=== PATIENT | male | born 1950 | race Caucasian/White ===

== ENCOUNTER 2023-11-16 17:11 | Inpatient (IN) | payer MEDICARE, BC, SELFPAY ==
[2023-11-16] VITALS (8 sets, daily range): BP systolic 131–176; BP diastolic 69–105; BMI 30.8; BMI 30.1
[2023-11-16 14:54] LABS: COVID-19 Antigen Negative (Negative)
[2023-11-16 14:55] LABS: % Basophils 0.1 % (0-2); % Eosinophils 0.2 % (0-6); % Immature Granulocytes 0.5 % (0-0.5); % Lymphocytes 3.2 % (20.5-51.1); % Monocytes 3.7 % (1.7-9.3); % Neutrophils 92.3 % (42.2-75.2); Absolute Immature Granulocytes 0.1 10^3/uL (0-0.05); Absolute Lymphocytes 0.5 10^3/uL (1.2-3.4); Absolute Monocytes 0.6 10^3/uL (0.1-0.6); Absolute Neutrophils 14.2 10^3/uL (1.4-6.5); Hematocrit 34.6 % (39.0-52.0); Hemoglobin 12.1 g/dL (13.0-18.0); Mean Corpuscular Volume 85.9 fL (80.0-94.0); Mean Platelet Volume 11.6 fL (7.4-10.4); Nucleated Red Blood Cells % 0 % (-); Platelet Count 129 10^3/uL (130-400); Red Blood Cell Count 4.03 10^6/uL (4.70-6.10); Red Cell Dist. Width 15.3 % (11.5-14.5); White Blood Cell Count 15.3 10^3/uL (4.8-10.8)
[2023-11-16 15:00] LABS: ALT (SGPT) 19 U/L (0-50); AST (SGOT) 25 U/L (17-59); Alkaline Phosphatase 189 U/L (38-126); Blood Urea Nitrogen 66 mg/dl (9-20); Calcium 8.2 mg/dl (8.4-10.2); Carbon Dioxide 19 mmol/L (22-30); Chloride 96 mmol/L (98-107); Estimated Creatinine Clearance 20 ml/min; Glucose 260 mg/dl (70-99); Sodium 132 mmol/L (135-145); Total Protein 5.5 g/dl (6.3-8.2); eGFR 15.15
--- NOTE | 2023-11-16 15:08 | ED.GENMED ---
History of Present Illness
General
Chief Complaint: Change in Mental Status
Source: patient
Exam Limitations: other (Patient appears confused poor historian)
Time Seen by Provider: 11/16/23 14:28
Nursing documentation reviewed up to this point in time: agreed with
Travel History
Have you had any contact with someone who has COVID-19?: No
Do you have any symptoms of coronavirus? Fever > 100 degrees, chills, cough, shortness of breath, sore throat, loss of taste or smell, muscle aches, or headache?: Yes
Symptoms:: core throat
History of Present Illness
History of Present Illness:
Patient is a 73-year-old male who was sent to the ER for evaluation of confusion and hallucinations as per . Pt is awake alert tells me 'I dont feel good.' When asked he does complain of cough intermittent fevers. Patient was brought by EMS.
I did attempt to call twice on the number provided however no answer.
Patient tells me he does have a history of stroke, diabetes. It is documented in prior visit from December 2022 the patient does have a history of chronic lumbar back pain.
Past History
Past History
ED Past Medical History: CVA, GERD, HTN, Hypercholesterolemia, IDDM and Hypothyroidism
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
Review of Systems
Review of Systems
Allergies reviewed?: Yes
All Other Systems: ROS reviewed and negative except as documented in HPI and ROS
Constitutional: Reports fever
EENT: Reports no symptoms
Respiratory: Reports cough; Denies trouble breathing
Cardiac: Reports no symptoms
ABD/GI: Reports no symptoms
: Reports no symptoms
Musculoskeletal: Reports no symptoms
Skin: Reports no symptoms
Neurological: Reports no symptoms
Endocrine: Reports no symptoms
Hematologic/Lymphatic: Reports no symptoms
Psychiatric: Reports no symptoms
Phy Exam
General Physical Exam
General Presentation: no apparent distress
General age: appears stated age
General Skin: warm and dry
General Habitus: normal
General Mental: alert
General Hydration: appears well hydrated
Cardiovascular Exam
Cardiovascular Exam: no murmur, normal peripheral pulses and tachycardia
Pulmonary Exam
Pulmonary Exam: lungs clear and no respiratory distress
Neurological Exam
Neurological Exam: alert and oriented x3
Galt Coma Scale
Eye Opening: Spontaneous
Verbal Response: Oriented
Motor Response: Obeys Commands
GCS Total Score: 15
Musculoskeletal Exam
Musculoskeletal Exam: full ROM
Skin Exam
Skin Exam: normal color and warm/dry
Psychiatric Exam
Psychiatric Exam: normal mood/affect
Course
Orders/Labs/Results
Orders:
Orders
11/16/23 14:16
EKG [Electrocardiogram (*1)] Stat
Reason for Study: Fatigue / Weakness
EKG- Treatment ONCE
11/16/23 14:28
COVID-19 Antigen Urgent
Source: Nasal Swab
Complete Blood Count/With Diff Urgent
Comprehensive Metabolic Panel Urgent
INF RAPID [Influenza A+B Rapid Molecular] Urgent
ERIN Source: Nasal Swab
Specimen Description:
11/16/23 15:13
Chest [CR Chest - 2 Views ] Urgent
Comment:
Reason For Exam: cough
11/16/23 16:15
Lactic Acid Q4H
Comment: CANCEL 2nd LACTIC ACID IF 1st LACTIC ACID IS LESS THAN 2
Blood Culture Q30M
ERIN Source: Blood/Venous
Specimen Description:
Azithromycin 500 mg/250 ml [Zithromax Infusion] 500 mg in 250 ml IV NOW
CefTRIAXone [Rocephin] 1,000 mg IV NOW STA
11/16/23 16:16
0.9% Sodium Chloride 500 ml [Nss] 500 ml IV BOLUS
11/16/23 16:45
Blood Culture Q30M
ERIN Source: Blood/Venous
Specimen Description:
11/16/23 20:15
Lactic Acid Q4H
Comment: CANCEL 2nd LACTIC ACID IF 1st LACTIC ACID IS LESS THAN 2
Abnormal Lab Results
11/16/23
14:28
WBC 15.3 H 10^3/uL
(4.8-10.8)
RBC 4.03 L 10^6/uL
(4.70-6.10)
Hgb 12.1 L g/dL
(13.0-18.0)
Hct 34.6 L %
(39.0-52.0)
RDW 15.3 H %
(11.5-14.5)
Plt Count 129 L 10^3/uL
(130-400)
MPV 11.6 H fL
(7.4-10.4)
Abs Immat Gran (auto) 0.1 H 10^3/uL
(0-0.05)
Absolute Neuts (auto) 14.2 H 10^3/uL
(1.4-6.5)
Absolute Lymphs (auto) 0.5 L 10^3/uL
(1.2-3.4)
Neutrophils % 92.3 H %
(42.2-75.2)
Lymphocytes % 3.2 L %
(20.5-51.1)
Sodium 132 L mmol/L
(135-145)
Chloride 96 L mmol/L
(98-107)
Carbon Dioxide 19 L mmol/L
(22-30)
BUN 66 H mg/dl
(9-20)
Creatinine 4.0 H mg/dL
(0.7-1.3)
Glucose 260 H mg/dl
(70-99)
Calcium 8.2 L mg/dl
(8.4-10.2)
Alkaline Phosphatase 189 H U/L
(38-126)
Total Protein 5.5 L g/dl
(6.3-8.2)
Albumin 3.0 L g/dl
(3.5-5.0)
11/16/23 14:28
11/16/23 14:28
Vital Signs
Initial and Last Documented VS:
Initial Vital Signs
Temp Pulse Resp BP Pulse Ox
97.6 F 95 16 131/69 95
11/16/23 14:19 11/16/23 14:19 11/16/23 14:19 11/16/23 14:19 11/16/23 14:19
Last Documented Vital Signs
Temp Pulse Resp BP Pulse Ox
97.6 F 95 16 131/69 95
11/16/23 14:19 11/16/23 14:19 11/16/23 14:19 11/16/23 14:19 11/16/23 14:19
MDM/Problems Addressed
Differential Diagnosis Includes:
Not limited to viral syndrome, influenza, COVID, pneumonia, dehydration
MDM/Problems Addressed:
Patient is a 73-year-old male who presented from home via EMS. EMS reported the patient was feeling sick for the past 4 days. reports patient was confused questionable hallucinations. Patient was awake alert he was initially mildly confused
however on reexam appears more oriented. Able to tell me that he has been sick for the past several days with cough fevers. Patient is afebrile however his white count is 15.3 will check lactic acid. His vitals are stable. He has an audible
cough and chest x-ray does show a left lower lobe pneumonia.
Patient is a diabetic creatinine is elevated at 4.0 which is new compared to 1.December; BUN 66 compared to 14 Jan 2020, this may be possibly a component of dehydration. Patient was given fluids. He is however diabetic. His sugar is 260 here.
Gap is 17. Will send blood cultures check lactic and order antibiotics. Patient require admission for renal insufficiency, pneumonia
Chronic conditions affecting care:
Patient reports history, patient is a diabetic hypertensive history
*Radiology
Radiology exam reviewed: radiology read reviewed (mod left lower lobe pneumonia)
*Pulse Oximetry
Patient hypoxic: no
*EKG
Comparison EKG: no comparison EKG present
Heart Rate: 101
Rate: tachycardiac
Rhythm: sinus
*Critical Care Note
Total Time (30-74mins, 75-104mins- exclusive of procedures): Not Applicable
ED Attending Note
-
Portions of this chart may have been created with voice recognition software.� Occasional wrong word or��sound alike� substitutions may have occurred due to the inherent limitations of voice recognition software.
Discharge Plan
Departure
Patient Disposition: Admit
Date of Disposition: 11/16/23
Time of Disposition: 16:22
Admit to: Med/Surg
Admit to doctor: hospitalist
Presentation/result/management discussed w/ accepting MD/DO: Hospitalist
Patient with high blood pressure during this ER visit?: Yes
Condition: Fair
Covid-19: Negative COVID-19
Discharge Problem:
Pneumonia, Acute kidney insufficiency
Prescriptions:
No Action
Aspir-81
81 mg PO DAILY
baclofen 10 mg Tablet
10 mg PO HS Qty: 0
pantoprazole 40 mg Tablet,Delayed Release (Dr/Ec)
40 mg PO DAILY Qty: 0
metformin 1,000 mg Tablet
1,000 mg PO BID Qty: 0
levothyroxine 150 mcg Tablet
150 mcg PO DAILY Qty: 0
valsartan 160 mg Tablet
160 mg PO BID Qty: 0
Colace
100 mg PO DAILY
caffeine
200 mg PO AMHS
melatonin
10 mg PO HS
amlodipine 10 mg Tablet
10 mg PO DAILY Qty: 0 0RF
carvedilol 12.5 mg tablet
12.5 mg PO BID
hydralazine 25 mg tablet
25 mg PO BID
albuterol sulfate 90 mcg/actuation HFA aerosol inhaler
2 puff INHALATION R Q6 PRN (Reason: sob/wheezing)
paroxetine HCl 40 mg tablet
40 mg PO DAILY
dextroamphetamine-amphetamine 15 mg capsule,extended release 24hr
15 mg PO DAILY
Patient Comments:
11/16/2023: last filled 11/15/23, 30 tabs for 30 days from [facility][id number]
Mounjaro 2.5 mg/0.5 mL pen injector
2.5 mg SC WEEKLY
tramadol 50 mg tablet
50 mg PO Q6H PRN (Reason: moderate pain)
Patient Comments:
11/16/2023: last filled 09/20/23, 120 tabs for 30 days from [facility][id number]
Referrals:
Tami Berry MD [Family Provider] -
Interventions
Interventions:
*Risk Screen - Suicide Last Done: 11/16/23 14:23
*General Assessment Last Done: 11/16/23 14:21
*Neglect/Abuse Screening Last Done: 11/16/23 14:23
*ED COVID-19 Vaccine History Last Done: 11/16/23 14:21
[2023-11-16 15:12] LABS: Potassium 3.5 mmol/L (3.5-5.1)
--- NOTE | 2023-11-16 16:27 | HPS.HSE ---
Addendum entered and electronically signed by Jose Meadows MD 11/16/23 17:34:
I saw and examined the patient.
The CAPACITY PLANNER or PA's note was reviewed and I agree with the note.
Comment: 73-year-old male with past medical history of diabetes, Graves' disease, GERD, hyperlipidemia, CVA, depression, chronic pain, ADD came to the hospital with change in mental status. Spoke with patient's spouse over the phone and she
reported that patient has been increasingly confused. After talking to patient further it does not appear the patient has had hallucination, it was more the patient had a dream last night. Patient does have cough. Chest x-ray with pneumonia.
COVID-negative. Check flu, Legionella, strep. empiric abx. Creatinine 4. Per no history of CKD. Check UA. Consult nephrology. Hold nephrotoxic agents. Elevated lactate. Trend
General: Well Developed, Well Nourished and No Apparent Distress
HEENT: NormoCephalic, Moist mucous membranes
Respiratory: CTA, no Wheezes and Rales
Cardiac: S1/S2 and Regular Rhythm
GI: Soft, Non Tender, Non Distended and Normal Bowel Sounds
Rectal: Deferred by Provider
Musculoskeletal: No Clubbing, No Cyanosis and No Edema
Neuro: AO x 3 and Nonfocal/grossly intact
Psych: Calm
I spent a total of 78 minutes with the patient or on the floor. More than 50% of this time involved counseling and coordination of care.
Original Note:
Family Physician
-
Family Physician: Tami Berry
Chief Complaint
-
generalized weakness
cough
History of Present Illness
73-year-old male with past medical history for CVA, GERD, hypertension, hyperlipidemia, type 2 diabetes, hypothyroidism presented to us with generalized weakness for 1 week. Patient stated nonproductive cough, short of breath which is worse with
exertional. Stated he had chills. Did not measure the temperature. Denied any abdominal pain or diarrhea but vomited few times. Patient took Mucinex, Tylenol, chlorhexidine but symptoms persisted. Patient denied any headache, syncopal episode.
Denied chest pain. Denied dysuria materia. His appetite is poor.
Patient on Mounjaro since 2022. Patient last 50 pounds.
Oxygenating 95 on room air. Chest x-ray with pneumonia. Patient received a dose of Zithromax and ceftriaxone in ER. Admitting for further management
Medical History
Past Medical History
Past Medical History: Reports Other
Additional Past Medical History:
CVA
spinal stenosis with herniated disc
GERD
Hypertension hyperlipidemia
Diabetes
Diabetic retinopathy
Graves disease
hypothyroidism
Overactive bladder
Chronic constipation
Muscle spasm
Anxiety
chronic pain
Past Surgical History: Reports Other
Additional Past Surgical History:
Appendectomy
Amputation of right second toe
Inguinal and inguinal hernia repair
Social History
Tobacco: Former Smoker
Alcohol: None
Drug: None
Personal:
Living: With Family
Family History
Family History: Not pertinent
Allergies / Home Medications
Allergies reflects when Allergies were last updated in [employer].
Home Medications with original date entered in [employer]
Allergy/Medication List:
Allergies
Allergy/AdvReac Type Severity Reaction Status Date / Time
No Known Allergies Allergy Unverified 01/17/23 15:56
Home Medications
aspirin 81 mg tablet,delayed release 81 mg PO DAILY Blood clot prevention/tx ##0 01/17/23
baclofen 10 mg tablet 10 mg PO BID Muscle spasms ##0 01/17/23
docusate sodium 100 mg capsule (Colace) 100 mg PO QPM Constipation ##0 01/17/23
levothyroxine 150 mcg tablet 150 mcg PO DAILY Thyroid ##0 01/17/23
metformin 1,000 mg tablet 1,000 mg PO BID Diabetes ##0 01/17/23
pantoprazole 40 mg tablet,delayed release 40 mg PO DAILY ##0 01/17/23
valsartan 160 mg tablet 160 mg PO BID Heart Failure ##0 01/17/23
albuterol sulfate 90 mcg/actuation aerosol inhaler 2 puff inhalation R Q6 PRN sob/wheezing 11/16/23
dextroamphetamine-amphetamine ER 15 mg 24hr capsule,extend release 15 mg PO DAILY 11/16/23
hydralazine 25 mg tablet 25 mg PO BID 11/16/23
insulin aspart U-100 100 unit/mL (3 mL) subcutaneous pen (Novolog FlexPen U-100 Insulin aspart) 15 unit SC MEALS 11/16/23
insulin degludec 100 unit/mL (3 mL) subcutaneous pen (Tresiba FlexTouch U-100 insulin) 40 unit SC DAILY 11/16/23
naproxen 500 mg tablet 500 mg PO BID PRN mild pain 11/16/23
paroxetine HCl 40 mg tablet 40 mg PO DAILY 11/16/23
tirzepatide 2.5 mg/0.5 mL subcutaneous pen injector (Mounjaro) 2.5 mg SC SA 11/16/23
tramadol 50 mg tablet 50 mg PO Q6H PRN moderate pain 11/16/23
Review of Systems
-
Constitutional: Reports Chills
EENT: Reports Runny Nose
Respiratory: Reports No Symptoms, Cough and Trouble Breathing
Cardiac: Reports No Symptoms
Abdomen/GI: Reports Vomiting
: Reports No Symptoms
Musculoskeletal: Reports No Symptoms
Skin: Reports No Symptoms
Neurological: Reports Weakness
Endocrine: Reports No Symptoms
Hematologic/Lymphatic: Reports No Symptoms
Psych: Reports No Symptoms
Physical Exam
Vital Signs
Vital Signs
Temp Pulse Resp BP Pulse Ox
97.6 F 95 16 131/69 95
11/16/23 14:19 11/16/23 14:19 11/16/23 14:19 11/16/23 14:19 11/16/23 14:19
Physical Exam
General: Well Developed, Well Nourished and No Apparent Distress
HEENT: NormoCephalic, Moist mucous membranes and Atraumatic
Respiratory: Wheezes and Rales
Cardiac: S1/S2 and Regular Rhythm; No Murmur or Rub
GI: Soft, Non Tender, Non Distended and Normal Bowel Sounds; No Organomegaly
Rectal: Deferred by Provider
Musculoskeletal: No Clubbing, No Cyanosis and No Edema
Skin: No Rash
Neuro: AO x 3 and Nonfocal/grossly intact
Psych: Calm
Laboratory Results
-
11/16/23 14:28
11/16/23 14:28
Laboratory Results
Total Bilirubin 1.0 mg/dl (0.2-1.3) 11/16/23 14:28
AST 25 U/L (17-59) 11/16/23 14:28
ALT 19 U/L (0-50) 11/16/23 14:28
Alkaline Phosphatase 189 U/L (38-126) H 11/16/23 14:28
Data Reviewed
-
Diagnostic Radiology: Report Reviewed by me
Lab Data: Labs Reviewed by me
Impression/Plan
-
# Cough, congestion, short of breath likely from LLL pneumonia
-wbc 15.3
-chest x ray with MODERATE LEFT LOWER LOBE PNEUMONIA.
-covid negative, flu negative
-Blood culture sent from ER
-IV ceftriaxone and azithromycin continued
-Tylenol as needed for fever or pain
-Mucinex for cough
-Nebs as needed for short of breath and wheezing
-Urine Legionella, strep pneumonia
-speech consulted
#thrombocytopenia likely from acute disease
-platelet 129
-no active bleeding
-ctm
#hyponatremia/acute kidney injury/metabolic acidosis likely from dehydration
-na 132, co2 19, BUN 66, CR 4.0
-Normal saline continued
-BMP in a.m.
-Urine lytes ordered
-Serum osmolality
#Sleep apnea
#HTN�benign
- hydralazine continued with hold parameters
-Hold losartan due to DEANN
#IDDM with hyperglycemia
-Blood sugar in 200s in ER
-Hold metformin due to acute kidney injury
-Hold Mounjaro
-Carb controlled diet
-Checks with SSI check HgbA1c
-Aspart 15 units with meals
-tresiba 40units daily
#Graves' disease
#Tx radioactive iodine 1983
-Continue with levothyroxine
#GERD
-Continue Protonix
#HLD
-cont� atorvastatin
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
-Continue aspirin
#Depression
-Continue Paxil
#Chronic pain lumbar stenosis / herniated discs lumbar
-Continue gabapentin, baclofen
-Hold tramadol due to DEANN
#Chronic constipation
-cont bowel softeners, monitor bowel movements
#ADD
-Patient on Adderall XR 15 mg daily
VTE prophylaxis
Subcu heparin
[2023-11-16] MEDS: NSS 500 IV (16:29)
[2023-11-16] MEDS: ZITHROMAX INFUSION 250 IV (16:34)
[2023-11-16 16:51] LABS: Lactic Acid 3.4 mmol/L (0.7-2.0)
[2023-11-16] MEDS: ROCEPHIN 1000 MG IV (18:19)
[2023-11-16 18:47] LABS: Urine Albumin 1+ (Neg - Trace); Urine Bilirubin Negative (Negative); Urine Character Clear (Clear); Urine Color Yellow; Urine Glucose 1+ (Negative); Urine Ketone Negative (Negative); Urine Leukocyte Trace (Negative); Urine Nitrite Negative (Negative); Urine Occult Blood Trace (Negative); Urine Specific Gravity 1.015 (<1.030); Urine Urobilinogen Negative (Neg - 1+)
[2023-11-16 18:52] LABS: Osmolality Urine 307 mOsm/kg (300-900)
[2023-11-16 18:54] LABS: Urine Squamous Cell 0-2 /LPF (Few)
[2023-11-16 18:55] LABS: Urine Red Blood Cell 0-2 /HPF (0-2)
[2023-11-16 19:11] LABS: Urine Sodium 57 mmol/L (30-90)
[2023-11-16 19:21] LABS: Osmolality Serum 305 mOsm/kg (275-300)
[2023-11-16 21:20] LABS: Lactic Acid 2.9 mmol/L (0.7-2.0)
[2023-11-16] MEDS: COLACE 100 MG PO (21:49)
[2023-11-16] MEDS: LIORESAL 10 MG PO (21:50)
[2023-11-16] MEDS: HEPARIN 5000 UNITS SC (21:50)
[2023-11-16] MEDS: MUCINEX 600 MG PO (21:50)
[2023-11-16] MEDS: APRESOLINE 25 MG PO (21:50)
[2023-11-16] MEDS: NSS 1000 IV (21:52)
[2023-11-16 22:02] LABS: Glucose - Point of Care 293 mg/dl (70-99)
[2023-11-16] MEDS: NOVOLOG FLEXPEN 15 UNITS SC (22:04)
--- NOTE | 2023-11-17 00:43 | PTCARENOTE ---
Received pt from ER @ 8505. Pt SUZETTE Cabello. Pt ambulatory in room with cane, R sided weakness 2/2 old stroke. Oriented to room, call santana and plan of care.
[2023-11-17] MEDS: SYNTHROID 150 MCG PO (07:30)
[2023-11-17 07:32] LABS: Glucose - Point of Care 189 mg/dl (70-99)
[2023-11-17 07:50] VITALS: BP 160/79
[2023-11-17] MEDS: NOVOLOG FLEXPEN 15 UNITS SC ×3 (08:30→17:37)
[2023-11-17] MEDS: LANTUS 0.400000000000000022 UNITS SC (08:30)
[2023-11-17] MEDS: HEPARIN 5000 UNITS SC ×2 (08:30→20:00)
[2023-11-17] MEDS: LIORESAL 10 MG PO ×2 (08:30→20:00)
[2023-11-17] MEDS: PAXIL 40 MG PO (08:30)
[2023-11-17] MEDS: ASPIR LOW (ENTERIC COATED) 81 MG PO (08:30)
[2023-11-17] MEDS: MUCINEX 600 MG PO ×2 (08:30→20:00)
[2023-11-17] MEDS: PROTONIX 40 MG PO (08:30)
[2023-11-17] MEDS: APRESOLINE 25 MG PO ×2 (08:30→20:00)
[2023-11-17] MEDS: NOVOLOG FLEXPEN-LOW RESISTANCE 1 UNITS SC ×2 (08:30→11:30)
[2023-11-17 08:38] LABS: Hematocrit 33.3 % (39.0-52.0); Hemoglobin 11.8 g/dL (13.0-18.0); Mean Corp Hgb Conc. 35.4 g/dL (33.0-37.0); Mean Corpuscular Hgb 30.3 pg (27.0-31.0); Mean Corpuscular Volume 85.4 fL (80.0-94.0); Platelet Count 108 10^3/uL (130-400); Red Cell Dist. Width 15.4 % (11.5-14.5); White Blood Cell Count 13.3 10^3/uL (4.8-10.8)
[2023-11-17 08:41] LABS: Lactic Acid 1.3 mmol/L (0.7-2.0)
[2023-11-17 09:06] LABS: Blood Urea Nitrogen 59 mg/dl (9-20); Calcium 7.5 mg/dl (8.4-10.2); Carbon Dioxide 20 mmol/L (22-30); Chloride 103 mmol/L (98-107); Estimated Creatinine Clearance 23 ml/min; Glucose 172 mg/dl (70-99); Potassium 3.7 mmol/L (3.5-5.1); Sodium 133 mmol/L (135-145); eGFR 18.41
--- NOTE | 2023-11-17 09:44 | PTOTSP ---
Speech Language Pathology
Pt seen for clinical bedside swallow evaluation. P.O. trials of puree, regular solids, and thin liquids provided. Adequate mastication, bolus formation, and A-P transit noted with no oral residue. Baseline intermittent wet voice noted with same
noted with P.O. trials. Pt complaining of B ear pain when swallowing. Significantly strained/breathy/hoarse vocal quality noted with frequent aphonia. Pt stated this is not his baseline.
Given current LLL PNA, dysphonia, and hx of CVA:
Recommend:
(1) VSE
(2) Regular solids/thin liquids pending VSE
(3) Aspiration precautions: sit upright, slow rate, set up assist with intermittent supervision
(4) Meds whole in puree
(5) IT ACCOUNT MANAGER to continue to follow
[2023-11-17 09:49] LABS: Glycohemoglobin (HgbA1c) 7.6 % (4.0-5.6)
[2023-11-17] MEDS: NSS 1000 IV ×2 (10:25→23:54)
[2023-11-17] MEDS: SYNTHROID PO (10:28)
[2023-11-17 11:26] LABS: Glucose - Point of Care 180 mg/dl (70-99)
[2023-11-17 11:43] VITALS: BP 132/63
--- NOTE | 2023-11-17 12:07 | W.PN.HOSP.TC ---
Today's Communication/Plan
-
Monitor vital signs and see plan
Urine strep antigen positive
Continue with antibiotics
Follow blood culture, ID consult
Monitor renal function
Called spouse, left voicemail
Assessment / Plan
Assessment / Plan
General: Well Developed, Well Nourished and No Apparent Distress
HEENT: NormoCephalic, Moist mucous membranes
Respiratory: CTA, no Wheezes and Rales
Cardiac: S1/S2 and Regular Rhythm
GI: Soft, Non Tender, Non Distended and Normal Bowel Sounds
Rectal: Deferred by Provider
Musculoskeletal: No Clubbing, No Cyanosis and No Edema
Neuro: AO x 2
Psych: Calm
Cough, congestion, short of breath likely from LLL pneumonia
Severe Sepsis (leukocytosis, tachycardia) 2/2 senia
Lactic acidosis, now resolved
-chest x ray with MODERATE LEFT LOWER LOBE PNEUMONIA.
-covid negative, flu negative; urine strep ag +
-Blood culture 1 bottle with gram-positive cocci; follow cx. check new sets 11/16
-cw ceftriaxone and azithromycin; ID consulted
-Tylenol as needed for fever or pain
-Mucinex for cough
-Nebs as needed for short of breath and wheezing
-speech following; ok for regular with thin; plan for VSE 11/17
#thrombocytopenia likely from acute disease
monitor
-no active bleeding
#hyponatremia/acute kidney injury/metabolic acidosis likely from dehydration and sepsis
cw gentle hydration
monitor creatinine; 3.4 today
avoid nephrotoxic agents
Nephrology consulted
TME 2/2 sepsis
monitor; slowly improving
#Sleep apnea
#HTN�benign
- hydralazine continued with hold parameters
-Hold losartan due to DEANN
#IDDM with hyperglycemia
-Blood sugar in 200s in ER
-Hold metformin due to acute kidney injury
-Hold Mounjaro
-Carb controlled diet
-Checks with SSI; HgbA1c 7.6
-Aspart 15 units with meals
-tresiba 40units daily
#Graves' disease
#Tx radioactive iodine 1983
-Continue with levothyroxine
#GERD
-Continue Protonix
#HLD
-cont� atorvastatin
#CVA 2019 with ataxia
-Continue� aspirin
#Depression
-Continue Paxil
#Chronic pain lumbar stenosis / herniated discs lumbar
-Continue gabapentin, baclofen
-Hold tramadol� due to DEANN
#Chronic constipation
-cont bowel softeners, monitor bowel movements
#ADD
-Patient on Adderall XR 15 mg daily
VTE prophylaxis
Subcu heparin
I spent a total of 52 minutes with the patient or on the floor. More than 50% of this time involved counseling and coordination of care.
Anticipated Discharge: > 48 hours
Subjective/Interval History
-
Date of Service: November 17, 2023
denies pain
Objective Data
-
Labs:
Laboratory Results
11/17/23
06:33
WBC 13.3 H
Hgb 11.8 L
Hct 33.3 L
Plt Count 108 L
Sodium 133 L
Potassium 3.7
Chloride 103
Carbon Dioxide 20 L
BUN 59 H
Creatinine 3.4 H
Glucose 172 H
Calcium 7.5 L
Vital Signs:
Vital Signs
Temp Pulse Resp BP Pulse Ox
98.3 F 86 18 132/63 96
11/17/23 11:43 11/17/23 11:43 11/17/23 11:43 11/17/23 11:43 11/17/23 11:43
I&O
11/16/23 11/17/23 11/18/23
06:59 06:59 06:59
Intake Total 840 / 840
Balance 840 / 840
--- NOTE | 2023-11-17 13:00 | HOSPNOTE ---
Spoke with spouse and just give information about hospice. The spouse just wanted information for the future if spouse needs hospice.
--- NOTE | 2023-11-17 13:36 | W.CON.NEPH ---
Consultation
-
Date/Time Consultation Requested: 11/16/23 1730
Date/Time Consultation Performed: 11/16/23 1330
Requesting Provider: Jose Velarde
Performing Provider: Mindy Dupree
Reason for Consultation: DEANN
Medical History
-
Chief Complaint: cough and gen weakness
History of Present Illness:
73-year-old male with past medical history for CVA, GERD on PPI, hypertension on ARB, hydralazine, , hyperlipidemia, type 2 diabetes on metformin and insulin, hypothyroidism on levothyroxine presented to ER on 11/15 with generalized weakness, cough
and sob for 1 week. Had chills, unclear if he had fever. He diagnosed with PNA and severe sepsis with L acidosis. Cr noted at 4 and prior baseline was 1 in december 2022. Pt is lethatgic during visit and unable to provide history. Most of the history
obtain ed from chart and nursing. Today his cr improving to 3.4 but UOP incontinent.
Reportedly Patient on Mounjaro since 2022.� Patient last 50 pounds. Med list noted for Naproxen.
Past Medical History
CVA
spinal stenosis with herniated disc
GERD
Hypertension hyperlipidemia
Diabetes
Diabetic retinopathy
Graves disease
hypothyroidism
Overactive bladder
Chronic constipation
Muscle spasm
Anxiety
chronic pain
Past Surgical History: Other (Appendectomy Amputation of right second toe Inguinal and inguinal hernia repair)
Social History
Tobacco: Former Smoker
Alcohol: None
Drug: None
Personal:
Living: With Family
Family History
pt lethargic
Family History: Unable to Obtain
Allergies / Home Medications
Allergy/AdvReac Type Severity Reaction Status Date / Time
No Known Allergies Allergy Unverified 01/17/23 15:56
Medication Instructions Recorded Confirmed Type
aspirin 81 mg tablet,delayed 81 mg PO DAILY Blood clot 01/17/23 11/16/23 History
release prevention/tx ##0
baclofen 10 mg tablet 10 mg PO BID Muscle spasms ##0 01/17/23 11/16/23 History
docusate sodium 100 mg capsule 100 mg PO QPM Constipation ##0 01/17/23 11/16/23 History
(Colace)
levothyroxine 150 mcg tablet 150 mcg PO DAILY Thyroid ##0 01/17/23 11/16/23 History
metformin 1,000 mg tablet 1,000 mg PO BID Diabetes ##0 01/17/23 11/16/23 History
pantoprazole 40 mg tablet,delayed 40 mg PO DAILY ##0 01/17/23 11/16/23 History
release
valsartan 160 mg tablet 160 mg PO BID Heart Failure ##0 01/17/23 11/16/23 History
albuterol sulfate 90 mcg/actuation 2 puff inhalation R Q6 PRN 11/16/23 11/16/23 History
aerosol inhaler sob/wheezing
dextroamphetamine-amphetamine ER 15 mg PO DAILY 11/16/23 11/16/23 History
15 mg 24hr capsule,extend release
hydralazine 25 mg tablet 25 mg PO BID 11/16/23 11/16/23 History
insulin aspart U-100 100 unit/mL 15 unit SC MEALS 11/16/23 11/16/23 History
(3 mL) subcutaneous pen (Novolog
FlexPen U-100 Insulin aspart)
insulin degludec 100 unit/mL (3 40 unit SC DAILY 11/16/23 11/16/23 History
mL) subcutaneous pen (Tresiba
FlexTouch U-100 insulin)
naproxen 500 mg tablet 500 mg PO BID PRN mild pain 11/16/23 11/16/23 History
paroxetine HCl 40 mg tablet 40 mg PO DAILY 11/16/23 11/16/23 History
tirzepatide 2.5 mg/0.5 mL 2.5 mg SC SA 11/16/23 11/16/23 History
subcutaneous pen injector
(Orly)
tramadol 50 mg tablet 50 mg PO Q6H PRN moderate pain 11/16/23 11/16/23 History
Review of Systems
-
unable to obtain since pt is lethargic
Physical Exam
Vital Signs
Vital Signs
Temp Pulse Resp BP Pulse Ox
98.3 F 86 18 132/63 96
11/17/23 11:43 11/17/23 11:43 11/17/23 11:43 11/17/23 11:43 11/17/23 11:43
Lab Results
WBC 13.3 10^3/uL (4.8-10.8) H 11/17/23 06:33
RBC 3.90 10^6/uL (4.70-6.10) L 11/17/23 06:33
Hgb 11.8 g/dL (13.0-18.0) L 11/17/23 06:33
Hct 33.3 % (39.0-52.0) L 11/17/23 06:33
Plt Count 108 10^3/uL (130-400) L 11/17/23 06:33
Sodium 133 mmol/L (135-145) L 11/17/23 06:33
Potassium 3.7 mmol/L (3.5-5.1) 11/17/23 06:33
Chloride 103 mmol/L (98-107) 11/17/23 06:33
Carbon Dioxide 20 mmol/L (22-30) L 11/17/23 06:33
BUN 59 mg/dl (9-20) H 11/17/23 06:33
Creatinine 3.4 mg/dL (0.7-1.3) H 11/17/23 06:33
eGFR 18.41 11/17/23 06:33
Glucose 172 mg/dl (70-99) H 11/17/23 06:33
Calcium 7.5 mg/dl (8.4-10.2) L 11/17/23 06:33
Albumin 3.0 g/dl (3.5-5.0) L 11/16/23 14:28
CXR:11/16/23:
PROCEDURE: CR Chest - 2 Views
CLINICAL INDICATION: Cough and confusion for 4 days.
PA� and lateral views of the chest were obtained. Comparison is made with a prior radiographic examination of the chest performed 01/17/2023.
FINDINGS:
There is a moderate-sized dense airspace consolidation in the posterior and lateral basilar segments left lower lobe consistent with moderate left lower lobe pneumonia.
There is mild airspace opacity in the posterior basilar segment of the right lower lobe. There is no radiographic evidence for pleural effusion. There is mild biapical pleural thickening. There is no radiographic evidence for pneumothorax. The
trachea is midline. The lung volumes are mildly decreased bilaterally.
The heart size and pulmonary vasculature appears within normal limits. There is no evidence for acute pulmonary edema.
There is mild to moderate bilateral osteoarthritis of the glenohumeral joints. There is mild multilevel discogenic degenerative disease in the thoracic spine.
There is no radiographic evidence for pneumoperitoneum or abnormal bowel dilatation in the upper abdomen.
IMPRESSION:
MODERATE LEFT LOWER LOBE PNEUMONIA.
Physical Exam
General: No Distress and Other (lethargic)
HEENT: EOMI
Respiratory: Nonlabored Respirations and Other (decreased bilat)
Cardiac: S1/S2 and Regular Rate/Rhythm
Abdomen: Soft, Nontender and Nondistended
Musculoskeletal: No Cyanosis and No Edema
Skin: No Rash
Neuro: Other (right hemiparesis from old CVA)
Psych: Other (unable to asess)
Assessment/Plan
-
IMP:
DEANN-baseline cr 1 in 12/2022
LLL pneumonia-sterp pneumo
Severe Sepsis (leukocytosis, tachycardia) 2/2 senia
bacteremia GPC
Lactic acidosis, now resolved
thrombocytopenia likely from acute disease
hyponatremia
Mild gap metabolic acidosis
TME 2/2 sepsis
Sleep apnea
HTN�benign
IDDM with hyperglycemia
Graves' disease-Tx radioactive iodine 1983
GERD
HLD
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
Depression
Chronic pain lumbar stenosis / herniated discs lumbar
Chronic constipation
ADD
Plan:
A/w PNA and sepsis noted DEANN
DEANN likely ATN from sepsis, Fena is high
UA relatively bland, trace bld, leuc but no RBC or WBC, 1+alb
follow bladder scan, monitor UOP
cr improving with IVF, check renal US
given that strep pneumo+ve , check ASO titer
met acidosis improving cotn NS, if worsens change to bicarb
BP are stbale, hold ARB
avoid nephrotoxins metformin, NSAIDs
abx per primary, ID consulted
labs in am
Data Reviewed
-
Radiology: Image Personally Visualized and interpreted and Report Reviewed by me
Labs: Labs Reviewed by me and Discussed with Nurse
--- NOTE | 2023-11-17 15:42 | CON.ID ---
Consultation
-
Date/Time Consultation Requested: 11/17/23 12:10
Date/Time Consultation Performed: 11/17/23 15:42
Requesting Provider: Dr Meadows
Performing Provider: Dr Patel
Reason for Consultation: pneumonia, strep bacteremia
Chief Complaint / Past History
Chief Complaint
cough, weakness
History of Present Illness
Mr Estrada is a 73 year old male with history of Dm2 hwo presented here 11/15 for cough x1 week with weakness, progression dyspnea on exertion, chills. Didnt take his temperature. + vomiting without abdominal pain. No: headaches, syncope, chest
pain, dysuria.
Has intentionally lost 50 lbs on mounjaro since 08/21.
Since arrival here he has been afebrile, bp stable, saturating well on room air, wbc initially 15 now 13, hgb 11.8, plt 108, L shift noted on arrival, cr baseline 1.0 was 4.0 on arrival now 3.4, lactic acid initially 3.4 now 1.3, t bili 1.0, ast 25,
alt 19, alk phos 189, ua no pyuria, covid ag neg, a renal US is done but not yet read, CXR: LLL pneumonia; my read + spine sign suggesting retrocardiac opacity. Currently on ceftiaxone and azithromycin. Blood culture with strep and urine strep ag
positive
Past History
Additional Past Medical History:
CVA
spinal stenosis with herniated disc
GERD
Hypertension hyperlipidemia
Diabetes
Diabetic retinopathy
Graves disease
hypothyroidism
Overactive bladder
Chronic constipation
Muscle spasm
Anxiety
chronic pain
Additional Past Surgical History:
Appendectomy
Amputation of right second toe
Inguinal and inguinal hernia repair
Allergy History:
No Known Allergies Allergy (Unverified 01/17/23 15:56)
Medications Reviewed: Yes
Social History
Tobacco: Former Smoker
Alcohol: None
Drug: None
Family History
Family History: Not Pertinent
Review of Systems
Review of Systems
General: Chills; Negative Fever
All systems: All other systems were reviewed and were negative
Vital Signs
Temp Pulse Resp BP Pulse Ox
98.3 F 86 18 132/63 96
11/17/23 11:43 11/17/23 11:43 11/17/23 11:43 11/17/23 11:43 11/17/23 11:43
Physical Exam
Physical Exam
Constitutional: No Acute Distress and Obese
Cardiovascular: Regular Rate and S1/S2; Negative Murmur or Rub
Pulmonary: Clear and Symmetric; Negative Wheezes, Rales or Rhonchi
Gastrointestinal: Soft, Non Tender, Non Distended and Normal Bowel Sounds
Skin: Warm and Dry; Negative Rash or Jaundice
Lab / Diagnostic Study Results
11/17/23 06:33
11/17/23 06:33
Abs Immat Gran (auto) 0.1 10^3/uL (0-0.05) H 11/16/23 14:28
Absolute Neuts (auto) 14.2 10^3/uL (1.4-6.5) H 11/16/23 14:28
Absolute Lymphs (auto) 0.5 10^3/uL (1.2-3.4) L 11/16/23 14:28
Absolute Monos (auto) 0.6 10^3/uL (0.1-0.6) 11/16/23 14:28
Absolute Basos (auto) 0.0 10^3/uL (0-0.2) 11/16/23 14:28
Immature Gran % 0.5 % (0-0.5) 11/16/23 14:28
Neutrophils % 92.3 % (42.2-75.2) H 11/16/23 14:28
Lymphocytes % 3.2 % (20.5-51.1) L 11/16/23 14:28
Monocytes % 3.7 % (1.7-9.3) 11/16/23 14:28
Eosinophils % 0.2 % (0-6) 11/16/23 14:28
Basophils % 0.1 % (0-2) 11/16/23 14:28
Lactic Acid 1.3 mmol/L (0.7-2.0) 11/17/23 08:20
Ur Squamous Epith Cells 0-2 /LPF (Few) 11/16/23 18:31
Microbiology Results
Micro:
11/17/23 13:19 Blood Culture - Pending
Blood/Venous
11/17/23 12:56 Blood Culture - Pending
Blood/Venous
11/16/23 16:27 Blood Culture - Preliminary
Blood/Venous Positive culture in progress
Gram Stain - Preliminary
11/16/23 18:31 Legionella Urinary Antigen - Final
Urine Negative for Legionella pneumophila Serogroup 1 antigen.
A negative result does not rule out the possiblity of
Legionella infection due to other serogroups or species of
Legionella. Clinical correlation is recommended.
Streptococcus pneumoniae Antigen (M - Final
Positive for Strep pneumo Ag
11/16/23 16:27 Blood Culture - Pending
Blood/Venous
11/16/23 14:28 Influenza Types A & B (TERRIE) - Final
Nasal Swab Negative for Influenza A & B, NAAT
Negative results must be combined with clinical observations
and patient history.
Nucleic Acid Amplification test (NAAT)performed on the
[employer] platform.
Assessment / Plan
Strep Pneumoniae Pneumonia
S Pneumoniae bacteremia
DEANN
Dm2 - fair control
- repeat blood cultures x2 are in progress
- urine ag +
- increase ceftriaxone dose to 2 gm IV q24 hrs; stop azithromycin
- is already about 24 hours into effective Rx no need for droplet precautions at this point in my opinion
- renal US is pending
- Dm2 with fair control
- follow clinically
[2023-11-17 16:15] VITALS: BP 145/82
--- NOTE | 2023-11-17 16:41 | CM ---
client experience manager reviewed patient's chart and patient has been sleeping most of the day and is currently off the floor for testing, patient lives with spouse in a one story home with one step to enter, supervisor case loading left a message for patient's spouse to
review discharge planning needs for patient.
Pharmacy [facility]
PCP: Dr. Berry
Plan; Message left for patient's spouse to review discharge plans.
[2023-11-17 17:06] LABS: Glucose - Point of Care 247 mg/dl (70-99)
[2023-11-17] MEDS: NOVOLOG FLEXPEN-LOW RESISTANCE 2 UNITS SC (17:36)
[2023-11-17] MEDS: COLACE 100 MG PO (17:36)
[2023-11-17] MEDS: ROCEPHIN 2000 MG IV (17:53)
[2023-11-17] MEDS: STERILE WATER FOR INJECTION 20 ML IV (17:53)
[2023-11-17 19:48] VITALS: BP 175/86
[2023-11-17 21:11] LABS: Glucose - Point of Care 66 mg/dl (70-99)
[2023-11-17] MEDS: DEXTROSE 50% SYRINGE 12.5 GRAMS IV (21:14)
[2023-11-17 21:41] LABS: Glucose - Point of Care 96 mg/dl (70-99)
[2023-11-17 23:01] LABS: Glucose - Point of Care 105 mg/dl (70-99)
[2023-11-17 23:16] VITALS: BP 177/98
[2023-11-17] MEDS: LOPRESSOR 5 MG IV (23:20)
[2023-11-18 01:08] LABS: Glucose - Point of Care 137 mg/dl (70-99)
[2023-11-18 03:22] LABS: Glucose - Point of Care 130 mg/dl (70-99)
[2023-11-18 03:26] VITALS: BP 185/104
[2023-11-18] MEDS: APRESOLINE 5 MG IV (03:40)
[2023-11-18] MEDS: SYNTHROID 150 MCG PO (05:08)
[2023-11-18] MEDS: LOPRESSOR 5 MG IV ×2 (05:08→14:47)
[2023-11-18 07:42] VITALS: BP 193/105
[2023-11-18 07:55] LABS: Glucose - Point of Care 113 mg/dl (70-99)
[2023-11-18] MEDS: NOVOLOG FLEXPEN-LOW RESISTANCE SC ×2 (08:18→16:59)
[2023-11-18] MEDS: ASPIR LOW (ENTERIC COATED) 81 MG PO (08:19)
[2023-11-18] MEDS: PROTONIX 40 MG PO (08:19)
[2023-11-18] MEDS: MUCINEX 600 MG PO ×2 (08:20→19:59)
[2023-11-18] MEDS: LIORESAL 10 MG PO ×2 (08:20→19:59)
[2023-11-18] MEDS: APRESOLINE 25 MG PO ×2 (08:20→19:59)
[2023-11-18] MEDS: HEPARIN 5000 UNITS SC ×2 (08:21→19:59)
[2023-11-18] MEDS: PAXIL 40 MG PO (08:21)
[2023-11-18] MEDS: LANTUS 0.400000000000000022 UNITS SC (08:22)
[2023-11-18] MEDS: NOVOLOG FLEXPEN 15 UNITS SC ×3 (08:23→16:59)
[2023-11-18 08:59] LABS: Hematocrit 33.9 % (39.0-52.0); Hemoglobin 11.8 g/dL (13.0-18.0); Mean Corp Hgb Conc. 34.8 g/dL (33.0-37.0); Mean Corpuscular Hgb 30.1 pg (27.0-31.0); Mean Corpuscular Volume 86.5 fL (80.0-94.0); Red Blood Cell Count 3.92 10^6/uL (4.70-6.10); Red Cell Dist. Width 15.7 % (11.5-14.5); White Blood Cell Count 10.6 10^3/uL (4.8-10.8)
[2023-11-18 09:20] LABS: Mean Platelet Volume 12.8 fL (7.4-10.4); Platelet Count 131 10^3/uL (130-400)
[2023-11-18 10:03] LABS: Blood Urea Nitrogen 53 mg/dl (9-20); Calcium 7.9 mg/dl (8.4-10.2); Carbon Dioxide 19 mmol/L (22-30); Chloride 111 mmol/L (98-107); Estimated Creatinine Clearance 28 ml/min; Glucose 120 mg/dl (70-99); Potassium 3.5 mmol/L (3.5-5.1); Sodium 138 mmol/L (135-145); eGFR 23.24
--- NOTE | 2023-11-18 10:56 | W.PN.HOSP.TC ---
Today's Communication/Plan
-
see bold
Assessment / Plan
Assessment / Plan
Gen: NAD, Awake and alert
Eyes: EOMI, PERRLA, no scleral icterus.
Neck: supple.
CV: RRR, +S1/S2, no m/r/g.
Resp: CTAB, no rales, wheezes, or rhonchi.
Abd: +BS, soft, NT, ND
Skin: No rashes.
Neuro: CN 2-12 intact, non-focal.
Psych: Normal mood and affect.
11/16/23 16:27 Blood/Venous Blood Culture - Preliminary
Streptococcus pneumoniae
11/16/23 16:27 Blood/Venous Gram Stain - Preliminary
11/16/23 16:27 Blood/Venous Blood Culture - Preliminary
No Growth in 24 hours- Final report to follow
11/16/23 18:31 Urine Legionella Urinary Antigen - Final
Negative for Legionella pneumophila Serogroup 1 antigen.
A negative result does not rule out the possiblity of
Legionella infection due to other serogroups or species of
Legionella. Clinical correlation is recommended.
11/16/23 18:31 Urine Streptococcus pneumoniae Antigen (M - Final
Positive for Strep pneumo Ag
11/16/23 14:28 Nasal Swab Influenza Types A & B (TERRIE) - Final
Negative for Influenza A & B, NAAT
Negative results must be combined with clinical observations
and patient history.
Nucleic Acid Amplification test (NAAT)performed on the
[employer] platform.
CXR: Moderate left lower lobe pneumonia
Renal U/S:
1. � Mild to moderate chronic bilateral renal disease.
2. � No sonographic evidence for hydronephrosis or nephrolithiasis.
Severe sepsis and acute metabolic encephalopathy due to LLL pneumonia:
-Lactic acidosis, resolved
-chest x ray with MODERATE LEFT LOWER LOBE PNEUMONIA.
-COVID/Flu NEG, urine strep Ag+, BCx with strep pneumo, follow repeat BCxs
-cont Rocephin as per ID
-VSE today
-thrombocytopenia was likely consumptive from acute disease, resolved
DEANN:
-and hyponatremia and metabolic acidosis
-due to ATN from sepsis
-FeNa high
-renal U/S above
-cont IVFs with bicarb
Other problems:
ALICIA
Essential HTN: Cont Hydralazine, home ARB on hold with DEANN
DM2: holding Metformin/Mounjaro. a1c 7.6%. SSI/accuchecks. Cont Lantus/premeal Novolog.
Graves' disease with h/o radioactive iodine 1983: cont levothyroxine
GERD: Continue Protonix
HLD: cont statin
h/o CVA 2019: cont ASA/statin
Depression: Continue Paxil
Chronic pain lumbar stenosis/herniated lumbar discs: cont gabapentin/baclofen. Holding home Tramadol with DEANN.
Chronic constipation: cont bowel regimen
ADD: Cont Adderall
FULL/heparin
Anticipated Discharge: > 48 hours
Subjective/Interval History
-
Date of Service: November 18, 2023
Pt does not offer acute complaints.
Objective Data
-
Labs:
Laboratory Results
11/18/23
06:40
WBC 10.6
Hgb 11.8 L
Hct 33.9 L
Plt Count 131 D
Sodium 138
Potassium 3.5
Chloride 111 H
Carbon Dioxide 19 L
BUN 53 H
Creatinine 2.8 H
Glucose 120 H
Calcium 7.9 L
Vital Signs:
Vital Signs
Temp Pulse Resp BP Pulse Ox
97.8 F 91 20 173/84 95
11/18/23 03:26 11/18/23 05:08 11/18/23 03:26 11/18/23 05:08 11/18/23 03:26
I&O
11/17/23 11/18/23 11/19/23
06:59 06:59 06:59
Intake Total 840 / 840 600 / 600
Balance 840 / 840 600 / 600
[2023-11-18 11:26] LABS: Anti Streptolysin Negative (Negative)
[2023-11-18 12:03] LABS: Glucose - Point of Care 222 mg/dl (70-99)
[2023-11-18] MEDS: NOVOLOG FLEXPEN-LOW RESISTANCE 2 UNITS SC (12:05)
[2023-11-18] MEDS: SODIUM BICARBONATE 1075 MEQ IV (12:19)
--- NOTE | 2023-11-18 12:34 | PTOTSP ---
Video Swallow Study
Patient presents with mild oral and pharyngeal stages of swallowing. Etiology of dysphagia is suspected to be cognitive changes from acute illness (encephalopathic per chart review) in combination with PMH of prior CVA.
With consecutive drinking (no break) with thin liquids via cup there was deep laryngeal penetration which did not fully clear with a spontaneous throat clear. With straw there was upper penetration which did not fully clear. No aspiration
occurred. Please see patient care note for full details of swallowing physiology.
Recommend:
1. Regular, Thin Liquids via SINGLE CUP SIPS
2. Medications - in puree, crushed if able
3. SUPERVISION (given AMS) and assist as needed
4. Strategies: upright to 90 degrees, small SINGLE sips/bites, slow rate, ensure patient clears oral cavity/check for pocketing, remain upright for 30 minutes after meals as a reflux precaution
5. Oral care 3x day and after meals as needed
6. Dysphagia tx for instruction in compensations and therapeutic assessment/diet modification as needed.
--- NOTE | 2023-11-18 14:30 | PTCARENOTE ---
Addendum entered by Kari Funk RN 11/18/23 15:31:
11/17- Patient more awake at this time. He is able to eat ~60% of lunch with assistance without issue.
Original Note:
11/17- Increased lethargy; patient did not eat lunch today d/t lethargy. Patient is awakable by tactile stimulation. He is AAOX2 with slow but appropriate responses BP elevated at 203/118. Began Neuro checks. Pupils are equal/reactive at 2mm BL;
Patient unable to perform the hand strength or foot strength checks d/t lethargy. PRN IV Lopressor administered as ordered. Physician notified. Will continue to monitor.
--- NOTE | 2023-11-18 15:13 | W.PN.NEPH.PH ---
Today's Communication / Plan
-
adjust IVF to bicarb
po kcl
Procardia for HTN
Assessment/Plan
-
IMP:
DEANN-baseline cr 1 in 12/2022
LLL pneumonia-sterp pneumo
Severe Sepsis (leukocytosis, tachycardia) 2/2 senia
bacteremia GPC
Lactic acidosis, now resolved
thrombocytopenia likely from acute disease
hyponatremia
Mild gap metabolic acidosis
TME 2/2 sepsis
Sleep apnea
HTN�benign
IDDM with hyperglycemia
Graves' disease-Tx radioactive iodine 1983
GERD
HLD
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
Depression
Chronic pain lumbar stenosis / herniated discs lumbar
Chronic constipation
ADD
Plan:
A/w PNA and sepsis noted DEANN
DEANN likely ATN from sepsis, Fena is high
UA relatively bland, trace bld, leuc but no RBC or WBC, 1+alb
follow bladder scan, monitor UOP
cr improving with IVF, renal US shows MRD changes and no hydro
given that strep pneumo+ve , checked ASO titer-negative
met acidosis change IVF to 1/2NS with bicarb
BP are increasing 200 range , cont hydralazine, add procardia
avoid nephrotoxins metformin, NSAIDs
abx per ID
labs in am
-
-
Date of Service: November 18, 2023
CC / HPI / ROS
-
Chief Complaint:
DEANN
History of Present Illness:
cr down to 2.8, U incontinence
BP increasing to 200 range
no fever and on RA
Review of Systems:
unable to obtain lethargic answer
no n/v, had his breakfast
Labs
-
Labs:
WBC 10.6 10^3/uL (4.8-10.8) 11/18/23 06:40
RBC 3.92 10^6/uL (4.70-6.10) L 11/18/23 06:40
Hgb 11.8 g/dL (13.0-18.0) L 11/18/23 06:40
Hct 33.9 % (39.0-52.0) L 11/18/23 06:40
Plt Count 131 10^3/uL (130-400) D 11/18/23 06:40
Sodium 138 mmol/L (135-145) 11/18/23 06:40
Potassium 3.5 mmol/L (3.5-5.1) 11/18/23 06:40
Chloride 111 mmol/L (98-107) H 11/18/23 06:40
Carbon Dioxide 19 mmol/L (22-30) L 11/18/23 06:40
BUN 53 mg/dl (9-20) H 11/18/23 06:40
Creatinine 2.8 mg/dL (0.7-1.3) H 11/18/23 06:40
eGFR 23.24 11/18/23 06:40
Glucose 120 mg/dl (70-99) H 11/18/23 06:40
Calcium 7.9 mg/dl (8.4-10.2) L 11/18/23 06:40
Albumin 3.0 g/dl (3.5-5.0) L 11/16/23 14:28
Physical Exam
-
Vital Signs:
Vital Signs
Temp Pulse Resp BP Pulse Ox
97.6 F 88 18 202/113 97
11/18/23 07:42 11/18/23 14:47 11/18/23 07:42 11/18/23 14:47 11/18/23 08:25
Cardiovascular:: Regular rate and rhythm
Lung Excursion:: Normal (decreased, shallow breathing)
Abdomen:: Nontender and Soft
Extremity Edema:: None: Bilateral:
Andersen Catheter: No
[2023-11-18 15:35] VITALS: BP 195/115
[2023-11-18] MEDS: PROCARDIA XL (EXTENDED RELEASE) 30 MG PO (15:45)
[2023-11-18] MEDS: KCL 20 MEQ PO (15:45)
[2023-11-18] MEDS: STERILE WATER FOR INJECTION 20 ML IV (15:47)
[2023-11-18] MEDS: ROCEPHIN 2000 MG IV (15:48)
[2023-11-18 16:25] VITALS: BP 143/71
--- NOTE | 2023-11-18 16:45 | CM ---
air battle manager spoke with patient's spouse and per spouse patient was independent with adl's and ambulation, patient was seen by hospice and patient's spoke spoke with hospice and they do not feel patient is appropriate for hospice per patient's
spouse.
Plan; To follow with progress and assist with discharge planning.
[2023-11-18 16:59] LABS: Glucose - Point of Care 102 mg/dl (70-99)
[2023-11-18] MEDS: COLACE 100 MG PO (17:00)
--- NOTE | 2023-11-18 17:09 | W.PN.ID1 ---
Date of Service
Date of Service: November 18, 2023
Today's Communication
- continue ceftriaxone while pending sensitivities
Assessment / Plan
Strep Pneumoniae Pneumonia
S Pneumoniae bacteremia
DEANN
Dm2 - fair control
- repeat blood cultures x2 are in progress - no growth to date
- urine ag +
- continue ceftriaxone while pending sensitivities
- follow clinically
Chief Complaint
-: Pneumonia and Bacteremia
Subjective / Review of Systems
afebrile
bp stable
remains on room air
leukocytosis resolved
cr stable
repeat blood cultures no growth to date
more alert today
Vital Signs / Physical Exam
Vital Signs
Vital Signs
Temp Pulse Resp BP Pulse Ox
98.4 F 95 14 143/71 94
11/18/23 16:25 11/18/23 16:25 11/18/23 16:25 11/18/23 16:25 11/18/23 16:25
Physical Exam
Constitutional: No Acute Distress and Chronically Ill
Cardiovascular: Regular Rate and S1/S2; Negative Murmur or Rub
Pulmonary: Clear and Symmetric; Negative Wheezes or Rales
Gastrointestinal: Soft, Non Tender, Non Distended and Normal Bowel Sounds
Skin: Warm and Dry; Negative Rash or Jaundice
Objective Data
Lab Data
Lab Results
11/18/23 06:40
11/18/23 06:40
Estimated Creat Clear 28 ml/min 11/18/23 06:40
Lactic Acid 1.3 mmol/L (0.7-2.0) 11/17/23 08:20
Total Bilirubin 1.0 mg/dl (0.2-1.3) 11/16/23 14:28
AST 25 U/L (17-59) 11/16/23 14:28
ALT 19 U/L (0-50) 11/16/23 14:28
Alkaline Phosphatase 189 U/L (38-126) H 11/16/23 14:28
Most recent labs reviewed.
Micro Results:
11/16/23 16:27 Blood Culture - Preliminary
Blood/Venous No Growth in 48 hours- Final report to follow
11/17/23 13:19 Blood Culture - Preliminary
Blood/Venous No Growth in 24 hours- Final report to follow
11/17/23 12:56 Blood Culture - Preliminary
Blood/Venous No Growth in 24 hours- Final report to follow
11/16/23 16:27 Blood Culture - Preliminary
Blood/Venous Streptococcus pneumoniae
Gram Stain - Preliminary
11/16/23 18:31 Legionella Urinary Antigen - Final
Urine Negative for Legionella pneumophila Serogroup 1 antigen.
A negative result does not rule out the possiblity of
Legionella infection due to other serogroups or species of
Legionella. Clinical correlation is recommended.
Streptococcus pneumoniae Antigen (M - Final
Positive for Strep pneumo Ag
11/16/23 14:28 Influenza Types A & B (TERRIE) - Final
Nasal Swab Negative for Influenza A & B, NAAT
Negative results must be combined with clinical observations
and patient history.
Nucleic Acid Amplification test (NAAT)performed on the
[employer] platform.
--- NOTE | 2023-11-18 17:30 | PTCARENOTE ---
11/17- Spouse brought in Patient's own Amphetamine salts ER 15mg cap PO DAILY. This RN counted the meds with Pharmacy- counted 30. This RN brought meds and locked the pill bottle with 30 pills in the lock drawer with documentation from pharmacy.
MAR updated that this med was not given d/t not being presented here until this evening. Medication to begin being administered tomorrow am as ordered.
[2023-11-18 17:59] LABS: Glucose - Point of Care 104 mg/dl (70-99)
[2023-11-18] MEDS: NON-FORMULARY ITEM PO ×2 (18:05)
[2023-11-18 19:42] VITALS: BP 124/60
[2023-11-18 21:42] LABS: Glucose - Point of Care 157 mg/dl (70-99)
[2023-11-18 23:35] VITALS: BP 143/82
[2023-11-19] VITALS (7 sets, daily range): BP systolic 105–184; BP diastolic 53–102; PULSE 78; O2SAT 93
[2023-11-19] MEDS: SYNTHROID 150 MCG PO (06:18)
[2023-11-19] MEDS: SODIUM BICARBONATE 1075 MEQ IV (06:30)
[2023-11-19 07:49] LABS: Glucose - Point of Care 138 mg/dl (70-99)
[2023-11-19] MEDS: NOVOLOG FLEXPEN-LOW RESISTANCE SC ×2 (07:55→16:38)
[2023-11-19] MEDS: ASPIR LOW (ENTERIC COATED) 81 MG PO (08:28)
[2023-11-19] MEDS: LANTUS 0.400000000000000022 UNITS SC (08:28)
[2023-11-19] MEDS: PAXIL 40 MG PO (08:28)
[2023-11-19] MEDS: MUCINEX 600 MG PO ×2 (08:29→20:57)
[2023-11-19] MEDS: LIORESAL 10 MG PO ×2 (08:29→20:56)
[2023-11-19] MEDS: APRESOLINE 25 MG PO ×2 (08:29→20:55)
[2023-11-19] MEDS: PROCARDIA XL (EXTENDED RELEASE) 30 MG PO ×2 (08:29→20:57)
[2023-11-19] MEDS: NON-FORMULARY ITEM 15 MG PO (08:30)
[2023-11-19] MEDS: HEPARIN 5000 UNITS SC ×2 (08:43→20:52)
[2023-11-19] MEDS: PROTONIX 40 MG PO (08:43)
[2023-11-19] MEDS: NOVOLOG FLEXPEN 15 UNITS SC ×2 (09:31→13:52)
--- NOTE | 2023-11-19 09:39 | W.PN.HOSP.TC ---
Today's Communication/Plan
-
see bold
Assessment / Plan
Assessment / Plan
Gen: NAD, Awake and alert
Eyes: EOMI, PERRLA, no scleral icterus.
Neck: supple.
CV: RRR, +S1/S2, no m/r/g.
Resp: CTAB, no rales, wheezes, or rhonchi.
Abd: +BS, soft, NT, ND
Skin: No rashes.
Neuro: CN 2-12 intact, non-focal.
Psych: Normal mood and affect.
11/16/23 16:27 Blood/Venous Blood Culture - Preliminary
Streptococcus pneumoniae
11/16/23 16:27 Blood/Venous Gram Stain - Preliminary
11/16/23 16:27 Blood/Venous Blood Culture - Preliminary
No Growth in 48 hours- Final report to follow
11/17/23 13:19 Blood/Venous Blood Culture - Preliminary
No Growth in 24 hours- Final report to follow
11/17/23 12:56 Blood/Venous Blood Culture - Preliminary
No Growth in 24 hours- Final report to follow
11/16/23 18:31 Urine Legionella Urinary Antigen - Final
Negative for Legionella pneumophila Serogroup 1 antigen.
A negative result does not rule out the possiblity of
Legionella infection due to other serogroups or species of
Legionella. Clinical correlation is recommended.
11/16/23 18:31 Urine Streptococcus pneumoniae Antigen (M - Final
Positive for Strep pneumo Ag
11/16/23 14:28 Nasal Swab Influenza Types A & B (TERRIE) - Final
Negative for Influenza A & B, NAAT
Negative results must be combined with clinical observations
and patient history.
Nucleic Acid Amplification test (NAAT)performed on the
[employer] platform.
CXR: Moderate left lower lobe pneumonia
Renal U/S:
1. � Mild to moderate chronic bilateral renal disease.
2. � No sonographic evidence for hydronephrosis or nephrolithiasis.
Severe sepsis and acute metabolic encephalopathy due to LLL pneumonia:
-Lactic acidosis, resolved
-chest x ray with MODERATE LEFT LOWER LOBE PNEUMONIA.
-COVID/Flu NEG, urine strep Ag+, BCx with strep pneumo, repeat BCxs NGTD
-cont Rocephin as per ID
-s/p VSE, currently on diabetic diet
-thrombocytopenia was likely consumptive from acute disease, resolved
DEANN:
-and hyponatremia and metabolic acidosis
-due to ATN from sepsis
-FeNa high
-renal U/S above
-cont IVFs with bicarb
Other problems:
ALICIA
Essential HTN: Cont Hydralazine, home ARB on hold with DEANN
DM2: holding Metformin/Mounjaro. a1c 7.6%. SSI/accuchecks. Cont Lantus/premeal Novolog.
Graves' disease with h/o radioactive iodine 1984: cont levothyroxine
GERD: Continue Protonix
HLD: cont statin
h/o CVA 2019: cont ASA/statin
Depression: Continue Paxil
Chronic pain lumbar stenosis/herniated lumbar discs: cont gabapentin/baclofen. Holding home Tramadol with DEANN.
Chronic constipation: cont bowel regimen
ADD: Cont Adderall
FULL/heparin
Anticipated Discharge: 24 - 48 hours
Subjective/Interval History
-
Date of Service: November 19, 2023
Patient states he feels 'drift deep.' When asked if he is having chest pain or shortness of breath he calmly says 'both.' I doubt he is a reliable historian.
Objective Data
-
Labs:
Laboratory Results
11/19/23
06:42
WBC Pending
Hgb Pending
Hct Pending
Plt Count Pending
Sodium Pending
Potassium Pending
Chloride Pending
Carbon Dioxide Pending
BUN Pending
Creatinine Pending
Glucose Pending
Calcium Pending
Vital Signs:
Vital Signs
Temp Pulse Resp BP Pulse Ox
97.4 F 122 18 182/98 97
11/19/23 07:40 11/19/23 08:35 11/19/23 08:35 11/19/23 07:40 11/19/23 08:35
I&O
11/18/23 11/19/23 11/20/23
06:59 06:59 06:59
Intake Total 600 / 600 1530 / 1530 1080 / 1080
Output Total 200 / 200
Balance 600 / 600 1330 / 1330 1080 / 1080
[2023-11-19 09:42] LABS: Hematocrit 36.3 % (39.0-52.0); Hemoglobin 12.6 g/dL (13.0-18.0); Mean Corp Hgb Conc. 34.7 g/dL (33.0-37.0); Mean Corpuscular Volume 86.4 fL (80.0-94.0); Mean Platelet Volume 12.7 fL (7.4-10.4); Platelet Count 144 10^3/uL (130-400); White Blood Cell Count 6.6 10^3/uL (4.8-10.8)
[2023-11-19 10:17] LABS: Blood Urea Nitrogen 47 mg/dl (9-20); Calcium 8.3 mg/dl (8.4-10.2); Carbon Dioxide 24 mmol/L (22-30); Chloride 107 mmol/L (98-107); Estimated Creatinine Clearance 37 ml/min; Glucose 136 mg/dl (70-99); Potassium 3.5 mmol/L (3.5-5.1); Sodium 139 mmol/L (135-145); eGFR 32.83
[2023-11-19 13:27] LABS: Glucose - Point of Care 172 mg/dl (70-99)
[2023-11-19] MEDS: NOVOLOG FLEXPEN-LOW RESISTANCE 1 UNITS SC (13:52)
--- NOTE | 2023-11-19 14:31 | W.PN.ID1 ---
Date of Service
Date of Service: November 19, 2023
Today's Communication
- switch to cefdinir to complete 7 days total 11/15-11/21
- follow up with PCP - suggest he eventually get pneumococcal vaccine with PCP
Assessment / Plan
Strep Pneumoniae Pneumonia
S Pneumoniae bacteremia - not persistent
DEANN
Dm2 - fair control
- repeat blood cultures x2 are in progress - no growth to date
- switch to cefdinir to complete 7 days total 11/15-11/21
- follow up with PCP - suggest he eventually get pneumococcal vaccine with PCP
Chief Complaint
-: Pneumonia and Bacteremia
Subjective / Review of Systems
afebrile
bp stable
room air
without leukocytosis
cr stable
repeat blood cultures no growth to date
alert
questions are repetitive
Vital Signs / Physical Exam
Vital Signs
Vital Signs
Temp Pulse Resp BP Pulse Ox
97.9 F 107 20 132/69 92
11/19/23 11:30 11/19/23 11:30 11/19/23 11:30 11/19/23 11:30 11/19/23 11:30
Physical Exam
Constitutional: No Acute Distress and Chronically Ill
Cardiovascular: Regular Rate and S1/S2; Negative Murmur or Rub
Pulmonary: Clear and Symmetric; Negative Wheezes or Rales
Gastrointestinal: Soft, Non Tender, Non Distended and Normal Bowel Sounds
Skin: Warm and Dry; Negative Rash or Jaundice
Objective Data
Lab Data
Lab Results
11/19/23 06:42
11/19/23 06:42
Estimated Creat Clear 37 ml/min 11/19/23 06:42
Lactic Acid 1.3 mmol/L (0.7-2.0) 11/17/23 08:20
Total Bilirubin 1.0 mg/dl (0.2-1.3) 11/16/23 14:28
AST 25 U/L (17-59) 11/16/23 14:28
ALT 19 U/L (0-50) 11/16/23 14:28
Alkaline Phosphatase 189 U/L (38-126) H 11/16/23 14:28
Most recent labs reviewed.
Micro Results:
11/17/23 13:19 Blood Culture - Preliminary
Blood/Venous No Growth in 48 hours- Final report to follow
11/17/23 12:56 Blood Culture - Preliminary
Blood/Venous No Growth in 48 hours- Final report to follow
11/16/23 16:27 Blood Culture - Preliminary
Blood/Venous Streptococcus pneumoniae
Gram Stain - Preliminary
11/16/23 16:27 Blood Culture - Preliminary
Blood/Venous No Growth in 48 hours- Final report to follow
11/16/23 18:31 Legionella Urinary Antigen - Final
Urine Negative for Legionella pneumophila Serogroup 1 antigen.
A negative result does not rule out the possiblity of
Legionella infection due to other serogroups or species of
Legionella. Clinical correlation is recommended.
Streptococcus pneumoniae Antigen (M - Final
Positive for Strep pneumo Ag
11/16/23 14:28 Influenza Types A & B (TERRIE) - Final
Nasal Swab Negative for Influenza A & B, NAAT
Negative results must be combined with clinical observations
and patient history.
Nucleic Acid Amplification test (NAAT)performed on the
[employer] platform.
--- NOTE | 2023-11-19 14:39 | CM ---
tire shop manager reviewed patient's chart and plan will be for skilled placement options reviewed with patient's spouse and patient's spouse has selected [facility], [facility], [facility], and [facility].
Plan; Skilled placement.
--- NOTE | 2023-11-19 14:42 | W.PN.NEPH.PH ---
Today's Communication / Plan
-
Escalate Procardia to 30 mg twice daily
bmp in am
Assessment/Plan
-
IMP:
DEANN-baseline cr 1 in 12/2022
LLL pneumonia-sterp pneumo
Severe Sepsis (leukocytosis, tachycardia) 2/2 senia
bacteremia GPC
Lactic acidosis, now resolved
thrombocytopenia likely from acute disease
hyponatremia
Mild gap metabolic acidosis
TME 2/2 sepsis
Sleep apnea
HTN�benign
IDDM with hyperglycemia
Graves' disease-Tx radioactive iodine 1983
GERD
HLD
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
Depression
Chronic pain lumbar stenosis / herniated discs lumbar
Chronic constipation
ADD
Plan:
Creatinine improved to 2.1
Urine output not accurately recorded
A/w PNA and sepsis noted DEANN
DEANN likely ATN from sepsis, Fena is high
UA relatively bland, trace bld, leuc but no RBC or WBC, 1+alb
follow bladder scan, monitor UOP
Creatinine improving with IVF, renal US shows MRD changes and no hydro
given that strep pneumo+ve , checked ASO titer-negative
Improved met acidosis IVF to 1/2NS with bicarb, will continue current bag
Blood pressure remains elevated, as valsartan held in setting of acute kidney
Will increase Procardia to 30 mg twice daily in addition to hydralazine
avoid nephrotoxins metformin, NSAIDs
abx per ID
labs in am
-
-
Date of Service: November 19, 2023
CC / HPI / ROS
-
Chief Complaint:
DEANN
History of Present Illness:
cr down to 2.1, Urinary incontinence
BP remains elevated on hydralazine and Procardia
no fever and on RA
Review of Systems:
unable to obtain lethargic answer
no n/v, had his breakfast
Labs
-
Labs:
WBC 6.6 10^3/uL (4.8-10.8) 11/19/23 06:42
RBC 4.20 10^6/uL (4.70-6.10) L 11/19/23 06:42
Hgb 12.6 g/dL (13.0-18.0) L 11/19/23 06:42
Hct 36.3 % (39.0-52.0) L 11/19/23 06:42
Plt Count 144 10^3/uL (130-400) 11/19/23 06:42
Sodium 139 mmol/L (135-145) 11/19/23 06:42
Potassium 3.5 mmol/L (3.5-5.1) 11/19/23 06:42
Chloride 107 mmol/L (98-107) 11/19/23 06:42
Carbon Dioxide 24 mmol/L (22-30) 11/19/23 06:42
BUN 47 mg/dl (9-20) H 11/19/23 06:42
Creatinine 2.1 mg/dL (0.7-1.3) H 11/19/23 06:42
eGFR 32.83 11/19/23 06:42
Glucose 136 mg/dl (70-99) H 11/19/23 06:42
Calcium 8.3 mg/dl (8.4-10.2) L 11/19/23 06:42
Albumin 3.0 g/dl (3.5-5.0) L 11/16/23 14:28
Physical Exam
-
Vital Signs:
Vital Signs
Temp Pulse Resp BP Pulse Ox
97.9 F 107 20 132/69 92
11/19/23 11:30 11/19/23 11:30 11/19/23 11:30 11/19/23 11:30 11/19/23 11:30
Cardiovascular:: Regular rate and rhythm
Respiratory:: Bilateral: Coarse
Lung Excursion:: Normal
Abdomen:: Nontender and Soft
Bowel Sounds:: Normal
Extremity Edema:: None: Bilateral:
Andersen Catheter: No
[2023-11-19] MEDS: LOPRESSOR 5 MG IV (15:57)
[2023-11-19 16:00] LABS: Glucose - Point of Care 89 mg/dl (70-99)
[2023-11-19 16:17] LABS: Glucose - Point of Care 38 mg/dl (70-99)
[2023-11-19] MEDS: DEXTROSE 50% SYRINGE 12.5 GRAMS IV ×2 (16:19→18:08)
[2023-11-19 16:28] LABS: Glucose - Point of Care 102 mg/dl (70-99)
--- NOTE | 2023-11-19 16:56 | PTCARENOTE ---
Pt very lethargic and diaphoretic, requiring tactile stimulation to arouse and only awake for short increments at a time. BSG at 1615 read 38. IV dextrose given, see MAR. BSG 15 min later read 102. Pt more arousable at this time yet still drowsy and
'feels woozy'. MD Ying aware of hypoglycemic episode, premeal insulin to be discontinued.
--- NOTE | 2023-11-19 17:16 | W.PN.UPDATE ---
Update Note
Progress Note Update
Recent hypoglycemia of 38. Hold Premeal insulin. Decrease Lantus to 20 units. Discussed with nursing.
[2023-11-19] MEDS: OMNICEF PO (17:37)
[2023-11-19] MEDS: COLACE PO (17:37)
[2023-11-19 18:05] LABS: Glucose - Point of Care 47 mg/dl (70-99)
[2023-11-19 18:21] LABS: Glucose - Point of Care 85 mg/dl (70-99)
[2023-11-19 20:33] LABS: Glucose - Point of Care 97 mg/dl (70-99)
[2023-11-19] MEDS: OMNICEF 300 MG PO (21:00)
[2023-11-19 22:22] LABS: Glucose - Point of Care 138 mg/dl (70-99)
[2023-11-20] VITALS (9 sets, daily range): BP systolic 143–195; BP diastolic 70–103
[2023-11-20] MEDS: SODIUM BICARBONATE 1075 MEQ IV (01:33)
[2023-11-20 03:17] LABS: Glucose - Point of Care 186 mg/dl (70-99)
[2023-11-20 07:07] LABS: Hematocrit 34.9 % (39.0-52.0); Hemoglobin 12.6 g/dL (13.0-18.0); Mean Corp Hgb Conc. 36.1 g/dL (33.0-37.0); Mean Corpuscular Hgb 30.1 pg (27.0-31.0); Mean Corpuscular Volume 83.3 fL (80.0-94.0); Mean Platelet Volume 10.6 fL (7.4-10.4); Platelet Count 151 10^3/uL (130-400); Red Blood Cell Count 4.19 10^6/uL (4.70-6.10); Red Cell Dist. Width 15.9 % (11.5-14.5); White Blood Cell Count 7.1 10^3/uL (4.8-10.8)
[2023-11-20] MEDS: SYNTHROID 150 MCG PO (07:08)
[2023-11-20 07:27] LABS: Blood Urea Nitrogen 38 mg/dl (9-20); Calcium 7.9 mg/dl (8.4-10.2); Carbon Dioxide 25 mmol/L (22-30); Chloride 106 mmol/L (98-107); Estimated Creatinine Clearance 45 ml/min; Glucose 107 mg/dl (70-99); Potassium 3.4 mmol/L (3.5-5.1); Sodium 137 mmol/L (135-145)
[2023-11-20 08:09] LABS: Glucose - Point of Care 110 mg/dl (70-99)
[2023-11-20] MEDS: APRESOLINE 25 MG PO ×2 (08:15→20:50)
[2023-11-20] MEDS: PAXIL 40 MG PO (08:15)
[2023-11-20] MEDS: HEPARIN 5000 UNITS SC ×2 (08:15→20:47)
[2023-11-20] MEDS: ASPIR LOW (ENTERIC COATED) 81 MG PO (08:16)
[2023-11-20] MEDS: NON-FORMULARY ITEM 15 MG PO (08:16)
[2023-11-20] MEDS: PROTONIX 40 MG PO (08:16)
[2023-11-20] MEDS: OMNICEF 300 MG PO ×2 (08:16→20:54)
[2023-11-20] MEDS: LIORESAL 10 MG PO ×2 (08:16→20:55)
[2023-11-20] MEDS: PROCARDIA XL (EXTENDED RELEASE) 30 MG PO ×2 (08:16→20:53)
[2023-11-20] MEDS: MUCINEX 600 MG PO ×2 (08:16→20:54)
[2023-11-20] MEDS: NOVOLOG FLEXPEN-LOW RESISTANCE SC (08:21)
[2023-11-20] MEDS: LANTUS 0.200000000000000011 UNITS SC (08:50)
[2023-11-20] MEDS: LOPRESSOR 5 MG IV ×2 (11:18→17:22)
[2023-11-20 12:00] LABS: Glucose - Point of Care 224 mg/dl (70-99)
[2023-11-20] MEDS: NOVOLOG FLEXPEN-LOW RESISTANCE 2 UNITS SC ×2 (12:08→17:29)
--- NOTE | 2023-11-20 12:55 | W.PN.ID1 ---
Date of Service
Date of Service: November 20, 2023
Today's Communication
complete cefdinir
Assessment / Plan
Strep Pneumoniae Pneumonia
S Pneumoniae bacteremia - not persistent
DEANN
Dm2 - fair control
- repeat blood cultures x2 are in progress - no growth to date
- switch to cefdinir to complete 7 days total 11/15-11/21
- follow up with PCP - suggest he eventually get pneumococcal vaccine with PCP
Chief Complaint
-: Pneumonia and Bacteremia
Subjective / Review of Systems
afebrile
bp stable
without leukocytosis
cr stable
blood cultures cleared
more alert
Vital Signs / Physical Exam
Vital Signs
Vital Signs
Temp Pulse Resp BP Pulse Ox
98.2 F 99 20 167/89 96
11/20/23 11:00 11/20/23 11:00 11/20/23 11:00 11/20/23 11:18 11/20/23 11:00
Physical Exam
Constitutional: No Acute Distress
Cardiovascular: Regular Rate and S1/S2; Negative Murmur or Rub
Pulmonary: Clear and Symmetric; Negative Wheezes or Rales
Gastrointestinal: Soft, Non Tender, Non Distended and Normal Bowel Sounds
Skin: Warm and Dry; Negative Rash or Jaundice
Objective Data
Lab Data
Lab Results
11/20/23 06:28
11/20/23 06:28
Estimated Creat Clear 45 ml/min 11/20/23 06:28
Lactic Acid 1.3 mmol/L (0.7-2.0) 11/17/23 08:20
Total Bilirubin 1.0 mg/dl (0.2-1.3) 11/16/23 14:28
AST 25 U/L (17-59) 11/16/23 14:28
ALT 19 U/L (0-50) 11/16/23 14:28
Alkaline Phosphatase 189 U/L (38-126) H 11/16/23 14:28
Most recent labs reviewed.
Micro Results:
11/16/23 16:27 Blood Culture - Preliminary
Blood/Venous No Growth in 72 hours- Final report to follow
11/17/23 13:19 Blood Culture - Preliminary
Blood/Venous No Growth in 48 hours- Final report to follow
11/17/23 12:56 Blood Culture - Preliminary
Blood/Venous No Growth in 48 hours- Final report to follow
11/16/23 16:27 Blood Culture - Preliminary
Blood/Venous Streptococcus pneumoniae
Gram Stain - Preliminary
11/16/23 18:31 Legionella Urinary Antigen - Final
Urine Negative for Legionella pneumophila Serogroup 1 antigen.
A negative result does not rule out the possiblity of
Legionella infection due to other serogroups or species of
Legionella. Clinical correlation is recommended.
Streptococcus pneumoniae Antigen (M - Final
Positive for Strep pneumo Ag
11/16/23 14:28 Influenza Types A & B (TERRIE) - Final
Nasal Swab Negative for Influenza A & B, NAAT
Negative results must be combined with clinical observations
and patient history.
Nucleic Acid Amplification test (NAAT)performed on the
[employer] platform.
--- NOTE | 2023-11-20 14:02 | W.PN.NEPH.PH ---
Today's Communication / Plan
-
no more IVFs
Follow-up BMP
Assessment/Plan
-
IMP:
DEANN-baseline cr 1 in 12/2022
LLL pneumonia-sterp pneumo
Severe Sepsis (leukocytosis, tachycardia) 2/2 senia
bacteremia GPC
Lactic acidosis, now resolved
thrombocytopenia likely from acute disease
hyponatremia
Mild gap metabolic acidosis
TME 2/2 sepsis
Sleep apnea
HTN�benign
IDDM with hyperglycemia
Graves' disease-Tx radioactive iodine 1983
GERD
HLD
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
Depression
Chronic pain lumbar stenosis / herniated discs lumbar
Chronic constipation
ADD
Plan:
Creatinine improved to 1.7
Urine output not accurately recorded
A/w PNA and sepsis noted DEANN
DEANN likely ATN from sepsis, Fena is high
UA relatively bland, trace bld, leuc but no RBC or WBC, 1+alb
follow bladder scan, monitor UOP
Creatinine improving with IVFs, renal US shows MRD changes and no hydro
given that strep pneumo+ve , checked ASO titer-negative
Improved met acidosis
repleteK
Blood pressure remains elevated, as valsartan held in setting of acute kidney
Procardia was increased to 30 mg twice daily in addition to hydralazine
avoid nephrotoxins metformin, NSAIDs
bp stable no more IVFs
abx per ID
labs in am
-
-
Date of Service: November 20, 2023
CC / HPI / ROS
-
Chief Complaint:
DEANN
History of Present Illness:
cr down to 1.7, Urinary incontinence
BP remains elevated on hydralazine and Procardia
Review of Systems:
n lethargic answers
no n/v, had his breakfast
No fever
Labs
-
Labs:
WBC 7.1 10^3/uL (4.8-10.8) 11/20/23 06:28
RBC 4.19 10^6/uL (4.70-6.10) L 11/20/23 06:28
Hgb 12.6 g/dL (13.0-18.0) L 11/20/23 06:28
Hct 34.9 % (39.0-52.0) L 11/20/23 06:28
Plt Count 151 10^3/uL (130-400) 11/20/23 06:28
Sodium 137 mmol/L (135-145) 11/20/23 06:28
Potassium 3.4 mmol/L (3.5-5.1) L 11/20/23 06:28
Chloride 106 mmol/L (98-107) 11/20/23 06:28
Carbon Dioxide 25 mmol/L (22-30) 11/20/23 06:28
BUN 38 mg/dl (9-20) H 11/20/23 06:28
Creatinine 1.7 mg/dL (0.7-1.3) H 11/20/23 06:28
eGFR 42.30 11/20/23 06:28
Glucose 107 mg/dl (70-99) H 11/20/23 06:28
Calcium 7.9 mg/dl (8.4-10.2) L 11/20/23 06:28
Albumin 3.0 g/dl (3.5-5.0) L 11/16/23 14:28
Physical Exam
-
Vital Signs:
Vital Signs
Temp Pulse Resp BP Pulse Ox
98.2 F 94 20 168/87 96
11/20/23 11:00 11/20/23 12:59 11/20/23 11:00 11/20/23 12:59 11/20/23 11:00
Cardiovascular:: Regular rate and rhythm
Respiratory:: Bilateral: Coarse
Lung Excursion:: Normal
Abdomen:: Nontender and Soft
Bowel Sounds:: Normal
Extremity Edema:: +1: Bilateral:
Andersen Catheter: No
--- NOTE | 2023-11-20 14:32 | W.PN.HOSP.TC ---
Addendum entered and electronically signed by Morris Frias MD 11/20/23 15:07:
VSE done on 11/17, will cancel repeat
Original Note:
Today's Communication/Plan
-
Speech therapy with VSE
Assessment / Plan
Assessment / Plan
11/16/23 16:27 Blood/Venous Blood Culture - Preliminary
Streptococcus pneumoniae
11/16/23 16:27 Blood/Venous Gram Stain - Preliminary
11/16/23 16:27 Blood/Venous Blood Culture - Preliminary
No Growth in 48 hours- Final report to follow
11/17/23 13:19 Blood/Venous Blood Culture - Preliminary
No Growth in 24 hours- Final report to follow
11/17/23 12:56 Blood/Venous Blood Culture - Preliminary
No Growth in 24 hours- Final report to follow
11/16/23 18:31 Urine Legionella Urinary Antigen - Final
Negative for Legionella pneumophila Serogroup 1 antigen.
A negative result does not rule out the possiblity of
Legionella infection due to other serogroups or species of
Legionella. Clinical correlation is recommended.
11/16/23 18:31 Urine Streptococcus pneumoniae Antigen (M - Final
Positive for Strep pneumo Ag
11/16/23 14:28 Nasal Swab Influenza Types A & B (TERRIE) - Final
Negative for Influenza A & B, NAAT
Negative results must be combined with clinical observations
and patient history.
Nucleic Acid Amplification test (NAAT)performed on the
[email or web address] platform.
CXR: Moderate left lower lobe pneumonia
Renal U/S:
1. � Mild to moderate chronic bilateral renal disease.
2. � No sonographic evidence for hydronephrosis or nephrolithiasis.
Severe sepsis and acute metabolic encephalopathy due to LLL pneumonia:
-Lactic acidosis, resolved
-chest x ray with MODERATE LEFT LOWER LOBE PNEUMONIA.
-COVID/Flu NEG, urine strep Ag+, BCx with strep pneumo, repeat BCxs NGTD
-cont Rocephin as per ID
-s/p VSE, currently on diabetic diet
-thrombocytopenia was likely consumptive from acute disease, resolved
Lungs on exam sound very congested, ?recurrent aspirations, will request VSE and speech therapy reevaluate, though WBC is now nl at 7.1k
DEANN:
-and hyponatremia and metabolic acidosis
-due to ATN from sepsis
-FeNa high
-renal U/S above
-cont IVFs with bicarb
Other problems:
ALICIA
Essential HTN: Cont Hydralazine, home ARB on hold with DEANN
DM2: holding Metformin/Mounjaro. a1c 7.6%. SSI/accuchecks. Cont Lantus/premeal Novolog.
Graves' disease with h/o radioactive iodine 1984: cont levothyroxine
GERD: Continue Protonix
HLD: cont statin
h/o CVA 2019: cont ASA/statin
Depression: Continue Paxil
Chronic pain lumbar stenosis/herniated lumbar discs: cont gabapentin/baclofen. Holding home Tramadol with DEANN.
Chronic constipation: cont bowel regimen
ADD: Cont Adderall
FULL/heparin
Anticipated Discharge: > 48 hours
Subjective/Interval History
-
Date of Service: November 20, 2023
Frequent coughing
Objective Data
-
Labs:
Laboratory Results
11/20/23
06:28
WBC 7.1
Hgb 12.6 L
Hct 34.9 L
Plt Count 151
Sodium 137
Potassium 3.4 L
Chloride 106
Carbon Dioxide 25
BUN 38 H
Creatinine 1.7 H
Glucose 107 H
Calcium 7.9 L
Vital Signs:
Vital Signs
Temp Pulse Resp BP Pulse Ox
98.2 F 94 20 168/87 96
11/20/23 11:00 11/20/23 12:59 11/20/23 11:00 11/20/23 12:59 11/20/23 11:00
I&O
11/19/23 11/20/23 11/21/23
06:59 06:59 06:59
Intake Total 1530 / 1530 2660 / 2660
Output Total 200 / 200
Balance 1330 / 1330 2660 / 2660
Review of Systems
-
Unable to obtain full review of systems at this time due to: Dementia
History Source: Coordinated Provider
Constitutional: Denies Fever
EENT: Reports No Symptoms Reported
Respiratory: Reports Cough; Denies Trouble Breathing
Cardiac: Reports No Symptoms
Abdomen/GI: Reports No Symptoms
Physical Exam
-
General: Well Developed, Well Nourished and No Apparent Distress
HEENT: Normocephalic, Atraumatic and Moist Mucous Membranes
Respiratory: Rhonchi (diffuse wet sonorous rhonchi)
Cardiac: Regular Rhythm and S1/S2
GI: Soft, Nontender and Nondistended
Skin: Warm and Dry
Neuro: Awake and Alert
[2023-11-20] MEDS: KCL ELIXIR 40 MEQ PO (16:12)
--- NOTE | 2023-11-20 17:03 | PTOTSP ---
ST Follow-Up
Pt continues to demonstrate slight to mild oropharyngeal dysphagia characterized by reduced bolus formation, sight oral residue, and laryngeal penetration (more with sequential sips & via straw, per VFSS on 11/18/23). Pt also demonstrates some
cognitive function deviations that are difficult to pinpoint at this time.
Recommendations:
- Continue with regular solids, thin liquids via open cup and small sips, and medications whole in puree.
- General aspiration precautions.
- FIRE SUPPORT SPECIALIST to continue to follow.
- Consider obtaining baseline cognitive/linguistic information to determine if pt is acutely different and thus warranting a comprehensive evaluation.
[2023-11-20] MEDS: COLACE 100 MG PO (17:22)
[2023-11-20 17:23] LABS: Glucose - Point of Care 198 mg/dl (70-99)
[2023-11-20 17:26] LABS: Glucose - Point of Care 204 mg/dl (70-99)
[2023-11-20 21:51] LABS: Glucose - Point of Care 171 mg/dl (70-99)
[2023-11-21] VITALS (10 sets, daily range): BP systolic 126–183; BP diastolic 74–103; PULSE 100–101; O2SAT 96
[2023-11-21] MEDS: LOPRESSOR 5 MG IV (03:33)
[2023-11-21 05:17] LABS: Glucose - Point of Care 112 mg/dl (70-99)
[2023-11-21] MEDS: SYNTHROID 150 MCG PO (06:10)
[2023-11-21 07:27] LABS: Glucose - Point of Care 148 mg/dl (70-99)
[2023-11-21 07:50] LABS: Hemoglobin 12.5 g/dL (13.0-18.0); Mean Corp Hgb Conc. 34.7 g/dL (33.0-37.0); Mean Corpuscular Hgb 29.8 pg (27.0-31.0); Mean Corpuscular Volume 85.7 fL (80.0-94.0); Mean Platelet Volume 11.4 fL (7.4-10.4); Platelet Count 186 10^3/uL (130-400); Red Cell Dist. Width 15.7 % (11.5-14.5); White Blood Cell Count 8.7 10^3/uL (4.8-10.8)
[2023-11-21] MEDS: NOVOLOG FLEXPEN-LOW RESISTANCE SC ×2 (08:23→16:41)
[2023-11-21] MEDS: KCL ELIXIR 40 MEQ PO (08:23)
[2023-11-21] MEDS: PROTONIX 40 MG PO (08:24)
[2023-11-21] MEDS: PROCARDIA XL (EXTENDED RELEASE) 30 MG PO ×2 (08:24→19:53)
[2023-11-21] MEDS: APRESOLINE 25 MG PO ×2 (08:25→19:51)
[2023-11-21] MEDS: LIORESAL 10 MG PO ×2 (08:25→19:52)
[2023-11-21] MEDS: MUCINEX 600 MG PO ×2 (08:25→19:52)
[2023-11-21] MEDS: PAXIL 40 MG PO (08:25)
[2023-11-21] MEDS: HEPARIN 5000 UNITS SC ×2 (08:26→19:51)
[2023-11-21] MEDS: ASPIR LOW (ENTERIC COATED) 81 MG PO (08:26)
[2023-11-21] MEDS: OMNICEF 300 MG PO ×2 (08:26→19:52)
[2023-11-21] MEDS: LANTUS 0.200000000000000011 UNITS SC (08:29)
[2023-11-21 08:52] LABS: Blood Urea Nitrogen 34 mg/dl (9-20); Carbon Dioxide 21 mmol/L (22-30); Chloride 108 mmol/L (98-107); Estimated Creatinine Clearance 52 ml/min; Glucose 121 mg/dl (70-99); Magnesium 1.3 mg/dl (1.6-2.3); Potassium 3.8 mmol/L (3.5-5.1); Sodium 137 mmol/L (135-145); eGFR 49.16
[2023-11-21] MEDS: NON-FORMULARY ITEM 15 MG PO (09:54)
--- NOTE | 2023-11-21 09:55 | W.PN.HOSP.TC ---
Addendum entered and electronically signed by Morris Frias MD 11/21/23 10:10:
hypomagnesemia - Mag 1.3, will supplement
follow CO2 may benefit from oral HCO3 supplement
Original Note:
Today's Communication/Plan
-
PT/OT
dispo planning
Assessment / Plan
Assessment / Plan
11/16/23 16:27 Blood/Venous Blood Culture - Preliminary
Streptococcus pneumoniae
11/16/23 16:27 Blood/Venous Gram Stain - Preliminary
11/16/23 16:27 Blood/Venous Blood Culture - Preliminary
No Growth in 48 hours- Final report to follow
11/17/23 13:19 Blood/Venous Blood Culture - Preliminary
No Growth in 24 hours- Final report to follow
11/17/23 12:56 Blood/Venous Blood Culture - Preliminary
No Growth in 24 hours- Final report to follow
11/16/23 18:31 Urine Legionella Urinary Antigen - Final
Negative for Legionella pneumophila Serogroup 1 antigen.
A negative result does not rule out the possiblity of
Legionella infection due to other serogroups or species of
Legionella. Clinical correlation is recommended.
11/16/23 18:31 Urine Streptococcus pneumoniae Antigen (M - Final
Positive for Strep pneumo Ag
11/16/23 14:28 Nasal Swab Influenza Types A & B (TERRIE) - Final
Negative for Influenza A & B, NAAT
Negative results must be combined with clinical observations
and patient history.
Nucleic Acid Amplification test (NAAT)performed on the
[employer] platform.
CXR: Moderate left lower lobe pneumonia
11/19 CXR: There is focal parenchymal opacity in the posterior and inferior aspect of the left lower lobe, which is improved from November 16, 2023 examination, findings compatible with improving pneumonia, with residual parenchymal opacity still
present.
Renal U/S:
1. � Mild to moderate chronic bilateral renal disease.
2. � No sonographic evidence for hydronephrosis or nephrolithiasis.
Severe sepsis and acute metabolic encephalopathy due to LLL pneumonia:
-Lactic acidosis, resolved
-COVID/Flu NEG, urine strep Ag+, BCx with strep pneumo, repeat BCxs NGTD
-cont Cefdinir as per ID
-s/p VSE, currently on diabetic diet
-thrombocytopenia was likely consumptive from acute disease, resolved 108-->186k
Lungs on exam yesterday sounded much more congested than today. ?low level aspiration
Hypokalemia better post supplementation
3.4-->3.8
DEANN:
-and hyponatremia and metabolic acidosis
significantly improved
-due to ATN from sepsis
-FeNa high
-renal U/S above
- IVFs with bicarb stopped
Other problems:
ALICIA
Essential HTN: Cont Hydralazine, home ARB on hold with DEANN
DM2: holding Metformin/Mounjaro. a1c 7.6%. SSI/accuchecks. Cont Lantus/premeal Novolog.
Graves' disease with h/o radioactive iodine 1983: cont levothyroxine
GERD: Continue Protonix
HLD: cont statin
h/o CVA 2019: cont ASA/statin
Depression: Continue Paxil
Chronic pain lumbar stenosis/herniated lumbar discs: cont gabapentin/baclofen. Holding home Tramadol with DEANN.
Chronic constipation: cont bowel regimen
ADD: Cont Adderall
continue PT/OT, recheck labs, pt remains weak, but certainly improved past 24 hrs, begin dc planning. Pending progression, may need to consider short term SNF
FULL/heparin
Anticipated Discharge: 24 - 48 hours
Subjective/Interval History
-
Date of Service: November 21, 2023
Looks better, sitting up in chair
Objective Data
-
Labs:
Laboratory Results
11/21/23
06:19
WBC 8.7
Hgb 12.5 L
Hct 36.0 L
Plt Count 186 D
Sodium 137
Potassium 3.8
Chloride 108 H
Carbon Dioxide 21 L
BUN 34 H
Creatinine 1.5 H
Glucose 121 H
Calcium 8.0 L
Vital Signs:
Vital Signs
Temp Pulse Resp BP Pulse Ox
98.3 F 91 18 183/96 93
11/21/23 08:00 11/21/23 08:25 11/21/23 08:00 11/21/23 08:25 11/21/23 08:00
I&O
11/20/23 11/21/23 11/22/23
06:59 06:59 06:59
Intake Total 2660 / 2660 1979 / 1979
Output Total 850 / 850
Balance 2660 / 2660 1130 / 1130
Review of Systems
-
Unable to obtain full review of systems at this time due to: Dementia
History Source: Coordinated Provider
Constitutional: Denies Fever
EENT: Reports No Symptoms Reported
Respiratory: Reports Cough (appears to have diminished compared to yesterday); Denies Trouble Breathing
Cardiac: Reports No Symptoms
Abdomen/GI: Reports No Symptoms
Physical Exam
-
General: Well Developed, Well Nourished and No Apparent Distress
HEENT: Normocephalic, Atraumatic and Moist Mucous Membranes
Respiratory: Wheezes (coarse mid to end expiratory wheeze with end expiratory coughing spasms) and Rhonchi (markedly diminished)
Cardiac: Regular Rhythm and S1/S2
GI: Soft, Nontender and Nondistended
Skin: Warm and Dry
Neuro: Awake and Alert
[2023-11-21 11:09] LABS: Glucose - Point of Care 319 mg/dl (70-99)
[2023-11-21] MEDS: MAGNESIUM OXIDE 500 MG PO ×2 (11:49→21:10)
--- NOTE | 2023-11-21 12:29 | W.PN.NEPH.PH ---
Today's Communication / Plan
-
Observe
Will eventually need to place back valsartan once creatinine reaches hope
Assessment/Plan
-
IMP:
DEANN-baseline cr 1 in 12/2022
LLL pneumonia-sterp pneumo
Severe Sepsis (leukocytosis, tachycardia) 2/2 senia
bacteremia GPC
Lactic acidosis, now resolved
thrombocytopenia likely from acute disease
hyponatremia
Mild gap metabolic acidosis
TME 2/2 sepsis
Sleep apnea
HTN�benign
IDDM with hyperglycemia
Graves' disease-Tx radioactive iodine 1983
GERD
HLD
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
Depression
Chronic pain lumbar stenosis / herniated discs lumbar
Chronic constipation
ADD
Plan:
Creatinine improved to 1.5
Nonoliguric
A/w PNA and sepsis noted DEANN
DEANN likely ATN from sepsis, Fena is high
UA relatively bland, trace bld, leuc but no RBC or WBC, 1+alb
renal US shows MRD changes and no hydro
given that strep pneumo+ve , checked ASO titer-negative
Blood pressure remains elevated but improving, as valsartan held in setting of acute kidney
Procardia was increased to 30 mg twice daily in addition to hydralazine
avoid nephrotoxins metformin, NSAIDs
no more IVFs
Monitor metabolic acidosis closely
abx per ID
labs in am
-
-
Date of Service: November 21, 2023
CC / HPI / ROS
-
Chief Complaint:
DEANN
History of Present Illness:
cr down to 1.5, Urinary incontinence
BP remains elevated but improved on hydralazine and Procardia (valsartan held)
Review of Systems:
n lethargic answers
no n/v, had his breakfast
No fever
Labs
-
Labs:
WBC 8.7 10^3/uL (4.8-10.8) 11/21/23 06:19
RBC 4.20 10^6/uL (4.70-6.10) L 11/21/23 06:19
Hgb 12.5 g/dL (13.0-18.0) L 11/21/23 06:19
Hct 36.0 % (39.0-52.0) L 11/21/23 06:19
Plt Count 186 10^3/uL (130-400) D 11/21/23 06:19
Sodium 137 mmol/L (135-145) 11/21/23 06:19
Potassium 3.8 mmol/L (3.5-5.1) 11/21/23 06:19
Chloride 108 mmol/L (98-107) H 11/21/23 06:19
Carbon Dioxide 21 mmol/L (22-30) L 11/21/23 06:19
BUN 34 mg/dl (9-20) H 11/21/23 06:19
Creatinine 1.5 mg/dL (0.7-1.3) H 11/21/23 06:19
eGFR 49.16 11/21/23 06:19
Glucose 121 mg/dl (70-99) H 11/21/23 06:19
Calcium 8.0 mg/dl (8.4-10.2) L 11/21/23 06:19
Albumin 3.0 g/dl (3.5-5.0) L 11/16/23 14:28
Physical Exam
-
Vital Signs:
Vital Signs
Temp Pulse Resp BP Pulse Ox
98.1 F 105 20 128/74 94
11/21/23 12:05 11/21/23 12:05 11/21/23 12:05 11/21/23 12:05 11/21/23 12:05
Cardiovascular:: Regular rate and rhythm
Respiratory:: Bilateral: Coarse
Lung Excursion:: Normal
Abdomen:: Nontender
Bowel Sounds:: Normal
Extremity Edema:: +1: Bilateral:
Andersen Catheter: No
Other Findings::
Lethargic
[2023-11-21] MEDS: NOVOLOG FLEXPEN-LOW RESISTANCE 4 UNITS SC (13:13)
[2023-11-21 16:28] LABS: Glucose - Point of Care 142 mg/dl (70-99)
[2023-11-21] MEDS: COLACE 100 MG PO (16:44)
--- NOTE | 2023-11-21 16:44 | W.PN.ID1 ---
Date of Service
Date of Service: November 21, 2023
Today's Communication
- switch to cefdinir to complete 7 days total 11/15-11/21
- follow up with PCP - suggest he eventually get pneumococcal vaccine with PCP
Assessment / Plan
Strep Pneumoniae Pneumonia
S Pneumoniae bacteremia - not persistent
DEANN
Dm2 - fair control
- repeat blood cultures x2 are in progress - no growth to date
- switch to cefdinir to complete 7 days total 11/15-11/21
- follow up with PCP - suggest he eventually get pneumococcal vaccine with PCP
Chief Complaint
-: Pneumonia and Bacteremia
Subjective / Review of Systems
afebrile
bp stable
tolerating current therapies
no new complaints
no leukocytosis, cr further improved, repeat blood cultures remain neg
Vital Signs / Physical Exam
Vital Signs
Vital Signs
Temp Pulse Resp BP Pulse Ox
97.9 F 98 18 155/97 96
11/21/23 15:50 11/21/23 15:50 11/21/23 15:50 11/21/23 15:50 11/21/23 15:50
Physical Exam
Constitutional: No Acute Distress
Cardiovascular: Regular Rate and S1/S2; Negative Murmur or Rub
Pulmonary: Clear and Symmetric; Negative Wheezes or Rales
Gastrointestinal: Soft, Non Tender, Non Distended and Normal Bowel Sounds
Skin: Warm and Dry; Negative Rash or Jaundice
Objective Data
Lab Data
Lab Results
11/21/23 06:19
11/21/23 06:19
Estimated Creat Clear 52 ml/min 11/21/23 06:19
Lactic Acid 1.3 mmol/L (0.7-2.0) 11/17/23 08:20
Total Bilirubin 1.0 mg/dl (0.2-1.3) 11/16/23 14:28
AST 25 U/L (17-59) 11/16/23 14:28
ALT 19 U/L (0-50) 11/16/23 14:28
Alkaline Phosphatase 189 U/L (38-126) H 11/16/23 14:28
Most recent labs reviewed.
Micro Results:
11/16/23 16:27 Blood Culture - Final
Blood/Venous No Growth - Final Report
11/17/23 13:19 Blood Culture - Preliminary
Blood/Venous No Growth in 4 days- Final report to follow
11/17/23 12:56 Blood Culture - Preliminary
Blood/Venous No Growth in 4 days- Final report to follow
11/16/23 16:27 Blood Culture - Preliminary
Blood/Venous Streptococcus pneumoniae
Gram Stain - Preliminary
11/16/23 18:31 Legionella Urinary Antigen - Final
Urine Negative for Legionella pneumophila Serogroup 1 antigen.
A negative result does not rule out the possiblity of
Legionella infection due to other serogroups or species of
Legionella. Clinical correlation is recommended.
Streptococcus pneumoniae Antigen (M - Final
Positive for Strep pneumo Ag
11/16/23 14:28 Influenza Types A & B (TERRIE) - Final
Nasal Swab Negative for Influenza A & B, NAAT
Negative results must be combined with clinical observations
and patient history.
Nucleic Acid Amplification test (NAAT)performed on the
[employer] platform.
[2023-11-21 21:23] LABS: Glucose - Point of Care 197 mg/dl (70-99)
[2023-11-22 03:38] VITALS: BP 155/87
[2023-11-22] MEDS: SYNTHROID 150 MCG PO (06:10)
[2023-11-22 07:01] LABS: Glucose - Point of Care 130 mg/dl (70-99)
[2023-11-22 07:46] VITALS: BP 165/95
[2023-11-22] MEDS: NOVOLOG FLEXPEN-LOW RESISTANCE SC (08:28)
[2023-11-22] MEDS: NON-FORMULARY ITEM 15 MG PO (08:29)
[2023-11-22] MEDS: HEPARIN 5000 UNITS SC ×2 (08:30→19:53)
[2023-11-22] MEDS: APRESOLINE 25 MG PO ×2 (08:30→19:52)
[2023-11-22] MEDS: ASPIR LOW (ENTERIC COATED) 81 MG PO (08:30)
[2023-11-22] MEDS: KCL ELIXIR 40 MEQ PO (08:30)
[2023-11-22] MEDS: MUCINEX 600 MG PO ×2 (08:33→19:53)
[2023-11-22] MEDS: PAXIL 40 MG PO (08:33)
[2023-11-22] MEDS: PROCARDIA XL (EXTENDED RELEASE) 30 MG PO ×2 (08:33→19:52)
[2023-11-22] MEDS: LIORESAL 10 MG PO ×2 (08:33→19:51)
[2023-11-22] MEDS: OMNICEF 300 MG PO ×2 (08:33→19:52)
[2023-11-22] MEDS: LANTUS 0.200000000000000011 UNITS SC (08:33)
[2023-11-22] MEDS: PROTONIX 40 MG PO (08:34)
[2023-11-22 09:25] LABS: Blood Urea Nitrogen 38 mg/dl (9-20); Calcium 8.2 mg/dl (8.4-10.2); Carbon Dioxide 24 mmol/L (22-30); Chloride 102 mmol/L (98-107); Estimated Creatinine Clearance 52 ml/min; Glucose 138 mg/dl (70-99); Magnesium 1.5 mg/dl (1.6-2.3); Potassium 3.8 mmol/L (3.5-5.1); Sodium 134 mmol/L (135-145); eGFR 49.16
[2023-11-22] MEDS: MAGNESIUM OXIDE 500 MG PO ×2 (09:57→21:51)
[2023-11-22 11:10] VITALS: BP 160/88
--- NOTE | 2023-11-22 12:01 | W.PN.NEPH.PH ---
Today's Communication / Plan
-
follow BMP
Assessment/Plan
-
IMP:
DEANN/ATN-baseline cr 1 in 12/2022
LLL pneumonia-sterp pneumo
Severe Sepsis (leukocytosis, tachycardia) 2/2 senia
bacteremia GPC
Lactic acidosis, now resolved
thrombocytopenia likely from acute disease
hyponatremia
Mild gap metabolic acidosis
TME 2/2 sepsis
Sleep apnea
HTN�benign
IDDM with hyperglycemia
Graves' disease-Tx radioactive iodine 1983
GERD
HLD
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
Depression
Chronic pain lumbar stenosis / herniated discs lumbar
Chronic constipation
ADD
Plan:
follow BMP
no RASi/ARB
continue nifedipine and hydralazine
continue abx
-
-
Date of Service: November 22, 2023
CC / HPI / ROS
-
Chief Complaint:
DEANN
History of Present Illness:
cr stable at 1.5
Urinary incontinence
BP still high but improved on hydralazine and Procardia (valsartan held)
on Abx for PNA
Review of Systems:
no n/v
No fever
Labs
-
Labs:
WBC 8.7 10^3/uL (4.8-10.8) 11/21/23 06:19
RBC 4.20 10^6/uL (4.70-6.10) L 11/21/23 06:19
Hgb 12.5 g/dL (13.0-18.0) L 11/21/23 06:19
Hct 36.0 % (39.0-52.0) L 11/21/23 06:19
Plt Count 186 10^3/uL (130-400) D 11/21/23 06:19
Sodium 134 mmol/L (135-145) L 11/22/23 07:59
Potassium 3.8 mmol/L (3.5-5.1) 11/22/23 07:59
Chloride 102 mmol/L (98-107) 11/22/23 07:59
Carbon Dioxide 24 mmol/L (22-30) 11/22/23 07:59
BUN 38 mg/dl (9-20) H 11/22/23 07:59
Creatinine 1.5 mg/dL (0.7-1.3) H 11/22/23 07:59
eGFR 49.16 11/22/23 07:59
Glucose 138 mg/dl (70-99) H 11/22/23 07:59
Calcium 8.2 mg/dl (8.4-10.2) L 11/22/23 07:59
Albumin 3.0 g/dl (3.5-5.0) L 11/16/23 14:28
Physical Exam
-
Vital Signs:
Vital Signs
Temp Pulse Resp BP Pulse Ox
98.4 F 98 16 160/88 96
11/22/23 11:10 11/22/23 11:10 11/22/23 11:10 11/22/23 11:10 11/22/23 11:10
Cardiovascular:: Regular rate and rhythm
Respiratory:: Bilateral: Coarse
Lung Excursion:: Normal
Abdomen:: Nontender and Soft
Bowel Sounds:: Normal
Extremity Edema:: None: Bilateral:
[2023-11-22 12:13] LABS: Glucose - Point of Care 205 mg/dl (70-99)
[2023-11-22] MEDS: NOVOLOG FLEXPEN-LOW RESISTANCE 2 UNITS SC ×2 (12:37→17:07)
--- NOTE | 2023-11-22 12:58 | W.PN.HOSP.TC ---
Today's Communication/Plan
-
Monitor vital signs see plan
PT/OT
Continue with nifedipine and hydralazine
Continue antibiotics
Assessment / Plan
Assessment / Plan
11/16/23 16:27 Blood/Venous Blood Culture - Preliminary
Streptococcus pneumoniae
11/16/23 16:27 Blood/Venous Gram Stain - Preliminary
11/16/23 16:27 Blood/Venous Blood Culture - Preliminary
No Growth in 48 hours- Final report to follow
11/17/23 13:19 Blood/Venous Blood Culture - Preliminary
No Growth in 24 hours- Final report to follow
11/17/23 12:56 Blood/Venous Blood Culture - Preliminary
No Growth in 24 hours- Final report to follow
11/16/23 18:31 Urine Legionella Urinary Antigen - Final
Negative for Legionella pneumophila Serogroup 1 antigen.
A negative result does not rule out the possiblity of
Legionella infection due to other serogroups or species of
Legionella. Clinical correlation is recommended.
11/16/23 18:31 Urine Streptococcus pneumoniae Antigen (M - Final
Positive for Strep pneumo Ag
11/16/23 14:28 Nasal Swab Influenza Types A & B (TERRIE) - Final
Negative for Influenza A & B, NAAT
Negative results must be combined with clinical observations
and patient history.
Nucleic Acid Amplification test (NAAT)performed on the
[employer] platform.
CXR: Moderate left lower lobe pneumonia
11/19 CXR: There is focal parenchymal opacity in the posterior and inferior aspect of the left lower lobe, which is improved from November 16, 2023 examination, findings compatible with improving pneumonia, with residual parenchymal opacity still
present.
Renal U/S:
1. � Mild to moderate chronic bilateral renal disease.
2. � No sonographic evidence for hydronephrosis or nephrolithiasis.
Severe sepsis and acute metabolic encephalopathy due to LLL pneumonia:
-Lactic acidosis, resolved
-COVID/Flu NEG, urine strep Ag+, BCx with strep pneumo, repeat BCxs NGTD
-cont Cefdinir as per ID
-s/p VSE, currently on diabetic diet
-thrombocytopenia was likely consumptive from acute disease, resolved 108-->186k
Lungs on exam yesterday sounded much more congested than today. ?low level aspiration
Hypokalemia
Resolved
Mild hyponatremia
Monitor
DEANN:
-and hyponatremia and metabolic acidosis
significantly improved
-due to ATN from sepsis
-FeNa high
-renal U/S above
- IVFs with bicarb stopped
Other problems:
ALICIA
Essential HTN: Cont Hydralazine, home ARB on hold with DEANN
DM2: holding Metformin/Mounjaro. a1c 7.6%. SSI/accuchecks. Cont Lantus/premeal Novolog.
Graves' disease with h/o radioactive iodine 1984: cont levothyroxine
GERD: Continue Protonix
HLD: cont statin
h/o CVA 2019: cont ASA/statin
Depression: Continue Paxil
Chronic pain lumbar stenosis/herniated lumbar discs: cont gabapentin/baclofen. Holding home Tramadol with DEANN.
Chronic constipation: cont bowel regimen
ADD: Cont Adderall
continue PT/OT
FULL/heparin
General: Well Developed, Well Nourished and No Apparent Distress
HEENT: Normocephalic, Atraumatic and Moist Mucous Membranes
Respiratory: Wheezes (coarse mid to end expiratory wheeze with end expiratory coughing spasms) and Rhonchi (markedly diminished)
Cardiac: Regular Rhythm and S1/S2
GI: Soft, Nontender and Nondistended
Skin: Warm and Dry
Neuro: Awake and Alert
Anticipated Discharge: 24 - 48 hours
Subjective/Interval History
-
Date of Service: November 22, 2023
denies pain
Objective Data
-
Labs:
Laboratory Results
11/22/23
07:59
Sodium 134 L
Potassium 3.8
Chloride 102
Carbon Dioxide 24
BUN 38 H
Creatinine 1.5 H
Glucose 138 H
Calcium 8.2 L
Vital Signs:
Vital Signs
Temp Pulse Resp BP Pulse Ox
98.4 F 98 16 160/88 96
11/22/23 11:10 11/22/23 11:10 11/22/23 11:10 11/22/23 11:10 11/22/23 11:10
I&O
11/21/23 11/22/23 11/23/23
06:59 06:59 06:59
Intake Total 1979 / 1979 480 / 480
Output Total 850 / 850 725 / 725
Balance 1130 / 1130 -245 / -245
--- NOTE | 2023-11-22 14:46 | CM ---
nurse healthcare manager reviewed patient's chart and plan is for skilled placement at [facility], per admissions at [facility] they have accepted patient.
Plan; Skilled placement at [facility] when stable.
--- NOTE | 2023-11-22 15:29 | W.PN.ID1 ---
Date of Service
Date of Service: November 22, 2023
Today's Communication
final day of cefdinir
Assessment / Plan
Strep Pneumoniae Pneumonia
S Pneumoniae bacteremia - not persistent
DEANN
Dm2 - fair control
- repeat blood cultures x2 are in progress - no growth to date
- switch to cefdinir to complete 7 days total 11/15-11/21
- follow up with PCP - suggest he eventually get pneumococcal vaccine with PCP
Chief Complaint
-: Pneumonia and Bacteremia
Subjective / Review of Systems
afebrile
bp stable
saturating well on room air
minimal cough
no complaints
Vital Signs / Physical Exam
Vital Signs
Vital Signs
Temp Pulse Resp BP Pulse Ox
98.4 F 98 16 160/88 96
11/22/23 11:10 11/22/23 11:10 11/22/23 11:10 11/22/23 11:10 11/22/23 11:10
Physical Exam
Constitutional: No Acute Distress and Chronically Ill
Cardiovascular: Regular Rate and S1/S2; Negative Murmur or Rub
Pulmonary: Clear and Symmetric; Negative Wheezes or Rales
Gastrointestinal: Soft, Non Tender, Non Distended and Normal Bowel Sounds
Skin: Warm and Dry; Negative Rash or Jaundice
Objective Data
Lab Data
Lab Results
11/21/23 06:19
11/22/23 07:59
Estimated Creat Clear 52 ml/min 11/22/23 07:59
Lactic Acid 1.3 mmol/L (0.7-2.0) 11/17/23 08:20
Total Bilirubin 1.0 mg/dl (0.2-1.3) 11/16/23 14:28
AST 25 U/L (17-59) 11/16/23 14:28
ALT 19 U/L (0-50) 11/16/23 14:28
Alkaline Phosphatase 189 U/L (38-126) H 11/16/23 14:28
Most recent labs reviewed.
Micro Results:
11/17/23 13:19 Blood Culture - Final
Blood/Venous No Growth - Final Report
11/17/23 12:56 Blood Culture - Final
Blood/Venous No Growth - Final Report
11/16/23 16:27 Blood Culture - Final
Blood/Venous No Growth - Final Report
11/16/23 16:27 Blood Culture - Preliminary
Blood/Venous Streptococcus pneumoniae
Gram Stain - Preliminary
11/16/23 18:31 Legionella Urinary Antigen - Final
Urine Negative for Legionella pneumophila Serogroup 1 antigen.
A negative result does not rule out the possiblity of
Legionella infection due to other serogroups or species of
Legionella. Clinical correlation is recommended.
Streptococcus pneumoniae Antigen (M - Final
Positive for Strep pneumo Ag
11/16/23 14:28 Influenza Types A & B (TERRIE) - Final
Nasal Swab Negative for Influenza A & B, NAAT
Negative results must be combined with clinical observations
and patient history.
Nucleic Acid Amplification test (NAAT)performed on the
[employer] platform.
[2023-11-22 15:57] VITALS: BP 143/107
[2023-11-22 17:05] LABS: Glucose - Point of Care 227 mg/dl (70-99)
[2023-11-22] MEDS: COLACE 100 MG PO (17:08)
[2023-11-22 19:50] VITALS: BP 175/96
[2023-11-22 20:07] LABS: Glucose - Point of Care 249 mg/dl (70-99)
--- NOTE | 2023-11-22 20:26 | W.PN.UPDATE ---
Update Note
Progress Note Update
CLINICAL TRIALS DATA COORDINATOR/stroke alert
Patient has a change of mental status per nursing staff and not acting himself as usual. Vital signs within normal limits, afebrile and BS 249.
During exam, patient noted with RT side weakness due to CVA 2018. Patient is awake and oriented x1 for place, he was able to identify his name and date of , patient noted with difficulty to find words and slurred speech. No drifting noted on
the LUE or LLE. He is able to follow commands. Visual chilel are full. Extraocular movements are intact and there is no facial asymmetry.
Stat cbc, lactic acid, Blood culturex2, and head CT.
Neurology consult was placed and head CT result reviewed with the neurologist personal injury litigation paralegal.
CBC, BMP, lactic acid results are unremarkable. Blood cultures are pending.
-Re assessed the patient after coming back from CT scan. Patient back to his baseline.
[2023-11-22 20:58] LABS: Hematocrit 37.1 % (39.0-52.0); Hemoglobin 12.9 g/dL (13.0-18.0); Mean Corp Hgb Conc. 34.8 g/dL (33.0-37.0); Mean Corpuscular Hgb 29.8 pg (27.0-31.0); Mean Corpuscular Volume 85.7 fL (80.0-94.0); Mean Platelet Volume 11.3 fL (7.4-10.4); Platelet Count 224 10^3/uL (130-400); Red Blood Cell Count 4.33 10^6/uL (4.70-6.10); Red Cell Dist. Width 15.7 % (11.5-14.5); White Blood Cell Count 10.1 10^3/uL (4.8-10.8)
[2023-11-22 21:06] LABS: INR 1.03; PT 13.3 Sec (11.4-14.6)
[2023-11-22 21:07] LABS: APTT 35.6 Sec (23.4-35.0); Lactic Acid 1.4 mmol/L (0.7-2.0)
[2023-11-22 21:12] LABS: ALT (SGPT) 37 U/L (0-50); AST (SGOT) 43 U/L (17-59); Albumin 3.2 g/dl (3.5-5.0); Alkaline Phosphatase 158 U/L (38-126); Blood Urea Nitrogen 38 mg/dl (9-20); Calcium 8.6 mg/dl (8.4-10.2); Carbon Dioxide 24 mmol/L (22-30); Chloride 102 mmol/L (98-107); Estimated Creatinine Clearance 45 ml/min; Glucose 267 mg/dl (70-99); Potassium 4.9 mmol/L (3.5-5.1); Sodium 131 mmol/L (135-145); Total Bilirubin 0.5 mg/dl (0.2-1.3); Total Protein 6.2 g/dl (6.3-8.2)
[2023-11-22 21:20] LABS: Troponin I < 0.012 ng/ml
[2023-11-22 22:42] LABS: Glucose - Point of Care 210 mg/dl (70-99)
[2023-11-22 23:11] VITALS: BP 151/86
[2023-11-23] VITALS (8 sets, daily range): BP systolic 118–170; BP diastolic 62–89; PULSE 104
--- NOTE | 2023-11-23 03:32 | RR ---
A Rapid Response was called on this patient, please see Rapid Response form.
When in to perform initial assessment on patient in beginning of shift, patient asleep in chair. Upon waking patient, he is noted with expressive aphasia and slurred speech-- change from baseline. Patient disoriented. R sided weakness present from
previous CVA. BS 249, BP 172/97. Pt sent for head CT. When patient returned from CT, appears to be back to baseline.
[2023-11-23] MEDS: SYNTHROID 150 MCG PO (06:24)
[2023-11-23 07:04] LABS: Glucose - Point of Care 166 mg/dl (70-99)
[2023-11-23 08:06] LABS: Blood Urea Nitrogen 34 mg/dl (9-20); Calcium 8.4 mg/dl (8.4-10.2); Carbon Dioxide 24 mmol/L (22-30); Chloride 106 mmol/L (98-107); Estimated Creatinine Clearance 48 ml/min; Glucose 175 mg/dl (70-99); Potassium 4.5 mmol/L (3.5-5.1); Sodium 134 mmol/L (135-145)
[2023-11-23] MEDS: APRESOLINE 25 MG PO (08:38)
[2023-11-23] MEDS: PROTONIX 40 MG PO (08:38)
[2023-11-23] MEDS: PROCARDIA XL (EXTENDED RELEASE) 30 MG PO ×2 (08:38→19:54)
[2023-11-23] MEDS: PAXIL 40 MG PO (08:39)
[2023-11-23] MEDS: OMNICEF 300 MG PO (08:39)
[2023-11-23] MEDS: ASPIR LOW (ENTERIC COATED) 81 MG PO (08:39)
[2023-11-23] MEDS: LANTUS 0.200000000000000011 UNITS SC (08:39)
[2023-11-23] MEDS: MUCINEX 600 MG PO ×2 (08:39→19:54)
[2023-11-23] MEDS: HEPARIN 5000 UNITS SC ×2 (08:39→19:52)
[2023-11-23] MEDS: LIORESAL 10 MG PO ×2 (08:39→19:54)
[2023-11-23] MEDS: NON-FORMULARY ITEM 15 MG PO (08:40)
[2023-11-23] MEDS: KCL ELIXIR PO (08:40)
[2023-11-23] MEDS: NOVOLOG FLEXPEN-LOW RESISTANCE 1 UNITS SC (09:22)
[2023-11-23] MEDS: MAGNESIUM OXIDE 500 MG PO ×2 (10:20→21:46)
--- NOTE | 2023-11-23 10:55 | CON.NEURO4 ---
Addendum entered and electronically signed by Noam Faulkner MD 11/23/23 15:13:
Studies reviewed.
I have personally examined the patient. I reviewed and agree with the CUSTOMS INVESTIGATOR's Note.
My addenda:
Awake, alert, interactive. No acute distress.
Speech intact.Unable to recall correct holiday order, current month. Correctly recalls year
No tremor.
Extra-ocular movements grossly intact.
Facial movements full and symmetric. Hearing intact to normal conversational volume.
Normal UE movements bilaterally with the exception of the right upper extremity being unable to fully extend.
Neck: full ROM.
Chest: no dyspnea
Heart: no JVD
Ext: (-) Clubbing, (-) Cyanosis, (-) Edema
IMPRESSIONS/RECOMMENDATIONS:
Abrupt onset of Aphasia
Differential diagnosis includes toxic metabolic etiology and much less likely TIA/stroke despite the patient's prior history of stroke
Continue aspirin
Goal of normoglycemia
Restart atorvastatin 80 mg to lower risk of future stroke
Continue baclofen although etiology for the use of same is unclear
Can provide patient with stroke packet
Not clear patient will benefit from repeated neuroimaging at this time
D/W patient
Will continue to follow as needed.
Original Note:
Consultation - Neurology 4
-
CONSULTING PHYSICIAN: Dr. Noam Faulkner
REFERRING PHYSICIAN: stroke alert
DICTATED BY: JOHNATHAN Cullen
DATE/TIME OF REQUEST: stroke alert 11/23/2023 0330
DATE/TIME OF CONSULTATION: 11/23/2023 1000
Reason for Consultation: stroke alert
History of Present Illness:
This is a 73 year old patient with a past medical history pf diabetes, stroke, reflux, hypertension, hyperlipidemia, Graves' disease, hypothyroid, overactive bladder, constipation pain and anxiety who presented to the hospital on 11/16/2023 after
cough for 1 week with increased weakness, shortness of breath and chills. He denied any headache, syncope, chest pain unilateral weakness, numbness, tingling, trouble with speech, trouble swallowing or trouble with vision. Upon evaluation he was
noted to have a left lower lobe pneumonia and was started on antibiotics. He had a lactic acid of 3.4. He was COVID-negative. Overnight (11/23/2023) around 3 AM a stroke alert was called. Pt was sleeping in his chair and when his nurse woke up
him up he had some slurred speech. She then called the stroke alert. He went for a STAT CAT scan head which was unremarkable. By the time he returned from CAT scan patient was back at baseline. Blood pressure was 172/97. Blood sugar was checked
and was 249. Patient remembers the incident but does not recall the details. He does report that he does occasionally have slurred speech as well as chronic right-sided weakness as residual from previous stroke. He does not remember the details
that occurred during his previous stroke.
Past Medical History:
stroke
spinal stenosis with herniated disc
GERD
Hypertension
hyperlipidemia
Diabetes
Diabetic retinopathy
Graves disease
hypothyroidism
Overactive bladder
Chronic constipation
Muscle spasm
Anxiety
chronic pain
Past Surgical History
Appendectomy
Amputation of right second toe
Inguinal and inguinal hernia repair
Social History
Tobacco: Former Smoker
Alcohol: None
Drug: None
Personal:
Living: With Family
Family History
Family History: Not pertinent
Allergies: see below
Home Medications: see below
Review of Symptoms:
Patient denies any fever, headache, chest pain, shortness of breath, GI or symptoms.
Vital Signs: see below
Physical Exam:
The patient is afebrile, heart sounds S1 and S2 are regular, and chest is clear to auscultation bilaterally.
Neurologic Examination:
The patient is awake, alert and oriented x 3. He is able to follow commands and answer questions appropriately. There is no aphasia or dysarthria. On cranial nerve assessment, pupils are 3 mm bilateral, round and reactive to light and
accommodation. Visual chilel are full. Extraocular movements are intact. Facial sensations are intact and bilaterally symmetrical, there is no facial asymmetry. Hearing is reduced mildly bilaterally to normal conversation volume. Tongue palate and
uvula are midline. Sternocleidomastoid strength reduced right. Motor strengths are 5/5 LUE, 4+/5 RUE and 5/5 lower extremities on medical research [place] scale. There is no drift or involuntary movement noted. Deep tendon reflexes are trace
bilateral upper and lower extremities and Babinski is equivocal. Sensations of light touch are intact, temperature is reduced distally bilaterally. There was no extinction noted on double simultaneous stimulation. Coordination reduced RUE d/t should
injury.
Lab Results: see below
Neuro Imaging: There are no acute intracranial abnormalities.
There is diffuse cortical atrophy with nonspecific white matter changes as described above.
Impression:
FABIAN CARRILLO is a 73 year old M who has presented to the hospital with respiratory symptoms and diagnosed with pneumonia. He was found to have increased slurred speech overnight and stroke alert was called. CT head was negative and symptoms
quickly resolved.
Differentials for the patient's presentation include:
Recrudescence of previous stroke symptoms in the setting of fatigue and infection, not likely acute stroke.
Not a candidate for thrombectomy as NIH was recorded as 4 and symptoms then quickly resolving
Recommendations:
-No further imaging needed at this time
-continue ASA
-Per review of outpatient chart, patient was taking Atorvastatin 80 mg and should resume
-goal normotension
-goal normoglycemia
-continue PT/OT and speech evaluations
-DVT prophylaxis
Discussed patient care with patient, nursing and Dr. Faulkner
Medication and Allergies
Home Medications
Home Medications
Medication Instructions Recorded
aspirin 81 mg tablet,delayed 81 mg PO DAILY Blood clot 01/17/23
release prevention/tx ##0
baclofen 10 mg tablet 10 mg PO BID Muscle spasms ##0 01/17/23
docusate sodium 100 mg capsule 100 mg PO QPM Constipation ##0 01/17/23
(Colace)
levothyroxine 150 mcg tablet 150 mcg PO DAILY Thyroid ##0 01/17/23
metformin 1,000 mg tablet 1,000 mg PO BID Diabetes ##0 01/17/23
pantoprazole 40 mg tablet,delayed 40 mg PO DAILY ##0 01/17/23
release
valsartan 160 mg tablet 160 mg PO BID Heart Failure ##0 01/17/23
albuterol sulfate 90 mcg/actuation 2 puff inhalation R Q6 PRN 11/16/23
aerosol inhaler sob/wheezing
dextroamphetamine-amphetamine ER 15 mg PO DAILY 11/16/23
15 mg 24hr capsule,extend release
hydralazine 25 mg tablet 25 mg PO BID 11/16/23
insulin aspart U-100 100 unit/mL 15 unit SC MEALS 11/16/23
(3 mL) subcutaneous pen (Novolog
FlexPen U-100 Insulin aspart)
insulin degludec 100 unit/mL (3 40 unit SC DAILY 11/16/23
mL) subcutaneous pen (Tresiba
FlexTouch U-100 insulin)
naproxen 500 mg tablet 500 mg PO BID PRN mild pain 11/16/23
paroxetine HCl 40 mg tablet 40 mg PO DAILY 11/16/23
tirzepatide 2.5 mg/0.5 mL 2.5 mg SC SA 11/16/23
subcutaneous pen injector
(Mounjaro)
tramadol 50 mg tablet 50 mg PO Q6H PRN moderate pain 11/16/23
Allergies
Allergies
Allergy/AdvReac Type Severity Reaction Status Date / Time
No Known Allergies Allergy Unverified 01/17/23 15:56
Vital Signs and Labs
-
Vital Signs and Labs:
Vital Signs
Temp Pulse Resp BP Pulse Ox
97.7 F 89 16 155/89 97
11/23/23 08:05 11/23/23 08:05 11/23/23 08:05 11/23/23 08:38 11/23/23 08:05
Lab Results
11/22/23 20:45
11/23/23 06:56
PT 13.3 Sec (11.4-14.6) 11/22/23 20:45
INR 1.03 11/22/23 20:45
APTT 35.6 Sec (23.4-35.0) H 11/22/23 20:45
Sodium 134 mmol/L (135-145) L 11/23/23 06:56
Potassium 4.5 mmol/L (3.5-5.1) 11/23/23 06:56
BUN 34 mg/dl (9-20) H 11/23/23 06:56
Glucose 175 mg/dl (70-99) H 11/23/23 06:56
Calcium 8.4 mg/dl (8.4-10.2) 11/23/23 06:56
[2023-11-23 11:23] LABS: Glucose - Point of Care 270 mg/dl (70-99)
--- NOTE | 2023-11-23 12:05 | W.PN.HOSP.TC ---
Addendum entered and electronically signed by Jose Meadows MD 11/23/23 14:57:
Called spouse, left voicemail
Original Note:
Today's Communication/Plan
-
monitor vitals
see plan
finished cefdinir
nerology to see today
cw aspirin
pt/ot
Assessment / Plan
Assessment / Plan
11/16/23 16:27 Blood/Venous Blood Culture - Preliminary
Streptococcus pneumoniae
11/16/23 16:27 Blood/Venous Gram Stain - Preliminary
11/16/23 16:27 Blood/Venous Blood Culture - Preliminary
No Growth in 48 hours- Final report to follow
11/17/23 13:19 Blood/Venous Blood Culture - Preliminary
No Growth in 24 hours- Final report to follow
11/17/23 12:56 Blood/Venous Blood Culture - Preliminary
No Growth in 24 hours- Final report to follow
11/16/23 18:31 Urine Legionella Urinary Antigen - Final
Negative for Legionella pneumophila Serogroup 1 antigen.
A negative result does not rule out the possiblity of
Legionella infection due to other serogroups or species of
Legionella. Clinical correlation is recommended.
11/16/23 18:31 Urine Streptococcus pneumoniae Antigen (M - Final
Positive for Strep pneumo Ag
11/16/23 14:28 Nasal Swab Influenza Types A & B (TERRIE) - Final
Negative for Influenza A & B, NAAT
Negative results must be combined with clinical observations
and patient history.
Nucleic Acid Amplification test (NAAT)performed on the
[employer] platform.
CXR: Moderate left lower lobe pneumonia
11/19 CXR: There is focal parenchymal opacity in the posterior and inferior aspect of the left lower lobe, which is improved from November 16, 2023 examination, findings compatible with improving pneumonia, with residual parenchymal opacity still
present.
Renal U/S:
1. � Mild to moderate chronic bilateral renal disease.
2. � No sonographic evidence for hydronephrosis or nephrolithiasis.
Severe sepsis and acute metabolic encephalopathy due to LLL pneumonia:
-Lactic acidosis, resolved
-COVID/Flu NEG, urine strep Ag+, BCx with strep pneumo, repeat BCxs NGTD
-cont Cefdinir as per ID; finished abx
-s/p VSE, currently on diabetic diet
-thrombocytopenia was likely consumptive from acute disease, resolved 108-->186k
Lungs on exam yesterday sounded much more congested than today. ?low level aspiration
Stroke alert 11/21 night for change in mental status
CT head without any new CVA
Neurology consulted
cw aspirin
Hypokalemia
Resolved
Mild hyponatremia
Monitor
DEANN:
-and hyponatremia and metabolic acidosis
significantly improved
-due to ATN from sepsis
-FeNa high
-renal U/S above
- IVFs with bicarb stopped
Suspect cognitive decline
Continue to monitor
Other problems:
ALICIA
Essential HTN: Cont Hydralazine, home ARB on hold with DEANN
DM2: holding Metformin/Mounjaro. a1c 7.6%. SSI/accuchecks. Cont Lantus/premeal Novolog.
Graves' disease with h/o radioactive iodine 1984: cont levothyroxine
GERD: Continue Protonix
HLD: cont statin
h/o CVA 2019: cont ASA/statin
Depression: Continue Paxil
Chronic pain lumbar stenosis/herniated lumbar discs: cont gabapentin/baclofen. Holding home Tramadol with DEANN.
Chronic constipation: cont bowel regimen
ADD: Cont Adderall
continue PT/OT
FULL/heparin
General: Well Developed, Well Nourished and No Apparent Distress
HEENT: Normocephalic, Atraumatic and Moist Mucous Membranes
Respiratory: Wheezes (coarse mid to end expiratory wheeze with end expiratory coughing spasms) and Rhonchi (markedly diminished)
Cardiac: Regular Rhythm and S1/S2
GI: Soft, Nontender and Nondistended
Skin: Warm and Dry
Neuro: Awake and Alert
Anticipated Discharge: Within 24 hours
Subjective/Interval History
-
Date of Service: November 23, 2023
denies pain
Objective Data
-
Labs:
Laboratory Results
11/23/23
06:56
Sodium 134 L
Potassium 4.5
Chloride 106
Carbon Dioxide 24
BUN 34 H
Creatinine 1.6 H
Glucose 175 H
Calcium 8.4
Vital Signs:
Vital Signs
Temp Pulse Resp BP Pulse Ox
98.0 F 101 16 152/78 96
11/23/23 11:55 11/23/23 11:55 11/23/23 11:55 11/23/23 11:55 11/23/23 11:55
I&O
11/22/23 11/23/23 11/24/23
06:59 06:59 06:59
Intake Total 480 / 480 1440 / 1440
Output Total 725 / 725 1600 / 1600
Balance -245 / -245 -160 / -160
[2023-11-23] MEDS: NOVOLOG FLEXPEN-LOW RESISTANCE 3 UNITS SC (12:45)
--- NOTE | 2023-11-23 13:06 | W.PN.NEPH.PH ---
Today's Communication / Plan
-
labetalol
Assessment/Plan
-
IMP:
DEANN/ATN-baseline cr 1 in 12/2022
LLL pneumonia-sterp pneumo
Severe Sepsis (leukocytosis, tachycardia) 2/2 senia
bacteremia GPC
Lactic acidosis, now resolved
thrombocytopenia likely from acute disease
hyponatremia
Mild gap metabolic acidosis
TME 2/2 sepsis
Sleep apnea
HTN�benign
IDDM with hyperglycemia
Graves' disease-Tx radioactive iodine 1983
GERD
HLD
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
Depression
Chronic pain lumbar stenosis / herniated discs lumbar
Chronic constipation
ADD
Plan:
follow BMP
no RASi/ARB
continue nifedipine
change hydralazine to labetalol (he reported dizziness to carvedilol previously, but not sure if it really was the drug. also dizziness with amlodipine, but tolerated nifedipine)
continue abx
-
-
Date of Service: November 23, 2023
CC / HPI / ROS
-
Chief Complaint:
DEANN
History of Present Illness:
cr stable at 1.6
Urinary incontinence
BP still high but improved on hydralazine and Procardia (valsartan held)
on Abx for PNA
Review of Systems:
no n/v
No fever
Labs
-
Labs:
WBC 10.1 10^3/uL (4.8-10.8) 11/22/23 20:45
RBC 4.33 10^6/uL (4.70-6.10) L 11/22/23 20:45
Hgb 12.9 g/dL (13.0-18.0) L 11/22/23 20:45
Hct 37.1 % (39.0-52.0) L 11/22/23 20:45
Plt Count 224 10^3/uL (130-400) D 11/22/23 20:45
Sodium 134 mmol/L (135-145) L 11/23/23 06:56
Potassium 4.5 mmol/L (3.5-5.1) 11/23/23 06:56
Chloride 106 mmol/L (98-107) 11/23/23 06:56
Carbon Dioxide 24 mmol/L (22-30) 11/23/23 06:56
BUN 34 mg/dl (9-20) H 11/23/23 06:56
Creatinine 1.6 mg/dL (0.7-1.3) H 11/23/23 06:56
eGFR 45.50 11/23/23 06:56
Glucose 175 mg/dl (70-99) H 11/23/23 06:56
Calcium 8.4 mg/dl (8.4-10.2) 11/23/23 06:56
Albumin 3.2 g/dl (3.5-5.0) L 11/22/23 20:45
Physical Exam
-
Vital Signs:
Vital Signs
Temp Pulse Resp BP Pulse Ox
98.0 F 101 16 152/78 96
11/23/23 11:55 11/23/23 11:55 11/23/23 11:55 11/23/23 11:55 11/23/23 11:55
Cardiovascular:: Regular rate and rhythm
Respiratory:: Bilateral: Coarse
Lung Excursion:: Normal
Abdomen:: Nontender and Soft
Bowel Sounds:: Normal
Extremity Edema:: None: Bilateral:
--- NOTE | 2023-11-23 14:20 | CM ---
Chart reviewed and plan is skilled placement when stable.
Plan; skilled placement at [facility].
--- NOTE | 2023-11-23 16:27 | W.PN.ID1 ---
Date of Service
Date of Service: November 23, 2023
Today's Communication
- completed a 7 day course of antibiotics and remains stable off of them
Assessment / Plan
Strep Pneumoniae Pneumonia
S Pneumoniae bacteremia - not persistent
DEANN
Dm2 - fair control
- completed a 7 day course of antibiotics and remains stable off of them
- follow up with PCP - suggest he eventually get pneumococcal vaccine with PCP
Chief Complaint
-: Pneumonia and Bacteremia
Subjective / Review of Systems
afebrile
bp stable
remains on room air
minimal cough
no leukocytosis and cr stable
Vital Signs / Physical Exam
Vital Signs
Vital Signs
Temp Pulse Resp BP Pulse Ox
98.0 F 101 16 152/78 96
11/23/23 11:55 11/23/23 11:55 11/23/23 11:55 11/23/23 11:55 11/23/23 11:55
Physical Exam
Constitutional: No Acute Distress
Cardiovascular: Regular Rate and S1/S2; Negative Murmur or Rub
Pulmonary: Clear and Symmetric; Negative Wheezes or Rales
Gastrointestinal: Soft, Non Tender, Non Distended and Normal Bowel Sounds
Skin: Warm and Dry; Negative Rash or Jaundice
Objective Data
Lab Data
Lab Results
11/22/23 20:45
11/23/23 06:56
PT 13.3 Sec (11.4-14.6) 11/22/23 20:45
INR 1.03 11/22/23 20:45
APTT 35.6 Sec (23.4-35.0) H 11/22/23 20:45
Estimated Creat Clear 48 ml/min 11/23/23 06:56
Lactic Acid 1.4 mmol/L (0.7-2.0) 11/22/23 20:45
Total Bilirubin 0.5 mg/dl (0.2-1.3) 11/22/23 20:45
AST 43 U/L (17-59) 11/22/23 20:45
ALT 37 U/L (0-50) 11/22/23 20:45
Alkaline Phosphatase 158 U/L (38-126) H 11/22/23 20:45
Most recent labs reviewed.
Micro Results:
11/16/23 16:27 Blood Culture - Final
Blood/Venous Streptococcus pneumoniae
Gram Stain - Final
11/22/23 20:45 Blood Culture - Pending
Blood/Venous
11/17/23 13:19 Blood Culture - Final
Blood/Venous No Growth - Final Report
11/17/23 12:56 Blood Culture - Final
Blood/Venous No Growth - Final Report
11/16/23 16:27 Blood Culture - Final
Blood/Venous No Growth - Final Report
11/16/23 18:31 Legionella Urinary Antigen - Final
Urine Negative for Legionella pneumophila Serogroup 1 antigen.
A negative result does not rule out the possiblity of
Legionella infection due to other serogroups or species of
Legionella. Clinical correlation is recommended.
Streptococcus pneumoniae Antigen (M - Final
Positive for Strep pneumo Ag
11/16/23 14:28 Influenza Types A & B (TERRIE) - Final
Nasal Swab Negative for Influenza A & B, NAAT
Negative results must be combined with clinical observations
and patient history.
Nucleic Acid Amplification test (NAAT)performed on the
[employer] platform.
[2023-11-23 16:58] LABS: Glucose - Point of Care 222 mg/dl (70-99)
[2023-11-23] MEDS: LIPITOR 80 MG PO (17:11)
[2023-11-23] MEDS: COLACE 100 MG PO (17:11)
[2023-11-23] MEDS: NOVOLOG FLEXPEN-LOW RESISTANCE 2 UNITS SC (18:15)
[2023-11-23] MEDS: TRANDATE 200 MG PO (19:53)
[2023-11-23 22:11] LABS: Glucose - Point of Care 253 mg/dl (70-99)
[2023-11-24] VITALS (7 sets, daily range): BP systolic 111–148; BP diastolic 58–79; PULSE 71; O2SAT 94
--- NOTE | 2023-11-24 03:34 | DOWNTIME ---
There was a [employer] Downtime on 11/24/2023 from 0100 to 11/24/2023 at 0322. Downtime documentation of patient's care, including medication administrations, has been reconciled in the electronic record per guidelines. Refer to the
patient's paper chart under the miscellaneous tab to see printed paper medication records and downtime forms.
[2023-11-24] MEDS: SYNTHROID 150 MCG PO (05:40)
[2023-11-24 08:18] LABS: Glucose - Point of Care 225 mg/dl (70-99)
[2023-11-24 08:30] LABS: Blood Urea Nitrogen 39 mg/dl (9-20); Calcium 8.2 mg/dl (8.4-10.2); Carbon Dioxide 21 mmol/L (22-30); Chloride 102 mmol/L (98-107); Estimated Creatinine Clearance 45 ml/min; Glucose 238 mg/dl (70-99); Sodium 131 mmol/L (135-145)
[2023-11-24] MEDS: NON-FORMULARY ITEM 15 MG PO (08:30)
[2023-11-24] MEDS: HEPARIN 5000 UNITS SC ×2 (08:33→21:52)
[2023-11-24] MEDS: NOVOLOG FLEXPEN-LOW RESISTANCE 2 UNITS SC (08:33)
[2023-11-24] MEDS: ASPIR LOW (ENTERIC COATED) 81 MG PO (08:33)
[2023-11-24] MEDS: LIORESAL 10 MG PO ×2 (08:34→21:52)
[2023-11-24] MEDS: MUCINEX 600 MG PO ×2 (08:35→21:53)
[2023-11-24] MEDS: PAXIL 40 MG PO (08:35)
[2023-11-24] MEDS: PROCARDIA XL (EXTENDED RELEASE) 30 MG PO ×2 (08:35→21:53)
[2023-11-24] MEDS: TRANDATE 200 MG PO ×2 (08:36→21:53)
[2023-11-24] MEDS: PROTONIX 40 MG PO (08:37)
[2023-11-24] MEDS: LANTUS 0.25 UNITS SC (08:37)
[2023-11-24 08:42] LABS: Potassium 5.3 mmol/L (3.5-5.1)
--- NOTE | 2023-11-24 09:05 | PTOTSP ---
Speech Language Pathology
Pt seen for dysphagia tx with breakfast tray. Reviewed results/recommendations from VSE. Pt stated this is to be expected given his past stroke and previous VSE results. Discussed single sips of liquid. Pt stated he does this at home, but was
then noted to drink 4 ounces of orange juice consecutively. He stated he did this because it is 'thicker.' Discussed importance of single sips. Adequate mastication, bolus formation, and A-P transit noted. No overt signs of aspiration.
Pt reported he takes multiple pills at home with liquid at 1 time. Currently receiving pills in puree. Can trial 1 at a time with liquid.
Recommend:
(1) Continue regular solids/thin liquids
(2) Aspiration precautions: ok for straws, single cup or straw sips, slow rate, set-up assist
(3) Trial 1 med at a time whole with water if able to take a single sip. Otherwise, continue whole in puree
(4) [employer] MACHINE OPERATOR to continue to follow
[2023-11-24] MEDS: MAGNESIUM OXIDE 500 MG PO ×2 (09:28→21:54)
[2023-11-24 11:29] LABS: Glucose - Point of Care 312 mg/dl (70-99)
[2023-11-24] MEDS: NOVOLOG FLEXPEN-LOW RESISTANCE 4 UNITS SC ×2 (11:33→17:25)
--- NOTE | 2023-11-24 11:41 | W.PN.NEPH.PH ---
Today's Communication / Plan
-
follow bmp
hold K
Assessment/Plan
-
IMP:
DEANN/ATN-baseline cr 1 in 12/2022
LLL pneumonia-sterp pneumo
Severe Sepsis (leukocytosis, tachycardia) 2/2 senia
bacteremia GPC
Lactic acidosis, now resolved
thrombocytopenia likely from acute disease
hyponatremia
Mild gap metabolic acidosis
TME 2/2 sepsis
Sleep apnea
HTN�benign
IDDM with hyperglycemia
Graves' disease-Tx radioactive iodine 1983
GERD
HLD
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
Depression
Chronic pain lumbar stenosis / herniated discs lumbar
Chronic constipation
ADD
Plan:
follow BMP
creatinine stalled around 1.7, nonoliguric
sodium dropping, may need to decrease paxil and or add FR if exacerbates
no RASi/ARB
holding K given rising potassium
continue nifedipine
changed hydralazine to labetalol (he reported dizziness to carvedilol previously, but not sure if it really was the drug. also dizziness with amlodipine, but tolerated nifedipine)
continue abx
-
-
Date of Service: November 24, 2023
CC / HPI / ROS
-
Chief Complaint:
DEANN
History of Present Illness:
cr stable at 1.7
sodium down to 131
K up
Urinary incontinence
BP still high but improved on hydralazine and Procardia (valsartan held)
on Abx for PNA
Review of Systems:
no n/v
No fever
Labs
-
Labs:
WBC 10.1 10^3/uL (4.8-10.8) 11/22/23 20:45
RBC 4.33 10^6/uL (4.70-6.10) L 11/22/23 20:45
Hgb 12.9 g/dL (13.0-18.0) L 11/22/23 20:45
Hct 37.1 % (39.0-52.0) L 11/22/23 20:45
Plt Count 224 10^3/uL (130-400) D 11/22/23 20:45
Sodium 131 mmol/L (135-145) L 11/24/23 06:22
Potassium 5.3 mmol/L (3.5-5.1) H 11/24/23 06:22
Chloride 102 mmol/L (98-107) 11/24/23 06:22
Carbon Dioxide 21 mmol/L (22-30) L 11/24/23 06:22
BUN 39 mg/dl (9-20) H 11/24/23 06:22
Creatinine 1.7 mg/dL (0.7-1.3) H 11/24/23 06:22
eGFR 42.30 11/24/23 06:22
Glucose 238 mg/dl (70-99) H 11/24/23 06:22
Calcium 8.2 mg/dl (8.4-10.2) L 11/24/23 06:22
Albumin 3.2 g/dl (3.5-5.0) L 11/22/23 20:45
Physical Exam
-
Vital Signs:
Vital Signs
Temp Pulse Resp BP Pulse Ox
97.9 F 77 16 143/71 97
11/24/23 07:55 11/24/23 07:55 11/24/23 07:55 11/24/23 07:55 11/24/23 08:45
Cardiovascular:: Regular rate and rhythm
Lung Excursion:: Normal
Abdomen:: Nontender and Soft
Bowel Sounds:: Normal
Extremity Edema:: +1: Bilateral: (trace)
Andersen Catheter: No
--- NOTE | 2023-11-24 12:05 | W.PN.HOSP.TC ---
Today's Communication/Plan
-
Monitor vital sign closely plan
Continue with nifedipine, labetalol
Monitor sodium
Monitor renal function
Hold standing potassium
PT/OT
Increase Lantus, add aspart with meals
Assessment / Plan
Assessment / Plan
11/16/23 16:27 Blood/Venous Blood Culture - Preliminary
Streptococcus pneumoniae
11/16/23 16:27 Blood/Venous Gram Stain - Preliminary
11/16/23 16:27 Blood/Venous Blood Culture - Preliminary
No Growth in 48 hours- Final report to follow
11/17/23 13:19 Blood/Venous Blood Culture - Preliminary
No Growth in 24 hours- Final report to follow
11/17/23 12:56 Blood/Venous Blood Culture - Preliminary
No Growth in 24 hours- Final report to follow
11/16/23 18:31 Urine Legionella Urinary Antigen - Final
Negative for Legionella pneumophila Serogroup 1 antigen.
A negative result does not rule out the possiblity of
Legionella infection due to other serogroups or species of
Legionella. Clinical correlation is recommended.
11/16/23 18:31 Urine Streptococcus pneumoniae Antigen (M - Final
Positive for Strep pneumo Ag
11/16/23 14:28 Nasal Swab Influenza Types A & B (TERRIE) - Final
Negative for Influenza A & B, NAAT
Negative results must be combined with clinical observations
and patient history.
Nucleic Acid Amplification test (NAAT)performed on the
[email or web address] platform.
CXR: Moderate left lower lobe pneumonia
11/19 CXR: There is focal parenchymal opacity in the posterior and inferior aspect of the left lower lobe, which is improved from November 16, 2023 examination, findings compatible with improving pneumonia, with residual parenchymal opacity still
present.
Renal U/S:
1. � Mild to moderate chronic bilateral renal disease.
2. � No sonographic evidence for hydronephrosis or nephrolithiasis.
Severe sepsis and acute metabolic encephalopathy due to LLL pneumonia:
-Lactic acidosis, resolved
-COVID/Flu NEG, urine strep Ag+, BCx with strep pneumo, repeat BCxs NGTD
-cont Cefdinir as per ID; finished abx
-s/p VSE, currently on diabetic diet
-thrombocytopenia was likely consumptive from acute disease, resolved
Lungs on exam yesterday sounded much more congested than today. ?low level aspiration
Stroke alert 11/21 night for change in mental status
CT head without any new CVA
Neurology following; no new recs; neurology doesnt think it was TIA/CVA event
cw aspirin
Hyperkalemia
hold PO K
Mild hyponatremia
Monitor
DEANN:
-and hyponatremia and metabolic acidosis
significantly improved
-due to ATN from sepsis
-FeNa high
-renal U/S above
- IVFs with bicarb stopped
Essential HTN:
Stopped hydralazine, now on labetalol
Continue with nifedipine
DM2: holding Metformin/Mounjaro. a1c 7.6%. SSI/accuchecks. Cont Lantus/premeal Novolog.
Suspect cognitive decline
Continue to monitor
Other problems:
ALICIA
Graves' disease with h/o radioactive iodine 1984: cont levothyroxine
GERD: Continue Protonix
HLD: cont statin
h/o CVA 2019: cont ASA/statin
Depression: Continue Paxil
Chronic pain lumbar stenosis/herniated lumbar discs: cont gabapentin/baclofen. Holding home Tramadol with DEANN.
Chronic constipation: cont bowel regimen
ADD: Cont Adderall
continue PT/OT
FULL/heparin
General: Well Developed, Well Nourished and No Apparent Distress
HEENT: Normocephalic, Atraumatic and Moist Mucous Membranes
Respiratory: mildly diminished
Cardiac: Regular Rhythm and S1/S2
GI: Soft, Nontender and Nondistended
Skin: Warm and Dry
Neuro: Awake and Alert
Anticipated Discharge: Within 24 hours
Subjective/Interval History
-
Date of Service: November 24, 2023
Denies pain
Objective Data
-
Labs:
Laboratory Results
11/24/23
06:22
Sodium 131 L
Potassium 5.3 H
Chloride 102
Carbon Dioxide 21 L
BUN 39 H
Creatinine 1.7 H
Glucose 238 H
Calcium 8.2 L
Vital Signs:
Vital Signs
Temp Pulse Resp BP Pulse Ox
97.9 F 77 16 143/71 97
11/24/23 07:55 11/24/23 07:55 11/24/23 07:55 11/24/23 07:55 11/24/23 08:45
I&O
11/23/23 11/24/23 11/25/23
06:59 06:59 06:59
Intake Total 1440 / 1440 1260 / 1260
Output Total 1600 / 1600 1350 / 1350
Balance -160 / -160 -90 / -90
[2023-11-24] MEDS: NOVOLOG FLEXPEN 3 UNITS SC ×2 (12:18→17:25)
--- NOTE | 2023-11-24 12:38 | CM ---
Chart reviewed and plan is for skilled placement at [facility], referral sent, no Auth required.
Plan; Skilled placement at [facility].
[2023-11-24] MEDS: TYLENOL 650 MG PO (16:26)
[2023-11-24 16:39] LABS: Glucose - Point of Care 311 mg/dl (70-99)
--- NOTE | 2023-11-24 16:51 | W.PN.UPDATE ---
Update Note
Progress Note Update
ID service will no longer actively follow this patient please recall for further questions
[2023-11-24] MEDS: COLACE 100 MG PO (17:26)
[2023-11-24] MEDS: LIPITOR 80 MG PO (17:26)
[2023-11-24 22:20] LABS: Glucose - Point of Care 307 mg/dl (70-99)
[2023-11-25] VITALS (9 sets, daily range): BP systolic 96–154; BP diastolic 51–79; PULSE 69; O2SAT 96
[2023-11-25] MEDS: SYNTHROID 150 MCG PO (06:09)
--- NOTE | 2023-11-25 06:16 | PTCARENOTE ---
Pt reports taking baclofen PRN for muscle spasms, has med list on him. Med Rec updated.
[2023-11-25 07:01] LABS: Glucose - Point of Care 311 mg/dl (70-99)
[2023-11-25] MEDS: NON-FORMULARY ITEM 15 MG PO (08:30)
[2023-11-25] MEDS: NOVOLOG FLEXPEN-LOW RESISTANCE 4 UNITS SC ×2 (08:33→12:01)
[2023-11-25] MEDS: NOVOLOG FLEXPEN 3 UNITS SC (08:33)
[2023-11-25] MEDS: HEPARIN 5000 UNITS SC ×2 (08:34→20:33)
[2023-11-25] MEDS: LANTUS 0.299999999999999989 UNITS SC (08:34)
[2023-11-25] MEDS: ASPIR LOW (ENTERIC COATED) 81 MG PO (08:34)
[2023-11-25] MEDS: TRANDATE 200 MG PO ×2 (08:35→20:40)
[2023-11-25] MEDS: PROTONIX 40 MG PO (08:35)
[2023-11-25] MEDS: PAXIL 40 MG PO (08:35)
[2023-11-25] MEDS: PROCARDIA XL (EXTENDED RELEASE) 30 MG PO ×2 (08:35→20:39)
[2023-11-25] MEDS: LIORESAL 10 MG PO ×2 (08:35→20:35)
[2023-11-25] MEDS: MUCINEX 600 MG PO ×2 (08:35→20:35)
[2023-11-25 08:36] LABS: Blood Urea Nitrogen 42 mg/dl (9-20); Calcium 8.3 mg/dl (8.4-10.2); Carbon Dioxide 19 mmol/L (22-30); Chloride 104 mmol/L (98-107); Estimated Creatinine Clearance 41 ml/min; Glucose 307 mg/dl (70-99); Sodium 130 mmol/L (135-145); eGFR 37.02
[2023-11-25] MEDS: MAGNESIUM OXIDE 500 MG PO ×2 (09:14→23:00)
[2023-11-25 11:51] LABS: Glucose - Point of Care 338 mg/dl (70-99)
--- NOTE | 2023-11-25 11:51 | W.PN.HOSP.TC ---
Today's Communication/Plan
-
Monitor vital signs and see plan
increase Lantus and NovoLog
Monitor renal function closely
Monitor sodium
Discharge planning
Assessment / Plan
Assessment / Plan
11/16/23 16:27 Blood/Venous Blood Culture - Preliminary
Streptococcus pneumoniae
11/16/23 16:27 Blood/Venous Gram Stain - Preliminary
11/16/23 16:27 Blood/Venous Blood Culture - Preliminary
No Growth in 48 hours- Final report to follow
11/17/23 13:19 Blood/Venous Blood Culture - Preliminary
No Growth in 24 hours- Final report to follow
11/17/23 12:56 Blood/Venous Blood Culture - Preliminary
No Growth in 24 hours- Final report to follow
11/16/23 18:31 Urine Legionella Urinary Antigen - Final
Negative for Legionella pneumophila Serogroup 1 antigen.
A negative result does not rule out the possiblity of
Legionella infection due to other serogroups or species of
Legionella. Clinical correlation is recommended.
11/16/23 18:31 Urine Streptococcus pneumoniae Antigen (M - Final
Positive for Strep pneumo Ag
11/16/23 14:28 Nasal Swab Influenza Types A & B (TERRIE) - Final
Negative for Influenza A & B, NAAT
Negative results must be combined with clinical observations
and patient history.
Nucleic Acid Amplification test (NAAT)performed on the
[employer] platform.
CXR: Moderate left lower lobe pneumonia
11/19 CXR: There is focal parenchymal opacity in the posterior and inferior aspect of the left lower lobe, which is improved from November 16, 2023 examination, findings compatible with improving pneumonia, with residual parenchymal opacity still
present.
Renal U/S:
1. � Mild to moderate chronic bilateral renal disease.
2. � No sonographic evidence for hydronephrosis or nephrolithiasis.
Severe sepsis and acute metabolic encephalopathy due to LLL pneumonia:
-Lactic acidosis, resolved
-COVID/Flu NEG, urine strep Ag+, BCx with strep pneumo, repeat BCxs NGTD
-cont Cefdinir as per ID; finished abx
-s/p VSE, currently on diabetic diet
-thrombocytopenia was likely consumptive from acute disease, resolved
Lungs on exam yesterday sounded much more congested than today. ?low level aspiration
Stroke alert 11/21 night for change in mental status
CT head without any new CVA
Neurology following; no new recs; neurology doesnt think it was TIA/CVA event
cw aspirin
Hyperkalemia
hold PO K
Mild hyponatremia
Monitor
DEANN:
-and hyponatremia and metabolic acidosis
significantly improved
-due to ATN from sepsis
-FeNa high
-renal U/S above
- IVFs with bicarb stopped
Creatinine getting worse again
Essential HTN:
Stopped hydralazine, now on labetalol
Continue with nifedipine
DM2: holding Metformin/Mounjaro. a1c 7.6%. SSI/accuchecks. Cont Lantus/premeal Novolog. Increase Lantus and NovoLog
Suspect cognitive decline
Continue to monitor
Other problems:
ALICIA
Graves' disease with h/o radioactive iodine 1984: cont levothyroxine
GERD: Continue Protonix
HLD: cont statin
h/o CVA 2019: cont ASA/statin
Depression: Continue Paxil
Chronic pain lumbar stenosis/herniated lumbar discs: cont gabapentin/baclofen. Holding home Tramadol with DEANN.
Chronic constipation: cont bowel regimen
ADD: Cont Adderall
continue PT/OT
FULL/heparin
General: Well Developed, Well Nourished and No Apparent Distress
HEENT: Normocephalic, Atraumatic and Moist Mucous Membranes
Respiratory: mildly diminished
Cardiac: Regular Rhythm and S1/S2
GI: Soft, Nontender and Nondistended
Skin: Warm and Dry
Neuro: Awake and Alert
Anticipated Discharge: Within 24 hours
Subjective/Interval History
-
Date of Service: November 25, 2023
denies pain
Objective Data
-
Labs:
Laboratory Results
11/25/23
06:34
Sodium 130 L
Potassium 5.0
Chloride 104
Carbon Dioxide 19 L
BUN 42 H
Creatinine 1.9 H
Glucose 307 H
Calcium 8.3 L
Vital Signs:
Vital Signs
Temp Pulse Resp BP Pulse Ox
96.8 F L 64 16 134/79 96
11/25/23 08:38 11/25/23 08:38 11/25/23 08:38 11/25/23 08:38 11/25/23 08:45
I&O
11/24/23 11/25/23 11/26/23
06:59 06:59 06:59
Intake Total 1260 / 1260 1320 / 1320
Output Total 1350 / 1350 1300 / 1300 900 / 900
Balance -90 / -90 20 / 20 -900 / -900
[2023-11-25] MEDS: NOVOLOG FLEXPEN 5 UNITS SC ×2 (12:02→16:47)
--- NOTE | 2023-11-25 13:59 | PN.CDI ---
CDI
- -
CDI:
Physician Documentation Request
Admit Date: 11/16/23 17:11
Dear Doctor Abdiel,
Patient is admitted with severe sepsis and acute metabolic encephalopathy due to LLL pneumonia
Blood culture x 1 positive streptococcus pneumoniae
Urine positive for strep pneumo Ag
Please clarify if a relationship exist between these conditions:
Yes, sepsis is related to/associated with/due to streptococcus pneumoniae .
No, sepsis is not related to/associated with/due to streptococcus pneumoniae,
Unable to determine
Use of terms such as suspected, likely, concern for, or probable (associated with a specific diagnosis that is being evaluated, monitored, or treated as if it exists) are acceptable and can be coded in the inpatient setting, when documented at the
time of discharge.
Thank you,
Dayanna Klein RN, BSN
CDI Specialist
tiger text
Please use your independent medical judgment in providing your response.
--- NOTE | 2023-11-25 15:57 | W.PN.NEPH.PH ---
Today's Communication / Plan
-
Added fluid restriction
Follow BMP
If creatinine escalates tomorrow we will recheck bladder scan to evaluate for obstructive process
Assessment/Plan
-
IMP:
DEANN/ATN-baseline cr 1 in 12/2022
LLL pneumonia-sterp pneumo
Severe Sepsis (leukocytosis, tachycardia) 2/2 senia
bacteremia GPC
Lactic acidosis, now resolved
thrombocytopenia likely from acute disease
hyponatremia
Mild gap metabolic acidosis
TME 2/2 sepsis
Sleep apnea
HTN�benign
IDDM with hyperglycemia
Graves' disease-Tx radioactive iodine 1983
GERD
HLD
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
Depression
Chronic pain lumbar stenosis / herniated discs lumbar
Chronic constipation
ADD
Plan:
follow BMP
creatinine up to 1.9, nonoliguric > 2liters
sodium dropping, may need to decrease paxil, will add FR today
no RASi/ARB
holding K given rising potassium
continue nifedipine for now while ARB is held
changed hydralazine to labetalol (he reported dizziness to carvedilol previously, but not sure if it really was the drug. also dizziness with amlodipine, but tolerated nifedipine)
continue abx
-
-
Date of Service: November 25, 2023
CC / HPI / ROS
-
Chief Complaint:
DEANN
History of Present Illness:
cr up at 1.9
sodium down to 130
Urinary incontinence
BP still high but improved on hydralazine and Procardia (valsartan held)
on Abx for PNA
Review of Systems:
no n/v
No fever
Grossly nonoliguric
Labs
-
Labs:
WBC 10.1 10^3/uL (4.8-10.8) 11/22/23 20:45
RBC 4.33 10^6/uL (4.70-6.10) L 11/22/23 20:45
Hgb 12.9 g/dL (13.0-18.0) L 11/22/23 20:45
Hct 37.1 % (39.0-52.0) L 11/22/23 20:45
Plt Count 224 10^3/uL (130-400) D 11/22/23 20:45
Sodium 130 mmol/L (135-145) L 11/25/23 06:34
Potassium 5.0 mmol/L (3.5-5.1) 11/25/23 06:34
Chloride 104 mmol/L (98-107) 11/25/23 06:34
Carbon Dioxide 19 mmol/L (22-30) L 11/25/23 06:34
BUN 42 mg/dl (9-20) H 11/25/23 06:34
Creatinine 1.9 mg/dL (0.7-1.3) H 11/25/23 06:34
eGFR 37.02 11/25/23 06:34
Glucose 307 mg/dl (70-99) H 11/25/23 06:34
Calcium 8.3 mg/dl (8.4-10.2) L 11/25/23 06:34
Albumin 3.2 g/dl (3.5-5.0) L 11/22/23 20:45
Physical Exam
-
Vital Signs:
Vital Signs
Temp Pulse Resp BP Pulse Ox
97.7 F 67 20 101/63 100
11/25/23 15:31 11/25/23 15:31 11/25/23 15:31 11/25/23 15:31 11/25/23 15:31
Cardiovascular:: Regular rate and rhythm
Respiratory:: Bilateral: Coarse
Lung Excursion:: Normal
Abdomen:: Nontender and Soft
Bowel Sounds:: Normal
Extremity Edema:: None: Bilateral:
Andersen Catheter: No
--- NOTE | 2023-11-25 16:01 | CM ---
Patient has been referrered to and accepted at [facility] when stable.
Plan; skilled placement at [facility].
[2023-11-25 16:43] LABS: Glucose - Point of Care 228 mg/dl (70-99)
[2023-11-25] MEDS: NOVOLOG FLEXPEN-LOW RESISTANCE 2 UNITS SC (16:47)
[2023-11-25] MEDS: COLACE 100 MG PO (16:48)
[2023-11-25] MEDS: LIPITOR 80 MG PO (16:48)
[2023-11-25 21:36] LABS: Glucose - Point of Care 273 mg/dl (70-99)
[2023-11-26 06:00] VITALS: BMI 29.4
[2023-11-26] MEDS: SYNTHROID 150 MCG PO (06:32)
[2023-11-26 07:00] VITALS: BP 135/67
[2023-11-26 08:17] LABS: Glucose - Point of Care 223 mg/dl (70-99)
[2023-11-26 08:30] LABS: Blood Urea Nitrogen 38 mg/dl (9-20); Calcium 8.5 mg/dl (8.4-10.2); Carbon Dioxide 21 mmol/L (22-30); Chloride 108 mmol/L (98-107); Estimated Creatinine Clearance 38 ml/min; Glucose 246 mg/dl (70-99); Potassium 5.2 mmol/L (3.5-5.1); Sodium 132 mmol/L (135-145)
[2023-11-26] MEDS: NOVOLOG FLEXPEN 5 UNITS SC (10:34)
[2023-11-26] MEDS: NOVOLOG FLEXPEN-LOW RESISTANCE 2 UNITS SC (10:35)
[2023-11-26] MEDS: PAXIL 40 MG PO (10:36)
[2023-11-26] MEDS: MAGNESIUM OXIDE 500 MG PO (10:36)
[2023-11-26] MEDS: PROTONIX 40 MG PO (10:36)
[2023-11-26] MEDS: ASPIR LOW (ENTERIC COATED) 81 MG PO (10:36)
[2023-11-26] MEDS: TRANDATE 200 MG PO ×2 (10:36→20:52)
[2023-11-26] MEDS: LIORESAL 10 MG PO (10:37)
[2023-11-26] MEDS: PROCARDIA XL (EXTENDED RELEASE) 30 MG PO ×2 (10:37→20:51)
[2023-11-26] MEDS: MUCINEX 600 MG PO ×2 (10:37→20:43)
[2023-11-26] MEDS: HEPARIN 5000 UNITS SC ×2 (10:38→20:42)
[2023-11-26] MEDS: NON-FORMULARY ITEM 15 MG PO (10:45)
[2023-11-26] MEDS: LANTUS 0.299999999999999989 UNITS SC (10:46)
--- NOTE | 2023-11-26 12:05 | W.PN.HOSP.TC ---
Addendum entered and electronically signed by Jose Meadows MD 11/26/23 12:25:
sepsis is associated with streptococcus pneumoniae
updated over the phone
Original Note:
Today's Communication/Plan
-
Monitor vital signs and see plan
Change baclofen to as needed
Monitor renal function
Monitor potassium
PT/OT
Eventual dispo
Assessment / Plan
Assessment / Plan
11/16/23 16:27 Blood/Venous Blood Culture - Preliminary
Streptococcus pneumoniae
11/16/23 16:27 Blood/Venous Gram Stain - Preliminary
11/16/23 16:27 Blood/Venous Blood Culture - Preliminary
No Growth in 48 hours- Final report to follow
11/17/23 13:19 Blood/Venous Blood Culture - Preliminary
No Growth in 24 hours- Final report to follow
11/17/23 12:56 Blood/Venous Blood Culture - Preliminary
No Growth in 24 hours- Final report to follow
11/16/23 18:31 Urine Legionella Urinary Antigen - Final
Negative for Legionella pneumophila Serogroup 1 antigen.
A negative result does not rule out the possiblity of
Legionella infection due to other serogroups or species of
Legionella. Clinical correlation is recommended.
11/16/23 18:31 Urine Streptococcus pneumoniae Antigen (M - Final
Positive for Strep pneumo Ag
11/16/23 14:28 Nasal Swab Influenza Types A & B (TERRIE) - Final
Negative for Influenza A & B, NAAT
Negative results must be combined with clinical observations
and patient history.
Nucleic Acid Amplification test (NAAT)performed on the
[employer] platform.
CXR: Moderate left lower lobe pneumonia
11/19 CXR: There is focal parenchymal opacity in the posterior and inferior aspect of the left lower lobe, which is improved from November 16, 2023 examination, findings compatible with improving pneumonia, with residual parenchymal opacity still
present.
Renal U/S:
1. � Mild to moderate chronic bilateral renal disease.
2. � No sonographic evidence for hydronephrosis or nephrolithiasis.
Severe sepsis and acute metabolic encephalopathy due to LLL pneumonia:
-Lactic acidosis, resolved
-COVID/Flu NEG, urine strep Ag+, BCx with strep pneumo, repeat BCxs NGTD
-cont Cefdinir as per ID; finished abx
-s/p VSE, currently on diabetic diet
-thrombocytopenia was likely consumptive from acute disease, resolved
Lungs on exam yesterday sounded much more congested than today. ?low level aspiration
Stroke alert 11/21 night for change in mental status
CT head without any new CVA
Neurology following; no new recs; neurology doesnt think it was TIA/CVA event
cw aspirin
Hyperkalemia
hold PO K
Mild hyponatremia
Monitor
DEANN:
-and hyponatremia and metabolic acidosis
significantly improved
-due to ATN from sepsis
-FeNa high
-renal U/S above
- IVFs with bicarb stopped
Creatinine getting worse again
change baclofen to PRN
Essential HTN:
Stopped hydralazine, now on labetalol
Continue with nifedipine
DM2: holding Metformin/Mounjaro. a1c 7.6%. SSI/accuchecks. Cont Lantus/premeal Novolog. Increase Lantus and NovoLog
Suspect cognitive decline
Continue to monitor
Other problems:
ALICIA
Graves' disease with h/o radioactive iodine 1984: cont levothyroxine
GERD: Continue Protonix
HLD: cont statin
h/o CVA 2019: cont ASA/statin
Depression: Continue Paxil
Chronic pain lumbar stenosis/herniated lumbar discs: cont gabapentin/baclofen. Holding home Tramadol with DEANN.
Chronic constipation: cont bowel regimen
ADD: Cont Adderall
continue PT/OT
FULL/heparin
General: Well Developed, Well Nourished and No Apparent Distress
HEENT: Normocephalic, Atraumatic and Moist Mucous Membranes
Respiratory: mildly diminished
Cardiac: Regular Rhythm and S1/S2
GI: Soft, Nontender and Nondistended
Skin: Warm and Dry
Neuro: Awake and Alert
Anticipated Discharge: Within 24 hours
Subjective/Interval History
-
Date of Service: November 26, 2023
denies pain
Objective Data
-
Labs:
Laboratory Results
11/26/23
06:24
Sodium 132 L
Potassium 5.2 H
Chloride 108 H
Carbon Dioxide 21 L
BUN 38 H
Creatinine 1.8 H
Glucose 246 H
Calcium 8.5
Vital Signs:
Vital Signs
Temp Pulse Resp BP Pulse Ox
97.4 F 72 18 135/67 97
11/26/23 07:00 11/26/23 10:37 11/26/23 07:00 11/26/23 10:37 11/26/23 07:00
I&O
11/25/23 11/26/23 11/27/23
06:59 06:59 06:59
Intake Total 1320 / 1320 240 / 240
Output Total 1300 / 1300 900 / 900 1700 / 1700
Balance 20 / 20 -900 / -900 -1460 / -1460
[2023-11-26 12:24] LABS: Glucose - Point of Care 387 mg/dl (70-99)
[2023-11-26 12:46] VITALS: BP 94/51
--- NOTE | 2023-11-26 12:48 | W.PN.NEPH.PH ---
Today's Communication / Plan
-
follow BMP
Assessment/Plan
-
IMP:
DEANN/ATN-baseline cr 1 in 12/2022
LLL pneumonia-sterp pneumo
Severe Sepsis (leukocytosis, tachycardia) 2/2 senia
bacteremia GPC
Lactic acidosis, now resolved
thrombocytopenia likely from acute disease
hyponatremia
Mild gap metabolic acidosis
TME 2/2 sepsis
Sleep apnea
HTN�benign
IDDM with hyperglycemia
Graves' disease-Tx radioactive iodine 1983
GERD
HLD
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
Depression
Chronic pain lumbar stenosis / herniated discs lumbar
Chronic constipation
ADD
Plan:
follow BMP
mental status change evaluation
-
-
Date of Service: November 26, 2023
CC / HPI / ROS
-
Chief Complaint:
DEANN
History of Present Illness:
cr up at 1.8
sodium stable 132
Urinary incontinence
BP stable
K up ot 5.2
acidosis persists
completed Abx for PNA
Review of Systems:
confused
hypothermic
Labs
-
Labs:
WBC 10.1 10^3/uL (4.8-10.8) 11/22/23 20:45
RBC 4.33 10^6/uL (4.70-6.10) L 11/22/23 20:45
Hgb 12.9 g/dL (13.0-18.0) L 11/22/23 20:45
Hct 37.1 % (39.0-52.0) L 11/22/23 20:45
Plt Count 224 10^3/uL (130-400) D 11/22/23 20:45
Sodium 132 mmol/L (135-145) L 11/26/23 06:24
Potassium 5.2 mmol/L (3.5-5.1) H 11/26/23 06:24
Chloride 108 mmol/L (98-107) H 11/26/23 06:24
Carbon Dioxide 21 mmol/L (22-30) L 11/26/23 06:24
BUN 38 mg/dl (9-20) H 11/26/23 06:24
Creatinine 1.8 mg/dL (0.7-1.3) H 11/26/23 06:24
eGFR 39.50 11/26/23 06:24
Glucose 246 mg/dl (70-99) H 11/26/23 06:24
Calcium 8.5 mg/dl (8.4-10.2) 11/26/23 06:24
Albumin 3.2 g/dl (3.5-5.0) L 11/22/23 20:45
Physical Exam
-
Vital Signs:
Vital Signs
Temp Pulse Resp BP Pulse Ox
97.5 F 78 18 94/51 97
11/26/23 12:46 11/26/23 12:46 11/26/23 07:00 11/26/23 12:46 11/26/23 12:46
Cardiovascular:: Regular rate and rhythm
Respiratory:: Bilateral: Coarse
Lung Excursion:: Normal
Abdomen:: Nontender and Soft
Bowel Sounds:: Normal
Extremity Edema:: +1: Bilateral:
[2023-11-26] MEDS: NOVOLOG FLEXPEN-LOW RESISTANCE 5 UNITS SC (12:56)
[2023-11-26] MEDS: NSS 500 IV (12:57)
[2023-11-26] MEDS: ProAmatine 5 MG PO (12:57)
[2023-11-26] MEDS: NOVOLOG FLEXPEN SC (13:08)
[2023-11-26 13:34] LABS: Blood Urea Nitrogen 39 mg/dl (9-20); Calcium 8.1 mg/dl (8.4-10.2); Carbon Dioxide 21 mmol/L (22-30); Chloride 104 mmol/L (98-107); Estimated Creatinine Clearance 36 ml/min; Glucose 363 mg/dl (70-99); Potassium 5.7 mmol/L (3.5-5.1); Sodium 130 mmol/L (135-145); eGFR 37.02
[2023-11-26 15:00] VITALS: BP 125/73
--- NOTE | 2023-11-26 16:04 | CM ---
Patient for tentative d/c to the [facility] tomorrow.
Left VM for instructional technology coordinator/Jacquelin at the [facility] for verification and report numbers, await TCB.
Updates via [facility].
Plan: [facility] when stable.
[2023-11-26 16:32] LABS: Glucose - Point of Care 195 mg/dl (70-99)
[2023-11-26 17:01] VITALS: BP 136/67; PULSE 70; O2SAT 96
[2023-11-26] MEDS: NOVOLOG FLEXPEN 8 UNITS SC (17:46)
[2023-11-26] MEDS: NOVOLOG FLEXPEN-LOW RESISTANCE 1 UNITS SC (17:47)
[2023-11-26] MEDS: COLACE 100 MG PO (17:47)
[2023-11-26] MEDS: LIPITOR 80 MG PO (17:47)
[2023-11-26] MEDS: LOKELMA 10 GRAM PO (17:53)
[2023-11-26 19:25] VITALS: BP 141/68
[2023-11-26 21:07] LABS: Glucose - Point of Care 206 mg/dl (70-99)
[2023-11-26 22:26] LABS: Urine Albumin Trace (Neg - Trace); Urine Bilirubin Negative (Negative); Urine Character Clear (Clear); Urine Color Yellow; Urine Glucose 2+ (Negative); Urine Ketone Negative (Negative); Urine Leukocyte Negative (Negative); Urine Nitrite Negative (Negative); Urine Occult Blood Negative (Negative); Urine Specific Gravity 1.015 (<1.030); Urine Urobilinogen Negative (Neg - 1+)
[2023-11-26 23:14] VITALS: BP 139/73
[2023-11-27] MEDS: MAGNESIUM OXIDE 500 MG PO ×3 (00:03→21:06)
[2023-11-27 03:20] VITALS: BP 144/76
[2023-11-27 06:00] VITALS: BMI 29.4
[2023-11-27] MEDS: LOKELMA 10 GRAM PO ×3 (06:06→16:44)
[2023-11-27 07:00] VITALS: BP 157/86
[2023-11-27] MEDS: SYNTHROID 150 MCG PO (07:40)
[2023-11-27 07:58] LABS: Glucose - Point of Care 185 mg/dl (70-99)
[2023-11-27] MEDS: NOVOLOG FLEXPEN 8 UNITS SC ×2 (08:41→13:01)
[2023-11-27] MEDS: NOVOLOG FLEXPEN-LOW RESISTANCE 1 UNITS SC (08:42)
[2023-11-27] MEDS: ASPIR LOW (ENTERIC COATED) 81 MG PO (08:42)
[2023-11-27] MEDS: PROTONIX 40 MG PO (08:43)
[2023-11-27] MEDS: MUCINEX 600 MG PO ×2 (08:43→20:56)
[2023-11-27] MEDS: PROCARDIA XL (EXTENDED RELEASE) 30 MG PO ×2 (08:43→20:56)
[2023-11-27] MEDS: PAXIL 40 MG PO (08:43)
[2023-11-27] MEDS: HEPARIN 5000 UNITS SC ×2 (08:47→20:54)
[2023-11-27] MEDS: TRANDATE 200 MG PO ×2 (08:47→21:04)
[2023-11-27] MEDS: NON-FORMULARY ITEM 15 MG PO (08:48)
[2023-11-27] MEDS: LANTUS 0.349999999999999978 UNITS SC (08:50)
[2023-11-27 08:58] LABS: Blood Urea Nitrogen 42 mg/dl (9-20); Calcium 8.3 mg/dl (8.4-10.2); Carbon Dioxide 21 mmol/L (22-30); Chloride 102 mmol/L (98-107); Estimated Creatinine Clearance 43 ml/min; Glucose 212 mg/dl (70-99); Potassium 5.1 mmol/L (3.5-5.1); Sodium 131 mmol/L (135-145)
[2023-11-27 11:00] VITALS: BP 117/60
[2023-11-27] MEDS: LIORESAL 10 MG PO (11:23)
[2023-11-27 12:03] LABS: Glucose - Point of Care 267 mg/dl (70-99)
--- NOTE | 2023-11-27 12:32 | W.PN.HOSP.TC ---
Today's Communication/Plan
-
Monitor vitals
See plan
Creatinine better today to 1.6
Monitor renal function
Discharge planning
Assessment / Plan
Assessment / Plan
11/16/23 16:27 Blood/Venous Blood Culture - Preliminary
Streptococcus pneumoniae
11/16/23 16:27 Blood/Venous Gram Stain - Preliminary
11/16/23 16:27 Blood/Venous Blood Culture - Preliminary
No Growth in 48 hours- Final report to follow
11/17/23 13:19 Blood/Venous Blood Culture - Preliminary
No Growth in 24 hours- Final report to follow
11/17/23 12:56 Blood/Venous Blood Culture - Preliminary
No Growth in 24 hours- Final report to follow
11/16/23 18:31 Urine Legionella Urinary Antigen - Final
Negative for Legionella pneumophila Serogroup 1 antigen.
A negative result does not rule out the possiblity of
Legionella infection due to other serogroups or species of
Legionella. Clinical correlation is recommended.
11/16/23 18:31 Urine Streptococcus pneumoniae Antigen (M - Final
Positive for Strep pneumo Ag
11/16/23 14:28 Nasal Swab Influenza Types A & B (TERRIE) - Final
Negative for Influenza A & B, NAAT
Negative results must be combined with clinical observations
and patient history.
Nucleic Acid Amplification test (NAAT)performed on the
[employer] platform.
CXR: Moderate left lower lobe pneumonia
11/19 CXR: There is focal parenchymal opacity in the posterior and inferior aspect of the left lower lobe, which is improved from November 16, 2023 examination, findings compatible with improving pneumonia, with residual parenchymal opacity still
present.
Renal U/S:
1. � Mild to moderate chronic bilateral renal disease.
2. � No sonographic evidence for hydronephrosis or nephrolithiasis.
Severe sepsis and acute metabolic encephalopathy Streptococcus pneumonia:
-Lactic acidosis, resolved
-COVID/Flu NEG, urine strep Ag+, BCx with strep pneumo, repeat BCxs NGTD
-cont Cefdinir as per ID; finished abx
-s/p VSE, currently on diabetic diet
-thrombocytopenia was likely consumptive from acute disease, resolved
Lungs on exam yesterday sounded much more congested than today. ?low level aspiration
Stroke alert 11/21 night for change in mental status
CT head without any new CVA
Neurology following; no new recs; neurology doesnt think it was TIA/CVA event
cw aspirin
Hyperkalemia
hold PO K
Mild hyponatremia
Monitor
DEANN:
-and hyponatremia and metabolic acidosis
significantly improved
-due to ATN from sepsis
-FeNa high
-renal U/S above
- IVFs with bicarb stopped
Creatinine better; 1.6
change baclofen to PRN
Essential HTN:
Stopped hydralazine, now on labetalol
Continue with nifedipine
DM2: holding Metformin/Mounjaro. a1c 7.6%. SSI/accuchecks. Cont Lantus/premeal Novolog. Increase Lantus and NovoLog
Suspect cognitive decline
Continue to monitor
Other problems:
ALICIA
Graves' disease with h/o radioactive iodine 1984: cont levothyroxine
GERD: Continue Protonix
HLD: cont statin
h/o CVA 2019: cont ASA/statin
Depression: Continue Paxil
Chronic pain lumbar stenosis/herniated lumbar discs: cont gabapentin/baclofen. Holding home Tramadol with DEANN.
Chronic constipation: cont bowel regimen
ADD: Cont Adderall
continue PT/OT
FULL/heparin
General: Well Developed, Well Nourished and No Apparent Distress
HEENT: Normocephalic, Atraumatic and Moist Mucous Membranes
Respiratory: mildly diminished
Cardiac: Regular Rhythm and S1/S2
GI: Soft, Nontender and Nondistended
Skin: Warm and Dry
Neuro: Awake and Alert
Anticipated Discharge: Within 24 hours
Subjective/Interval History
-
Date of Service: November 27, 2023
denies pain
Objective Data
-
Labs:
Laboratory Results
11/27/23
07:46
Sodium 131 L
Potassium 5.1
Chloride 102
Carbon Dioxide 21 L
BUN 42 H
Creatinine 1.6 H
Glucose 212 H
Calcium 8.3 L
Vital Signs:
Vital Signs
Temp Pulse Resp BP Pulse Ox
97.3 F 69 18 117/60 99
11/27/23 11:00 11/27/23 11:00 11/27/23 11:00 11/27/23 11:00 11/27/23 11:00
I&O
11/26/23 11/27/23 11/28/23
06:59 06:59 06:59
Intake Total 1200 / 1200
Output Total 900 / 900 3000 / 3000
Balance -900 / -900 -1800 / -1800
--- NOTE | 2023-11-27 12:58 | W.PN.NEPH.PH ---
Today's Communication / Plan
-
follow BMP
Assessment/Plan
-
IMP:
DEANN/ATN-baseline cr 1 in 12/2022
LLL pneumonia-sterp pneumo
Severe Sepsis (leukocytosis, tachycardia) 2/2 senia
bacteremia GPC
Lactic acidosis, now resolved
thrombocytopenia likely from acute disease
hyponatremia
Mild gap metabolic acidosis
TME 2/2 sepsis
Sleep apnea
HTN�benign
IDDM with hyperglycemia
Graves' disease-Tx radioactive iodine 1983
GERD
HLD
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
Depression
Chronic pain lumbar stenosis / herniated discs lumbar
Chronic constipation
ADD
Plan:
follow BMP
increase synthroid
-
-
Date of Service: November 27, 2023
CC / HPI / ROS
-
Chief Complaint:
DEANN
History of Present Illness:
cr down to 1.6
sodium stable 131
Urinary incontinence
BP stable
K better at 5.1
acidosis persists
completed Abx for PNA
TSH elevated 11
Review of Systems:
oriented again
Labs
-
Labs:
WBC 10.1 10^3/uL (4.8-10.8) 11/22/23 20:45
RBC 4.33 10^6/uL (4.70-6.10) L 11/22/23 20:45
Hgb 12.9 g/dL (13.0-18.0) L 11/22/23 20:45
Hct 37.1 % (39.0-52.0) L 11/22/23 20:45
Plt Count 224 10^3/uL (130-400) D 11/22/23 20:45
Sodium 131 mmol/L (135-145) L 11/27/23 07:46
Potassium 5.1 mmol/L (3.5-5.1) 11/27/23 07:46
Chloride 102 mmol/L (98-107) 11/27/23 07:46
Carbon Dioxide 21 mmol/L (22-30) L 11/27/23 07:46
BUN 42 mg/dl (9-20) H 11/27/23 07:46
Creatinine 1.6 mg/dL (0.7-1.3) H 11/27/23 07:46
eGFR 45.50 11/27/23 07:46
Glucose 212 mg/dl (70-99) H 11/27/23 07:46
Calcium 8.3 mg/dl (8.4-10.2) L 11/27/23 07:46
Albumin 3.2 g/dl (3.5-5.0) L 11/22/23 20:45
Physical Exam
-
Vital Signs:
Vital Signs
Temp Pulse Resp BP Pulse Ox
97.3 F 69 18 117/60 99
11/27/23 11:00 11/27/23 11:00 11/27/23 11:00 11/27/23 11:00 11/27/23 11:00
Cardiovascular:: Regular rate and rhythm
Respiratory:: Bilateral: Coarse
Lung Excursion:: Normal
Abdomen:: Nontender and Soft
Bowel Sounds:: Normal
Extremity Edema:: None: Bilateral:
[2023-11-27] MEDS: NOVOLOG FLEXPEN-LOW RESISTANCE 3 UNITS SC (13:00)
[2023-11-27 15:30] VITALS: BP 120/58
[2023-11-27] MEDS: DEXTROSE 50% SYRINGE 12.5 GRAMS IV (15:57)
[2023-11-27 15:58] LABS: Glucose - Point of Care 63 mg/dl (70-99)
[2023-11-27 15:58] LABS: Glucose - Point of Care 128 mg/dl (70-99)
[2023-11-27 16:17] LABS: Hematocrit 33.1 % (39.0-52.0); Hemoglobin 10.9 g/dL (13.0-18.0); Mean Corp Hgb Conc. 32.9 g/dL (33.0-37.0); Mean Corpuscular Hgb 29.9 pg (27.0-31.0); Mean Corpuscular Volume 90.9 fL (80.0-94.0); Mean Platelet Volume 12.1 fL (7.4-10.4); Platelet Count 284 10^3/uL (130-400); Red Blood Cell Count 3.64 10^6/uL (4.70-6.10); Red Cell Dist. Width 15.3 % (11.5-14.5); White Blood Cell Count 5.8 10^3/uL (4.8-10.8)
--- NOTE | 2023-11-27 16:20 | W.PN.UPDATE ---
Update Note
Progress Note Update
Notified by RN who was at rapid response that patient apparently possibly vasovagal when he was in the bathroom about to have a bowel movement. Patient blood sugar at that time was 63. Half amp D50 was given and blood sugar was 128. It appears
the patient received 8 units of mealtime insulin however he did not eat his meal. Will DC mealtime insulin for now. Decrease his Lantus. I updated his spouse. RN notified to check blood sugar every hour for few hours to ensure his sugars are
stable. If his sugars continues to drop then will need higher level of care. Basic labs ordered during rapid response. Will monitor. Currently patient is mentating well and is back to his baseline.
[2023-11-27 16:23] LABS: APTT 31.8 Sec (23.4-35.0); INR 1.01; Lactic Acid 2.7 mmol/L (0.7-2.0); PT 13.1 Sec (11.4-14.6)
[2023-11-27 16:32] LABS: Glucose - Point of Care 83 mg/dl (70-99)
[2023-11-27 16:36] LABS: Troponin I < 0.012 ng/ml
[2023-11-27] MEDS: DEXTROSE 50% SYRINGE 25 GRAMS IV (16:43)
[2023-11-27] MEDS: LIPITOR 80 MG PO (16:44)
[2023-11-27] MEDS: COLACE 100 MG PO (16:44)
[2023-11-27 17:03] LABS: Glucose - Point of Care 129 mg/dl (70-99)
[2023-11-27] MEDS: NOVOLOG FLEXPEN-LOW RESISTANCE SC (17:23)
[2023-11-27 19:05] LABS: Glucose - Point of Care 186 mg/dl (70-99)
[2023-11-27 19:15] VITALS: BP 152/76
[2023-11-27 21:56] LABS: Glucose - Point of Care 315 mg/dl (70-99)
[2023-11-27 23:37] VITALS: BP 157/76
[2023-11-28 03:45] VITALS: BP 113/92
[2023-11-28] MEDS: LOKELMA 10 GRAM PO ×2 (05:14→13:57)
[2023-11-28 06:00] VITALS: BMI 29.5
[2023-11-28 07:41] VITALS: BP 161/82
[2023-11-28 08:20] LABS: Glucose - Point of Care 179 mg/dl (70-99)
[2023-11-28] MEDS: SYNTHROID 150 MCG PO (08:48)
[2023-11-28] MEDS: SYNTHROID 25 MCG PO (08:48)
[2023-11-28 09:11] LABS: Blood Urea Nitrogen 36 mg/dl (9-20); Calcium 8.4 mg/dl (8.4-10.2); Carbon Dioxide 22 mmol/L (22-30); Chloride 106 mmol/L (98-107); Estimated Creatinine Clearance 43 ml/min; Glucose 214 mg/dl (70-99); Potassium 4.7 mmol/L (3.5-5.1); Sodium 133 mmol/L (135-145)
[2023-11-28 10:25] LABS: Lactic Acid 1.5 mmol/L (0.7-2.0)
[2023-11-28] MEDS: HEPARIN 5000 UNITS SC ×2 (10:37→21:25)
[2023-11-28] MEDS: MUCINEX 600 MG PO ×2 (10:38→21:25)
[2023-11-28] MEDS: PROCARDIA XL (EXTENDED RELEASE) 30 MG PO ×2 (10:38→21:25)
[2023-11-28] MEDS: TRANDATE 200 MG PO ×2 (10:38→21:25)
[2023-11-28] MEDS: PROTONIX 40 MG PO (10:38)
[2023-11-28] MEDS: PAXIL 40 MG PO (10:38)
[2023-11-28] MEDS: ASPIR LOW (ENTERIC COATED) 81 MG PO (10:38)
[2023-11-28] MEDS: NOVOLOG FLEXPEN-LOW RESISTANCE 1 UNITS SC (10:40)
[2023-11-28] MEDS: NON-FORMULARY ITEM 15 MG PO (10:45)
[2023-11-28] MEDS: MAGNESIUM OXIDE 500 MG PO ×2 (10:45→21:25)
[2023-11-28] MEDS: LANTUS 0.299999999999999989 UNITS SC (10:45)
[2023-11-28 11:23] VITALS: BP 130/67
--- NOTE | 2023-11-28 11:36 | W.PN.NEPH.PH ---
Today's Communication / Plan
-
follow BMP
Assessment/Plan
-
IMP:
DEANN/ATN-baseline cr 1 in 12/2022
LLL pneumonia-sterp pneumo
Severe Sepsis (leukocytosis, tachycardia) 2/2 senia
bacteremia GPC
Lactic acidosis, now resolved
thrombocytopenia likely from acute disease
hyponatremia
Mild gap metabolic acidosis
TME 2/2 sepsis
Sleep apnea
HTN�benign
IDDM with hyperglycemia
Graves' disease-Tx radioactive iodine 1983
GERD
HLD
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
Depression
Chronic pain lumbar stenosis / herniated discs lumbar
Chronic constipation
ADD
Plan:
follow BMP
continue synthroid
-
-
Date of Service: November 28, 2023
CC / HPI / ROS
-
Chief Complaint:
DEANN
History of Present Illness:
cr down to 1.6 and stable
sodium stable 133
Urinary incontinence
BP stable
K better at 4.7
acidosis persists
completed Abx for PNA
TSH elevated 11, on increased synthroid
Review of Systems:
oriented again
no CP/SOB
Labs
-
Labs:
WBC 5.8 10^3/uL (4.8-10.8) 11/27/23 16:11
RBC 3.64 10^6/uL (4.70-6.10) L 11/27/23 16:11
Hgb 10.9 g/dL (13.0-18.0) L 11/27/23 16:11
Hct 33.1 % (39.0-52.0) L 11/27/23 16:11
Plt Count 284 10^3/uL (130-400) D 11/27/23 16:11
Sodium 133 mmol/L (135-145) L 11/28/23 05:49
Potassium 4.7 mmol/L (3.5-5.1) 11/28/23 05:49
Chloride 106 mmol/L (98-107) 11/28/23 05:49
Carbon Dioxide 22 mmol/L (22-30) 11/28/23 05:49
BUN 36 mg/dl (9-20) H 11/28/23 05:49
Creatinine 1.6 mg/dL (0.7-1.3) H 11/28/23 05:49
eGFR 45.50 11/28/23 05:49
Glucose 214 mg/dl (70-99) H 11/28/23 05:49
Calcium 8.4 mg/dl (8.4-10.2) 11/28/23 05:49
Albumin Cancelled 11/27/23 16:11
Physical Exam
-
Vital Signs:
Vital Signs
Temp Pulse Resp BP Pulse Ox
97.3 F 68 20 161/82 94
11/28/23 07:41 11/28/23 07:41 11/28/23 07:41 11/28/23 07:41 11/28/23 07:41
Cardiovascular:: Regular rate and rhythm
Respiratory:: Bilateral: Coarse
Lung Excursion:: Normal
Abdomen:: Nontender and Soft
Bowel Sounds:: Normal
Extremity Edema:: None: Bilateral:
--- NOTE | 2023-11-28 12:30 | W.PN.HOSP.TC ---
Today's Communication/Plan
-
With monitor vitals
See plan
Discussed with registered nurse hh case manager, Gracie likely will have bed tomorrow
Monitor blood sugars
Monitor renal function
Assessment / Plan
Assessment / Plan
11/16/23 16:27 Blood/Venous Blood Culture - Preliminary
Streptococcus pneumoniae
11/16/23 16:27 Blood/Venous Gram Stain - Preliminary
11/16/23 16:27 Blood/Venous Blood Culture - Preliminary
No Growth in 48 hours- Final report to follow
11/17/23 13:19 Blood/Venous Blood Culture - Preliminary
No Growth in 24 hours- Final report to follow
11/17/23 12:56 Blood/Venous Blood Culture - Preliminary
No Growth in 24 hours- Final report to follow
11/16/23 18:31 Urine Legionella Urinary Antigen - Final
Negative for Legionella pneumophila Serogroup 1 antigen.
A negative result does not rule out the possiblity of
Legionella infection due to other serogroups or species of
Legionella. Clinical correlation is recommended.
11/16/23 18:31 Urine Streptococcus pneumoniae Antigen (M - Final
Positive for Strep pneumo Ag
11/16/23 14:28 Nasal Swab Influenza Types A & B (TERRIE) - Final
Negative for Influenza A & B, NAAT
Negative results must be combined with clinical observations
and patient history.
Nucleic Acid Amplification test (NAAT)performed on the
[employer] platform.
CXR: Moderate left lower lobe pneumonia
11/19 CXR: There is focal parenchymal opacity in the posterior and inferior aspect of the left lower lobe, which is improved from November 16, 2023 examination, findings compatible with improving pneumonia, with residual parenchymal opacity still
present.
Renal U/S:
1. � Mild to moderate chronic bilateral renal disease.
2. � No sonographic evidence for hydronephrosis or nephrolithiasis.
Severe sepsis and acute metabolic encephalopathy Streptococcus pneumonia:
-Lactic acidosis, resolved
-COVID/Flu NEG, urine strep Ag+, BCx with strep pneumo, repeat BCxs NGTD
-cont Cefdinir as per ID; finished abx
-s/p VSE, currently on diabetic diet
-thrombocytopenia was likely consumptive from acute disease, resolved
Lungs on exam yesterday sounded much more congested than today. ?low level aspiration
Stroke alert 11/21 night for change in mental status
CT head without any new CVA
Neurology following; no new recs; neurology doesnt think it was TIA/CVA event
cw aspirin
Hyperkalemia
hold PO K
Mild hyponatremia
Monitor
DEANN:
-and hyponatremia and metabolic acidosis
significantly improved
-due to ATN from sepsis
-FeNa high
-renal U/S above
- IVFs with bicarb stopped
Creatinine better; 1.6
change baclofen to PRN
Essential HTN:
Stopped hydralazine, now on labetalol
Continue with nifedipine
DM2: holding Metformin/Mounjaro. a1c 7.6%. SSI/accuchecks. Cont Lantus. Mealtime insulin stopped
MEMBER OF TECHNICAL STAFF 11/26 where patient not mealtime insulin however did not eat. Now sugars are better. Will hold off on mealtime insulin at this time as patient diet varies
Suspect cognitive decline
Continue to monitor
Other problems:
ALICIA
Graves' disease with h/o radioactive iodine 1984: cont levothyroxine
GERD: Continue Protonix
HLD: cont statin
h/o CVA 2019: cont ASA/statin
Depression: Continue Paxil
Chronic pain lumbar stenosis/herniated lumbar discs: cont gabapentin/baclofen. Holding home Tramadol with DEANN.
Chronic constipation: cont bowel regimen
ADD: Cont Adderall
continue PT/OT
FULL/heparin
General: Well Developed, Well Nourished and No Apparent Distress
HEENT: Normocephalic, Atraumatic and Moist Mucous Membranes
Respiratory: mildly diminished
Cardiac: Regular Rhythm and S1/S2
GI: Soft, Nontender and Nondistended
Skin: Warm and Dry
Neuro: Awake and Alert
Anticipated Discharge: Within 24 hours
Subjective/Interval History
-
Date of Service: November 28, 2023
denies pain
Objective Data
-
Labs:
Laboratory Results
11/28/23
05:49
Sodium 133 L
Potassium 4.7
Chloride 106
Carbon Dioxide 22
BUN 36 H
Creatinine 1.6 H
Glucose 214 H
Calcium 8.4
Vital Signs:
Vital Signs
Temp Pulse Resp BP Pulse Ox
97.5 F 66 20 130/67 100
11/28/23 11:23 11/28/23 11:23 11/28/23 11:23 11/28/23 11:23 11/28/23 11:23
I&O
11/27/23 11/28/23 11/29/23
06:59 06:59 06:59
Intake Total 1200 / 1200
Output Total 3000 / 3000
Balance -1800 / -1800
[2023-11-28 13:24] LABS: Glucose - Point of Care 276 mg/dl (70-99)
[2023-11-28] MEDS: NOVOLOG FLEXPEN-LOW RESISTANCE 3 UNITS SC (13:56)
[2023-11-28 15:14] VITALS: BP 122/59
[2023-11-28 16:38] LABS: Glucose - Point of Care 337 mg/dl (70-99)
[2023-11-28] MEDS: NOVOLOG FLEXPEN-LOW RESISTANCE 4 UNITS SC (17:35)
[2023-11-28] MEDS: COLACE 100 MG PO (17:35)
[2023-11-28] MEDS: LIPITOR 80 MG PO (17:35)
[2023-11-28 22:39] LABS: Glucose - Point of Care 232 mg/dl (70-99)
[2023-11-28 23:00] VITALS: BP 152/74
[2023-11-29] MEDS: SYNTHROID 25 MCG PO (05:19)
[2023-11-29] MEDS: SYNTHROID 150 MCG PO (05:19)
[2023-11-29 05:21] VITALS: BMI 29.3
[2023-11-29 07:40] VITALS: BP 149/67
[2023-11-29 07:40] LABS: Glucose - Point of Care 178 mg/dl (70-99)
[2023-11-29 08:10] LABS: Blood Urea Nitrogen 36 mg/dl (9-20); Calcium 8.7 mg/dl (8.4-10.2); Carbon Dioxide 22 mmol/L (22-30); Chloride 103 mmol/L (98-107); Estimated Creatinine Clearance 43 ml/min; Glucose 174 mg/dl (70-99); Potassium 4.5 mmol/L (3.5-5.1); Sodium 133 mmol/L (135-145)
--- NOTE | 2023-11-29 09:04 | CM ---
Addendum entered by Fabi Hernandez 11/29/23 13:24:
w/c transport has been set up for between 4pm and 4:30pm.
Addendum entered by Fabi Hernandez 11/29/23 11:51:
Patient will go by w/c van, spouse to pay for cost of w/c transport.
Original Note:
Bed available at [facility] today, physician aware and will see patient to see if he clears for discharge.
[facility]
Report [phone]
[2023-11-29] MEDS: MUCINEX 600 MG PO (09:18)
[2023-11-29] MEDS: PROCARDIA XL (EXTENDED RELEASE) 30 MG PO (09:18)
[2023-11-29] MEDS: PAXIL 40 MG PO (09:18)
[2023-11-29] MEDS: TRANDATE 200 MG PO (09:19)
[2023-11-29] MEDS: HEPARIN 5000 UNITS SC (09:19)
[2023-11-29] MEDS: PROTONIX 40 MG PO (09:19)
[2023-11-29] MEDS: ASPIR LOW (ENTERIC COATED) 81 MG PO (09:19)
[2023-11-29] MEDS: MAGNESIUM OXIDE 500 MG PO (09:20)
[2023-11-29] MEDS: LANTUS 0.299999999999999989 UNITS SC (09:23)
[2023-11-29] MEDS: NON-FORMULARY ITEM 15 MG PO (09:27)
[2023-11-29] MEDS: NOVOLOG FLEXPEN-LOW RESISTANCE 1 UNITS SC (09:35)
--- NOTE | 2023-11-29 10:58 | W.PN.HOSP.TC ---
Today's Communication/Plan
-
Monitor vital signs see plan
Creatinine 1.6
Discharge today to [facility]
Time of discharge 38-minutes
Assessment / Plan
Assessment / Plan
11/16/23 16:27 Blood/Venous Blood Culture - Preliminary
Streptococcus pneumoniae
11/16/23 16:27 Blood/Venous Gram Stain - Preliminary
11/16/23 16:27 Blood/Venous Blood Culture - Preliminary
No Growth in 48 hours- Final report to follow
11/17/23 13:19 Blood/Venous Blood Culture - Preliminary
No Growth in 24 hours- Final report to follow
11/17/23 12:56 Blood/Venous Blood Culture - Preliminary
No Growth in 24 hours- Final report to follow
11/16/23 18:31 Urine Legionella Urinary Antigen - Final
Negative for Legionella pneumophila Serogroup 1 antigen.
A negative result does not rule out the possiblity of
Legionella infection due to other serogroups or species of
Legionella. Clinical correlation is recommended.
11/16/23 18:31 Urine Streptococcus pneumoniae Antigen (M - Final
Positive for Strep pneumo Ag
11/16/23 14:28 Nasal Swab Influenza Types A & B (TERRIE) - Final
Negative for Influenza A & B, NAAT
Negative results must be combined with clinical observations
and patient history.
Nucleic Acid Amplification test (NAAT)performed on the
[employer] NOW platform.
CXR: Moderate left lower lobe pneumonia
11/19 CXR: There is focal parenchymal opacity in the posterior and inferior aspect of the left lower lobe, which is improved from November 16, 2023 examination, findings compatible with improving pneumonia, with residual parenchymal opacity still
present.
Renal U/S:
1. � Mild to moderate chronic bilateral renal disease.
2. � No sonographic evidence for hydronephrosis or nephrolithiasis.
Severe sepsis and acute metabolic encephalopathy Streptococcus pneumonia:
-Lactic acidosis, resolved
-COVID/Flu NEG, urine strep Ag+, BCx with strep pneumo, repeat BCxs NGTD
-cont Cefdinir as per ID; finished abx
-s/p VSE, currently on diabetic diet
-thrombocytopenia was likely consumptive from acute disease, resolved
Lungs on exam yesterday sounded much more congested than today. ?low level aspiration
Stroke alert 11/21 night for change in mental status
CT head without any new CVA
Neurology following; no new recs; neurology doesnt think it was TIA/CVA event
cw aspirin
Hyperkalemia
hold PO K
Mild hyponatremia
Monitor
DEANN:
-and hyponatremia and metabolic acidosis
significantly improved
-due to ATN from sepsis
-FeNa high
-renal U/S above
- IVFs with bicarb stopped
Creatinine better; 1.6
change baclofen to PRN
Essential HTN:
Stopped hydralazine, now on labetalol
Continue with nifedipine
DM2: holding Metformin/Mounjaro. a1c 7.6%. SSI/accuchecks. Cont Lantus. Mealtime insulin stopped
FRAME STRAIGHTENER 11/26 where patient not mealtime insulin however did not eat. Now sugars are better. Will hold off on mealtime insulin at this time as patient diet varies
Suspect cognitive decline
Continue to monitor
Other problems:
ALICIA
Graves' disease with h/o radioactive iodine 1984: cont levothyroxine
GERD: Continue Protonix
HLD: cont statin
h/o CVA 2019: cont ASA/statin
Depression: Continue Paxil
Chronic pain lumbar stenosis/herniated lumbar discs: cont gabapentin/baclofen. Holding home Tramadol with DEANN.
Chronic constipation: cont bowel regimen
ADD: Cont Adderall
continue PT/OT
FULL/heparin
General: Well Developed, Well Nourished and No Apparent Distress
HEENT: Normocephalic, Atraumatic and Moist Mucous Membranes
Respiratory: mildly diminished
Cardiac: Regular Rhythm and S1/S2
GI: Soft, Nontender and Nondistended
Skin: Warm and Dry
Neuro: Awake and Alert
Anticipated Discharge: Today
Subjective/Interval History
-
Date of Service: November 29, 2023
Denies pain
Objective Data
-
Labs:
Laboratory Results
11/29/23
06:31
Sodium 133 L
Potassium 4.5
Chloride 103
Carbon Dioxide 22
BUN 36 H
Creatinine 1.6 H
Glucose 174 H
Calcium 8.7
Vital Signs:
Vital Signs
Temp Pulse Resp BP Pulse Ox
98.2 F 87 17 149/67 95
11/29/23 07:40 11/29/23 09:18 11/29/23 07:40 11/29/23 09:18 11/29/23 07:40
I&O
11/28/23 11/29/23 11/30/23
06:59 06:59 06:59
Intake Total 960 / 960
Output Total 1225 / 1225
Balance -265 / -265
--- NOTE | 2023-11-29 11:05 | W.DCSUMMARY ---
Discharge Summary
Discharge Data
Date of Admission: 11/16/23
Date of Discharge: 11/29/23
-
Pending Results: No
Hospital Course
73-year-old male with past medical history diabetes mellitus, ALICIA, Graves' disease, GERD, hyperlipidemia, history of CVA, depression, ADD, chronic pain from lumbar stenosis came to the hospital with severe sepsis and acute metabolic encephalopathy
from Streptococcus pneumonia. Patient blood cultures were also positive with Streptococcus. Patient was initially started on IV antibiotics which were later transitioned to oral antibiotics. Patient finished a course of antibiotics prior to
discharge. On 11/21 patient also had a stroke alert for change in mental status CT scan was negative for CVA. Patient was seen by neurology and they did not recommended any further management. On this hospitalization patient had persistent acute
kidney injury which over time was improving. Patient was seen by nephrology throughout hospitalization. Patient discharge creatinine was 1.6. Given patient acute kidney injury metformin and Mounjaro was discontinued. For his blood pressure
hydralazine was stopped and he was started on labetalol along with nifedipine. Patient was evaluated by physical therapy who recommended SNF. Once patient symptoms appear to improve, he was then discharged to SNF with instructions to follow-up
with all his physicians outpatient.
Discharge Plan
-
Patient Disposition: Half-Way/SNF
Discharge Diagnosis/Procedures: Severe sepsis secondary to left lower lobe pneumonia
Acute metabolic encephalopathy
Acute kidney injury
Cognitive decline
Hypoglycemia
Diet: Diabetic, Carb Controlled
Activity: As tolerated
Driving Restrictions: Not until seen by your Dr
Bathing Restrictions: None
Blood Work: BMP next week with your primary care provider
Referrals:
Tami Brery MD [Family Provider] - in less than 1 week
Prescriptions:
New
atorvastatin 80 mg Tablet
80 mg PO QPM Qty: 0 0RF
nifedipine 30 mg Tablet Extended Release
30 mg PO BID Qty: 0 0RF
magnesium oxide 500 mg magnesium Tablet
500 mg PO BID@1000,2200 Qty: 0 0RF
labetalol 200 mg Tablet
200 mg PO BID Qty: 0 0RF
Continued
aspirin 81 mg Tablet,Delayed Release (Dr/Ec)
81 mg PO DAILY Qty: 0
baclofen 10 mg Tablet
10 mg PO BID PRN (Reason: Muscle spasms) Qty: 0
pantoprazole 40 mg Tablet,Delayed Release (Dr/Ec)
40 mg PO DAILY Qty: 0
docusate sodium [Colace] 100 mg Capsule
100 mg PO QPM Qty: 0
albuterol sulfate 90 mcg/actuation HFA aerosol inhaler
2 puff INHALATION R Q6 PRN (Reason: sob/wheezing)
paroxetine HCl 40 mg tablet
40 mg PO DAILY
naproxen 500 mg Tablet
500 mg PO BID PRN (Reason: mild pain)
dextroamphetamine-amphetamine 15 mg capsule,extended release 24hr
15 mg PO DAILY Qty: 3 0RF
Changed
levothyroxine 150 mcg Tablet
175 mcg PO DAILY Qty: 0 0RF
insulin degludec [Tresiba FlexTouch U-100] 100 unit/mL (3 mL) Insulin Pen
30 unit SC DAILY Qty: 0 0RF
Held
insulin aspart U-100 [Novolog FlexPen U-100 Insulin] 100 unit/mL (3 mL) Insulin Pen
15 unit SC MEALS
Hold Instructions: Restart if sugars is persistently high and eating full meals
Discontinued
metformin 1,000 mg Tablet
1,000 mg PO BID Qty: 0
valsartan 160 mg Tablet
160 mg PO BID Qty: 0
hydralazine 25 mg tablet
25 mg PO BID
Mounjaro 2.5 mg/0.5 mL pen injector
2.5 mg SC SA
Patient Comments:
11/16/2023: Stated stopped Wednesday due to erratic blood sugars
tramadol 50 mg tablet
50 mg PO Q6H PRN (Reason: moderate pain)
Patient Comments:
11/16/2023: last filled 09/20/23, 120 tabs for 30 days from [id number]
Discharge Orders:
Discharge Patient (As Directed); Ordered 11/29/23
Ordered By: Jose Meadows
Discharge Date and Time
Discharge Date/Time: 11/29/23 16:07
Print Language: INDONESIAN
[2023-11-29 12:18] LABS: Glucose - Point of Care 339 mg/dl (70-99)
[2023-11-29] MEDS: NOVOLOG FLEXPEN-LOW RESISTANCE 4 UNITS SC (13:44)
[2023-11-29 15:25] VITALS: BP 117/59
== END 2023-11-29 16:07 | DRG 871 ==
LOC: 4 WEST ACU 17:11
PROVIDERS: Internal Medicine; Nurse Practitioner; Registered Nurse; Specialist; ADMITTING PHYSICIAN Internal Medicine; CONSULT PHYSICIAN Psychiatry & Neurology Neurology; CONSULT PHYSICIAN Student in an Organized Health Care Education/Training Program; EMERGENCY PHYSICIAN Emergency Medicine; FAMILY PHYSICIAN Internal Medicine; OTHER PHYSICIAN Internal Medicine
DX: A40.3 Sepsis due to Streptococcus pneumoniae (principal); G93.41 Metabolic encephalopathy; J15.4 Pneumonia due to other streptococci; N17.0 Acute kidney failure with tubular necrosis; R65.20 Severe sepsis without septic shock; E87.1 Hypo-osmolality and hyponatremia; E87.20 Acidosis, unspecified; Z11.52 Encounter for screening for COVID-19; Z87.891 Personal history of nicotine dependence; D69.59 Other secondary thrombocytopenia; E86.0 Dehydration; G47.30 Sleep apnea, unspecified; I50.9 Heart failure, unspecified; I11.0 Hypertensive heart disease with heart failure; E11.65 Type 2 diabetes mellitus with hyperglycemia; Z79.4 Long term (current) use of insulin; E05.00 Thyrotoxicosis with diffuse goiter without thyrotoxic crisis or storm; K21.9 Gastro-esophageal reflux disease without esophagitis; F32.A Depression, unspecified; K59.09 Other constipation; Z79.82 Long term (current) use of aspirin; E78.00 Pure hypercholesterolemia, unspecified; E87.6 Hypokalemia; E87.5 Hyperkalemia
CPT/HCPCS: 70450; 71046; 74230; 76775; 80048; 80053; 81003; 81015; 82570; 82962; 83036; 83605; 83735; 83930; 83935; 84300; 84439; 84443; 84484; 85025; 85027; 85610; 85730; 86063; 87040; 87077; 87186; 87205; 87449; 87502; 87811; 87899; 92526; 92610; 92611; 93005; 96361; 96374; 97116; 97163; 97167; 97530; 97535; 99285; J7030

== ENCOUNTER → 2023-12-29 17:25 | Outpatient (REF) | payer MEDICARE, BC, SELFPAY | LOC: RAD 17:25 | PROVIDERS: ATTENDING PHYSICIAN Nurse Practitioner Family; FAMILY PHYSICIAN Internal Medicine | DX: J18.9 Pneumonia, unspecified organism (principal) | CPT/HCPCS: 71046 ==

== ENCOUNTER → 2024-01-18 12:00 | Outpatient (REF) | payer MEDICARE, BC, SELFPAY | LOC: RAD 12:00 | PROVIDERS: ATTENDING PHYSICIAN Physician Assistant Medical; FAMILY PHYSICIAN Internal Medicine | DX: R05.1 Acute cough (principal) | CPT/HCPCS: 71046 ==

== ENCOUNTER → 2024-01-26 16:12 | Outpatient (REF) | payer MEDICARE, BC, SELFPAY | LOC: HWRAD 16:12 | PROVIDERS: ATTENDING PHYSICIAN Internal Medicine | DX: R93.89 Abnormal findings on diagnostic imaging of other specified body structures (principal); R06.81 Apnea, not elsewhere classified | CPT/HCPCS: 71250 ==

== ENCOUNTER → 2024-02-08 13:11 | Outpatient (REF) | payer MEDICARE, BC, SELFPAY ==
[2024-02-08 13:28] VITALS: BP 157/90; BP_SYST 82
[2024-02-08 14:03] VITALS: BP 145/72; BP_SYST 76
[2024-02-08 14:36] LABS: Body Fluid pH 7.46
[2024-02-08 14:58] LABS: Body Fluid Glucose 161 mg/dl; Body Fluid LDH 103 U/L; Body Fluid Protein 2.1 g/dl
[2024-02-08 15:15] LABS: Albumin 3.2 g/dl (3.5-5.0); Blood Urea Nitrogen 33 mg/dl (9-20)
[2024-02-08 15:24] LABS: NT-proBNP 2210 pg/ml
[2024-02-08 15:47] LABS: TSH Reflex To Free T4 2.46 uIU/ml (0.47-4.68)
[2024-02-08 16:09] LABS: Body Fluid Mononuclear 59.8 %; Body Fluid Polymorphonuclear 40.2 %; Body Fluid WBC 564 /CUMM
[2024-02-08 16:32] LABS: Body Fluid Second Tech EYM
[2024-02-09 17:12] LABS: Folate > 20.0 ng/ml (2.76-20); Vitamin B12 478 pg/ml (239-931)
== END ==
LOC: RADI 13:11
PROVIDERS: ATTENDING PHYSICIAN Internal Medicine Critical Care Medicine
DX: J90 Pleural effusion, not elsewhere classified (principal)
CPT/HCPCS: 88305; 32555; 36415; 71045; 82040; 82565; 82607; 82746; 82945; 83615; 83880; 83986; 84157; 84443; 84520; 87015; 87070; 87102; 87116; 87205; 87206; 88112; 89051

== ENCOUNTER 2024-02-17 16:05 | Inpatient (IN) | payer MEDICARE, BC, SELFPAY ==
[2024-02-17] VITALS (11 sets, daily range): BP systolic 152–188; BP diastolic 72–100; BMI 35.3; BMI 34.2
[2024-02-17 12:26] LABS: % Basophils 0.4 % (0-2); % Eosinophils 3.4 % (0-6); % Immature Granulocytes 0.3 % (0-0.5); % Lymphocytes 8.2 % (20.5-51.1); % Monocytes 8.5 % (1.7-9.3); % Neutrophils 79.2 % (42.2-75.2); Absolute Eosinophils 0.2 10^3/uL (0-0.7); Absolute Lymphocytes 0.6 10^3/uL (1.2-3.4); Absolute Monocytes 0.6 10^3/uL (0.1-0.6); Absolute Neutrophils 5.3 10^3/uL (1.4-6.5); Hematocrit 25.3 % (39.0-52.0); Hemoglobin 8.4 g/dL (13.0-18.0); Mean Corp Hgb Conc. 33.2 g/dL (33.0-37.0); Mean Corpuscular Hgb 29.8 pg (27.0-31.0); Mean Corpuscular Volume 89.7 fL (80.0-94.0); Mean Platelet Volume 11.3 fL (7.4-10.4); Nucleated Red Blood Cells % 0 % (-); Platelet Count 168 10^3/uL (130-400); Red Blood Cell Count 2.82 10^6/uL (4.70-6.10); Red Cell Dist. Width 14.7 % (11.5-14.5); White Blood Cell Count 6.7 10^3/uL (4.8-10.8)
[2024-02-17 12:42] LABS: Blood Urea Nitrogen 28 mg/dl (9-20); Calcium 8.2 mg/dl (8.4-10.2); Carbon Dioxide 24 mmol/L (22-30); Chloride 109 mmol/L (98-107); Estimated Creatinine Clearance 59 ml/min; Glucose 261 mg/dl (70-99); Sodium 140 mmol/L (135-145); eGFR 53.07
[2024-02-17 12:54] LABS: NT-proBNP 2250 pg/ml
--- NOTE | 2024-02-17 13:49 | ED.GENMED ---
History of Present Illness
General
Chief Complaint: Breathing Problem
Source: patient
Time Seen by Provider: 02/17/24 13:36
History of Present Illness
History of Present Illness:
74-year-old male presents to the emergency room complaining of shortness of breath. Patient has been experiencing shortness of breath for the past several days. He had a outpatient thoracentesis performed on February 07. Patient states that shortness
of breath seem to develop a couple days later. Patient had a hospitalization in October for pneumonia and sepsis. At that time he was in renal failure but his creatinine improved. He had poorly controlled hypertension and medications were modified.
Patient denies any history of congestive heart failure. He does not take any diuretics. Patient denies any fever.
Past History
Past History
ED Past Medical History: CVA, GERD, HTN, Hypercholesterolemia, IDDM and Hypothyroidism
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
Phy Exam
Physical Exam
Physical Exam:
General: Awake, Alert, Oriented X3. Appears short of breath
Vitals: Tachycardia
Head: Atraumatic
Eyes: Pupils equal, EOMI
Throat: Airway intact, no exudates
Neck: Trachea midline
Lungs: Decreased breath sounds bilateral bases, crackles bilaterally
Heart: Regular rate, no murmurs
Abd: Soft, Nontender, No pulsatile mass
Neuro: Grossly nonfocal
Skin: Warm, dry, no rash
Extremities: pulses equal b/l, 2-3+ edema edema
Scores
Heart Failure Risk
Heart Failure Risk Score: Yes
History of Stroke or TIA: Yes
History of intubation for respiratory distress: No
Heart rate on ED arrival >/= 110: No
SaO2 <90% on arrival on room air: Yes
HR >/=110 during 3min walk test (or too ill to perform test): Yes
ECG has acute ischemic changes: No
Urea >/=12mmol/L (BUN 33.6mg/dL): No
Serum CO2>/=35mmol/L: No
Troponin I or T elevated to [place] Level (0.4mg/dL): No
NT-proBNP >/=5,000ng/L (5,000pg/ml): No
HF Risk Score: 4
Admission Status: HIGH RISK 26.1% Consider SNF treatment or admission to hospital
Course
Orders/Labs/Results
Orders:
Orders
02/17/24 Lunch
2000 calorie (17 carb) Diabetic
At Your Request: Limited Participation
Does patient need a safe tray?: No
Fluid Restriction: 1440 mL/day (48 oz)
Diabetic Diet: Sodium, 2 Gram
02/17/24 12:10
EKG [Electrocardiogram (*1)] Urgent
Reason for Study: Shortness of Breath
02/17/24 12:11
EKG- Treatment ONCE
02/17/24 12:15
Basic Metabolic Panel Urgent
Complete Blood Count/With Diff Urgent
Ferritin Urgent
Iron Urgent
NT-proBNP Urgent
Total Iron Binding Urgent
Vitamin B12 Urgent
Comment: IRON,FERRITIN,TIBC,B12 ADDED ON BY FLOOR 3:40PM 02-17-24
02/17/24 13:48
CR Chest - 2 Views Urgent
Comment:
Reason For Exam: shortness of breath
02/17/24 14:20
Furosemide [Lasix] 40 mg IV NOW STA
02/17/24 14:21
Nitroglycerin Ointment [Nitro-Bid] 1 inch TOPICAL NOW STA
02/17/24 14:46
Type+Screen Urgent
02/17/24 15:39
Add On- LAB Urgent
Tests Added?: iron, ferritin, iron % saturation, TIBC, vitamin B12
02/17/24 15:52
Admit/Transfer Patient As Directed
Co-Sign Provider:
Level of Care: Inpatient admission
Assign to:: Telemetry
Physician / Group: Julienne River
Diagnosis: heart failure
Reason for Telemetry: Pulmonary Edema
Date to Stop Telemetry: 02/20/24
Time to Stop Telemetry: 11:00
Reason for Hospitalization: heart failure
Expected length of stay greater than two midnights?: Yes
ELOS- Estimated Length of Stay in days: 3
I certify the patient meets the requirements for IP care: Yes
02/17/24 15:54
Code Status As Directed
Resuscitation Status: Full Code
02/17/24 15:[address] Non Medication Order As Directed
Physician Order: please TT me when potassium results.
Above order entered?: Yes
02/17/24 16:21
Magnesium Urgent
Potassium Urgent
Troponin I Q6H
02/17/24 16:44
Baclofen [Lioresal] 10 mg PO BIDPRN PRN
Dextrose 50%-Water [Dextrose 50% Syringe] 12.5 grams IV [id number] PRN
Glucagon [GlucaGen] 1 mg IM PRN PRN
Insulin Aspart Corrective Low [Novolog Flexpen-Low Resistance] See Protocol SC AC
Tramadol HCl [Ultram] 50 mg PO Q6HPRN PRN
02/17/24 16:44
CARDIOLOGY CONSULT Routine
Consulting Provider: Tonia Bledsoe
Was physician already notified: Yes
HF DIETARY CONSULT Routine
HF EDUCATOR CONSULT Routine
Comment:
Activity As Directed
Activity Level: As Tolerated
Bedside Glucose Monitoring As Directed
Frequency: AC&HS
Additional Instructions:: Change to q6h if pt on TPN, tube feeding or not eating
Intake/ Output As Directed
Frequency: Per unit guidelines
Patient Education As Directed
Type: CHF folder
Comment: give on admission. Document in Interdisciplinary Education record
Sleep Apnea Assessment by RN As Directed
Comment:
Physician Instructions:
Vital Signs As Directed
Frequency: Other
Additional Instructions:: Q12 or per unit guidelines if more frequent.
Weight As Directed
Frequency: Daily
Type of Scale: Standing Scale
Comment: Daily morning weight. If unable to stand, use balanced bed scale.
Weight As Directed
Frequency: Once
Type of Scale: Standing Scale
Comment: Upon Admission. If unable to stand, use balanced bed scale.
Pulse Ox/cont/shift [RESP] Routine
Quantity: 1
Special Instructions: Daily pulse oximetry at rest. If greater than 92% at rest also obtain pulse oximetry
while ambulating as tolerated.
OT Consult [Ot Eval And Treat] Routine
Physical Therapy Consult [Pt Eval And Treat] Routine
Activity Level: As Tolerated
DX Deep Vein Thrombosis Video Routine
02/17/24 18:00
Atorvastatin [Lipitor] 80 mg PO QPM
Docusate Sodium [Colace] 200 mg PO QPM
02/17/24 20:00
Heparin 5,000 units SC Q12
Labetalol [Trandate] 200 mg PO BID
Valsartan [Diovan] 160 mg PO BID
02/17/24 21:45
Troponin I Q6H
02/17/24 22:00
Magnesium Oxide 500 mg PO HS
Melatonin 3 mg PO HS
02/18/24 03:45
Troponin I Q6H
02/18/24 06:00
Echo 2D MMode Color/Doppler IN AM
Reason for Study: heart failure
Basic Metabolic Panel IN AM
Complete Blood Count/No Diff IN AM
Glycohemoglobin (HgbA1c) IN AM
Magnesium IN AM
TSH Reflex To Free T4 IN AM
Levothyroxine [Synthroid] 175 mcg PO DAILY@0600
02/18/24 08:00
Aspirin Low Dose EC [Aspir Low (Enteric Coated)] 81 mg PO DAILY
Furosemide [Lasix] 40 mg IV DAILY
Pantoprazole [Protonix] 40 mg PO DAILY
Paroxetine [Paxil] 40 mg PO DAILY
dextroamphetamine-amphetamine See Dose Instructions PO DAILY
insulin degludec [Tresiba FlexTouch U-100] 30 unit SC DAILY
02/18/24 09:45
Troponin I Q6H
02/19/24 06:00
Basic Metabolic Panel IN AM
02/20/24 06:00
Basic Metabolic Panel IN AM
02/20/24 11:00
DC Protocol for Telemetry ONCE
Abnormal Lab Results
02/17/24
12:15
RBC 2.82 L 10^6/uL
(4.70-6.10)
Hgb 8.4 L g/dL
(13.0-18.0)
Hct 25.3 L %
(39.0-52.0)
RDW 14.7 H %
(11.5-14.5)
MPV 11.3 H fL
(7.4-10.4)
Absolute Lymphs (auto) 0.6 L 10^3/uL
(1.2-3.4)
Neutrophils % 79.2 H %
(42.2-75.2)
Lymphocytes % 8.2 L %
(20.5-51.1)
Chloride 109 H mmol/L
(98-107)
BUN 28 H mg/dl
(9-20)
Creatinine 1.4 H mg/dL
(0.7-1.3)
Glucose 261 H mg/dl
(70-99)
Calcium 8.2 L mg/dl
(8.4-10.2)
% Saturation 18 L %
(20-50)
06/20/24 12:15
02/17/24 12:15
Vital Signs
Initial and Last Documented VS:
Initial Vital Signs
Temp Pulse Resp BP Pulse Ox
97.8 F 75 20 155/72 92
02/17/24 12:07 02/17/24 12:07 02/17/24 12:07 02/17/24 12:07 02/17/24 12:07
Last Documented Vital Signs
Temp Pulse Resp BP Pulse Ox
97.3 F 84 18 176/98 99
02/17/24 17:11 02/17/24 18:20 02/17/24 18:20 02/17/24 18:20 02/17/24 17:11
MDM/Problems Addressed
Differential Diagnosis Includes:
chf, pneumonia, ptx, anemia, ami
MDM/Problems Addressed:
Patient presents significant short of breath. He required nasal cannula oxygen to improve his oxygen saturation as he was hypoxic on arrival. Despite oxygen and a normal pulse ox the patient continues to have some increased work of breathing.
Chest x-ray shows pulmonary edema. Of note his hemoglobin is somewhat lower than during his recent hospitalization at 8.4. Patient denies any black or bloody stools. He is too short of breath at this time to roll on his side to perform a rectal
exam but this can be followed up while he is hospitalized. Will give a IV Lasix and apply some Nitro-paste to help with his current symptoms. Patient will require hospitalization given his level of shortness of breath etc. His BNP is elevated at
2250. BNP was 2210 about a week ago.
Chronic conditions affecting care: DM and HTN
*Radiology
Radiology exam reviewed: preliminary read by ED provider (Personally reviewed patient's chest x-ray and see pulmonary edema bilaterally)
*Pulse Oximetry
Patient hypoxic: yes
*EKG
Interpreted by ED Provider?: Yes
Interpretation: normal
Heart Rate: 73
Rate: normal
Rhythm: sinus
[place]: normal axis
Interval: normal interval
QRS Pattern: normal QRS
Ischemia: non-specific ST changes
*Fly Fishing Guide Interpretation
Rate: normal
Interpretation: normal
Rhythm: sinus
*Critical Care Note
Total Time (30-74mins, 75-104mins- exclusive of procedures): Not Applicable
Data Reviewed
Review of Other/Old Records Reveals: Labs, Radiology Studies and Discharge Summary (Hospitalization in November)
ED Attending Note
-
Portions of this chart may have been created with voice recognition software.� Occasional wrong word or��sound alike� substitutions may have occurred due to the inherent limitations of voice recognition software.
Discharge Plan
Departure
Patient Disposition: Admit
Date of Disposition: 02/17/24
Time of Disposition: 14:27
Presentation/result/management discussed w/ accepting MD/DO: Hospitalist
Condition: Fair
Discharge Problem:
Acute dyspnea, Acute CHF (congestive heart failure), Anemia
Interventions
Interventions:
*Risk Screen - Suicide Last Done: 02/17/24 12:08
*General Assessment Last Done: 02/17/24 12:08
*Neglect/Abuse Screening Last Done: 02/17/24 12:08
ED- Fall Risk Assessment Last Done: 02/17/24 16:34
*ED COVID-19 Vaccine History Last Done: 02/17/24 12:08
*Nursing Disposition Last Done: 02/17/24 16:34
ED- Cardiac Assessment Last Done: 02/17/24 12:12
ED- Pulmonary Assessment Last Done: 02/17/24 12:12
Discharge Date and Time
Discharge Date/Time: 02/17/24 14:40
[2024-02-17] MEDS: LASIX 40 MG IV (14:41)
[2024-02-17] MEDS: NITRO-BID 1 INCH TOPICAL (14:42)
--- NOTE | 2024-02-17 15:19 | HPS.HSE ---
Addendum entered and electronically signed by Julienne River MD 02/17/24 16:14:
CKD III
-creatinine at baseline
-monitor with diuresis
Original Note:
Family Physician
-
Family Physician: Tami Berry
Chief Complaint
-
shortness of breath
History of Present Illness
Mr. Sundeep Estarda is a 74 yo man with hx DM, ALICIA, Grave's disease, GERD, HLD, Depression, chronic pain from lumbar stenosis presents to the ER with shortness of breath.
Patient is a poor historian. States he hasn't been feeling well since stroke 5 years ago. Over past few months has had shortness of breath and found to have pleural effusion. He is s/p thoracentesis on 02/06. Shortness of breath has been
worsening. He is not on diuretics and has no history of heart failure. He denies chest pain. + increased LE swelling. + nausea. No vomiting. Feels flushed in mornings, no measured fevers. Eating and drinking OK.
He denies black or bloody stools. No bleeding.
Patient lives at home with and uses a walker.
Medical History
Past Medical History
Past Medical History: Reports Other
Additional Past Medical History:
CVA
spinal stenosis with herniated disc
GERD
Hypertension hyperlipidemia
Diabetes
Diabetic retinopathy
Graves disease
hypothyroidism
Overactive bladder
Chronic constipation
Muscle spasm
Anxiety
chronic pain
Past Surgical History: Reports Other
Additional Past Surgical History:
Appendectomy
Amputation of right second toe
Inguinal and inguinal hernia repair
Social History
Tobacco: Former Smoker
Alcohol: None
Drug: None
Personal:
Living: With Family
Family History
Family History: Not pertinent
Allergies / Home Medications
Allergies reflects when Allergies were last updated in [facility].
Home Medications with original date entered in [facility]
Allergy/Medication List:
Allergies
Allergy/AdvReac Type Severity Reaction Status Date / Time
No Known Allergies Allergy Unverified 01/17/23 15:56
Home Medications
aspirin 81 mg tablet,delayed release 81 mg PO DAILY Blood clot prevention/tx ##0 01/17/23
baclofen 10 mg tablet 10 mg PO BIDPRN PRN Muscle spasms ##0 01/17/23
docusate sodium 100 mg capsule (Colace) 200 mg PO QPM Constipation ##0 01/17/23
pantoprazole 40 mg tablet,delayed release 40 mg PO DAILY ##0 01/17/23
insulin aspart U-100 100 unit/mL (3 mL) subcutaneous pen (Novolog FlexPen U-100 Insulin aspart) 15 unit SC MEALS 11/16/23
naproxen 500 mg tablet 500 mg PO BIDPRN PRN mild pain 11/16/23
paroxetine HCl 40 mg tablet 40 mg PO DAILY 11/16/23
atorvastatin 80 mg tablet 80 mg PO QPM #0 tabs 11/23/23
dextroamphetamine-amphetamine ER 15 mg 24hr capsule,extend release 15 mg PO DAILY #3 caps 11/29/23
labetalol 200 mg tablet 200 mg PO BID #0 tabs 11/29/23
acetaminophen 325 mg tablet (Tylenol) 325 mg PO TIDPRN PRN MILD PAIN 02/17/24
insulin degludec 100 unit/mL (3 mL) subcutaneous pen (Tresiba FlexTouch U-100 insulin) 40 unit SC DAILY 02/17/24
levothyroxine 175 mcg tablet (Synthroid) 175 mcg PO DAILY 02/17/24
magnesium oxide 500 mg PO HS 02/17/24
melatonin 3 mg tablet 3 mg PO HS 02/17/24
tramadol 50 mg tablet 50 mg PO Q6HPRN PRN MODERATE PAINS 02/17/24
umeclidinium 62.5 mcg-vilanterol 25 mcg/actuation powdr for inhalation (Anoro Ellipta) 1 inh inhalation R DAILY 02/17/24
valsartan 160 mg tablet 160 mg PO BID 02/17/24
vitamin B complex 1 tab PO HS 02/17/24
Review of Systems
-
History Source: Patient
A 12 point ROS was completed and negative except as noted: Yes
Physical Exam
Vital Signs
Vital Signs
Temp Pulse Resp BP Pulse Ox
97.8 F 76 25 180/86 97
02/17/24 12:07 02/17/24 15:15 02/17/24 15:15 02/17/24 14:45 02/17/24 14:45
Physical Exam
General: No Apparent Distress
HEENT: PERRLA
Respiratory: Rales and Decreased Breath Sounds
Cardiac: S1/S2 and Regular Rhythm
GI: Soft and Non Tender
Musculoskeletal: Edema, Left Lower Extremity and Edema, Right Lower Extremity
Skin: Warm and Dry; No Rash
Neuro: AO x 3
Psych: Calm
Laboratory Results
-
02/17/24 12:15
02/17/24 12:15
Laboratory Results
Total Bilirubin Cancelled 02/17/24 12:15
AST Cancelled 02/17/24 12:15
ALT Cancelled 02/17/24 12:15
Alkaline Phosphatase Cancelled 02/17/24 12:15
Data Reviewed
-
Diagnostic Radiology: Report Reviewed by me
Lab Data: Labs Reviewed by me
Impression/Plan
-
Mr. Sundeep Estrada is a 74 yo man with hx DM, ALICIA, Grave's disease, GERD, HLD, Depression, chronic pain from lumbar stenosis presents to the ER with shortness of breath.
Triage VS: T 97.8, P 75, RR 20, BP 155/72, SpO2 92%
LABS: WBC 6.7, Hg 8.4, PLT 168, Na 140, Cl 109, Cr 1.4, Glucose 261, BNP 2250
EKG: NSR @ 73, q waves anterior leads, non-specific t wave flattening
CXR
IMPRESSION:
Low lung volumes.
Increased pulmonary vascularity suggesting CHF and likely small bilateral pleural effusions.
MAR: IV Lasix, topical Nitro
Acute Heart Failure Exacerbation, unknown EF
-admit to telemetry
-s/p IV Lasix in the ER
-obtain K/Mg now
-continue IV lasix daily
-TTE
-TSH
-cardiology consult
-daily weights, strict I/O, fluid restriction
Anemia
-Hg 8.4, was 12's when hospitalized in October
-add on iron studies
-no e/o active bleeding
-monitor daily
Hx CVA 2018 with Ataxia
-MANAGER APPLICATION asa/statin
Chronc pain
Lumbar Stenosis
-MANAGER APPLICATION Tramadol
IDDM
-continue MANAGER APPLICATION Tresiba at lower dosing (30 units qAM instead of 40 for now)
-patient's pre-meal insulin is reported to be on hold (15 units pre-meals)
-ISS
-diabetic diet
-adjust insulin regimen as needed
ALICIA
Essential Hypertension
-MANAGER APPLICATION Labetalol
-MANAGER APPLICATION Valsartan
Graves'disease
-s/p treatment radioactive iodine 1983
DVT PPx hep subQ
FULL CODE
76 minutes spent on patient evaluation, medical decision making, coordination of care
--- NOTE | 2024-02-17 16:19 | CON.CAR ---
Addendum entered and electronically signed by Tonia Bledsoe DO 02/17/24 18:35:
I saw and examined the patient.
The Jet Worker's note was reviewed and I agree with the note.
Comment: Sundeep is a 74-year-old male with past medical history of hypertension, hyperlipidemia, COPD, DM2, Graves dsiease, spinal stenosis, GERD, CKD, ALICIA on CPAP, and prior CVA [approximately 5 years ago while living in [place] with residual
right-sided hemiparesis]. He denies prior outpatient cardiology care or testing. He had a recent hospitalization November 15 - November 29, 2023 with acute metabolic encephalopathy from Streptococcus pneumonia bacteremia status post antibiotic treatment.
He did have a CT scan of the head which was negative for CVA. Additionally he was seen for acute renal insufficiency by nephrology with discharge creatinine 1.6; at the time of his hospitalization he had been on metformin on Mounjaro which were
both discontinued. Joseph follows routinely with pulmonary, Dr. Benz, evaluated 02/02/2024 and was recommended to check lab work and echocardiogram given concern for possible acute heart failure exacerbation. He also follows has been following
clsoely with Dr. Berry, now retired. He reports worsening shortness of breath and progressive lower extremity edema since his discharge in November. He had a CT chest without contrast ordered by Dr. Berry January 26, 2024: There was a small to
moderate right and small left pleural effusion with atelectasis. The heart was normal size without pericardial effusion. Mildly calcified not aneurysmal thoracic aorta. No pneumothorax. He had age-indeterminate fractures of the posterior
ninth�11 right ribs. On February 07, 2024 he had a right thoracentesis with removal of 1050cc pleural fluid ordered by pulmonary he had acute worsening of his shortness of breath along with weakness and called 911 who transported him to [facility] for further evaluation. In addition to progressively worsening shortness of breath, generalized fatigue and bilateral lower extremity swelling he has been having increased episodes of indigestion and left arm pain. He has no significant
cardiac history and denies regular follow-up with cardiology. He has no known history of heart failure or known coronary artery disease. He has no history of thromboembolic disease. He is not on diuretic as outpatient. In ER, he was found to be
hypoxic and was placed on supplemental oxygen. Chest x-ray concerning for acute heart failure and he was also noted to have elevated proBNP of 2250. He was also anemic with hemoglobin of 8.4g/dL/ He was given a dose of IV Lasix and notes that
this has started to help his breathing somewhat.
General: Seen and examined ambulating in room on 4 L nasal cannula. Mild shortness of breath with exertion.
Neck: + JVP
Heart: Regular, positive S1/S2, No murmur
Lungs: Bronchovesicular breath sounds with bilateral crackles. No wheezes or rhonchi
Abd: Obese, nontender. Positive bowel sounds
Ext: +++ edema to his thighs with pretibial erythema
Neuro: History of CVA with right-sided mild hemiparesis
Plan:
Markedly volume overloaded with hypoxic respiratory failure clinically with acute heart failure exacerbation with unknown ejection fraction
-IV diuresis; Lasix na�ve. Will increase Lasix to 40 mg IV twice daily
-Check lower extremity Dopplers to rule out DVT
-2D echocardiogram ordered and pending
-TSH pending
-Heart failure education and heart failure diet with fluid restriction ordered
-Chronic renal insufficiency; monitor creatinine with diuresis
-Creat 1.4, follow closely with diuresis.
-Continue valsartan and labetalol for now pending echocardiogram. Will consider switching valsartan to Entresto if renal function allows. Will optimize goal-directed medical therapy
Cardiac risk factors for coronary artery disease with atypical chest discomfort/left arm pain
-Cardiac troponin not elevated
-EKG was sinus rhythm, septal infarct age-indeterminate with no acute ischemic changes
-Pending 2D echocardiogram will consider further ischemic evaluation
-Anemia with normocytic indices
-Hemoglobin previously 12.8 in December 2022 and more recently 11-12 in October.
-Iron studies pending
-Will defer to primary service for further evaluation; will likely need outpatient GI follow-up
History of remote stroke with right-sided hemiparesis
-No reported history of atrial fibrillation; sinus rhythm on telemetry. Will continue to monitor
-Continue aspirin and Lipitor w/ h/o CVA.
History of Graves' disease with resultant hypothyroidism
-TSH 2.46 02/08/2024. Continue levothyroxine.
Obstructive sleep apnea on CPAP�noted
Original Note:
Consultation
Consultation Request
Date/Time Consultation Requested: 02/17/2024 at 1600
Date/Time Consultation Performed: 02/17/2024 at 1615
Requesting Provider: Dr. River
Performing Provider: Dr. Bledsoe
Reason for Consultation: CHF
Medical History
-
History of Present Illness:
HPI: Sundeep is a 74-year-old male with past medical history of hypertension, hyperlipidemia, COPD, DM2, Graves, spinal stenosis, GERD, CKD, ALICIA, and prior CVA. Presented to ER for evaluation of worsening shortness of breath. He had thoracentesis
02/07/2024, however despite this his shortness of breath has been worsening. He also noted increased lower extremity swelling and nausea. He has no significant cardiac history and denies regular follow-up with cardiology. He does follow closely
with pulmonology and was recently evaluated 02/02/2024 and was recommended to check lab work and echocardiogram given concern for possible acute heart failure exacerbation. He has no known history of heart failure. He is not on diuretic as
outpatient. In ER, he was found to be hypoxic and was placed on supplemental oxygen. Chest x-ray concerning for acute heart failure and he was also noted to have elevated proBNP of 2250. He was also anemic with hemoglobin of 8.4 and appears pale.
He was given a dose of IV Lasix and notes that this has started to help his breathing somewhat. Cardiology consulted given concern for new acute heart failure. He denies chest pain.
PMH:
Hypertension
Hyperlipidemia
h/o CVA
CKD 3
COPD
Diabetes mellitus type 2
Graves' disease
Spinal stenosis
ALICIA, does not tolerate CPAP
GERD
h/o asbestos exposure
Past Medical History
Past Medical History: Other (In HPI)
Past Surgical History: Appendectomy, Tonsilectomy and Other (Umbilical hernia repair, amputation of R 2nd toe)
Social History
Tobacco: Former Smoker
Alcohol: None
Drug: None
Personal:
Living: With Family
Employment: Retired
Family History
Family History: CAD
Allergies / Home Medications
Allergy/AdvReac Type Severity Reaction Status Date / Time
No Known Allergies Allergy Unverified 01/17/23 15:56
�Medication �Instructions �Recorded �Confirmed �Type
aspirin 81 mg tablet,delayed 81 mg PO DAILY Blood clot 01/17/23 02/17/24 History
release prevention/tx ##0
baclofen 10 mg tablet 10 mg PO BIDPRN PRN Muscle spasms 01/17/23 02/17/24 History
##0
docusate sodium 100 mg capsule 200 mg PO QPM Constipation ##0 01/17/23 02/17/24 History
(Colace)
pantoprazole 40 mg tablet,delayed 40 mg PO DAILY ##0 01/17/23 02/17/24 History
release
insulin aspart U-100 100 unit/mL 15 unit SC MEALS 11/16/23 02/17/24 History
(3 mL) subcutaneous pen (Novolog
FlexPen U-100 Insulin aspart)
naproxen 500 mg tablet 500 mg PO BIDPRN PRN mild pain 11/16/23 02/17/24 History
paroxetine HCl 40 mg tablet 40 mg PO DAILY 11/16/23 02/17/24 History
atorvastatin 80 mg tablet 80 mg PO QPM #0 tabs 11/23/23 02/17/24 Rx
dextroamphetamine-amphetamine ER 15 mg PO DAILY #3 caps 11/29/23 02/17/24 Rx
15 mg 24hr capsule,extend release
labetalol 200 mg tablet 200 mg PO BID #0 tabs 11/29/23 02/17/24 Rx
acetaminophen 325 mg tablet 325 mg PO TIDPRN PRN MILD PAIN 02/17/24 02/17/24 History
(Tylenol)
insulin degludec 100 unit/mL (3 40 unit SC DAILY 02/17/24 02/17/24 History
mL) subcutaneous pen (Tresiba
FlexTouch U-100 insulin)
levothyroxine 175 mcg tablet 175 mcg PO DAILY 02/17/24 02/17/24 History
(Synthroid)
magnesium oxide 500 mg PO HS 02/17/24 02/17/24 History
melatonin 3 mg tablet 3 mg PO HS 02/17/24 02/17/24 History
tramadol 50 mg tablet 50 mg PO Q6HPRN PRN MODERATE PAINS 02/17/24 02/17/24 History
umeclidinium 62.5 mcg-vilanterol 1 inh inhalation R DAILY 02/17/24 02/17/24 History
25 mcg/actuation powdr for
inhalation (Anoro Ellipta)
valsartan 160 mg tablet 160 mg PO BID 02/17/24 02/17/24 History
vitamin B complex 1 tab PO HS 02/17/24 02/17/24 History
Review of Systems
-
History Source: Patient
All other systems: Negative unless noted
Physical Exam
Vital Signs
Temp Pulse Resp BP Pulse Ox
97.8 F 76 25 180/86 97
02/17/24 12:07 02/17/24 15:15 02/17/24 15:15 02/17/24 14:45 02/17/24 14:45
Lab Results
02/17/24 12:15
Yct-K-Doymhrlmert Pept 2250 pg/ml 02/17/24 12:15
Physical Exam
General: Well Developed, Well Nourished and No Apparent Distress
HEENT: Normocephalic, Anicteric and Moist Mucous Membranes
Respiratory: Crackles and Non Labored Respirations
Cardiac: S1/S2 and Regular Rhythm
Musculoskeletal: No Clubbing, No Cyanosis and Edema
Skin: Warm and Dry
Neuro: Nonfocal/Grossly Intact
Psych: Calm
Impression / Plan
-
PCP: Dr. Berry
Senior Qualitative Researcher: None prior to arrival, initially seen by Dr. Bledsoe
Impression:
Presented w/ SOB
b/l pleural effusions
s/p R thoracentesis for 1050 mL 02/07/2024
Acute HF unknown EF
Anemia
CKD 3
Hypertension
Hyperlipidemia
h/o CVA
COPD
Diabetes mellitus type 2
Graves' disease
Spinal stenosis
ALICIA, does not tolerate CPAP
GERD
h/o asbestos exposure
Echo 02/18/2024: Study pending
Plan:
-Presented with progressively worsening SOB despite thoracentesis 02/06. Admitted with concern for acute heart failure which would be a new diagnosis.
-s/p 40mg IV lasix in ER, continue IV lasix 40mg daily.
-Weight 245lbs in ER, appears to be up approx 40 lbs compared to weight at discharge from prior hospitalization 11/29/2023, however appears Orly was d/c at that time as well.
-Follow daily weights, I&Os.
-Creat 1.4, follow closely with diuresis.
-EF unknown. Check echo.
-Continue valsartan, labetalol. BP elevated in ER, follow for now.
-Anemia noted, patient pale appearing. Follow hgb, consider heme testing stool. Iron studies pending.
-Troponin pending. Denies chest pain. EKG SR, no acute ischemic changes noted.
-Continue aspirin and Lipitor w/ h/o CVA.
-TSH 2.46 02/08/2024. Continue levothyroxine.
-On 4L NC, wean as able.
HPI: Sundeep is a 74-year-old male with past medical history of hypertension, hyperlipidemia, COPD, DM2, Graves, spinal stenosis, GERD, CKD, ALICIA, and prior CVA. Presented to ER for evaluation of worsening shortness of breath. He had thoracentesis
02/07/2024, however despite this his shortness of breath has been worsening. He also noted increased lower extremity swelling and nausea. He has no significant cardiac history and denies regular follow-up with cardiology. He does follow closely
with pulmonology and was recently evaluated 02/02/2024 and was recommended to check lab work and echocardiogram given concern for possible acute heart failure exacerbation. He has no known history of heart failure. He is not on diuretic as
outpatient. In ER, he was found to be hypoxic and was placed on supplemental oxygen. Chest x-ray concerning for acute heart failure and he was also noted to have elevated proBNP of 2250. He was also anemic with hemoglobin of 8.4 and appears pale.
He was given a dose of IV Lasix and notes that this has started to help his breathing somewhat. Cardiology consulted given concern for new acute heart failure. He denies chest pain.
Data Reviewed
-
EKG: Tracing Personally Visualized and interpreted
Radiology: Report Reviewed by me
Labs: Labs Reviewed by me
Old Records: Reviewed
[2024-02-17 16:40] LABS: Iron 51 ug/dl (49-181)
[2024-02-17 16:42] LABS: Magnesium 1.9 mg/dl (1.6-2.3); Potassium 3.8 mmol/L (3.5-5.1)
--- NOTE | 2024-02-17 16:45 | PTCARENOTE ---
Received patient from ED via stretcher. AAOx3, forgetful. Assisted x2 to bed. Right sided weakness d/t CVA in past. Assessed and oriented to room. alarm security or surveillance monitor reading NSR. Call santana in close reach. Bed alarm in place for safety. Will continue
to monitor.
[2024-02-17 16:48] LABS: Percent Saturation 18 % (20-50); Total Iron Binding Capacity 281 ug/dl (261-462)
[2024-02-17 16:54] LABS: Troponin I 0.012 ng/ml
[2024-02-17 17:15] LABS: Ferritin 54.9 ng/ml (17.9-464.0)
[2024-02-17 17:24] LABS: Glucose - Point of Care 150 mg/dl (70-99)
[2024-02-17 17:30] LABS: Vitamin B12 445 pg/ml (239-931)
[2024-02-17] MEDS: COLACE 200 MG PO (18:25)
[2024-02-17] MEDS: LIPITOR 80 MG PO (18:25)
[2024-02-17] MEDS: KCL 20 MEQ PO (18:25)
[2024-02-17] MEDS: NOVOLOG FLEXPEN-LOW RESISTANCE 1 UNITS SC (18:29)
[2024-02-17] MEDS: DIOVAN 160 MG PO (20:13)
[2024-02-17] MEDS: HEPARIN 5000 UNITS SC (20:14)
[2024-02-17] MEDS: TRANDATE 200 MG PO (20:14)
[2024-02-17 21:21] LABS: Glucose - Point of Care 169 mg/dl (70-99)
[2024-02-17] MEDS: MELATONIN 3 MG PO (21:47)
[2024-02-17] MEDS: MAGNESIUM OXIDE 500 MG PO (21:47)
[2024-02-17] MEDS: LIORESAL 10 MG PO (21:47)
[2024-02-17 22:10] LABS: Troponin I 0.012 ng/ml
[2024-02-18] VITALS (7 sets, daily range): BP systolic 111–190; BP diastolic 74–97; BMI 33.6
[2024-02-18] MEDS: LASIX 40 MG IV ×3 (04:17→16:43)
[2024-02-18] MEDS: MORPHINE SULFATE 1 MG IV (04:31)
[2024-02-18 04:48] LABS: Hemoglobin 8.4 g/dL (13.0-18.0); Mean Corp Hgb Conc. 33.6 g/dL (33.0-37.0); Mean Corpuscular Hgb 29.7 pg (27.0-31.0); Mean Corpuscular Volume 88.3 fL (80.0-94.0); Mean Platelet Volume 11.3 fL (7.4-10.4); Platelet Count 179 10^3/uL (130-400); Red Blood Cell Count 2.83 10^6/uL (4.70-6.10); Red Cell Dist. Width 14.6 % (11.5-14.5); White Blood Cell Count 7.5 10^3/uL (4.8-10.8)
[2024-02-18 05:14] LABS: Blood Urea Nitrogen 24 mg/dl (9-20); Calcium 8.8 mg/dl (8.4-10.2); Carbon Dioxide 26 mmol/L (22-30); Chloride 110 mmol/L (98-107); Estimated Creatinine Clearance 58 ml/min; Glucose 77 mg/dl (70-99); Magnesium 1.9 mg/dl (1.6-2.3); Potassium 3.8 mmol/L (3.5-5.1); Sodium 141 mmol/L (135-145); eGFR 53.07
[2024-02-18 05:24] LABS: Troponin I 0.016 ng/ml
[2024-02-18 05:45] LABS: TSH Reflex To Free T4 1.79 uIU/ml (0.47-4.68)
[2024-02-18] MEDS: SYNTHROID 175 MCG PO (05:54)
--- NOTE | 2024-02-18 06:14 | PTCARENOTE ---
BP at 0356; 190/82, 89, 24, 97.8, pulse ox 93% on 5 L. Patient with tachypnea, dyspnea at rest, crackles b/l. MECHANICAL MAINTENANCE aware and ordered stat lasix and and morphine and given. 120/85, 86, 20, pulse ox 96% at this time. Patient voided 200 mls of
clear yellow urine after lasix. Plan of care continues.
[2024-02-18 07:22] LABS: Glucose - Point of Care 80 mg/dl (70-99)
[2024-02-18] MEDS: NOVOLOG FLEXPEN-LOW RESISTANCE SC ×2 (08:32→11:37)
[2024-02-18] MEDS: HEPARIN 5000 UNITS SC ×2 (08:55→21:57)
[2024-02-18 09:14] LABS: B.E. 2.7 mmol/L; HCO3 27.9 mmol/L (21-28); PCO2 45 mmHg (35-48); PO2 108 mmHg (83-108)
[2024-02-18] MEDS: LANTUS SC (09:57)
[2024-02-18 10:07] LABS: Glycohemoglobin (HgbA1c) 7.3 % (4.0-5.6)
--- NOTE | 2024-02-18 10:15 | W.PN.CARDCBS ---
Addendum entered and electronically signed by Jona Murcia MD 02/18/24 10:53:
I saw and examined the patient.
The Conventional Underwriter's note was reviewed and I agree with the note.
Comment:
GEN: confused, not following commands well
HEENT: supple, anicteric, mmm
LUNGS: dec Bs at bases
CV: Reg, S1/S2, 09/04 syst LSB, S3+
ABD: soft, BS+, NT/ND
EXT: ++ edema
NEURO: sleepy , no clear power deficits
SKIN: No rash
Plan:
Patient appears confused this morning and was somnolent. He was arousable with no clear power deficits. ABG was performed which revealed normal pCO2.
He did get a dose of morphine at 4:30 AM which could explain his mental status. Will reassess in afternoon.
Will check echocardiogram in a.m. I have a high clinical suspicion that he has a new cardiomyopathy. Will continue with IV Lasix for now. Pending results of echo would likely switch labetalol to Coreg, continue Diovan and consider adding
Aldactone/Entresto and Farxiga/Jardiance.
His creatinine is overall stable at 1.4. Continue to follow.
I suspect he will likely need an ischemic evaluation this hospitalization. Troponin is at 0.04.
Continue aspirin and atorvastatin.
Original Note:
Today's Communication / Plan
-
Continue diuresis
Await echo results
Optimize medical therapy pending echo results
Eventual consideration for ischemic evaluation
Impression / Plan
-
PCP: Dr. Berry
Manager Books: None prior to arrival, initially seen by Dr. Bledsoe
Impression:
Presented w/ SOB
b/l pleural effusions
s/p R thoracentesis for 1050 mL 02/07/2024
Acute HF unknown EF
Anemia
CKD 3
Hypertension
Hyperlipidemia
h/o CVA
COPD
Diabetes mellitus type 2
Graves' disease
Spinal stenosis
ALICIA, does not tolerate CPAP
GERD
h/o asbestos exposure
Echo 02/18/2024: Study pending
Plan:
-Presented with progressively worsening SOB despite thoracentesis 02/06. Admitted with concern for acute heart failure which would be a new diagnosis.
-Diuresing with IV lasix 40mg BID. Weight down at least 4lbs overnight, down to 234lbs 02/17. Creat stable at 1.4
-Given dose of morphine overnight. Drowsy this AM, somewhat confused.
-ABG overall unremarkable.
-EF unknown. Check echo urgently this AM.
-Continue valsartan, labetalol. BP elevated this admission. Follow for now, pending results of echo may consider Entresto versus addition of spironolactone.
-Anemia noted, hgb stable at 8.4 overnight. Continue to follow.
-Troponin 0.016. EKG SR, no acute ischemic changes noted.
-Continue aspirin and Lipitor w/ h/o CVA.
-TSH 1.79. Continue levothyroxine.
-O2 requirements increased overnight, up to 5L, wean as able.
HPI: Sundeep is a 74-year-old male with past medical history of hypertension, hyperlipidemia, COPD, DM2, Graves, spinal stenosis, GERD, CKD, ALICIA, and prior CVA. Presented to ER for evaluation of worsening shortness of breath. He had thoracentesis
02/07/2024, however despite this his shortness of breath has been worsening. He also noted increased lower extremity swelling and nausea. He has no significant cardiac history and denies regular follow-up with cardiology. He does follow closely
with pulmonology and was recently evaluated 02/02/2024 and was recommended to check lab work and echocardiogram given concern for possible acute heart failure exacerbation. He has no known history of heart failure. He is not on diuretic as
outpatient. In ER, he was found to be hypoxic and was placed on supplemental oxygen. Chest x-ray concerning for acute heart failure and he was also noted to have elevated proBNP of 2250. He was also anemic with hemoglobin of 8.4 and appears pale.
He was given a dose of IV Lasix and notes that this has started to help his breathing somewhat. Cardiology consulted given concern for new acute heart failure. He denies chest pain.
Progress Note - Manager Books
Subjective
Date of Service: February 18, 2024
Appears SOB, lethargic.
Objective
Labs:
02/18/24 04:27
02/18/24 04:27
Labs
Hgb 8.4 g/dL (13.0-18.0) L 02/18/24 04:27
Hct 25.0 % (39.0-52.0) L 02/18/24 04:27
Plt Count 179 10^3/uL (130-400) 02/18/24 04:27
Sodium 141 mmol/L (135-145) 02/18/24 04:27
Potassium 3.8 mmol/L (3.5-5.1) 02/18/24 04:27
BUN 24 mg/dl (9-20) H 02/18/24 04:27
Creatinine 1.4 mg/dL (0.7-1.3) H 02/18/24 04:27
Glucose 77 mg/dl (70-99) 02/18/24 04:27
Troponins
02/17/24 02/17/24 02/18/24
16:21 21:41 04:27
Troponin I 0.012 0.012 0.016 D
Vital Signs and I&O:
Vital Signs
Temp Pulse Resp BP Pulse Ox
98.2 F 84 14 166/84 97
02/18/24 08:16 02/18/24 08:53 02/18/24 08:16 02/18/24 08:53 02/18/24 08:16
Vital Signs
Temp Pulse Resp BP Pulse Ox
98.2 F 84 14 166/84 97
02/18/24 08:16 02/18/24 08:53 02/18/24 08:16 02/18/24 08:53 02/18/24 08:16
Intake & Output
02/16/24 02/17/24 02/18/24 02/19/24
06:59 06:59 06:59 06:59
Intake Total 480 / 480
Output Total 1550 / 1550
Balance -1070 / -1070
Physical Exam
Physical Exam
GEN: No distress, lethargic
HEENT: supple, anicteric, mmm
LUNGS: crackles b/l, no wheezes
CV: Reg, S1/S2, no murmur
EXT: No clubbing or cyanosis, +3 edema
SKIN: Warm, dry, no rash
[2024-02-18 10:49] LABS: Troponin I 0.037 ng/ml
--- NOTE | 2024-02-18 11:10 | CARDSERVDEF ---
Echocardiogram with Definity completed after protocol screening completed. Allergies verified.
Patent IV site: __left AC___
IV site flushed with 0.9% NaCl pre and post administration.
Diluted bolus method utilized to enhance visualization of ventricular oden.
Total volume given: 2.5____ mL
Patient tolerated all procedures well without complications.
[2024-02-18 11:25] LABS: Glucose - Point of Care 72 mg/dl (70-99)
[2024-02-18] MEDS: PROTONIX 40 MG PO (11:38)
[2024-02-18] MEDS: DIOVAN 160 MG PO ×2 (11:38→21:57)
[2024-02-18] MEDS: PAXIL 40 MG PO (11:39)
[2024-02-18] MEDS: TRANDATE 200 MG PO ×2 (11:39→21:56)
[2024-02-18] MEDS: ASPIR LOW (ENTERIC COATED) 81 MG PO (11:39)
--- NOTE | 2024-02-18 12:18 | W.PN.HOSP.TC ---
Today's Communication/Plan
-
Echo today
Assessment / Plan
Assessment / Plan
Assessment :
Mr. Sundeep Estrada is a 74 yo man with hx DM, ALICIA, Grave's disease, GERD, HLD, Depression, chronic pain from lumbar stenosis presents to the ER with shortness of breath.
Admitted for CHF
Plan:
Acute CHF Exacerbation, unspecific type:
Pending echo
Patient presented with shortness of breath.
BNP level is elevated at 2250
Troponin level is 0.012 > 0.016 > 0.037
Continue IV diuresing in form of Lasix 40 mg twice daily
Daily weight.
Strict I's and O's.
Consulted cardiology.
Normocytic anemia
Hemoglobin stable at 8.4
Iron level 51 with low iron sat at 18
-monitor daily
Hx CVA 2018 with Ataxia
-DISTRIBUTION TECH asa/statin
Chronic pain
Lumbar Stenosis
-DISTRIBUTION TECH Tramadol
IDDM
-continue DISTRIBUTION TECH Tresiba at lower dosing (30 units qAM instead of 40 for now)
-patient's pre-meal insulin is reported to be on hold (15 units pre-meals)
-ISS
-diabetic diet
-adjust insulin regimen as needed
-Patient was confused today morning and decreased oral intake, blood sugar was low, held Lantus
Essential Hypertension
-DISTRIBUTION TECH Labetalol
-DISTRIBUTION TECH Valsartan
Graves'disease
-s/p treatment radioactive iodine 1983
CODE STATUS: Full code
DVT prophylaxis: Heparin
Diet: DM diet
Anticipated Discharge: > 48 hours
Subjective/Interval History
-
Date of Service: February 18, 2024
Patient seen and examined at bedside, patient was sleepy during conversation and difficult to arouse, stat ABG done came back normal, patient denies chest pain, looks dyspneic on physical exam, echo pending.
Objective Data
-
Labs:
Laboratory Results
02/18/24 02/18/24
04:27 08:58
WBC 7.5
Hgb 8.4 L
Hct 25.0 L
Plt Count 179
HCO3 27.9
Sodium 141
Potassium 3.8
Chloride 110 H
Carbon Dioxide 26
BUN 24 H
Creatinine 1.4 H
Glucose 77
Calcium 8.8
Vital Signs:
Vital Signs
Temp Pulse Resp BP Pulse Ox
98.7 F 81 14 150/74 99
02/18/24 11:25 02/18/24 11:38 02/18/24 11:25 02/18/24 11:38 02/18/24 11:25
I&O
02/17/24 02/18/24 02/19/24
06:59 06:59 06:59
Intake Total 480 / 480
Output Total 1550 / 1550
Balance -1070 / -1070
Physical Exam
-
General: Respiratory Distress and Appears Chronically Ill
HEENT: Normocephalic, Atraumatic and Moist Mucous Membranes
Respiratory: Rales, Rhonchi, Crackles, Accessory Resp Muscle Use, Decreased Breath Sounds and Other (Dyspnic)
Cardiac: Regular Rhythm and S1/S2; Negative Murmur, Rub or Gallop
GI: Soft, Nontender, Nondistended and Normal Bowel Sounds; Negative Organomegaly
Rectal: Deferred by Provider
Musculoskeletal: No Clubbing, No Cyanosis, Edema, Right Lower Extrem and Edema, Left Lower Extrem
Skin: Negative Rash
Neuro: Nonfocal/Grossly Intact
Psych: Confused (Sleepy)
--- NOTE | 2024-02-18 16:05 | CM ---
Alert awake oriented patient who lives with his Arielle who lives in a 1 story home with 2 step to enter and bed and bathroom on first floor. He is assisted in most activities of daily living.He was offered VN he requested [facility] V[facility].
[facility] / [facility] history
Pharmacy [facility]
PCP DR Dr Colmenares Has not seen new MD yet
PLAN Home [facility]
[2024-02-18 16:40] LABS: Glucose - Point of Care 243 mg/dl (70-99)
[2024-02-18] MEDS: NOVOLOG FLEXPEN-LOW RESISTANCE 2 UNITS SC (16:43)
[2024-02-18] MEDS: COLACE 200 MG PO (17:02)
[2024-02-18] MEDS: LIPITOR 80 MG PO (17:02)
[2024-02-18 21:27] LABS: Glucose - Point of Care 193 mg/dl (70-99)
[2024-02-18] MEDS: MAGNESIUM OXIDE 500 MG PO (21:56)
[2024-02-18] MEDS: MELATONIN 3 MG PO (21:56)
[2024-02-19 03:31] VITALS: BP 161/85
[2024-02-19] MEDS: SYNTHROID 175 MCG PO (06:08)
[2024-02-19 06:34] LABS: Blood Urea Nitrogen 33 mg/dl (9-20); Calcium 8.5 mg/dl (8.4-10.2); Carbon Dioxide 29 mmol/L (22-30); Chloride 106 mmol/L (98-107); Estimated Creatinine Clearance 54 ml/min; Glucose 112 mg/dl (70-99); Potassium 3.9 mmol/L (3.5-5.1); Sodium 142 mmol/L (135-145); eGFR 48.85
[2024-02-19 06:52] LABS: Troponin I 0.045 ng/ml
[2024-02-19 07:19] LABS: Glucose - Point of Care 127 mg/dl (70-99)
[2024-02-19 07:35] VITALS: BP 173/88
[2024-02-19] MEDS: NOVOLOG FLEXPEN-LOW RESISTANCE SC (08:36)
--- NOTE | 2024-02-19 08:55 | W.PN.HOSP.TC ---
Today's Communication/Plan
-
continue diuretics, trend trops
wean O2 as able
PT/OT
follow Cards recs
Assessment / Plan
Assessment / Plan
Assessment:
Acute hypoxic respiratory insufficiency on 5L
- wean O2 as able as treatment continues
- add IS
Presentation with acute SOB
Acute HFpEF
- BNP level is elevated at 2250
- Echo: EF 55-60%, severe LVH
- continue IV Lasix - requires intensive monitoring of I/Os, weights, lytes
- DCA cards following
Troponin elevation, possible nonischemic myocardial injury in setting of hypoxia/Acute CHF
- trend trops to peak
- may need ischemic evaluation
Bilateral pleural effusions
- s/p R thoracentesis for 1050 mL 02/07/2024
CKD stage 3b
- monitor BMP with diuresis
Essential Hypertension
- continue ARB, Labetalol
Chronic anemia
- monitor Hb, no evidence of bleeding clinically seen
- slightly low iron otherwise B12 ok
- Folate ok recently
- heme test stools
Hyperlipidemia
h/o CVA
- continue ASA/Statin
COPD
- continue Anoro or equivalent
- prn nebs
Diabetes mellitus type 2
- continue Lantus
- continue SSI
- A1C: 7.3%
Graves' disease by history
- s/p treatment radioactive iodine 1983
- now on thyroid hormone replacement
Spinal stenosis
- continue pain control, prn Baclofen
ALICIA, does not tolerate CPAP
- ABG performed 02/17 without CO2 retention
GERD
h/o asbestos exposure
DVT ppx: SC Heparin
Code: Full
Anticipated Discharge: > 48 hours
Subjective/Interval History
-
Date of Service: February 19, 2024
sleeping but easily arousable, denies any new complaints
reports no SOB when laying but a bit of SOB with activity
no CP
no other complaints
Objective Data
-
Labs:
Laboratory Results
02/19/24
06:03
Sodium 142
Potassium 3.9
Chloride 106
Carbon Dioxide 29
BUN 33 H
Creatinine 1.5 H
Glucose 112 H
Calcium 8.5
Vital Signs:
Vital Signs
Temp Pulse Resp BP Pulse Ox
98.0 F 78 20 173/88 98
02/19/24 07:35 02/19/24 07:35 02/19/24 07:35 02/19/24 07:35 02/19/24 07:35
I&O
02/18/24 02/19/24 02/20/24
06:59 06:59 06:59
Intake Total 480 / 480 1080 / 1080
Output Total 1550 / 1550 2024
Balance -1070 / -1070 -945 / -945
Physical Exam
-
General: No Apparent Distress; Negative Respiratory Distress
HEENT: Normocephalic and Atraumatic
Respiratory: Rales; Negative Wheezes
Cardiac: Regular Rhythm and S1/S2
Musculoskeletal: Edema, Right Lower Extrem and Edema, Left Lower Extrem
Neuro: AO x 3
Psych: Calm
Data Reviewed
-
Total Time Spent with Patient (in minutes): 51
Labs: Labs Reviewed by me
[2024-02-19 09:23] VITALS: BMI 32.3
[2024-02-19] MEDS: ASPIR LOW (ENTERIC COATED) 81 MG PO (09:24)
[2024-02-19] MEDS: HEPARIN 5000 UNITS SC ×2 (09:25→21:24)
[2024-02-19] MEDS: DIOVAN 160 MG PO ×2 (09:25→21:25)
[2024-02-19] MEDS: LANTUS SC (09:25)
[2024-02-19] MEDS: FLUSH (NSS) 2 FLUSH IV (09:26)
[2024-02-19] MEDS: PROTONIX 40 MG PO (09:26)
[2024-02-19] MEDS: LASIX 40 MG IV ×2 (09:26→16:22)
[2024-02-19] MEDS: TRANDATE 200 MG PO ×2 (09:26→21:28)
[2024-02-19] MEDS: PAXIL 40 MG PO (09:26)
[2024-02-19] MEDS: LANTUS 0.299999999999999989 UNITS SC (09:36)
[2024-02-19] MEDS: ALDACTONE 25 MG PO (10:29)
[2024-02-19 11:19] VITALS: BP 100/68
--- NOTE | 2024-02-19 11:44 | W.PN.CARDCBS ---
Addendum entered and electronically signed by Tonia Bledsoe DO 02/19/24 12:49:
I saw and examined the patient.
The [facility] [employer] Representative's note was reviewed and I agree with the note.
Comment: Patient seen and examined. Fortunately mental status appears back to what it was when I met him at time of admission. He continues to deny chest pain or pressure and reports improved edema and shortness of breath. To my PA he reported
seeing snow on trees and he understood that that did not make sense however he was appropriate during our conversation.
GEN: NAD sitting out of bed to chair
HEENT: mmm
LUNGS: Crackles B/L bases, no wheezes
CV: Reg, S1/S2, no murmur
ABD: mild distended, positive bowel sound
EXT: Improved bilateral lower extremity edema now +1 below the knee
Neuro: Chronic mild right hemiparesis
Echo 02/18/2024: definity used, severe cLVH, EF 55-60%, dense posterior MAC, pleural effusion present
Plan:
Acute heart failure with preserved ejection fraction
-Presented with progressively worsening SOB despite R thoracentesis 02/07.
-Pleural fluid appears to be transudative, consistent with CHF
-He is diuresing with clinical improvement on IV Lasix
-Echocardiogram with normal biventricular size and systolic function and severe concentric LVH. No significant valve pathology.
-Etiology of heart failure still unclear, possibly related to uncle hypertension but will need an ischemic evaluation
--Troponin up to 0.045, suspected nonischemic myocardial injury. trend to peak. EKG SR, no acute ischemic changes noted
-continue labetalol 200mg BID. valsartan dose increased to 160mg BID this admission. follow BPs.
-Will add aldactone for improved BP control pending trends.
-We discussed ischemic workup including right/left heart catheterization with plan to tentatively proceed Wednesday.
-TSH within normal limits; UA without significant proteinuria
-CHF education and diet
Anemia noted, hgb stable at 8.4 overnight. Continue to follow.
-No obvious bleeding. Defer to medicine
History of remote stroke with right-sided weakness
-Continue aspirin and Lipitor w/ h/o CVA.
Chronic renal insufficiency�follow with diuresis
Sleep apnea intolerant to CPAP
-Follow-up with pulmonary, Dr. Sanchez
Original Note:
Today's Communication / Plan
-
continue IV lasix
CHF education
wean supp O2
follow mental status
follow BPs
follow hgb
consider for ischemic eval, timing to be determined
Impression / Plan
-
PCP: Dr. Berry
Councilman: None prior to arrival, initially seen by Dr. Bledsoe
Impression:
Presented w/ SOB
b/l pleural effusions
s/p R thoracentesis for 1050 mL 02/08/2024
Acute HFpEF
Anemia
CKD 3
Hypertension
Hyperlipidemia
h/o CVA
COPD
Diabetes mellitus type 2
Graves' disease
Spinal stenosis
ALICIA, does not tolerate CPAP
GERD
h/o asbestos exposure
Echo 02/18/2024: definity used, severe cLVH, EF 55-60%, dense posterior MAC, pleural effusion present
Plan:
-Presented with progressively worsening SOB despite R thoracentesis 02/07. fluid appears to be transudative, consistent with CHF
-being diuresed with IV lasix. he denies significant urine output, however I&O negative and weight trending down, so will continue on IV lasix 40mg BID for now. has CKD at baseline, Cr stable at 1.5
-CHF education
-wean supp O2 as able
-echo with preserved EF, as above. results reviewed with patient today. suspect CHF secondary to significant uncontrolled HTN.
-continue labetalol 200mg BID. valsartan dose increased to 160mg BID this admission. follow BPs. could consider addition of aldactone for improved BP control pending trends.
-he was lethargic yesterday. today states he sees snow on the trees outside however says he knows it it hot out so that doesn't make sense. follow mental status. limit opioids.
-Anemia noted, hgb stable at 8.4 overnight. Continue to follow.
-Troponin up to 0.045, suspected nonischemic myocardial injury. trend to peak. EKG SR, no acute ischemic changes noted. patient reports chest pressure in setting of admission, however resolved after receiving 1st IV lasix dose
-Continue aspirin and Lipitor w/ h/o CVA.
-given baseline CKD and anemia, would consider for stress test when optimized from volume standpoint
-in SR upon review of tele overnight
-TSH WNL
-d/w hospitalist
HPI: Sundeep is a 74-year-old male with past medical history of hypertension, hyperlipidemia, COPD, DM2, Graves, spinal stenosis, GERD, CKD, ALICIA, and prior CVA. Presented to ER for evaluation of worsening shortness of breath. He had thoracentesis
02/07/2024, however despite this his shortness of breath has been worsening. He also noted increased lower extremity swelling and nausea. He has no significant cardiac history and denies regular follow-up with cardiology. He does follow closely
with pulmonology and was recently evaluated 02/02/2024 and was recommended to check lab work and echocardiogram given concern for possible acute heart failure exacerbation. He has no known history of heart failure. He is not on diuretic as
outpatient. In ER, he was found to be hypoxic and was placed on supplemental oxygen. Chest x-ray concerning for acute heart failure and he was also noted to have elevated proBNP of 2250. He was also anemic with hemoglobin of 8.4 and appears pale.
He was given a dose of IV Lasix and notes that this has started to help his breathing somewhat. Cardiology consulted given concern for new acute heart failure. He denies chest pain.
Progress Note - Councilman
Subjective
Date of Service: February 19, 2024
reports remains with some SOB. no CP.
Objective
Labs:
02/18/24 04:27
02/19/24 06:03
Labs
Hgb 8.4 g/dL (13.0-18.0) L 02/18/24 04:27
Hct 25.0 % (39.0-52.0) L 02/18/24 04:27
Plt Count 179 10^3/uL (130-400) 02/18/24 04:27
Sodium 142 mmol/L (135-145) 02/19/24 06:03
Potassium 3.9 mmol/L (3.5-5.1) 02/19/24 06:03
BUN 33 mg/dl (9-20) H 02/19/24 06:03
Creatinine 1.5 mg/dL (0.7-1.3) H 02/19/24 06:03
Glucose 112 mg/dl (70-99) H 02/19/24 06:03
Troponins
02/17/24 02/17/24 02/18/24
16:21 21:41 04:27
Troponin I 0.012 0.012 0.016 D
02/18/24 02/19/24
09:49 06:04
Troponin I 0.037 H* D 0.045 H*
Vital Signs and I&O:
Vital Signs
Temp Pulse Resp BP Pulse Ox
98.0 F 73 20 100/68 98
02/19/24 11:19 02/19/24 11:19 02/19/24 11:19 02/19/24 11:19 02/19/24 11:19
Vital Signs
Temp Pulse Resp BP Pulse Ox
98.0 F 73 20 100/68 98
02/19/24 11:19 02/19/24 11:19 02/19/24 11:19 02/19/24 11:19 02/19/24 11:19
Intake & Output
02/17/24 02/18/24 02/19/24 02/20/24
07:59 07:59 07:59 07:59
Intake Total 480 / 480 1080 / 1080
Output Total 1550 / 1550 2024
Balance -1070 / -1070 -945 / -945
Physical Exam
Physical Exam
GEN: No distress, awake, alert, oriented to self, reports seeing things like snow on the trees that he knows do not make sense. sitting in chair. on supp O2
HEENT: supple, anicteric, mmm, eomi
LUNGS: Crackles B/L bases, no wheezes
CV: Reg, S1/S2, no murmur
ABD: mild distended
EXT: No cyanosis, clubbing. 1+ edema of B/L LE
SKIN: Warm, pink, dry. No rash
[2024-02-19 11:58] LABS: Glucose - Point of Care 189 mg/dl (70-99)
--- NOTE | 2024-02-19 12:00 | PTCARENOTE ---
Pt noted to be confused this morning about place stating that he was in [place] and then that there was snow outside? Pt did correct himself about the snow stating that the sun was reflecting off the roof and that he has impaired vision. Dr. Donohue
aware of confusion. On further assessment, pt's mentation improved, currently AAOx3, forgetful. Bed/chair alarm in place for safety, call santana within reach, will monitor closely.
[2024-02-19 12:30] LABS: Urine Albumin Negative (Neg - Trace); Urine Bilirubin Negative (Negative); Urine Character Clear (Clear); Urine Color Straw; Urine Glucose Negative (Negative); Urine Ketone Negative (Negative); Urine Leukocyte Negative (Negative); Urine Nitrite Negative (Negative); Urine Occult Blood Negative (Negative); Urine Urobilinogen Negative (Neg - 1+); Urine pH 6.5 (5.0-9.0)
[2024-02-19] MEDS: NOVOLOG FLEXPEN-LOW RESISTANCE 1 UNITS SC (12:33)
[2024-02-19 12:49] LABS: Protein/creatinine Ratio 0.6; Urine Protein 19 mg/dl
[2024-02-19 14:41] LABS: Troponin I 0.033 ng/ml
--- NOTE | 2024-02-19 15:04 | CM ---
Chart reveiwed and visit made to Sundeep. Therapies are being held due to troponins trending up. O2 at 5L with plan to wean, so will need to watch for home O2 needs at discharge.
Sundeep is known to [facility] and requests same at discharge.
Plan: Discharge to home with and resumption of [facility].
PCP: Tami Berry
Pharmacy: [facility] in [place]
[2024-02-19 15:20] VITALS: BP 174/83
--- NOTE | 2024-02-19 16:30 | PTCARENOTE ---
Pt's BP at 1500 noted to be 174/83, asymptomatic. Rechecked BP and noted to be 151/78 with IV Lasix 40mg dose at 1600, will continue to monitor.
[2024-02-19 16:50] LABS: Glucose - Point of Care 236 mg/dl (70-99)
[2024-02-19] MEDS: NOVOLOG FLEXPEN-LOW RESISTANCE 2 UNITS SC (17:36)
[2024-02-19] MEDS: LIPITOR 80 MG PO (17:36)
[2024-02-19] MEDS: COLACE 200 MG PO (17:36)
[2024-02-19 18:51] LABS: Troponin I 0.027 ng/ml
[2024-02-19 19:30] VITALS: BP 158/71
[2024-02-19 21:13] LABS: Glucose - Point of Care 220 mg/dl (70-99)
[2024-02-19] MEDS: MELATONIN 3 MG PO (21:24)
[2024-02-19] MEDS: MAGNESIUM OXIDE 500 MG PO (21:24)
[2024-02-19 23:29] VITALS: BP 124/82
[2024-02-20] VITALS (7 sets, daily range): BP systolic 139–172; BP diastolic 54–86; BMI 31.7
[2024-02-20] MEDS: SYNTHROID 175 MCG PO (04:04)
[2024-02-20 07:17] LABS: Glucose - Point of Care 162 mg/dl (70-99)
[2024-02-20 07:36] LABS: Hemoglobin 8.8 g/dL (13.0-18.0); Mean Corp Hgb Conc. 32.6 g/dL (33.0-37.0); Mean Corpuscular Volume 89.1 fL (80.0-94.0); Platelet Count 192 10^3/uL (130-400); Red Blood Cell Count 3.03 10^6/uL (4.70-6.10); Red Cell Dist. Width 14.1 % (11.5-14.5); White Blood Cell Count 7.2 10^3/uL (4.8-10.8)
[2024-02-20 08:09] LABS: Blood Urea Nitrogen 36 mg/dl (9-20); Calcium 8.7 mg/dl (8.4-10.2); Carbon Dioxide 29 mmol/L (22-30); Chloride 104 mmol/L (98-107); Estimated Creatinine Clearance 52 ml/min; Glucose 142 mg/dl (70-99); Potassium 3.9 mmol/L (3.5-5.1); Sodium 139 mmol/L (135-145); eGFR 48.85
[2024-02-20] MEDS: HEPARIN 5000 UNITS SC ×2 (08:13→20:49)
[2024-02-20] MEDS: ASPIR LOW (ENTERIC COATED) 81 MG PO (08:13)
[2024-02-20] MEDS: ALDACTONE 25 MG PO (08:13)
[2024-02-20] MEDS: DIOVAN 160 MG PO ×2 (08:13→20:48)
[2024-02-20] MEDS: LASIX 40 MG IV ×2 (08:14→16:50)
[2024-02-20] MEDS: PROTONIX 40 MG PO (08:14)
[2024-02-20] MEDS: TRANDATE 200 MG PO (08:14)
[2024-02-20] MEDS: PAXIL 40 MG PO (08:14)
[2024-02-20] MEDS: FLUSH (NSS) 2 FLUSH IV (08:15)
[2024-02-20 09:32] LABS: Glucose - Point of Care 183 mg/dl (70-99)
[2024-02-20] MEDS: NOVOLOG FLEXPEN-LOW RESISTANCE 1 UNITS SC (09:41)
[2024-02-20] MEDS: LANTUS 0.299999999999999989 UNITS SC (09:41)
--- NOTE | 2024-02-20 10:02 | W.PN.HOSP.TC ---
Today's Communication/Plan
-
continue diuretics
wean O2
NPO p MN for L/RHC
Assessment / Plan
Assessment / Plan
Assessment:
Acute hypoxic respiratory insufficiency on 5L
- wean O2 as able as treatment continues
- add IS
Presentation with acute SOB
Acute HFpEF
- BNP level is elevated at 2250
- Echo: EF 55-60%, severe LVH
- continue IV Lasix - requires intensive monitoring of I/Os, weights, lytes
- DCA cards following
Troponin elevation, possible nonischemic myocardial injury in setting of hypoxia/Acute CHF
- trend trops to peak
- for L/RHC tomorrow
Bilateral pleural effusions
- s/p R thoracentesis for 1050 mL 02/07/2024
CKD stage 3b
- monitor BMP with diuresis
Essential Hypertension
- continue ARB, Labetalol
Chronic anemia
- monitor Hb, no evidence of bleeding clinically seen
- slightly low iron otherwise B12 ok
- Folate ok recently
- heme test negative
Hyperlipidemia
h/o CVA
- continue ASA/Statin
COPD
- continue Anoro or equivalent
- prn nebs
Diabetes mellitus type 2
- continue Lantus
- continue SSI
- A1C: 7.3%
Graves' disease by history
- s/p treatment radioactive iodine 1983
- now on thyroid hormone replacement
Spinal stenosis
- continue pain control, prn Baclofen
ALICIA, does not tolerate CPAP
- ABG performed 02/17 without CO2 retention
GERD
h/o asbestos exposure
DVT ppx: SC Heparin
Code: Full
Anticipated Discharge: > 48 hours
Subjective/Interval History
-
Date of Service: February 20, 2024
SOB improving
weight down further 2kg
Objective Data
-
Labs:
Laboratory Results
02/20/24
07:25
WBC 7.2
Hgb 8.8 L
Hct 27.0 L
Plt Count 192
Sodium 139
Potassium 3.9
Chloride 104
Carbon Dioxide 29
BUN 36 H
Creatinine 1.5 H
Glucose 142 H
Calcium 8.7
Vital Signs:
Vital Signs
Temp Pulse Resp BP Pulse Ox
98.6 F 80 16 156/86 97
02/20/24 08:17 02/20/24 08:13 02/20/24 07:54 02/20/24 08:13 02/20/24 07:54
I&O
02/19/24 02/20/24 02/21/24
06:59 06:59 06:59
Intake Total 1080 / 1080 780 / 780
Output Total 2024 3775 / 3775
Balance -945 / -945 -2995 / -2995
Physical Exam
-
General: No Apparent Distress
HEENT: Normocephalic and Atraumatic
Respiratory: Negative Wheezes
Cardiac: Regular Rhythm and S1/S2
GI: Soft
Genito-urinary: No Costovertebral Tender
Musculoskeletal: No Edema
Neuro: AO x 3
Hematologic / Lymphatic: No Lymphadenopathy
Psych: Calm
Data Reviewed
-
Total Time Spent with Patient (in minutes): 51
Labs: Labs Reviewed by me
--- NOTE | 2024-02-20 10:05 | CM ---
CM following re: d/c planning.
Cardio on board.
Cath planned for tomorrow.
Weaning o2, pt currently on 2 L.
CM will continue to follow for home o2 needs.
Therapy eval will be beneficial.
Pt from home, resides with .
D/c plan is for resumption of care with [facility].
[2024-02-20 11:31] LABS: Glucose - Point of Care 253 mg/dl (70-99)
[2024-02-20] MEDS: NOVOLOG FLEXPEN-LOW RESISTANCE 3 UNITS SC ×2 (12:38→16:47)
[2024-02-20 16:40] LABS: Glucose - Point of Care 270 mg/dl (70-99)
[2024-02-20] MEDS: COLACE 200 MG PO (16:52)
[2024-02-20] MEDS: LIPITOR 80 MG PO (16:52)
--- NOTE | 2024-02-20 17:12 | W.PN.CARDCBS ---
Today's Communication / Plan
-
Right/left heart catheterization 02/21/2024
Continue diuretic efforts and monitor renal function
Continue optimization of goal-directed medical therapy for heart failure
Impression / Plan
-
PCP: Dr. Berry
Trommel Tender: None prior to arrival, initially seen by Dr. Bledsoe
Impression:
Presented w/ SOB
b/l pleural effusions
s/p R thoracentesis for 1050 mL 02/08/2024
Acute HFpEF
Anemia
CKD 3
Hypertension
Hyperlipidemia
h/o CVA
COPD
Diabetes mellitus type 2
Graves' disease
Spinal stenosis
ALICIA, does not tolerate CPAP
GERD
h/o asbestos exposure
Echo 02/18/2024: definity used, severe cLVH, EF 55-60%, dense posterior MAC, pleural effusion present
Plan:
Acute heart failure with preserved ejection fraction, severe concentric left ventricular perjury with no hemodynamically significant valve pathology
-Several months of progressive worsening shortness of breath increasing abdominal girth and lower extremity edema who underwent a right thoracentesis February 07 [1050 cc ] as an outpatient with fluid that appears to be transudative consistent with
heart failure
-He is responding well to diuretics with IV Lasix with 17 pound weight loss and improved oxygen requirements now on room air
-Echocardiogram 02/18/2024 with normal biventricular size and systolic function and severe concentric LVH. No significant valve pathology.
-TSH within normal limits; UA without significant proteinuria
-CHF education and diet
-Etiology of heart failure still unclear, possibly related to uncle hypertension but will need an ischemic evaluation: We discussed cardiac catheterization he is agreeable. Will plan for a right/left heart catheterization on Wednesday,
02/21/2024.Troponin up to 0.045, suspected nonischemic myocardial injury.
-He has chronic renal insufficiency which appears stable with diuretics. Will hold further diuretics in anticipation of cardiac catheterization tomorrow
-Continue aspirin 81 mg daily
-Continue new atorvastatin
-Following cardiac catheterization will continue to optimize goal-directed medical therapy. Will consider adding Farxiga 10 mg daily
Uncontrolled hypertension with severe LVH
-Labetalol increased to 400 mg twice daily. Aldactone 25 mg added this admission. His valsartan 160 mg twice daily has been continued. Could consider transition to Entresto following cardiac catheterization and diuresis.
Anemia noted, hgb stable at 8.8.
-Continue to follow.
-No obvious bleeding.
-Discussed with medicine with workup initiated: Slightly low iron. B12 and folate within normal limits. Heme test negative.
History of remote stroke with right-sided weakness
-Continue aspirin and Lipitor w/ h/o CVA.
Chronic renal insufficiency�follow with diuresis
Sleep apnea intolerant to CPAP
-ABG this admission without significant CO2 retention
-Follow-up with pulmonary, Dr. Sanchez
History of Graves' disease status post radioactive iodine treatment in the . TSH normal on therapy
HPI: Sundeep is a 74-year-old male with past medical history of hypertension, hyperlipidemia, COPD, DM2, Graves, spinal stenosis, GERD, CKD, ALICIA, and prior CVA. Presented to ER for evaluation of worsening shortness of breath. He had thoracentesis
02/07/2024, however despite this his shortness of breath has been worsening. He also noted increased lower extremity swelling and nausea. He has no significant cardiac history and denies regular follow-up with cardiology. He does follow closely
with pulmonology and was recently evaluated 02/02/2024 and was recommended to check lab work and echocardiogram given concern for possible acute heart failure exacerbation. He has no known history of heart failure. He is not on diuretic as
outpatient. In ER, he was found to be hypoxic and was placed on supplemental oxygen. Chest x-ray concerning for acute heart failure and he was also noted to have elevated proBNP of 2250. He was also anemic with hemoglobin of 8.4 and appears pale.
He was given a dose of IV Lasix and notes that this has started to help his breathing somewhat. Cardiology consulted given concern for new acute heart failure. He denies chest pain.
Progress Note - Trommel Tender
Subjective
Date of Service: February 20, 2024
Seen and examined ambulating in room. Overall breathing and edema is significantly better than admission. His mental status is also back at baseline.
Objective
Labs:
02/20/24 07:25
02/20/24 07:25
Labs
Hgb 8.8 g/dL (13.0-18.0) L 02/20/24 07:25
Hct 27.0 % (39.0-52.0) L 02/20/24 07:25
Plt Count 192 10^3/uL (130-400) 02/20/24 07:25
Sodium 139 mmol/L (135-145) 02/20/24 07:25
Potassium 3.9 mmol/L (3.5-5.1) 02/20/24 07:25
BUN 36 mg/dl (9-20) H 02/20/24 07:25
Creatinine 1.5 mg/dL (0.7-1.3) H 02/20/24 07:25
Glucose 142 mg/dl (70-99) H 02/20/24 07:25
Troponins
02/17/24 02/18/24 02/18/24
21:41 04:27 09:49
Troponin I 0.012 0.016 D 0.037 H* D
02/19/24 02/19/24 02/19/24
06:04 12:25 18:17
Troponin I 0.045 H* 0.033 D 0.027
Vital Signs and I&O:
Vital Signs
Temp Pulse Resp BP Pulse Ox
98.1 F 82 16 142/72 95
02/20/24 15:19 02/20/24 16:50 02/20/24 15:19 02/20/24 16:50 02/20/24 16:56
Vital Signs
Temp Pulse Resp BP Pulse Ox
98.1 F 82 16 142/72 95
02/20/24 15:19 02/20/24 16:50 02/20/24 15:19 02/20/24 16:50 02/20/24 16:56
Intake & Output
02/18/24 02/19/24 02/20/24 02/21/24
06:59 06:59 06:59 06:59
Intake Total 480 / 480 1080 / 1080 780 / 780 720 / 720
Output Total 1550 / 1550 2024 / 2024 3775 / 3775 1125 / 1125
Balance -1070 / -1070 -945 / -945 -2995 / -2995 -405 / -405
Physical Exam
Physical Exam
GEN: NAD sitting out of bed to chair
HEENT: mmm
LUNGS: Crackles B/L bases, no wheezes
CV: Reg, S1/S2, no murmur
ABD: mild distended, positive bowel sound
EXT: Improved bilateral lower extremity edema now +1 below the knee
Neuro: Chronic mild right right-sided weakness
[2024-02-20] MEDS: TRANDATE 400 MG PO (20:48)
[2024-02-20] MEDS: MELATONIN 3 MG PO (21:01)
[2024-02-20] MEDS: MAGNESIUM OXIDE 500 MG PO (21:01)
[2024-02-20 21:10] LABS: Glucose - Point of Care 227 mg/dl (70-99)
[2024-02-21] VITALS (13 sets, daily range): BP systolic 98–179; BP diastolic 50–85; BMI 31.1
[2024-02-21] MEDS: LIORESAL 10 MG PO ×2 (01:24→10:01)
[2024-02-21] MEDS: SYNTHROID 175 MCG PO (06:08)
[2024-02-21] MEDS: ULTRAM 50 MG PO ×2 (06:13→21:01)
[2024-02-21 06:17] LABS: Glucose - Point of Care 201 mg/dl (70-99)
[2024-02-21 07:30] LABS: Hematocrit 28.5 % (39.0-52.0); Hemoglobin 9.2 g/dL (13.0-18.0); Mean Corp Hgb Conc. 32.3 g/dL (33.0-37.0); Mean Corpuscular Hgb 28.9 pg (27.0-31.0); Mean Corpuscular Volume 89.6 fL (80.0-94.0); Mean Platelet Volume 11.1 fL (7.4-10.4); Platelet Count 207 10^3/uL (130-400); Red Blood Cell Count 3.18 10^6/uL (4.70-6.10); Red Cell Dist. Width 13.9 % (11.5-14.5); White Blood Cell Count 7.2 10^3/uL (4.8-10.8)
[2024-02-21] MEDS: NOVOLOG FLEXPEN-LOW RESISTANCE 2 UNITS SC (07:30)
[2024-02-21 07:58] LABS: Blood Urea Nitrogen 39 mg/dl (9-20); Calcium 8.7 mg/dl (8.4-10.2); Carbon Dioxide 30 mmol/L (22-30); Chloride 100 mmol/L (98-107); Estimated Creatinine Clearance 48 ml/min; Glucose 171 mg/dl (70-99); Sodium 137 mmol/L (135-145); eGFR 45.21
--- NOTE | 2024-02-21 08:16 | W.PN.HOSP.TC ---
Today's Communication/Plan
-
reduce Lantus to 15 units
L/RHC today
Assessment / Plan
Assessment / Plan
Assessment:
Acute hypoxic respiratory insufficiency on 5L
- wean O2 as able as treatment continues
- add IS
Presentation with acute SOB
Acute HFpEF
- BNP level is elevated at 2250
- Echo: EF 55-60%, severe LVH
- continue IV Lasix - requires intensive monitoring of I/Os, weights, lytes
- DCA cards following
Troponin elevation, possible nonischemic myocardial injury in setting of hypoxia/Acute CHF
- trend trops to peak
- for L/RHC today
Bilateral pleural effusions
- s/p R thoracentesis for 1050 mL 02/07/2024
CKD stage 3b
- monitor BMP with diuresis
Essential Hypertension
- continue ARB, Labetalol
Chronic anemia
- monitor Hb, no evidence of bleeding clinically seen
- slightly low iron otherwise B12 ok
- Folate ok recently
- heme test negative
Hyperlipidemia
h/o CVA
- continue ASA/Statin
COPD
- continue Anoro or equivalent
- prn nebs
Diabetes mellitus type 2
- continue Lantus 30 units but use 15 units when NPO
- continue SSI
- A1C: 7.3%
Graves' disease by history
- s/p treatment radioactive iodine 1983
- now on thyroid hormone replacement
Spinal stenosis
- continue pain control, prn Baclofen
ALICIA, does not tolerate CPAP
- ABG performed 02/17 without CO2 retention
GERD
h/o asbestos exposure
DVT ppx: SC Heparin
Code: Full
Anticipated Discharge: > 48 hours
Subjective/Interval History
-
Date of Service: February 21, 2024
no chest pain or SOB
for cath today
Objective Data
-
Labs:
Laboratory Results
02/21/24
06:42
WBC 7.2
Hgb 9.2 L
Hct 28.5 L
Plt Count 207
Sodium 137
Potassium 4.0
Chloride 100
Carbon Dioxide 30
BUN 39 H
Creatinine 1.6 H
Glucose 171 H
Calcium 8.7
Vital Signs:
Vital Signs
Temp Pulse Resp BP Pulse Ox
98.5 F 80 22 179/85 94
02/21/24 07:25 02/21/24 07:25 02/21/24 07:25 02/21/24 07:25 02/21/24 07:25
I&O
02/20/24 02/21/24 02/22/24
06:59 06:59 06:59
Intake Total 780 / 780 960 / 960
Output Total 3775 / 3775 2175 / 2175
Balance -2995 / -2995 -1215 / -1215
Physical Exam
-
General: No Apparent Distress
HEENT: Normocephalic and Atraumatic
Respiratory: Negative Wheezes
Cardiac: Regular Rhythm and S1/S2
GI: Soft and Nontender
Genito-urinary: No Costovertebral Tender
Musculoskeletal: No Edema
Neuro: AO x 3
Hematologic / Lymphatic: No Lymphadenopathy
Psych: Calm
Data Reviewed
-
Total Time Spent with Patient (in minutes): 51
Labs: Labs Reviewed by me
[2024-02-21] MEDS: DIOVAN 160 MG PO ×2 (08:24→21:03)
[2024-02-21] MEDS: PROTONIX 40 MG PO (08:25)
[2024-02-21] MEDS: PAXIL 40 MG PO (08:25)
[2024-02-21] MEDS: TRANDATE 400 MG PO ×2 (08:25→21:02)
[2024-02-21] MEDS: ASPIR LOW (ENTERIC COATED) 81 MG PO (08:25)
[2024-02-21] MEDS: LANTUS SC (08:26)
[2024-02-21] MEDS: ALDACTONE 25 MG PO (08:26)
[2024-02-21] MEDS: HEPARIN 5000 UNITS SC ×2 (08:26→21:03)
[2024-02-21] MEDS: FLUSH (NSS) 1 FLUSH IV (08:27)
[2024-02-21] MEDS: LANTUS 0.149999999999999994 UNITS SC (09:02)
--- NOTE | 2024-02-21 12:00 | ITS.CL.CATH ---
Box Stapler - Catheterization
Cardiac Catheterization
Procedure Report:
RIGHT AND LEFT HEART STUDY
Date of Procedure: February 21, 2024
Referring: Dr. Tonia Bledsoe
PROCEDURES:
1. Right heart catheterization
2. Left heart catheterization with coronary angiography
INDICATION: Newly diagnosed heart failure with preserved systolic function, diabetes, chest pressure and shortness of breath
ACCESS: Right radial artery, 6 [place] sheath
HEMODYNAMICS : mmHg
RA (m) : 15
RV (s/d) : 31/11, 15
PA (s/d, m) : 33/19, 22
PCWP (m) : 20
AO (s/d, m) : 92/52, 65
LV (s/d) : 93/9
LVEDP : 16
Estimated Wiley Cardiac Output: 4.77 L / min and Cardiac Index: 2.21 L/ min / m-2
Systemic vascular resistance: 10.5 Wood units or 838 [id number](-5)
Pulmonary vascular resistance: 0.4 Wood units or 33.5 [id number](-5)
CORONARY FINDINGS :
Dominance: Right
LEFT MAIN: Normal
LEFT ANTERIOR DESCENDING: The LAD arises normally from the left main and runs in the anterior interventricular groove. LAD has only minor luminal irregularities over its course and wraps around the apex.
CIRCUMFLEX: The circumflex is a large-caliber nondominant vessel. OM1 arises proximally from the circumflex and is a small caliber vessel. OM 2 is large and widely patent. The circumflex continues in the AV groove supplying a large posterolateral
branch. Only minor luminal irregularities are present
RIGHT CORONARY ARTERY: The right coronary artery is a dominant vessel that is widely patent
VENTRICULOGRAPHY: Not done due to elevated creatinine
RADIATION SUMMARY: Fluoro Time (min): 3.3, Dose (mGy): 212, DAP (Gy.cm2) : 18.1
CONCLUSIONS
1. Mildly elevated left ventricular filling pressures
2. Nonobstructive coronary disease
RECOMMENDATIONS
1. Medical therapy for heart failure with preserved left ventricular systolic function and multitude of cardiovascular risk factors
Copy to: Dr. Tonia Bledsoe
--- NOTE | 2024-02-21 12:20 | PTCARENOTE ---
received post cardiac cath in bed, right radial with R-band intact,continuos POX placed on right hand. right brachial with dressing dry and intact. reviewed post cath instructions and limitations with patient who voiced understanding. call santana
in reach. plan of care on going.
[2024-02-21 12:41] LABS: Glucose - Point of Care 179 mg/dl (70-99)
[2024-02-21] MEDS: NOVOLOG FLEXPEN-LOW RESISTANCE 1 UNITS SC (13:05)
[2024-02-21 16:39] LABS: Glucose - Point of Care 286 mg/dl (70-99)
[2024-02-21] MEDS: LIPITOR 80 MG PO (17:43)
[2024-02-21] MEDS: COLACE 200 MG PO (17:43)
[2024-02-21] MEDS: NOVOLOG FLEXPEN-LOW RESISTANCE 3 UNITS SC (17:45)
[2024-02-21] MEDS: MAGNESIUM OXIDE 500 MG PO (21:03)
[2024-02-21] MEDS: MELATONIN 3 MG PO (21:03)
[2024-02-21 21:19] LABS: Glucose - Point of Care 236 mg/dl (70-99)
[2024-02-22] VITALS (7 sets, daily range): BP systolic 92–163; BP diastolic 48–86; PULSE 75; O2SAT 95; BMI 30.8
[2024-02-22 05:01] LABS: Hemoglobin 8.7 g/dL (13.0-18.0); Mean Corp Hgb Conc. 32.2 g/dL (33.0-37.0); Mean Corpuscular Hgb 29.3 pg (27.0-31.0); Mean Corpuscular Volume 90.9 fL (80.0-94.0); Mean Platelet Volume 11.1 fL (7.4-10.4); Platelet Count 197 10^3/uL (130-400); Red Blood Cell Count 2.97 10^6/uL (4.70-6.10); Red Cell Dist. Width 14.1 % (11.5-14.5)
[2024-02-22 05:34] LABS: Blood Urea Nitrogen 37 mg/dl (9-20); Carbon Dioxide 28 mmol/L (22-30); Chloride 104 mmol/L (98-107); Estimated Creatinine Clearance 48 ml/min; Glucose 199 mg/dl (70-99); Potassium 4.4 mmol/L (3.5-5.1); Sodium 138 mmol/L (135-145); eGFR 45.21
[2024-02-22] MEDS: SYNTHROID 175 MCG PO (05:44)
[2024-02-22 07:07] LABS: Glucose - Point of Care 215 mg/dl (70-99)
--- NOTE | 2024-02-22 09:07 | W.PN.CARDCBS ---
Addendum entered and electronically signed by Ehsan Stout DO 02/22/24 13:33:
I saw and examined the patient.
The [employer] Director's note was reviewed and I agree with the note.
Comment:
Plan:
Continue IV Lasix diuresis and transition to p.o. Lasix starting tomorrow a.m.
Cardiac catheterization and echocardiogram were reviewed with the patient.
Some volume overload likely secondary to hypertension hypertensive heart disease with severe LVH
Likely discharge next 24 hrs
Outpt follow up with be arranged with Dr Bledsoe
Discussed with primary service.
Original Note:
Today's Communication / Plan
-
Cont Lasix IV through tonight and then change to PO starting in the AM
Can probably be discharged to home tomorrow
Impression / Plan
-
PCP: Dr. Berry
Fish Smoker: None prior to arrival, initially seen by Dr. Bledsoe
Impression:
Presented w/ SOB
b/l pleural effusions
s/p R thoracentesis for 1050 mL 02/08/2024
Acute HFpEF
Anemia
CKD 3
Hypertension
Hyperlipidemia
h/o CVA
COPD
Diabetes mellitus type 2
Graves' disease
Spinal stenosis
ALICIA, does not tolerate CPAP
GERD
h/o asbestos exposure
Nonobstructive CAD by cath 02/21/24
Echo 02/18/24: Definity used, severe cLVH, EF 55-60%, dense posterior MAC, pleural effusion present
Plan:
-Weight is down 24 lbs as of 02/22/24. Patient reports dramatic symptomatic improvement, 'my whole body feels better!'
-PCWP was 20 mmHg by RHC 02/21/24 which correlated with a weight of 216 lbs. Cont Lasix 40 mg IV BID until 02/23/24 AM. Will change to Lasix 40 mg PO BID starting 02/23/24 AM. Patient was not taking a diuretic prior to admission.
-Patient with nonobstructive CAD by cath 02/21/24. Reviewed with patient on 02/22/24.
-Talked with patient about the plan for HTN management and reviewed med changes as noted below. Overall BP is better controlled and intermittent hypotension noted. Will not increased meds further as of 02/22/24.
-Outpatient dose of labetalol increased to 400 mg BID this admission.
-Outpatient dose of valsartan 160 mg BID continued.
-New to spironolactone 25 mg daily
-New to Lasix as noted above.
-Will ask CM to check cost of Farxiga 10 mg daily and Jardiance 10 mg daily as part of GDMT for HF.
-Can consider changing to Entresto pending labs as an outpatient.
-Hgb stable at 8.7
-Patient with h/o remote CVA with residual right-sided weakness. No evidence of atrial arrhythmia on tele check
-Outpatient dose of aspirin 81 mg daily continued.
-Outpatient dose of atorvastatin 80 mg daily continued.
-Known untreated ALICIA due to CPAP intolerance. ABG this admission without significant CO2 retention. Follow-up with pulmonary, Dr. Sanchez
-Anticipate d/c to home 02/23/24
HPI: Sundeep is a 74-year-old male with past medical history of hypertension, hyperlipidemia, COPD, DM2, Graves, spinal stenosis, GERD, CKD, ALICIA, and prior CVA. Presented to ER for evaluation of worsening shortness of breath. He had thoracentesis
02/07/2024, however despite this his shortness of breath has been worsening. He also noted increased lower extremity swelling and nausea. He has no significant cardiac history and denies regular follow-up with cardiology. He does follow closely
with pulmonology and was recently evaluated 02/02/2024 and was recommended to check lab work and echocardiogram given concern for possible acute heart failure exacerbation. He has no known history of heart failure. He is not on diuretic as
outpatient. In ER, he was found to be hypoxic and was placed on supplemental oxygen. Chest x-ray concerning for acute heart failure and he was also noted to have elevated proBNP of 2250. He was also anemic with hemoglobin of 8.4 and appears pale.
He was given a dose of IV Lasix and notes that this has started to help his breathing somewhat. Cardiology consulted given concern for new acute heart failure. He denies chest pain.
Progress Note - Fish Smoker
Subjective
Date of Service: February 22, 2024
He feels better, his whole body feels value engineer
Objective
Labs:
02/22/24 04:40
02/22/24 04:40
Labs
Hgb 8.7 g/dL (13.0-18.0) L 02/22/24 04:40
Hct 27.0 % (39.0-52.0) L 02/22/24 04:40
Plt Count 197 10^3/uL (130-400) 02/22/24 04:40
Sodium 138 mmol/L (135-145) 02/22/24 04:40
Potassium 4.4 mmol/L (3.5-5.1) 02/22/24 04:40
BUN 37 mg/dl (9-20) H 02/22/24 04:40
Creatinine 1.6 mg/dL (0.7-1.3) H 02/22/24 04:40
Glucose 199 mg/dl (70-99) H 02/22/24 04:40
Troponins
02/19/24 02/19/24
12:25 18:17
Troponin I 0.033 D 0.027
Vital Signs and I&O:
Vital Signs
Temp Pulse Resp BP Pulse Ox
98.3 F 77 20 160/86 96
02/22/24 07:55 02/22/24 07:55 02/22/24 07:55 02/22/24 07:55 02/22/24 07:55
Vital Signs
Temp Pulse Resp BP Pulse Ox
98.3 F 77 20 160/86 96
02/22/24 07:55 02/22/24 07:55 02/22/24 07:55 02/22/24 07:55 02/22/24 07:55
Intake & Output
02/20/24 02/21/24 02/22/24 02/23/24
06:59 06:59 06:59 06:59
Intake Total 780 / 780 960 / 960 480 / 480
Output Total 3775 / 3775 2175 / 2175 825 / 825
Balance -2995 / -2995 -1215 / -1215 -345 / -345
Physical Exam
Physical Exam
GEN: AAO x3
HEENT: mmm
LUNGS: No audible wheeze
CV: Reg, S1/S2, no murmur
ABD: +BS
EXT: Trace B/L LE edema
Neuro: Chronic mild right right-sided weakness
[2024-02-22] MEDS: NOVOLOG FLEXPEN-LOW RESISTANCE 2 UNITS SC ×3 (09:10→16:19)
[2024-02-22] MEDS: PROTONIX 40 MG PO (09:11)
[2024-02-22] MEDS: DIOVAN 160 MG PO ×2 (09:11→21:10)
[2024-02-22] MEDS: LANTUS 0.299999999999999989 UNITS SC (09:11)
[2024-02-22] MEDS: PAXIL 40 MG PO (09:11)
[2024-02-22] MEDS: HEPARIN 5000 UNITS SC ×2 (09:12→21:10)
[2024-02-22] MEDS: ASPIR LOW (ENTERIC COATED) 81 MG PO (09:12)
[2024-02-22] MEDS: ALDACTONE 25 MG PO (09:12)
[2024-02-22] MEDS: TRANDATE 400 MG PO ×2 (09:12→21:10)
--- NOTE | 2024-02-22 09:30 | W.HF.CON ---
Heart Failure
- LV Function
Left ventricular function study result: LV Ejection fraction >40%
Ejection Fraction Percentage: 55-60
- ARNI
Patient already on ARNI: No
Heart Failure ARNI Not Indicated: LV Ejection Fraction >/= 40%
- ACEI/ARB
Patient already on ACEI/ARB: Yes
- Beta Tc
Patient already on Evidence Based Beta Tc: No
Heart Failure Evidence Based Beta Tc Not Indicated: LV Ejection Fraction > 40%
- Mineralocorticord Receptor Antagonist
Patient already on MRA: Yes
- SGLT-2 Inhibitor
Patient already on SGLT-2 Inhibitor: No
Heart Failure SGLT-2 Inhibitor Not Indicated: LV Ejection Fraction >40%
- NYHA CHF Classification
NYHA CHF Classification Level: Class III - Symptoms w/ min exertion, interferes w/ nml daily activity
- ACC/AHA Stage
ACC/AHA Stage: Stage C: Symptomatic Heart Failure
--- NOTE | 2024-02-22 09:54 | W.PN.HOSP.TC ---
Addendum entered and electronically signed by Angel Donohue MD 02/22/24 15:02:
Hypoxia only
Original Note:
Today's Communication/Plan
-
continue IV Lasix and BP med adjustments per Cardiology
Assessment / Plan
Assessment / Plan
Assessment:
Acute hypoxic respiratory insufficiency on 5L
- wean O2 to RA
- home O2 eval prior to DC
- continue IS
Presentation with acute SOB
Acute HFpEF
- BNP level is elevated at 2250
- Echo: EF 55-60%, severe LVH
- continue IV Lasix - requires intensive monitoring of I/Os, weights, lytes
- DCA cards following
Troponin elevation, possible nonischemic myocardial injury in setting of hypoxia/Acute CHF
- trop peaked at .045
- s/p cardiac cath 02/20: Mildly elevated left ventricular filling pressures. Nonobstructive coronary disease
Bilateral pleural effusions
- s/p R thoracentesis for 1050 mL 02/07/2024
CKD stage 3b
- monitor BMP with diuresis
Essential Hypertension
- continue ARB, Labetalol
Chronic anemia
- monitor Hb, no evidence of bleeding clinically seen
- slightly low iron otherwise B12 ok
- Folate ok recently
- heme test negative
Hyperlipidemia
h/o CVA
- continue ASA/Statin
COPD
- continue Anoro or equivalent
- prn nebs
Diabetes mellitus type 2
- continue Lantus 30 units
- continue SSI
- A1C: 7.3%
Graves' disease by history
- s/p treatment radioactive iodine 1983
- now on thyroid hormone replacement
Spinal stenosis
- continue pain control, prn Baclofen
ALICIA, does not tolerate CPAP
- ABG performed 02/17 without CO2 retention
GERD
h/o asbestos exposure
DVT ppx: SC Heparin
Code: Full
Anticipated Discharge: 24 - 48 hours
Subjective/Interval History
-
Date of Service: February 22, 2024
s/p cath
BP still elevated
Objective Data
-
Labs:
Laboratory Results
02/22/24
04:40
WBC 7.0
Hgb 8.7 L
Hct 27.0 L
Plt Count 197
Sodium 138
Potassium 4.4
Chloride 104
Carbon Dioxide 28
BUN 37 H
Creatinine 1.6 H
Glucose 199 H
Calcium 9.0
Vital Signs:
Vital Signs
Temp Pulse Resp BP Pulse Ox
98.3 F 77 20 160/86 96
02/22/24 07:55 02/22/24 09:11 02/22/24 07:55 02/22/24 09:11 02/22/24 07:55
I&O
02/21/24 02/22/24 02/23/24
06:59 06:59 06:59
Intake Total 960 / 960 480 / 480
Output Total 2175 / 2175 825 / 825
Balance -1215 / -1215 -345 / -345
Physical Exam
-
General: No Apparent Distress
HEENT: Normocephalic and Atraumatic
Respiratory: Negative Wheezes
Cardiac: Regular Rhythm and S1/S2
GI: Soft
Genito-urinary: No Costovertebral Tender
Neuro: AO x 3
Psych: Calm
Data Reviewed
-
Total Time Spent with Patient (in minutes): 51
Labs: Labs Reviewed by me
[2024-02-22] MEDS: LASIX 20 MG IV (12:02)
[2024-02-22 12:08] LABS: Glucose - Point of Care 216 mg/dl (70-99)
--- NOTE | 2024-02-22 14:24 | PN.CDI ---
CDI
- -
CDI:
Physician Documentation Request
Admit Date: 02/17/24 16:05
Dear Doctor Charanjit,
Patient admitted with acute diastolic CHF.
02/21 PN, 'Acute hypoxic respiratory insufficiency on 5L.'
Please provide in your note the diagnosis associated with the above oxygen use:
Acute hypoxia respiratory failure
Hypoxia only
Other
Use of terms such as suspected, likely, concern for, or probable (associated with a specific diagnosis that is being evaluated, monitored, or treated as if it exists) are acceptable and can be coded in the inpatient setting, when documented at the
time of discharge.
Thank you,
Tami CROWE,RN,CCDS
CDI Specialist
Available via [employer] text
Please use your independent medical judgment in providing your response.
[2024-02-22] MEDS: LASIX 40 MG IV (15:59)
[2024-02-22 16:18] LABS: Glucose - Point of Care 207 mg/dl (70-99)
[2024-02-22] MEDS: COLACE 200 MG PO (17:20)
[2024-02-22] MEDS: LIPITOR 80 MG PO (17:20)
[2024-02-22] MEDS: MELATONIN 3 MG PO (21:11)
[2024-02-22] MEDS: MAGNESIUM OXIDE 500 MG PO (21:11)
[2024-02-22 21:26] LABS: Glucose - Point of Care 288 mg/dl (70-99)
[2024-02-22] MEDS: ULTRAM 50 MG PO (23:34)
[2024-02-22] MEDS: LIORESAL 10 MG PO (23:34)
[2024-02-23] VITALS (7 sets, daily range): BP systolic 98–171; BP diastolic 51–87; PULSE 72–88; BMI 30.3
[2024-02-23] MEDS: SYNTHROID 175 MCG PO (05:59)
[2024-02-23 06:47] LABS: Hematocrit 28.1 % (39.0-52.0); Hemoglobin 9.4 g/dL (13.0-18.0); Mean Corp Hgb Conc. 33.5 g/dL (33.0-37.0); Mean Corpuscular Volume 86.7 fL (80.0-94.0); Mean Platelet Volume 11.2 fL (7.4-10.4); Platelet Count 223 10^3/uL (130-400); Red Blood Cell Count 3.24 10^6/uL (4.70-6.10); White Blood Cell Count 6.6 10^3/uL (4.8-10.8)
[2024-02-23 07:27] LABS: Blood Urea Nitrogen 43 mg/dl (9-20); Calcium 8.8 mg/dl (8.4-10.2); Carbon Dioxide 26 mmol/L (22-30); Chloride 102 mmol/L (98-107); Estimated Creatinine Clearance 42 ml/min; Glucose 158 mg/dl (70-99); Magnesium 2.4 mg/dl (1.6-2.3); Potassium 4.1 mmol/L (3.5-5.1); Sodium 136 mmol/L (135-145); eGFR 39.25
[2024-02-23 07:35] LABS: Glucose - Point of Care 167 mg/dl (70-99)
[2024-02-23] MEDS: PAXIL 40 MG PO (08:07)
[2024-02-23] MEDS: DIOVAN 160 MG PO ×2 (08:07→20:19)
[2024-02-23] MEDS: LASIX 40 MG PO (08:07)
[2024-02-23] MEDS: ALDACTONE 25 MG PO (08:07)
[2024-02-23] MEDS: HEPARIN 5000 UNITS SC ×2 (08:07→20:19)
[2024-02-23] MEDS: LANTUS 0.299999999999999989 UNITS SC (08:08)
[2024-02-23] MEDS: NOVOLOG FLEXPEN-LOW RESISTANCE 1 UNITS SC (08:08)
[2024-02-23] MEDS: ASPIR LOW (ENTERIC COATED) 81 MG PO (08:08)
[2024-02-23] MEDS: TRANDATE 400 MG PO ×2 (08:09→20:18)
[2024-02-23] MEDS: PROTONIX 40 MG PO (08:09)
[2024-02-23 10:01] LABS: Glucose - Point of Care 170 mg/dl (70-99)
[2024-02-23 10:19] LABS: % Basophils 0.4 % (0-2); % Immature Granulocytes 0.5 % (0-0.5); % Lymphocytes 10.4 % (20.5-51.1); % Neutrophils 75.7 % (42.2-75.2); Absolute Eosinophils 0.3 10^3/uL (0-0.7); Absolute Lymphocytes 0.8 10^3/uL (1.2-3.4); Absolute Monocytes 0.7 10^3/uL (0.1-0.6); Absolute Neutrophils 6.1 10^3/uL (1.4-6.5); Hematocrit 30.5 % (39.0-52.0); Hemoglobin 10.3 g/dL (13.0-18.0); Mean Corp Hgb Conc. 33.8 g/dL (33.0-37.0); Mean Corpuscular Hgb 29.7 pg (27.0-31.0); Mean Corpuscular Volume 87.9 fL (80.0-94.0); Mean Platelet Volume 10.8 fL (7.4-10.4); Nucleated Red Blood Cells % 0 % (-); Platelet Count 270 10^3/uL (130-400); Red Blood Cell Count 3.47 10^6/uL (4.70-6.10)
--- NOTE | 2024-02-23 10:26 | RR ---
A Rapid Response was called on this patient, please see Rapid Response form.
--- NOTE | 2024-02-23 10:26 | PTCARENOTE ---
pt in the bathroom, called the nurse, states, 'I don't feel good, I think my sugar is low'. pt seem pale and diaphoretic. checked blood glucose was 170. pt states, 'I need help, take me back to bed.' checked pt's BP while on the toilet BP was 89/56
Hr 60's. pt was unresponsive. Rapid response called at this time. moved pt to the bed in Trendelenburg position . rechecked the BP, low 100's/50's HR 60's, pulse o2 95% on room air. Dr. Lewis at the bedside. Dr. Meadows and Cards notified. small dose
IV bolus ordered at this time. pt states feeling better after being back to bed. call santana within the reach. pt is eating food at this time. will continue plan of care.
[2024-02-23 10:32] LABS: Blood Urea Nitrogen 41 mg/dl (9-20); Calcium 9.2 mg/dl (8.4-10.2); Carbon Dioxide 27 mmol/L (22-30); Chloride 101 mmol/L (98-107); Estimated Creatinine Clearance 40 ml/min; Glucose 166 mg/dl (70-99); Lactic Acid 1.5 mmol/L (0.7-2.0); Potassium 4.2 mmol/L (3.5-5.1); Sodium 137 mmol/L (135-145); eGFR 36.79
[2024-02-23] MEDS: NSS 250 IV (10:40)
[2024-02-23 10:44] LABS: NT-proBNP 756 pg/ml; Troponin I < 0.012 ng/ml
--- NOTE | 2024-02-23 11:52 | W.PN.HOSP.TC ---
Today's Communication/Plan
-
Monitor vital signs and see plan
Syncopal episode while in bathroom this morning
Suspect secondary to overdiuresis
Gentle hydration
Hold discharge for today
Assessment / Plan
Assessment / Plan
Assessment:
Acute hypoxia
resolved
now on room air
- wean O2 to RA
- home O2 eval prior to DC
- continue IS
Presentation with acute SOB
Acute HFpEF
- BNP level is elevated at 2250
- Echo: EF 55-60%, severe LVH
was on IV lasix; now PO
- DCA cards following
ONLINE AFFILIATE MARKETING MANAGER 02/22 with syncopal episode while in bathroom; no trauma.
suspect 2/2 orthostasis and vasovagal
Give gentle hydration
Check orthostatic
Troponin elevation, possible nonischemic myocardial injury in setting of hypoxia/Acute CHF
- trop peaked at .045
- s/p cardiac cath 02/20: Mildly elevated left ventricular filling pressures. Nonobstructive coronary disease
Bilateral pleural effusions
- s/p R thoracentesis for 1050 mL 02/07/2024
DEANN on CKD stage 3b
Suspect secondary to overdiuresis
Continue to monitor
Essential Hypertension
- continue ARB, Labetalol
Chronic anemia
- monitor Hb, no evidence of bleeding clinically seen
- slightly low iron otherwise B12 ok
- Folate ok recently
- heme test negative
Hyperlipidemia
h/o CVA
- continue ASA/Statin
COPD
- continue Anoro or equivalent
- prn nebs
Diabetes mellitus type 2
- continue Lantus 30 units
- continue SSI
- A1C: 7.3%
Graves' disease by history
- s/p treatment radioactive iodine 1983
- now on thyroid hormone replacement
Spinal stenosis
- continue pain control, prn Baclofen
ALICIA, does not tolerate CPAP
- ABG performed 02/17 without CO2 retention
GERD
h/o asbestos exposure
DVT ppx: SC Heparin
Code: Full
General: No Apparent Distress
HEENT: Normocephalic and Atraumatic
Respiratory: Negative Wheezes
Cardiac: Regular Rhythm and S1/S2
GI: Soft
Genito-urinary: No Costovertebral Tender
Neuro: AO x 3
Psych: Calm
Anticipated Discharge: Within 24 hours
Subjective/Interval History
-
Date of Service: February 23, 2024
denies chest pain
Objective Data
-
Labs:
Laboratory Results
02/23/24 02/23/24
05:43 10:09
WBC 6.6 8.0
Hgb 9.4 L 10.3 L
Hct 28.1 L 30.5 L
Plt Count 223 270 D
PT Pending
INR Pending
APTT Pending
Sodium 136 137
Potassium 4.1 4.2
Chloride 102 101
Carbon Dioxide 26 27
BUN 43 H 41 H
Creatinine 1.8 H 1.9 H
Glucose 158 H 166 H
Calcium 8.8 9.2
Vital Signs:
Vital Signs
Temp Pulse Resp BP Pulse Ox
97.6 F 69 16 105/51 95
02/23/24 11:05 02/23/24 11:05 02/23/24 11:05 02/23/24 11:05 02/23/24 11:51
I&O
02/22/24 02/23/24 02/24/24
06:59 06:59 06:59
Intake Total 480 / 480 1440 / 1440
Output Total 825 / 825 2985 / 2985
Balance -345 / -345 -1545 / -1545
[2024-02-23 12:22] LABS: Glucose - Point of Care 266 mg/dl (70-99)
[2024-02-23] MEDS: NOVOLOG FLEXPEN-LOW RESISTANCE 3 UNITS SC ×2 (12:37→17:24)
--- NOTE | 2024-02-23 14:33 | W.PN.CARDCBS ---
Addendum entered and electronically signed by Jeanmarie Mcgowan MD 02/23/24 18:04:
I saw and examined the patient.
The Plastics Fabricator And Assembler's note was reviewed and I agree with the note.
Comment: Briefly, 74-year-old man presenting with acute heart failure with preserved ejection fraction
Underwent IV diuresis with significant improvement in his volume status
Was doing well this morning at the time of my evaluation however subsequently experienced an episode of near syncope
With concern for overdiuresis he was treated with IV fluid
Plan to monitor overnight
I am hopefully we can safely be discharged tomorrow
Original Note:
Today's Communication / Plan
-
Hold Lasix in AM until seen
Given NSS 250 ml bolus and feeling better, he can liberalize PO fluids today as well
Impression / Plan
-
PCP: Dr. Berry
Sample Box Maker: None prior to arrival, initially seen by Dr. Bledsoe
Impression:
Presented w/ SOB
b/l pleural effusions
s/p R thoracentesis for 1050 mL 02/08/2024
Acute HFpEF
Anemia
CKD 3
Hypertension
Hyperlipidemia
h/o CVA
COPD
Diabetes mellitus type 2
Graves' disease
Spinal stenosis
ALICIA, does not tolerate CPAP
GERD
h/o asbestos exposure
Nonobstructive CAD by cath 02/21/24
Near syncope 02/23/24
Echo 02/18/24: Definity used, severe cLVH, EF 55-60%, dense posterior MAC, pleural effusion present
Plan:
-Patient with an episode of weakness, hypotension and near syncope 02/23/24. Patient was in the bathroom when he started to feel weak and he was diaphoretic and pale when nursing got him back to bed, there was a period of time where he was less
responsive. BP as low as 89/50 and HR in the 60s. ECG at the time reviewed by me looks like SR, no acute ischemic changes. He was given a NSS 250 ml bolus. He reports he feels back to baseline in bed.
-Will hold Lasix 40 mg PO BID for now and re-evaluate in the AM. Consider restarting at lower dose of Lasix 40 mg PO daily on 02/24/24 if he feels better. Patient was not taking a diuretic prior to admission.
-Weight is down 27 lbs as of 02/23/24. Probably overdiuresed at this point, but was also clearly vyer volume overloaded on admission.
-Patient with nonobstructive CAD by cath 02/21/24. Reviewed with patient on 02/22/24.
-Talked with patient about the plan for HTN management and reviewed med changes as noted below. Overall BP is better controlled and intermittent hypotension noted. Will not increase meds further as of 02/22/24.
-Outpatient dose of labetalol increased to 400 mg BID this admission.
-Outpatient dose of valsartan 160 mg BID continued.
-New to spironolactone 25 mg daily
-New to Lasix as noted above.
-Will ask CM to check cost of Farxiga 10 mg daily and Jardiance 10 mg daily as part of GDMT for HF.
-Can consider changing to Entresto pending labs as an outpatient.
-Hgb stable at 10.3
-Patient with h/o remote CVA with residual right-sided weakness. No evidence of atrial arrhythmia on tele check
-Outpatient dose of aspirin 81 mg daily continued.
-Outpatient dose of atorvastatin 80 mg daily continued.
-Known untreated ALICIA due to CPAP intolerance. ABG this admission without significant CO2 retention. Follow-up with pulmonary, Dr. Sanchez
-Anticipate d/c to home 02/24/24
HPI: uSndeep is a 74-year-old male with past medical history of hypertension, hyperlipidemia, COPD, DM2, Graves, spinal stenosis, GERD, CKD, ALICIA, and prior CVA. Presented to ER for evaluation of worsening shortness of breath. He had thoracentesis
02/07/2024, however despite this his shortness of breath has been worsening. He also noted increased lower extremity swelling and nausea. He has no significant cardiac history and denies regular follow-up with cardiology. He does follow closely
with pulmonology and was recently evaluated 02/02/2024 and was recommended to check lab work and echocardiogram given concern for possible acute heart failure exacerbation. He has no known history of heart failure. He is not on diuretic as
outpatient. In ER, he was found to be hypoxic and was placed on supplemental oxygen. Chest x-ray concerning for acute heart failure and he was also noted to have elevated proBNP of 2250. He was also anemic with hemoglobin of 8.4 and appears pale.
He was given a dose of IV Lasix and notes that this has started to help his breathing somewhat. Cardiology consulted given concern for new acute heart failure. He denies chest pain.
Progress Note - Sample Box Maker
Subjective
Date of Service: February 23, 2024
Near syncope this AM, feeling better now
Objective
Labs:
02/23/24 10:09
02/23/24 10:09
Labs
Hgb 10.3 g/dL (13.0-18.0) L 02/23/24 10:09
Hct 30.5 % (39.0-52.0) L 02/23/24 10:09
Plt Count 270 10^3/uL (130-400) D 02/23/24 10:09
Sodium 137 mmol/L (135-145) 02/23/24 10:09
Potassium 4.2 mmol/L (3.5-5.1) 02/23/24 10:09
BUN 41 mg/dl (9-20) H 02/23/24 10:09
Creatinine 1.9 mg/dL (0.7-1.3) H 02/23/24 10:09
Glucose 166 mg/dl (70-99) H 02/23/24 10:09
Troponins
02/23/24
10:09
Troponin I < 0.012
Vital Signs and I&O:
Vital Signs
Temp Pulse Resp BP Pulse Ox
97.6 F 69 16 105/51 95
02/23/24 11:05 02/23/24 11:05 02/23/24 11:05 02/23/24 11:05 02/23/24 11:51
Vital Signs
Temp Pulse Resp BP Pulse Ox
97.6 F 69 16 105/51 95
02/23/24 11:05 02/23/24 11:05 02/23/24 11:05 02/23/24 11:05 02/23/24 11:51
Intake & Output
02/21/24 02/22/24 02/23/24 02/24/24
06:59 06:59 06:59 06:59
Intake Total 960 / 960 480 / 480 1440 / 1440
Output Total 2175 / 2175 825 / 825 2985 / 2985
Balance -1215 / -1215 -345 / -345 -1545 / -1545
Physical Exam
Physical Exam
GEN: AAO x3
HEENT: mmm
LUNGS: No audible wheeze
CV: Reg, S1/S2, no murmur
ABD: +BS
EXT: Trace B/L LE edema
Neuro: Chronic mild right right-sided weakness
[2024-02-23 15:01] LABS: INR 1.04; PT 13.6 Sec (11.4-14.6)
--- NOTE | 2024-02-23 16:39 | CM ---
Pt requested [facility] Spoke with [facility] pt accepted.
Family to drive him home.
Cardiology involved.
PLAN Home with [facility] fax [phone]
[2024-02-23] MEDS: COLACE 200 MG PO (17:24)
[2024-02-23] MEDS: LIPITOR 80 MG PO (17:24)
[2024-02-23 17:26] LABS: Glucose - Point of Care 252 mg/dl (70-99)
[2024-02-23] MEDS: MELATONIN 3 MG PO (21:04)
[2024-02-23] MEDS: MAGNESIUM OXIDE 500 MG PO (21:04)
[2024-02-23 21:05] LABS: Glucose - Point of Care 298 mg/dl (70-99)
[2024-02-23] MEDS: LIORESAL 10 MG PO (21:55)
[2024-02-23] MEDS: ULTRAM 50 MG PO (21:55)
[2024-02-24 03:00] VITALS: BP 147/74
--- NOTE | 2024-02-24 03:24 | PTCARENOTE ---
Pt took off the tele monitor. RN educated on the purpose and the importance of keeping the monitor on. Pt still refused. Pt is resting comfortably w/ call santana within reach.
[2024-02-24 05:39] VITALS: BMI 30.5
[2024-02-24] MEDS: SYNTHROID 175 MCG PO (05:59)
[2024-02-24 07:32] LABS: % Basophils 0.4 % (0-2); % Eosinophils 2.2 % (0-6); % Immature Granulocytes 0.4 % (0-0.5); % Monocytes 8.2 % (1.7-9.3); % Neutrophils 77.8 % (42.2-75.2); Absolute Eosinophils 0.2 10^3/uL (0-0.7); Absolute Lymphocytes 0.8 10^3/uL (1.2-3.4); Absolute Monocytes 0.6 10^3/uL (0.1-0.6); Hematocrit 27.6 % (39.0-52.0); Hemoglobin 9.4 g/dL (13.0-18.0); Mean Corp Hgb Conc. 34.1 g/dL (33.0-37.0); Mean Corpuscular Hgb 29.6 pg (27.0-31.0); Mean Corpuscular Volume 86.8 fL (80.0-94.0); Mean Platelet Volume 10.7 fL (7.4-10.4); Nucleated Red Blood Cells % 0 % (-); Platelet Count 212 10^3/uL (130-400); Red Blood Cell Count 3.18 10^6/uL (4.70-6.10); Red Cell Dist. Width 13.9 % (11.5-14.5); White Blood Cell Count 7.7 10^3/uL (4.8-10.8)
[2024-02-24 07:35] LABS: Glucose - Point of Care 231 mg/dl (70-99)
[2024-02-24 07:55] VITALS: BP 155/80
[2024-02-24 08:00] LABS: Blood Urea Nitrogen 41 mg/dl (9-20); Calcium 8.9 mg/dl (8.4-10.2); Carbon Dioxide 24 mmol/L (22-30); Chloride 104 mmol/L (98-107); Estimated Creatinine Clearance 45 ml/min; Glucose 211 mg/dl (70-99); Potassium 4.2 mmol/L (3.5-5.1); Sodium 136 mmol/L (135-145); eGFR 42.04
[2024-02-24] MEDS: LANTUS 0.299999999999999989 UNITS SC (08:19)
[2024-02-24] MEDS: HEPARIN 5000 UNITS SC (08:20)
[2024-02-24] MEDS: PROTONIX 40 MG PO (08:22)
[2024-02-24] MEDS: TRANDATE 400 MG PO (08:23)
[2024-02-24] MEDS: PAXIL 40 MG PO (08:23)
[2024-02-24] MEDS: ALDACTONE 25 MG PO (08:23)
[2024-02-24] MEDS: ASPIR LOW (ENTERIC COATED) 81 MG PO (08:24)
[2024-02-24] MEDS: DIOVAN 160 MG PO (08:24)
[2024-02-24] MEDS: NOVOLOG FLEXPEN-LOW RESISTANCE 2 UNITS SC (08:24)
[2024-02-24] MEDS: HYDROCORTISONE 1% OINTMENT 1 APPLIC TOPICAL (08:25)
--- NOTE | 2024-02-24 08:51 | W.PN.CARDCBS ---
Addendum entered and electronically signed by Jona Murcia MD 02/24/24 14:15:
I saw and examined the patient.
The Glass Bulb Silverer's note was reviewed and I agree with the note.
Comment:
GEN: No distress, awake, Ox3
HEENT: supple, anicteric, mmm
LUNGS: CTA, no wheezes/rales
CV: Reg, S1/S2, / syst LSB, no gallop
ABD: soft, BS+, NT/ND
EXT: No edema
NEURO: Gross non-focal
SKIN: No rash
Plan:
Creatinine is improved down to 1.7. Would discharge on Lasix 40 mg daily. Stop Aldactone.
Continue valsartan 160 p.o. twice daily. Will discharge on labetalol 300 mg p.o. twice daily.
Will arrange follow-up.
CHF education
Original Note:
Today's Communication / Plan
-
D/C to home today
Med changes outlined on d/c instructions
Impression / Plan
-
PCP: Dr. Berry
Tip Tester: None prior to arrival, initially seen by Dr. Bledsoe
Impression:
Presented w/ SOB
b/l pleural effusions
s/p R thoracentesis for 1050 mL 02/08/2024
Acute HFpEF
Anemia
CKD 3
Hypertension
Hyperlipidemia
h/o CVA
COPD
Diabetes mellitus type 2
Graves' disease
Spinal stenosis
ALICIA, does not tolerate CPAP
GERD
h/o asbestos exposure
Nonobstructive CAD by cath 02/21/24
Near syncope 02/23/24
Echo 02/18/24: Definity used, severe cLVH, EF 55-60%, dense posterior MAC, pleural effusion present
Plan:
-Patient feels improved compared to 02/23/24. No recurrence of syncope. BP normotensive to hypotensive in the last 24 hours. Patient with long-standing suboptimally controlled HTN on admission.
-Will d/c to home on Lasix 40 mg PO daily. Patient was not taking a diuretic prior to admission.
-Outpatient dose of labetalol increased to 400 mg BID this admission, but will decrease to 300 mg (one and a half tablets of a 200 mg tablet) twice a day.
-Outpatient dose of valsartan 160 mg BID continued.
-Started on spironolactone, but will stop given syncope on 02/23/24.
-New to Lasix as noted above.
-Patient with nonobstructive CAD by cath 02/21/24. Reviewed with patient on 02/22/24.
-Can consider changing to Entresto pending labs as an outpatient.
-Hgb stable at 10.3
-Patient with h/o remote CVA with residual right-sided weakness. No evidence of atrial arrhythmia on tele check
-Outpatient dose of aspirin 81 mg daily continued.
-Outpatient dose of atorvastatin 80 mg daily continued.
-Known untreated ALICIA due to CPAP intolerance. ABG this admission without significant CO2 retention. Follow-up with pulmonary, Dr. Sanchez
-d/c to home 02/24/24
HPI: Sundeep is a 74-year-old male with past medical history of hypertension, hyperlipidemia, COPD, DM2, Graves, spinal stenosis, GERD, CKD, ALICIA, and prior CVA. Presented to ER for evaluation of worsening shortness of breath. He had thoracentesis
02/07/2024, however despite this his shortness of breath has been worsening. He also noted increased lower extremity swelling and nausea. He has no significant cardiac history and denies regular follow-up with cardiology. He does follow closely
with pulmonology and was recently evaluated 02/02/2024 and was recommended to check lab work and echocardiogram given concern for possible acute heart failure exacerbation. He has no known history of heart failure. He is not on diuretic as
outpatient. In ER, he was found to be hypoxic and was placed on supplemental oxygen. Chest x-ray concerning for acute heart failure and he was also noted to have elevated proBNP of 2250. He was also anemic with hemoglobin of 8.4 and appears pale.
He was given a dose of IV Lasix and notes that this has started to help his breathing somewhat. Cardiology consulted given concern for new acute heart failure. He denies chest pain.
Progress Note - Tip Tester
Subjective
Date of Service: February 24, 2024
He feels well and wants to go home
Objective
Labs:
02/24/24 06:45
02/24/24 06:45
Labs
Hgb 9.4 g/dL (13.0-18.0) L 02/24/24 06:45
Hct 27.6 % (39.0-52.0) L 02/24/24 06:45
Plt Count 212 10^3/uL (130-400) D 02/24/24 06:45
PT 13.6 Sec (11.4-14.6) 02/23/24 14:37
INR 1.04 02/23/24 14:37
APTT 31.0 Sec (23.4-35.0) 02/23/24 14:37
Sodium 136 mmol/L (135-145) 02/24/24 06:45
Potassium 4.2 mmol/L (3.5-5.1) 02/24/24 06:45
BUN 41 mg/dl (9-20) H 02/24/24 06:45
Creatinine 1.7 mg/dL (0.7-1.3) H 02/24/24 06:45
Glucose 211 mg/dl (70-99) H 02/24/24 06:45
Troponins
02/23/24
10:09
Troponin I < 0.012
Vital Signs and I&O:
Vital Signs
Temp Pulse Resp BP Pulse Ox
97.9 F 76 18 155/76 97
02/24/24 07:55 02/24/24 08:23 02/24/24 07:55 02/24/24 08:23 02/24/24 07:55
Vital Signs
Temp Pulse Resp BP Pulse Ox
97.9 F 76 18 155/76 97
02/24/24 07:55 02/24/24 08:23 02/24/24 07:55 02/24/24 08:23 02/24/24 07:55
Intake & Output
02/22/24 02/23/24 02/24/24 02/25/24
06:59 06:59 06:59 06:59
Intake Total 480 / 480 1440 / 1440 1760 / 1760
Output Total 825 / 825 2985 / 2985 1380 / 1380
Balance -345 / -345 -1545 / -1545 380 / 380
Physical Exam
Physical Exam
GEN: AAO x3
HEENT: mmm
LUNGS: No audible wheeze
CV: Reg, S1/S2, no murmur
ABD: +BS
EXT: Trace B/L LE edema
Neuro: Chronic mild right right-sided weakness
[2024-02-24 09:53] VITALS: BP 106/74
--- NOTE | 2024-02-24 11:24 | W.PN.HOSP.TC ---
Today's Communication/Plan
-
Monitor vital signs see plan
Continue with Lasix
Continue labetalol
Now feeling better, discharge today
Time of discharge 38 minutes
Assessment / Plan
Assessment / Plan
Assessment:
Acute hypoxia
resolved
now on room air
- wean O2 to RA
- home O2 eval prior to DC
- continue IS
Presentation with acute SOB
Acute HFpEF
- BNP level is elevated at 2250
- Echo: EF 55-60%, severe LVH
was on IV lasix; now PO
- DCA cards following
Labetalol now 300 mg
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
suspect 2/2 orthostasis and vasovagal
Check orthostatic neg however was checked after fluids
now improved
Troponin elevation, possible nonischemic myocardial injury in setting of hypoxia/Acute CHF
- trop peaked at .045
- s/p cardiac cath 02/20: Mildly elevated left ventricular filling pressures. Nonobstructive coronary disease
Bilateral pleural effusions
- s/p R thoracentesis for 1050 mL 02/07/2024
DEANN on CKD stage 3b
Suspect secondary to overdiuresis
Continue to monitor
Essential Hypertension
- continue ARB, Labetalol
Chronic anemia
- monitor Hb, no evidence of bleeding clinically seen
- slightly low iron otherwise B12 ok
- Folate ok recently
- heme test negative
Hyperlipidemia
h/o CVA
- continue ASA/Statin
COPD
- continue Anoro or equivalent
- prn nebs
Diabetes mellitus type 2
- continue Lantus 30 units
- continue SSI
- A1C: 7.3%
Graves' disease by history
- s/p treatment radioactive iodine 1983
- now on thyroid hormone replacement
Spinal stenosis
- continue pain control, prn Baclofen
ALICIA, does not tolerate CPAP
- ABG performed 02/17 without CO2 retention
GERD
h/o asbestos exposure
DVT ppx: SC Heparin
Code: Full
General: No Apparent Distress
HEENT: Normocephalic and Atraumatic
Respiratory: Negative Wheezes
Cardiac: Regular Rhythm and S1/S2
GI: Soft
Genito-urinary: No Costovertebral Tender
Neuro: AO x 3
Psych: Calm
Anticipated Discharge: Today
Subjective/Interval History
-
Date of Service: February 24, 2024
denies pain
Objective Data
-
Labs:
Laboratory Results
02/24/24
06:45
WBC 7.7
Hgb 9.4 L
Hct 27.6 L
Plt Count 212 D
Sodium 136
Potassium 4.2
Chloride 104
Carbon Dioxide 24
BUN 41 H
Creatinine 1.7 H
Glucose 211 H
Calcium 8.9
Vital Signs:
Vital Signs
Temp Pulse Resp BP Pulse Ox
97.9 F 76 18 155/76 97
02/24/24 07:55 02/24/24 08:23 02/24/24 07:55 02/24/24 08:23 02/24/24 07:55
I&O
02/23/24 02/24/24 02/25/24
06:59 06:59 06:59
Intake Total 1440 / 1440 1760 / 1760
Output Total 2985 / 2985 1380 / 1380
Balance -1545 / -1545 380 / 380
--- NOTE | 2024-02-24 11:35 | W.DCSUMMARY ---
Discharge Summary
Discharge Data
Date of Admission: 02/17/24
Date of Discharge: 02/24/24
-
Pending Results: No
Hospital Course
74-year-old male with past medical history of CKD, essential hypertension, chronic anemia, hyperlipidemia, COPD, diabetes mellitus, Graves' disease, spinal stenosis, ALICIA, GERD, asbestosis exposure came to the hospital with hypoxia and shortness of
breath consistent with acute congestive heart failure exacerbation. Echocardiogram was done which showed EF of 55 to 60%. Patient was initially started on IV Lasix which was later transitioned to p.o. Lasix prior to discharge. He also had mild
troponin elevation and had cardiac catheterization on 02/20 which showed elevated left ventricular filling pressures and nonobstructive coronary disease. Patient later developed acute kidney injury which was suspected from over diuresing. On 02/22
he had a rapid response secondary to syncopal episode which was likely thought was vasovagal and due to orthostasis. He was given gentle hydration and his Lasix was held. This improved his symptoms. On discharge he was discharged on once a day
Lasix. Since patient breathing and symptoms continue to improve, he was then discharged home with instructions to follow-up with all his other physicians and cardiology outpatient.
Discharge Plan
-
Patient Disposition: Home (Routine Discharge)
Discharge Diagnosis/Procedures: Acute congestive heart failure with preserved ejection fraction
Possible nonischemic myocardial injury
Syncope
Acute kidney injury on chronic kidney disease
cardiac catheterization
Diet: As tolerated and 2 Gram Sodium
Activity: As tolerated
Driving Restrictions: As prior to admission
Bathing Restrictions: None
Blood Work: BMP next week with primary care provider
Specialty Instructions: Weigh Daily- Call MD for wt gain/loss 3 lbs overnight/5 lbs in 1 week
Instructions: *DCA Heart Failure Instructions
Stand Alone Forms: DC Instructions- Cath/EP Lab
Referrals:
Carolyne Gutiérrez PA-C [Specified Professional Personl] - 03/15/24 9:00 am (Cardiology followup appointment)
Tami Berry MD [Family Provider] - in less than 1 week
Additional Discharge Medication Instructions: -Increase labetalol to 300 mg (one and a half tablets of a 200 mg tablet) twice a day
-Continue your usual dose of valsartan 160 mg twice a day
-START taking Lasix (furosemide) 40 mg once a day
Prescriptions:
New
furosemide 40 mg Tablet
40 mg PO DAILY Qty: 30 11RF
labetalol 200 mg Tablet
300 mg PO BID Qty: 90 11RF
hydrocortisone 1 % Ointment
1 applic topical BID Qty: 453.6 0RF
Continued
aspirin 81 mg Tablet,Delayed Release (Dr/Ec)
81 mg PO DAILY Qty: 0
baclofen 10 mg Tablet
10 mg PO BIDPRN PRN (Reason: Muscle spasms) Qty: 0
pantoprazole 40 mg Tablet,Delayed Release (Dr/Ec)
40 mg PO DAILY Qty: 0
docusate sodium [Colace] 100 mg Capsule
200 mg PO QPM Qty: 0
paroxetine HCl 40 mg tablet
40 mg PO DAILY
naproxen 500 mg Tablet
500 mg PO BIDPRN PRN (Reason: mild pain)
atorvastatin 80 mg Tablet
80 mg PO QPM Qty: 0 0RF
dextroamphetamine-amphetamine 15 mg capsule,extended release 24hr
15 mg PO DAILY Qty: 3 0RF
levothyroxine [Synthroid] 175 mcg Tablet
175 mcg PO DAILY
acetaminophen [Tylenol] 325 mg Tablet
325 mg PO TIDPRN PRN (Reason: MILD PAIN)
melatonin 3 mg Tablet
3 mg PO HS
tramadol 50 mg Tablet
50 mg PO Q6HPRN PRN (Reason: MODERATE PAINS)
vitamin B complex Tablet
1 tab PO HS
valsartan 160 mg Tablet
160 mg PO BID
Anoro Ellipta 62.5-25 mcg/actuation Blister With Device
1 inh INHALATION R DAILY
magnesium oxide 500 mg magnesium tablet
500 mg PO HS
insulin degludec [Tresiba FlexTouch U-100] 100 unit/mL (3 mL) insulin pen
30 unit SC DAILY Qty: 0 0RF
Changed
insulin aspart U-100 [Novolog FlexPen U-100 Insulin] 100 unit/mL (3 mL) Insulin Pen
2 unit SC MEALS Qty: 0 0RF
Discontinued
labetalol 200 mg Tablet
200 mg PO BID Qty: 0 0RF
Discharge Orders:
Discharge Patient (As Directed); Ordered 02/24/24
Ordered By: Jose Meadows
Discharge Date and Time
Discharge Date/Time: 02/24/24 18:49
Print Language: SPANISH
[2024-02-24 11:55] VITALS: BP 107/52; BP 111/54; BP 78/53; PULSE 73; PULSE 76
[2024-02-24 12:02] LABS: Glucose - Point of Care 306 mg/dl (70-99)
[2024-02-24] MEDS: NOVOLOG FLEXPEN-LOW RESISTANCE 4 UNITS SC (12:18)
--- NOTE | 2024-02-24 13:32 | CM ---
MD entered order for discharge
Spoke with Patricia from [facility] aware of dc and pt is accepted.
to drive him home.
IMM reviewed signed on chart.
PLAN Home with [facility] fax [phone]
[2024-02-24 15:17] VITALS: BP 124/61
== END 2024-02-24 18:49 | disposition home health service (06) | DRG 286 ==
LOC: 4 EAST ACU 16:05
PROVIDERS: Emergency Medicine; Internal Medicine; Internal Medicine Cardiovascular Disease; Internal Medicine Interventional Cardiology; Physician Assistant; ADMITTING PHYSICIAN Student in an Organized Health Care Education/Training Program; ATTENDING PHYSICIAN Internal Medicine; CONSULT PHYSICIAN Internal Medicine Cardiovascular Disease; EMERGENCY PHYSICIAN Emergency Medicine; FAMILY PHYSICIAN Internal Medicine
PROC: B2111ZZ Fluoroscopy of Multiple Coronary Arteries using Low Osmolar Contrast (ICD-10-PCS; 2024-02-21)
PROC: 4A023N8 Measurement of Cardiac Sampling and Pressure, Bilateral, Percutaneous Approach (ICD-10-PCS; 2024-02-21)
DX: I13.0 Hypertensive heart and chronic kidney disease with heart failure and stage 1 through stage 4 chronic kidney disease, or unspecified chronic kidney disease (principal); I50.31 Acute diastolic (congestive) heart failure; N17.9 Acute kidney failure, unspecified; I69.351 Hemiplegia and hemiparesis following cerebral infarction affecting right dominant side; I5A Non-ischemic myocardial injury (non-traumatic); N18.32 Chronic kidney disease, stage 3b; I95.1 Orthostatic hypotension; T50.1X5A Adverse effect of loop [high-ceiling] diuretics, initial encounter; R09.02 Hypoxemia; E11.22 Type 2 diabetes mellitus with diabetic chronic kidney disease; E11.319 Type 2 diabetes mellitus with unspecified diabetic retinopathy without macular edema; G47.33 Obstructive sleep apnea (adult) (pediatric); E05.00 Thyrotoxicosis with diffuse goiter without thyrotoxic crisis or storm; K21.9 Gastro-esophageal reflux disease without esophagitis; E78.00 Pure hypercholesterolemia, unspecified; F32.A Depression, unspecified; G89.29 Other chronic pain; M48.061 Spinal stenosis, lumbar region without neurogenic claudication; E03.9 Hypothyroidism, unspecified; N32.81 Overactive bladder; K59.09 Other constipation; F41.9 Anxiety disorder, unspecified; D63.1 Anemia in chronic kidney disease; J44.9 Chronic obstructive pulmonary disease, unspecified; Z77.090 Contact with and (suspected) exposure to asbestos; Z87.891 Personal history of nicotine dependence; Z79.82 Long term (current) use of aspirin; Z79.4 Long term (current) use of insulin
CPT/HCPCS: 36600; 71046; 76700; 80048; 81003; 82570; 82607; 82728; 82805; 82962; 83036; 83540; 83550; 83605; 83735; 83880; 84132; 84156; 84443; 84484; 85025; 85027; 85610; 85730; 86850; 86900; 86901; 93005; 93307; 93460; 93970; 96374; 97116; 97162; 97166; 99285; C1894; Q9957; Q9967

== ENCOUNTER 2024-05-07 19:30 | Inpatient (IN) | payer MEDICARE, BC, SELFPAY ==
[2024-05-07] VITALS (13 sets, daily range): BP systolic 153–208; BP diastolic 87–109; BMI 34.0; BMI 34.1
--- NOTE | 2024-05-07 15:08 | ED.GENMED ---
History of Present Illness
General
Chief Complaint: Back Pain
Time Seen by Provider: 05/07/24 15:07
History of Present Illness
History of Present Illness:
HPI: Patient came in by ambulance from home due to lower back pain mostly on the left side. The pain radiates down the left lower extremity. He was also concerned because he had systolic blood pressures over 200. He has been on tramadol. The
patient has known spinal stenosis.
EXAM:
GENERAL: The patient appears chronically weak and debilitated
HEENT: Moist oral mucosa
CARDIOVASCULAR: No murmurs, normal heart rate, regular rhythm, No chest wall tenderness
PULMONARY: No respiratory distress, breath sounds are clear and equal
ABDOMEN: Soft with no peritoneal signs, no tenderness
NEUROLOGIC: Excellent strength all extremities, no coordination deficits
BACK: Decreased active range of motion of the thoracolumbar spine, positive straight leg raise on the left lower
PSYCHIATRIC: Appropriate mental status, normal insight and judgement
EXTREMITIES: Right upper and right lower extremity weakness noted related to prior stroke
SKIN: Appears somewhat pale
TIME OF INITIAL ENCOUNTER: 3:10 PM
NUMBER AND COMPLEXITY OF PROBLEMS ADDRESSED AT THE ENCOUNTER
� Chronic conditions affecting care: Prior CVA, CHF, high blood pressure, hyperlipidemia, diabetes, hypothyroidism
� Acute Exacerbation and/or Progression of Chronic Illness: This is an acute exacerbation of a chronic problem
� Differential Diagnosis includes: Sciatica, lumbar strain, exacerbation of spinal stenosis.
AMOUNT AND/OR COMPLEXITY OF DATA TO BE REVIEWED AND ANALYZED
� I performed an independent evaluation of and my interpretation is:
EKG:
CT:
X-rays:
Laboratory Studies: White count normal, hemoglobin near baseline at 9.3, creatinine 1.4 which is slightly improved, glucose 265 which is higher than prior
Other:
� Review of other/old records: The patient had lumbar MRI in February 18 that showed right paracentral disc extrusion at L3/4 and has additional disc protrusions at L4-5 and L5-S1
� Clinical information was obtained by an independent historian:
� Prescriptions/Medications Considered but not given:
� Further testing considered but not performed: Considered imaging however there is been no new trauma and I did review the MRI report from earlier this year
RISK OF COMPLICATIONS AND/OR MORBIDITY OR MORTALITY OF PATIENT MANAGEMENT
� Social determinants of health affecting care: Lives at home and has caregivers
Discussion with other providers: Hospitalist, Dr. Arce at 5:25 PM
� Escalation of care including admission/observation vs risk of discharge considered: I reviewed his prior MRI from 2021. Will try Dilaudid 0.5 mg and then also try Solu-Medrol for sciatica type of symptoms. On reassessment,
the patient reports only minimal improvement but does appear much more lethargic after Dilaudid was given. His blood pressure is poorly controlled and was given IV labetalol. Will plan to keep management.
Past History
Past History
ED Past Medical History: CVA, GERD, HTN, Hypercholesterolemia, IDDM and Hypothyroidism
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
Phy Exam
Physical Exam
Physical Exam:
See HPI
Course
Orders/Labs/Results
Orders:
Orders
05/07/24 15:16
HYDROmorphone [Dilaudid] 0.5 mg IV NOW STA
MethylPREDNISolone PF [Solu-Medrol Pf] 125 mg IV NOW STA
05/07/24 15:41
Basic Metabolic Panel Urgent
Complete Blood Count/With Diff Urgent
05/07/24 17:22
Labetalol HCl [Trandate] 10 mg IV NOW STA
Abnormal Lab Results
05/07/24 05/07/24
15:41 15:44
RBC 3.42 L 10^6/uL
(4.70-6.10)
Hgb 9.3 L g/dL
(13.0-18.0)
Hct 28.3 L %
(39.0-52.0)
MCHC 32.9 L g/dL
(33.0-37.0)
RDW 15.9 H %
(11.5-14.5)
MPV 11.7 H fL
(7.4-10.4)
Absolute Lymphs (auto) 0.7 L 10^3/uL
(1.2-3.4)
Neutrophils % 78.0 H %
(42.2-75.2)
Lymphocytes % 10.4 L %
(20.5-51.1)
BUN 30 H mg/dl
(9-20)
Creatinine 1.4 H mg/dL
(0.7-1.3)
Glucose 265 H mg/dl
(70-99)
POC Glucose 267 H mg/dl
(70-99)
05/07/24 15:41
05/07/24 15:41
Vital Signs
Initial and Last Documented VS:
Initial Vital Signs
BP Pulse Ox
172/107 96
05/07/24 15:00 05/07/24 15:00
Last Documented Vital Signs
Temp Pulse Resp BP Pulse Ox
97.9 F 75 23 188/101 95
05/07/24 16:59 05/07/24 18:30 05/07/24 18:30 05/07/24 18:30 05/07/24 18:30
*Critical Care Note
Total Time (30-74mins, 75-104mins- exclusive of procedures): Not Applicable
ED Attending Note
-
Portions of this chart may have been created with voice recognition software.� Occasional wrong word or��sound alike� substitutions may have occurred due to the inherent limitations of voice recognition software.
Discharge Plan
Departure
Patient Disposition: Admit
Date of Disposition: 05/07/24
Time of Disposition: 17:25
Presentation/result/management discussed w/ accepting MD/DO: Hospitalist
Discharge Problem:
Sciatica
Prescriptions:
No Action
aspirin 81 mg Tablet,Delayed Release (Dr/Ec)
81 mg PO DAILY Qty: 0
baclofen 10 mg Tablet
10 mg PO BIDPRN PRN (Reason: Muscle spasms) Qty: 0
pantoprazole 40 mg Tablet,Delayed Release (Dr/Ec)
40 mg PO DAILY Qty: 0
docusate sodium [Colace] 100 mg Capsule
200 mg PO QPM Qty: 0
paroxetine HCl 40 mg tablet
40 mg PO DAILY
atorvastatin 80 mg Tablet
80 mg PO QPM Qty: 0 0RF
dextroamphetamine-amphetamine 15 mg capsule,extended release 24hr
15 mg PO DAILY Qty: 3 0RF
levothyroxine [Synthroid] 175 mcg Tablet
175 mcg PO DAILY
melatonin 3 mg Tablet
20 mg PO HS
tramadol 50 mg Tablet
50 mg PO Q6HPRN PRN (Reason: MODERATE PAINS)
vitamin B complex Tablet
1 tab PO HS
valsartan 160 mg Tablet
160 mg PO BID
Anoro Ellipta 62.5-25 mcg/actuation Blister With Device
1 inh INHALATION R DAILY
magnesium oxide 500 mg magnesium tablet
500 mg PO HS
furosemide 40 mg Tablet
40 mg PO DAILY Qty: 30 11RF
hydralazine 25 mg Tablet
25 mg PO BID
gabapentin 300 mg Capsule
300 mg PO BID
labetalol 200 mg tablet
200 mg PO QPM
insulin aspart U-100 [Novolog FlexPen U-100 Insulin] 100 unit/mL (3 mL) insulin pen
4 unit SC MEALS
insulin degludec [Tresiba FlexTouch U-100] 100 unit/mL (3 mL) insulin pen
40 unit SC DAILY
Referrals:
Neville Wise MD [Family Provider] -
Interventions
Interventions:
*Risk Screen - Suicide Last Done: 05/07/24 15:00
*General Assessment Last Done: 05/07/24 15:00
*Neglect/Abuse Screening Last Done: 05/07/24 15:00
ED- Fall Risk Assessment Last Done: 05/07/24 15:01
*ED COVID-19 Vaccine History Last Done: 05/07/24 15:00
ED-Musculoskeletal Assessment Last Done: 05/07/24 15:02
Discharge Date and Time
Print Language: YEMENI
[2024-05-07] MEDS: SOLU-MEDROL PF 125 MG IV (15:31)
[2024-05-07] MEDS: DILAUDID 0.5 MG IV (15:32)
[2024-05-07 15:45] LABS: Glucose - Point of Care 267 mg/dl (70-99)
[2024-05-07 15:50] LABS: % Basophils 0.6 % (0-2); % Eosinophils 2.3 % (0-6); % Immature Granulocytes 0.3 % (0-0.5); % Lymphocytes 10.4 % (20.5-51.1); % Monocytes 8.4 % (1.7-9.3); Absolute Eosinophils 0.2 10^3/uL (0-0.7); Absolute Lymphocytes 0.7 10^3/uL (1.2-3.4); Absolute Monocytes 0.6 10^3/uL (0.1-0.6); Absolute Neutrophils 5.1 10^3/uL (1.4-6.5); Hematocrit 28.3 % (39.0-52.0); Hemoglobin 9.3 g/dL (13.0-18.0); Mean Corp Hgb Conc. 32.9 g/dL (33.0-37.0); Mean Corpuscular Hgb 27.2 pg (27.0-31.0); Mean Corpuscular Volume 82.7 fL (80.0-94.0); Mean Platelet Volume 11.7 fL (7.4-10.4); Nucleated Red Blood Cells % 0 % (-); Platelet Count 167 10^3/uL (130-400); Red Blood Cell Count 3.42 10^6/uL (4.70-6.10); Red Cell Dist. Width 15.9 % (11.5-14.5); White Blood Cell Count 6.5 10^3/uL (4.8-10.8)
[2024-05-07 16:31] LABS: Blood Urea Nitrogen 30 mg/dl (9-20); Calcium 8.9 mg/dl (8.4-10.2); Carbon Dioxide 24 mmol/L (22-30); Chloride 106 mmol/L (98-107); Estimated Creatinine Clearance 56 ml/min; Glucose 265 mg/dl (70-99); Potassium 4.6 mmol/L (3.5-5.1); Sodium 139 mmol/L (135-145); eGFR 53.07
--- NOTE | 2024-05-07 17:34 | HPS.HSE ---
Family Physician
-
Family Physician: Neville Wise
Chief Complaint
-
Radiating back pain
History of Present Illness
74-year-old male with COPD, CKD, HFpEF, chronic anemia, hypertension, hyperlipidemia, T2DM, ALICIA, Iatrogenic hypothyroidism (H/O Graves disease), GERD, spinal stenosis, asbestos exposure history that presented to the emergency department today with a
complaint of low back pain. States his pain started over the last day, mostly located in the left lower back with radiation down the LLE. States he also had blood pressure of over 200 which made him concerned. Has been on tramadol as outpatient
for analgesia. History of known spinal stenosis with no known surgical interventions. He denies urinary or fecal incontinence, denies saddle anesthesia, denies fevers or chills. No obvious known source of trauma. On arrival he was hypertensive
with SBP 190 on most recent read, otherwise AFVSS. Labs showed hemoglobin 9.3, creatinine 1.4, BUN 30, glucose 265. Was given 1 dose of methylprednisolone 125 mg and 0.5 mg IV Dilaudid in the ED.
Medical History
Past Medical History
Past Medical History: Reports COPD, GERD, HTN, Hypothyroidism and IDDM
Additional Past Medical History:
H/O Graves Disease
Past Surgical History: Reports Orthopedic
Additional Past Surgical History:
Appendectomy
Amputation of right second toe
Inguinal and inguinal hernia repair
Social History
Tobacco: Former Smoker
Alcohol: None
Drug: None
Personal:
Living: With Family
Family History
Family History: Not pertinent
Allergies / Home Medications
Allergies reflects when Allergies were last updated in [facility].
Home Medications with original date entered in [facility]
Allergy/Medication List:
Allergies
Allergy/AdvReac Type Severity Reaction Status Date / Time
No Known Allergies Allergy Verified 05/07/24 14:56
Home Medications
aspirin 81 mg tablet,delayed release 81 mg PO DAILY Blood clot prevention/tx ##0 01/17/23
baclofen 10 mg tablet 10 mg PO BIDPRN PRN Muscle spasms ##0 01/17/23
docusate sodium 100 mg capsule (Colace) 200 mg PO QPM Constipation ##0 01/17/23
pantoprazole 40 mg tablet,delayed release 40 mg PO DAILY Gastrointestinal Issue ##0 01/17/23
naproxen 500 mg tablet 500 mg PO BIDPRN PRN mild pain 11/16/23
paroxetine HCl 40 mg tablet 40 mg PO DAILY Mental Health/Anxiety 11/16/23
atorvastatin 80 mg tablet 80 mg PO QPM #0 tabs 11/23/23
dextroamphetamine-amphetamine ER 15 mg 24hr capsule,extend release 15 mg PO DAILY #3 caps 11/29/23
acetaminophen 325 mg tablet (Tylenol) 325 mg PO TIDPRN PRN MILD PAIN 02/17/24
levothyroxine 175 mcg tablet (Synthroid) 175 mcg PO DAILY Thyroid 02/17/24
magnesium oxide 500 mg PO HS Supplement 02/17/24
melatonin 3 mg tablet 3 mg PO HS Sleep 02/17/24
tramadol 50 mg tablet 50 mg PO Q6HPRN PRN MODERATE PAINS 02/17/24
umeclidinium 62.5 mcg-vilanterol 25 mcg/actuation powdr for inhalation (Anoro Ellipta) 1 inh inhalation R DAILY Lung/Breathing Issues 02/17/24
valsartan 160 mg tablet 160 mg PO BID Blood Pressure 02/17/24
vitamin B complex 1 tab PO HS Supplement 02/17/24
furosemide 40 mg tablet 40 mg PO DAILY Heart Failure #30 tabs 02/24/24
hydrocortisone 1 % topical ointment 1 applic topical BID #453.6 grams 02/24/24
insulin aspart U-100 100 unit/mL (3 mL) subcutaneous pen (Novolog FlexPen U-100 Insulin aspart) 2 unit (0.02 mL) SC MEALS Diabetes #0 mL 02/24/24
insulin degludec 100 unit/mL (3 mL) subcutaneous pen (Tresiba FlexTouch U-100 insulin) 30 unit (0.3 mL) SC DAILY Diabetes #0 mL 02/24/24
labetalol 200 mg tablet 300 mg (1.5 x 200 mg) PO BID Blood pressure #90 tabs 02/24/24
Review of Systems
-
A 12 point ROS was completed and negative except as noted: Yes
Constitutional: Reports No Symptoms
EENT: Reports No Symptoms
Respiratory: Reports No Symptoms
Cardiac: Reports No Symptoms
Abdomen/GI: Reports No Symptoms
: Reports No Symptoms
Musculoskeletal: Reports See HPI
Skin: Reports No Symptoms
Neurological: Reports No Symptoms
Endocrine: Reports No Symptoms
Hematologic/Lymphatic: Reports No Symptoms
Physical Exam
Vital Signs
Vital Signs
Temp BP Pulse Ox
97.9 F 190/97 98
05/07/24 16:59 05/07/24 16:00 05/07/24 16:30
Physical Exam
General: Pain and Obese; No Respiratory Distress
HEENT: NormoCephalic, Anicteric, Moist mucous membranes and Atraumatic
Respiratory: Clear, Crackles (bases) and Non Labored Respirations; No Wheezes, Rales, Rhonchi or Accessory Resp Muscle Use
Cardiac: S1/S2 and Regular Rhythm; No Murmur, Rub, Gallop or Peripheral Edema
GI: Soft, Non Tender, Non Distended and Normal Bowel Sounds
Musculoskeletal: No Clubbing and No Cyanosis
Skin: Warm and Dry; No Rash
Neuro: AO x 3, No Motor Deficits, Nonfocal/grossly intact, Cranial Nerves Intact, No Sensory Deficits and DTR's Intact & Symmetrical
Laboratory Results
-
05/07/24 15:41
05/07/24 15:41
Data Reviewed
-
Lab Data: Labs Reviewed by me and Discussed with Patient
Impression/Plan
-
#LBP with radiation down LLE
#Chronic spinal stenosis
-Differential diagnoses include sciatica/radiculitis, worsening stenosis; much less likely cauda equina or conus medullaris
-On exam he has full muscle strength, and sensation; pain was much improved after Dilaudid
-Denies any urinary or fecal incontinence, no saddle anesthesia
-No obvious known traumatic events prior to admission
-On exam has maintained motor strength and sensation
-Was started on steroid and Dilaudid for pain
Plan
-Start dexamethasone 6 mg daily
-Analgesia: Tylenol/Dilaudid 0.25/Dilaudid 0.5
-Start Flexeril regimen
-PT and OT consult
-Monitor clinically
#Hypertension
-Home medications include valsartan, labetalol; also on Lasix
-Blood pressure elevated on arrival in the context of significant pain
-Was given dose of labetalol in the ED, expect BP to improve with pain control
-Will continue home regimen for now and consider escalation
-Start hydralazine IV as needed for SBP >180 mmHg
#Insulin-dependent type 2 diabetes
-Last A1c 7.3%, no known microvascular complications though may be related CKD
-Home regimen includes insulin degludec 30 units, insulin aspart 2 units with meals
-On arrival blood glucose was 265, cannot rule out stress component due to pain
-Was started on IV steroid in the ED, anticipate worsening sugars
-Continue with home insulin regimen for now
-Start insulin sliding scale with Accu-Cheks, consider high intensity ISS
-Blood glucose goal <200, avoid hypoglycemia
#COPD without exacerbation
-No baseline oxygen requirements, home regimen includes Anora Ellipta
-No signs or symptoms of COPD exacerbation as of now
#HFpEF
-Last echo showed LVEF 55 to 60% with dilated left atrium and concentric LVH
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
-Not currently on GDMT, home meds include Lasix
-Euvolemic, no signs of decompensation
#ALICIA
-No signs of significant pulmonary hypertension on last TTE
#Iatrogenic hypothyroidism
-History of Graves' disease which was previously treated
-Currently on levothyroxine 175 mcg daily
-No signs of thyroid dysfunction now
#GERD
-No known history of Schwartz's esophagus or erosive disease
-Home medications include pantoprazole 40 mg daily
#CKD stage III
-Baseline creatinine near 1.5, suspect related to hypertension and diabetes history though etiology unclear
-Not complicated by acidemia, secondary bone mineral disease; does have chronic anemia but may also be related to other causes
-Renal function at baseline on admission
#H/O CVA with right-sided residual deficits
-Home medications include high intensity statin and aspirin
-Suspect that he may have underlying cerebrovascular disease, no history of arrhythmias
-No new FND's today
#Status post toe amputation
-Right foot second digit, states it was due to trauma
DVT prophylaxis: Heparin
Diet: Regular
CODE STATUS: Full code
[2024-05-07] MEDS: TRANDATE 10 MG IV ×2 (17:39→20:39)
[2024-05-07] MEDS: APRESOLINE 10 MG IV (20:01)
[2024-05-07 21:32] LABS: Glucose - Point of Care 294 mg/dl (70-99)
[2024-05-07] MEDS: NEURONTIN 300 MG PO (22:16)
[2024-05-07] MEDS: APRESOLINE 25 MG PO (22:17)
[2024-05-07] MEDS: NOVOLOG FLEXPEN 5 UNITS SC (22:19)
[2024-05-07] MEDS: DUONEB 3 ML INH (23:48)
[2024-05-08 00:03] LABS: Glucose - Point of Care 362 mg/dl (70-99)
[2024-05-08] MEDS: LANTUS 0.4 UNITS SC (00:05)
[2024-05-08] MEDS: MAGNESIUM OXIDE 500 MG PO ×2 (00:06→20:44)
[2024-05-08] MEDS: HEPARIN 5000 UNITS SC ×3 (00:06→17:48)
[2024-05-08] MEDS: NOVOLOG FLEXPEN 10 UNITS SC ×2 (00:14→17:47)
[2024-05-08 02:09] LABS: Glucose - Point of Care 313 mg/dl (70-99)
[2024-05-08 02:56] LABS: Glucose - Point of Care 280 mg/dl (70-99)
[2024-05-08] MEDS: SYNTHROID 175 MCG PO (05:05)
[2024-05-08 07:28] LABS: % Immature Granulocytes 0.3 % (0-0.5); % Lymphocytes 7.6 % (20.5-51.1); % Monocytes 4.4 % (1.7-9.3); % Neutrophils 87.7 % (42.2-75.2); Absolute Lymphocytes 0.5 10^3/uL (1.2-3.4); Absolute Monocytes 0.3 10^3/uL (0.1-0.6); Absolute Neutrophils 5.4 10^3/uL (1.4-6.5); Hematocrit 29.7 % (39.0-52.0); Hemoglobin 9.9 g/dL (13.0-18.0); Mean Corp Hgb Conc. 33.3 g/dL (33.0-37.0); Mean Corpuscular Hgb 28.1 pg (27.0-31.0); Mean Corpuscular Volume 84.4 fL (80.0-94.0); Mean Platelet Volume 11.7 fL (7.4-10.4); Nucleated Red Blood Cells % 0 % (-); Platelet Count 168 10^3/uL (130-400); Red Blood Cell Count 3.52 10^6/uL (4.70-6.10); Red Cell Dist. Width 15.7 % (11.5-14.5); White Blood Cell Count 6.2 10^3/uL (4.8-10.8)
[2024-05-08 07:30] VITALS: BP 179/97
[2024-05-08 07:32] LABS: Glucose - Point of Care 251 mg/dl (70-99)
[2024-05-08] MEDS: STRIVERDI RESPIMAT 2 PUFF INH (08:09)
[2024-05-08] MEDS: SPIRIVA RESPIMAT 2.5 MCG 2 PUFF INH (08:09)
[2024-05-08] MEDS: PAXIL 40 MG PO (08:14)
[2024-05-08] MEDS: APRESOLINE 25 MG PO ×2 (08:17→20:44)
[2024-05-08] MEDS: ASPIR LOW (ENTERIC COATED) 81 MG PO (08:17)
[2024-05-08] MEDS: DIOVAN 160 MG PO ×2 (08:17→20:44)
[2024-05-08] MEDS: PROTONIX 40 MG PO (08:17)
[2024-05-08] MEDS: NEURONTIN 300 MG PO ×2 (08:17→17:45)
[2024-05-08] MEDS: DECADRON 6 MG PO (08:18)
[2024-05-08 08:27] LABS: Blood Urea Nitrogen 33 mg/dl (9-20); Calcium 9.2 mg/dl (8.4-10.2); Carbon Dioxide 20 mmol/L (22-30); Chloride 104 mmol/L (98-107); Estimated Creatinine Clearance 58 ml/min; Glucose 247 mg/dl (70-99); Potassium 4.6 mmol/L (3.5-5.1); Sodium 139 mmol/L (135-145); eGFR 58.01
[2024-05-08] MEDS: NOVOLOG FLEXPEN 4 UNITS SC ×2 (08:32→12:50)
[2024-05-08] MEDS: NOVOLOG FLEXPEN-MODERATE RESISTANCE 5 UNITS SC ×2 (08:33→12:51)
[2024-05-08] MEDS: LASIX 40 MG PO (09:47)
--- NOTE | 2024-05-08 10:15 | W.PN.UPDATE ---
Addendum entered and electronically signed by Camila Garcia MD 05/08/24 16:09:
Spoke to
He picked up a stationary bike and Trash can and 2-3 days later he had pain.
Pain started a week ago, he fell twice Wednesday
He has had back injection in the past- and pt looking up the name
BP was high at PCP office and Hydralazine was increased as OP
Non Compliant with CPAP
Original Note:
Update Note
Progress Note Update
74-year-old male with back pain
CVS: S1-S2 normal
Chest: CTA B/L
Abdomen: Soft, NT / Bowel sounds present
Extremities: No edema, normal pulses
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
No spine tenderness
# Low back pain with radiation to left lower extremity
History of spinal stenosis
Patient has full muscle strength-pain improved after Dilaudid
Steroids started-switch to prednisone for the ease of tapering
Continue muscle relaxants
Continue gabapentin, increase to 3 times daily if renal function tolerates
PT OT
Check X rays of Spine
MRI of the low back as inpatient if pain continues without any relief otherwise MRI as outpatient
# Anemia-check iron studies
# Hypertension
Poorly controlled
Continue valsartan, labetalol, labetalol 200 at night
Change Labetalol to 200 mg BID
# Chronic HFpEF-EF 55 to 60% with dilated LA and concentric LVH
Likely hypertensive in nature
Continue Lasix
Unclear why he is not on SGLT2 inhibitors
# Diabetes-on Tresiba 40 units daily and 4 units of NovoLog AC as outpatient
Increase long-acting insulin to 45 units and NovoLog to 10 units AC while on steroids
Last hemoglobin A1c 7.3
Watch blood sugars with steroids
# Hypothyroidism-continue Synthroid
History of Graves' disease which was previously treated
# Depression-continue Paxil
# Insomnia-continue melatonin
# Hyperlipidemia-continue atorvastatin
# COPD-no signs of exacerbation-Continue Anoro Ellipta or equivalent
# Sleep apnea
# GERD-continue PPI
# CKD stage III
# Obesity per BMI
# History of CVA with right-sided deficits-continue aspirin, statin
# History of toe amputation on the right second digit
# Ex Smoker
# DVT prophylaxis-subcutaneous heparin
# Full code
Left a message for .
D/W RN
[2024-05-08] MEDS: DILAUDID 0.5 MG IV (11:15)
[2024-05-08 11:26] VITALS: BP 181/97; PULSE 94; O2SAT 96
[2024-05-08 11:29] VITALS: BP 177/101
[2024-05-08 11:52] LABS: Glucose - Point of Care 256 mg/dl (70-99)
[2024-05-08 12:08] LABS: Iron 22 ug/dl (49-181)
[2024-05-08 12:17] LABS: Percent Saturation 6 % (20-50); Total Iron Binding Capacity 322 ug/dl (261-462)
[2024-05-08 14:37] LABS: Ferritin 31.1 ng/ml (17.9-464.0)
[2024-05-08 14:45] VITALS: BMI 34.1
[2024-05-08 14:51] LABS: Vitamin B12 636 pg/ml (239-931)
[2024-05-08] MEDS: TRANDATE 200 MG PO ×2 (14:56→20:43)
[2024-05-08] MEDS: NOVOLOG FLEXPEN 5 UNITS SC (14:56)
[2024-05-08 15:15] VITALS: BP 188/99
--- NOTE | 2024-05-08 16:03 | CM ---
Alert awake oriented patient who lives with his Arielle who lives in a 1 story home with 2 step to enter and bed and bathroom on first floor. He is assisted in all activities of daily living.He uses a quad cane and walker as needed . He will
need PT OT for dc plan.
[facility] hx /[facility] hx
Pharmacy [facility]
PCP DR Parra
PLAN He will need PT OT for dc plan
[2024-05-08 16:59] LABS: Glucose - Point of Care 306 mg/dl (70-99)
--- NOTE | 2024-05-08 17:06 | W.PN.HOSP.TC ---
Today's Communication/Plan
-
Pending Lumbar MRI. Will monitor sugars for improved glycemic control on new insulin dosages. Re-evaluate BP and pain in the AM.
Assessment / Plan
Assessment / Plan
74 yo M with PMHx of COPD, CKD, HFpEF, chronic anemia, htn, hld, DM Type II, ALICIA (non-compliant with CPAP), Iatrogenic hypothyroidism (h/o Grave's disease), GERD, chronic spinal stenosis, asbestos exposure history that presented to the emergency
department today with a complaint of low back pain.
##Lower Back Pain with radiation to the LLE
#Chronic spinal stenosis
#History of mechanical falls
- Differential diagnoses include sciatica/radiculitis, worsening stenosis; much less likely cauda equina or conus medullaris
- Denies any urinary or fecal incontinence, denies saddle anesthesia
- noted he lifted a bike and a trash can 2 days prior to recent onset of pain, after which he fell twice due to LE weakness he attributes to the pain
- C/w dexamethasone 6mg QD, Tylenol & IV Dilaudid for moderate/breakthrough pain
- C/w PT/OT
- CR of the Lumbar spine revealed Mild L1 superior endplate compression fracture, new from 03/13/2022 and age indeterminate. Considering point tenderness in the region on exam, will order Lumbar MRI w/o contrast for further evaluation.
#Hx of CVA
- residual sensory impairment of the R side of the body
- could be contributing to unsteadiness and falls
- C/w aspirin & statin
#Hypertension
- BP still elevated despite home regimen of valsartan, labetalol; also on Lasix
- BP elevated on arrival, remain elevated in the context of improving pain
- Increased Labetalol to 200mg BID
- C/w hydralazine IV as needed for SBP >180 mmHg
- Spoke with & PCP who state BPs have been elevated recently prior to admission
#DM Type II, Insulin Dependent
#Diabetic Retinopathy
- Last A1c 7.3%
- Home regimen of insulin degludec 40 units, insulin aspart 4 units with meals
- Glucose 265 on arrival, have been elevated since in the 250s-300s.
- Increase insulin degludec to 45U QHS and insulin aspart to 10U AC in the setting of high dose steroids and high MDISS requirement
- C/w MDISS with Blood glucose goal <200, avoid hypoglycemia
#COPD
- No baseline oxygen requirements. Not in acute exacerbation
- C/w home Anora Ellipta
#HFpEF
- not in acute exacerbation
- Last echo showed LVEF 55 to 60% with dilated left atrium and concentric LVH
- Likely hypertensive cardiomyopathy based off of the echo
- C/w home Lasix and Antihypertensive regimen. Can consider OP discussion for the addition of GDMT agents such as SGLT-2 inhibitors.
#ALICIA
- No signs of significant pulmonary hypertension on last TTE
- Non-compliant with CPAP per . Likely a contributory factor to uncontrolled hypertension
#Iatrogenic hypothyroidism
-History of Graves' disease which was previously treated
- Stable. C/w home dose Levothyroxine
#GERD
-C/w home dose pantoprazole
#CKD stage III
-Baseline creatinine near 1.5, suspect related to hypertension and diabetes history though etiology unclear
-Not complicated by acidemia, secondary bone mineral disease; does have chronic anemia but may also be related to other causes
-Renal function at baseline on admission
#Status post toe amputation
-Right foot second digit, states it was due to trauma
#Dispo:
DVT prophylaxis: Heparin
Diet: Regular
CODE STATUS: Full code
Anticipated Discharge: Within 24 hours
Subjective/Interval History
-
Patient states his pain is much improved this morning. He states the pain returns if he ambulates to the restroom and sits/stands from the toilet. At rest in the bed he has no pain, numbness, tingling, weakness. He reports no saddle anesthesia and
no issues voiding.
Objective Data
-
Labs:
Laboratory Results
05/08/24
06:23
WBC 6.2
Hgb 9.9 L
Hct 29.7 L
Plt Count 168
Sodium 139
Potassium 4.6
Chloride 104
Carbon Dioxide 20 L
BUN 33 H
Creatinine 1.3
Glucose 247 H
Calcium 9.2
Vital Signs:
Vital Signs
Temp Pulse Resp BP Pulse Ox
99.3 F 100 20 188/99 96
05/08/24 15:15 05/08/24 15:15 05/08/24 15:15 05/08/24 15:15 05/08/24 15:15
I&O
05/07/24 05/08/24 05/09/24
06:59 06:59 06:59
Intake Total 960 / 960
Output Total 1050 / 1050
Balance -90 / -90
Review of Systems
-
History Source: Patient
All other systems: Reviewed and negative
Constitutional: Reports No Symptoms
EENT: Reports No Symptoms Reported
Respiratory: Reports No Symptoms
Cardiac: Reports No Symptoms
Abdomen/GI: Reports No Symptoms
Breast: Reports N/A
Genitourinary: Reports No Symptoms
Musculoskeletal: Reports No Symptoms
Skin: Reports No Symptoms
Neuro: Reports Weakness (when in pain) and Other (Shooting pain from the lower back down the LLE)
Hematologic / Lymphatic: Reports No Symptoms
Physical Exam
-
General: Well Developed, Well Nourished, No Apparent Distress, Comfortable, Conversant and Obese
HEENT: Normocephalic, Atraumatic, Moist Mucous Membranes, [place] Conjunctivae and PERRLA
Respiratory: Clear to Auscultation
Cardiac: Regular Rhythm and S1/S2
Breast: N/A
GI: Soft, Nontender, Nondistended and Normal Bowel Sounds
Musculoskeletal: No Clubbing, No Cyanosis and Normal Gait & Station (Unsteady gait; needs assistance when walking)
Neuro: Awake, Alert, Oriented, No Motor Deficits, Nonfocal/Grossly Intact and No Sensory Deficits
[2024-05-08 17:44] VITALS: BP 162/90
[2024-05-08] MEDS: LIPITOR 80 MG PO (17:45)
[2024-05-08] MEDS: COLACE 200 MG PO (17:45)
[2024-05-08] MEDS: NOVOLOG FLEXPEN-MODERATE RESISTANCE 7 UNITS SC (17:46)
[2024-05-08] MEDS: DILAUDID 0.25 MG IV (20:45)
[2024-05-08] MEDS: B COMPLEX w/VITAMIN C 1 CAPLET PO (20:52)
[2024-05-08] MEDS: MELATONIN 20 MG PO (20:53)
[2024-05-08] MEDS: LANTUS 0.45 UNITS SC (20:55)
[2024-05-08 20:57] LABS: Glucose - Point of Care 283 mg/dl (70-99)
[2024-05-08 23:39] VITALS: BP 153/65
[2024-05-09] MEDS: HEPARIN SC ×3 (01:08→23:20)
[2024-05-09] MEDS: NEURONTIN 300 MG PO ×3 (01:08→17:17)
[2024-05-09] MEDS: SYNTHROID 175 MCG PO (05:55)
[2024-05-09 06:00] VITALS: BMI 33.8
[2024-05-09 07:21] LABS: Glucose - Point of Care 205 mg/dl (70-99)
[2024-05-09 07:45] VITALS: BP 164/84
[2024-05-09] MEDS: STRIVERDI RESPIMAT 2 PUFF INH (08:21)
[2024-05-09] MEDS: SPIRIVA RESPIMAT 2.5 MCG 2 PUFF INH (08:22)
[2024-05-09] MEDS: DIOVAN 160 MG PO ×2 (08:47→20:33)
[2024-05-09] MEDS: PROTONIX 40 MG PO (08:47)
[2024-05-09] MEDS: DELTASONE 40 MG PO (08:48)
[2024-05-09] MEDS: HEPARIN 5000 UNITS SC ×2 (08:48→17:17)
[2024-05-09] MEDS: PAXIL 40 MG PO (08:48)
[2024-05-09] MEDS: LASIX 40 MG PO (08:48)
[2024-05-09] MEDS: ASPIR LOW (ENTERIC COATED) 81 MG PO (08:48)
[2024-05-09] MEDS: APRESOLINE 25 MG PO ×2 (08:48→20:34)
[2024-05-09] MEDS: NOVOLOG FLEXPEN-MODERATE RESISTANCE 3 UNITS SC (08:49)
[2024-05-09] MEDS: NOVOLOG FLEXPEN 10 UNITS SC (08:51)
[2024-05-09] MEDS: TRANDATE 200 MG PO ×2 (08:55→20:34)
[2024-05-09] MEDS: NOVOLOG FLEXPEN 5 UNITS SC (10:36)
[2024-05-09] MEDS: DILAUDID 0.5 MG IV (10:37)
[2024-05-09 11:24] VITALS: BP 144/76; PULSE 74; O2SAT 97
[2024-05-09 11:43] LABS: Glucose - Point of Care 160 mg/dl (70-99)
[2024-05-09] MEDS: NOVOLOG FLEXPEN SC (12:43)
--- NOTE | 2024-05-09 12:48 | W.PN.HOSP.TC ---
Addendum entered and electronically signed by Camila Garcia MD 05/09/24 14:27:
74 y/o male with back pain. He picked up a stationary bike and Trash can and 2-3 days later he had pain. Pain started a week ago, he fell twice Wednesday
I personally performed a history and physical exam of the patient and discussed management with the resident. I reviewed the resident's note and agree with the documented findings and plan of care HPI/CC except for changes in documentation.
CVS: S1-S2 normal
Chest: CTA B/L
Abdomen: Soft, NT / Bowel sounds present
Extremities: No edema, normal pulses
PROFESSIONAL SERVICES MANAGER: No sensory or motor deficits noted bilateral lower extremity
No spine tenderness
# Low back pain with radiation to left lower extremity
History of spinal stenosis
Patient has full muscle strength-pain improved after Dilaudid
Steroids started-switch to prednisone for the ease of tapering
Continue muscle relaxants-patient states that baclofen is working but he was not getting enough as outpatient.
Tylenol and lidocaine patch added standing
Add oxycodone
Continue gabapentin, increase to 3 times daily
PT OT
X rays of Spine-mild L1 superior endplate compression fracture
MRI of the lumbar spine
# Anemia-HERMES. Add IV iron.
# Hypertension
Poorly controlled
Continue valsartan, labetalol, labetalol 200 at night
Change Labetalol to 200 mg BID
# Chronic HFpEF-EF 55 to 60% with dilated LA and concentric LVH
Likely hypertensive in nature
Continue Lasix
Unclear why he is not on SGLT2 inhibitors-he will benefit from it.
Will discuss with the patient
# Diabetes-on Tresiba 40 units daily and 4 units of NovoLog AC as outpatient
Increase long-acting insulin to 45 units and NovoLog to 18 units AC while on steroids
Last hemoglobin A1c 7.3
Patient states that he has been up to 20 units of NovoLog in the past when he was on steroids.
# Hypothyroidism-continue Synthroid
History of Graves' disease which was previously treated
# Depression-continue Paxil
# Insomnia-continue melatonin
# Hyperlipidemia-continue atorvastatin
# COPD-no signs of exacerbation-Continue Anoro Ellipta or equivalent
# Sleep apnea- Non Compliant with CPAP
# GERD-continue PPI
# CKD stage III
# Obesity per BMI
# History of CVA with right-sided deficits-continue aspirin, statin
# History of toe amputation on the right second digit
# Ex Smoker
# DVT prophylaxis-subcutaneous heparin
# Full code
Original Note:
Today's Communication/Plan
-
New pain regimen, round the clock tylenol 1000mg TID with 5mg Oxy q4hprn for breakthrough. Will try lidocaine patch on the left lower back. Insulin degludec to remain at 45U and short acting premeal will increase to 18U AC. Pending MRI results for
potential orthopedic intervention.
Assessment / Plan
Assessment / Plan
74 yo M with PMHx of COPD, CKD, HFpEF, chronic anemia, htn, hld, DM Type II, ALICIA (non-compliant with CPAP), Iatrogenic hypothyroidism (h/o Grave's disease), GERD, chronic spinal stenosis, asbestos exposure history that presented to the emergency
department today with a complaint of low back pain.
##Lower Back Pain with radiation to the LLE
#Chronic spinal stenosis
#History of mechanical falls
- Differential diagnoses include sciatica/radiculitis, worsening stenosis; much less likely cauda equina or conus medullaris
- noted he lifted a bike and a trash can 2 days prior to recent onset of pain, after which he fell twice due to LE weakness he attributes to the pain
- CR of the Lumbar spine revealed Mild L1 superior endplate compression fracture, new from 03/13/2022 and age indeterminate. Considering point tenderness in the region on exam, pending Lumbar MRI w/o contrast for further evaluation.
- Added Oxycodone 5mg PRN for pain and Tylenol 1000mg PO TID. D/c IV Dilaudid.
- Started on PO Prednisone 40mg (will be easier to transition to taper after discharge)
- Will add lidocaine patch for Left Lower back pain (L5 fracture)
#Hx of CVA
- residual sensory impairment of the R side of the body
- could be contributing to unsteadiness and falls
- C/w aspirin & statin
#Hypertension
- BP still elevated despite home regimen of valsartan, labetalol; also on Lasix
- BP elevated on arrival, remain elevated in the context of improving pain
- Spoke with & PCP who state BPs have been elevated recently prior to admission
- C/w labetalol 200mg BID & hydralazine IV as needed for SBP >180 mmHg
#DM Type II, Insulin Dependent
#Diabetic Retinopathy
- Last A1c 7.3%
- Home regimen of insulin degludec 40 units, insulin aspart 4 units with meals
- Glucose today still elevated at 205.
- Will keep insulin degludec to 45U QHS and increase insulin aspart to 18U AC in the setting of high dose steroids
- C/w MDISS with Blood glucose goal <200, avoid hypoglycemia
#COPD
- No baseline oxygen requirements. Not in acute exacerbation
- C/w home Anora Ellipta
#HFpEF
- not in acute exacerbation
- Last echo showed LVEF 55 to 60% with dilated left atrium and concentric LVH
- Likely hypertensive cardiomyopathy based off of the echo
- C/w home Lasix and Antihypertensive regimen. Can consider OP discussion for the addition of GDMT agents such as SGLT-2 inhibitors.
#ALICIA
- No signs of significant pulmonary hypertension on last TTE
- Non-compliant with CPAP per . Likely a contributory factor to uncontrolled hypertension
#Iatrogenic hypothyroidism
-History of Graves' disease which was previously treated
- Stable. C/w home dose Levothyroxine
#GERD
-C/w home dose pantoprazole
#CKD stage III
-Baseline creatinine near 1.5, suspect related to hypertension and diabetes history though etiology unclear
-Not complicated by acidemia, secondary bone mineral disease; does have chronic anemia but may also be related to other causes
-Renal function at baseline on admission
#Status post toe amputation
-Right foot second digit, states it was due to trauma
#Dispo:
DVT prophylaxis: Heparin
Diet: Regular
CODE STATUS: Full code
Anticipated Discharge: 24 - 48 hours
Subjective/Interval History
-
Seen in the AM. Patient received one dose of Dilaudid to control pain. While at rest he has no leg pain, numbness or tingling. He is able to move his bowels and has no issues urinating. He reports no new sensory or motor deficits.
Objective Data
-
Vital Signs:
Vital Signs
Temp Pulse Resp BP Pulse Ox
97.8 F 84 16 164/84 97
05/09/24 07:45 05/09/24 08:47 05/09/24 08:22 05/09/24 08:47 05/09/24 08:22
I&O
05/08/24 05/09/24 05/10/24
06:59 06:59 06:59
Intake Total 960 / 960 2039 / 2039
Output Total 1050 / 1050 1875 / 1875
Balance -90 / -90 165 / 165
Review of Systems
-
History Source: Patient
All other systems: Reviewed and negative
Constitutional: Reports No Symptoms
EENT: Reports No Symptoms Reported
Respiratory: Reports No Symptoms
Cardiac: Reports No Symptoms
Abdomen/GI: Reports No Symptoms
Breast: Reports N/A
Genitourinary: Reports No Symptoms
Musculoskeletal: Reports Joint Pain (L lower back) and Muscle Pain (LLE)
Skin: Reports No Symptoms
Neuro: Reports Weakness (LLE)
Endocrine: Reports No Symptoms
Hematologic / Lymphatic: Reports No Symptoms
Allergy / Immunology: Reports No Symptoms
Physical Exam
-
General: Well Developed, Well Nourished, No Apparent Distress, Comfortable and Obese
HEENT: Normocephalic, Atraumatic, Moist Mucous Membranes, Anicteric, [place] Conjunctivae and PERRLA
Respiratory: Clear to Auscultation
Cardiac: Regular Rhythm and S1/S2
Breast: N/A
GI: Soft, Nontender, Nondistended and Normal Bowel Sounds
Genito-urinary: No Costovertebral Tender
Musculoskeletal: No Clubbing, No Cyanosis and No Edema
Neuro: Awake, Alert, Oriented, No Motor Deficits (4/5 motor strength to dorsiflexion) and No Sensory Deficits
Psych: Calm
[2024-05-09 12:49] VITALS: BP 144/76; PULSE 74; O2SAT 97
[2024-05-09] MEDS: LIDOCAINE 4% PATCH 1 PATCH TOPICAL (14:18)
[2024-05-09] MEDS: TYLENOL 1000 MG PO ×2 (14:18→21:32)
[2024-05-09] MEDS: NOVOLOG FLEXPEN-MODERATE RESISTANCE 1 UNITS SC (14:20)
[2024-05-09] MEDS: FERRLECIT 110 MG IV (14:54)
[2024-05-09 15:04] LABS: Glucose - Point of Care 192 mg/dl (70-99)
[2024-05-09 15:20] VITALS: BP 162/80
[2024-05-09 16:36] LABS: Glucose - Point of Care 314 mg/dl (70-99)
[2024-05-09] MEDS: LIPITOR 80 MG PO (17:17)
[2024-05-09] MEDS: NOVOLOG FLEXPEN 18 UNITS SC (17:18)
[2024-05-09] MEDS: NOVOLOG FLEXPEN-MODERATE RESISTANCE 7 UNITS SC (17:18)
[2024-05-09] MEDS: COLACE 200 MG PO (17:22)
[2024-05-09] MEDS: MAGNESIUM OXIDE 500 MG PO (20:33)
[2024-05-09] MEDS: B COMPLEX w/VITAMIN C 1 CAPLET PO (20:33)
[2024-05-09 21:15] LABS: Glucose - Point of Care 286 mg/dl (70-99)
[2024-05-09] MEDS: LANTUS 0.45 UNITS SC (21:32)
[2024-05-09] MEDS: MELATONIN 20 MG PO (21:32)
[2024-05-09 23:40] VITALS: BP 161/82
[2024-05-10] MEDS: NEURONTIN 300 MG PO ×3 (01:08→17:27)
[2024-05-10] MEDS: TYLENOL 1000 MG PO ×3 (05:24→22:11)
[2024-05-10] MEDS: SYNTHROID 175 MCG PO (05:24)
[2024-05-10 06:32] LABS: Glucose - Point of Care 122 mg/dl (70-99)
[2024-05-10] MEDS: NOVOLOG FLEXPEN-MODERATE RESISTANCE SC ×2 (07:51→12:23)
[2024-05-10 07:58] VITALS: BP 158/98
[2024-05-10 08:00] LABS: Hematocrit 27.6 % (39.0-52.0); Hemoglobin 9.1 g/dL (13.0-18.0); Mean Corpuscular Hgb 28.1 pg (27.0-31.0); Mean Corpuscular Volume 85.2 fL (80.0-94.0); Mean Platelet Volume 11.8 fL (7.4-10.4); Platelet Count 169 10^3/uL (130-400); Red Blood Cell Count 3.24 10^6/uL (4.70-6.10); Red Cell Dist. Width 16.1 % (11.5-14.5)
[2024-05-10] MEDS: PROTONIX 40 MG PO (08:18)
[2024-05-10] MEDS: APRESOLINE 25 MG PO ×2 (08:18→20:45)
[2024-05-10] MEDS: DIOVAN 160 MG PO ×2 (08:18→20:44)
[2024-05-10] MEDS: ASPIR LOW (ENTERIC COATED) 81 MG PO (08:19)
[2024-05-10] MEDS: HEPARIN 5000 UNITS SC ×3 (08:19→23:49)
[2024-05-10] MEDS: LASIX PO ×2 (08:19→09:28)
[2024-05-10] MEDS: LIDOCAINE 4% PATCH 1 PATCH TOPICAL (08:19)
[2024-05-10] MEDS: PAXIL 40 MG PO (08:19)
[2024-05-10] MEDS: TRANDATE 200 MG PO ×2 (08:19→20:45)
[2024-05-10] MEDS: DELTASONE 40 MG PO (08:19)
[2024-05-10 08:21] LABS: ALT (SGPT) 20 U/L (0-50); AST (SGOT) 23 U/L (17-59); Albumin 3.4 g/dl (3.5-5.0); Alkaline Phosphatase 103 U/L (38-126); Blood Urea Nitrogen 42 mg/dl (9-20); Calcium 8.9 mg/dl (8.4-10.2); Carbon Dioxide 24 mmol/L (22-30); Chloride 106 mmol/L (98-107); Estimated Creatinine Clearance 47 ml/min; Glucose 110 mg/dl (70-99); Potassium 3.9 mmol/L (3.5-5.1); Sodium 141 mmol/L (135-145); Total Bilirubin 0.4 mg/dl (0.2-1.3); Total Protein 5.6 g/dl (6.3-8.2); eGFR 45.21
[2024-05-10] MEDS: SPIRIVA RESPIMAT 2.5 MCG 2 PUFF INH (08:58)
[2024-05-10] MEDS: STRIVERDI RESPIMAT 2 PUFF INH (08:58)
[2024-05-10] MEDS: NOVOLOG FLEXPEN 18 UNITS SC (09:12)
[2024-05-10 11:57] LABS: Glucose - Point of Care 66 mg/dl (70-99)
[2024-05-10 12:19] LABS: Glucose - Point of Care 91 mg/dl (70-99)
--- NOTE | 2024-05-10 12:31 | W.PN.HOSP.TC ---
Addendum entered and electronically signed by Camila Garcia MD 05/10/24 16:17:
I personally performed a history and physical exam of the patient and discussed management with the resident. I reviewed the resident's note and agree with the documented findings and plan of care HPI/CC.
Patient able to ambulate with a walker without much pain today
Sugar dropped earlier today-insulin adjusted
Will need return sliding scale instructions for Lantus and also NovoLog at discharge for the steroid taper
I also discussed with him regarding following up with a final touch up painter he is not very much interested in that. I discussed about the fact that he needs to follow-up with 1 so that he is not going to be hooked onto narcotics for the rest
of his life.
Watch sugars if stable will discharge tomorrow.
Original Note:
Today's Communication/Plan
-
Neurosurgery to see and evaluate in the afternoon. Likely discharge today on pain regimen of tylenol/Oxy w/ a steroid taper. Will need to follow up out patient with primary care for insulin adjustment and Neurosurgery group.
Assessment / Plan
Assessment / Plan
74 yo M with PMHx of COPD, CKD, HFpEF, chronic anemia, htn, hld, DM Type II, ALICIA (non-compliant with CPAP), Iatrogenic hypothyroidism (h/o Grave's disease), GERD, chronic spinal stenosis, asbestos exposure history that presented to the emergency
department today with a complaint of low back pain.
##Lower Back Pain with radiation to the LLE
#Chronic spinal stenosis
#History of mechanical falls
- Differential diagnoses include sciatica/radiculitis, worsening stenosis; much less likely cauda equina or conus medullaris
- noted he lifted a bike and a trash can 2 days prior to recent onset of pain, after which he fell twice due to LE weakness he attributes to the pain
- CR of the Lumbar spine revealed Mild L1 superior endplate compression fracture, new from 03/13/2022 and age indeterminate. Considering point tenderness in the region on exam, pending Lumbar MRI w/o contrast for further evaluation.
- D/c IV Dilaudid. Start Oxycodone 5mg PRN for pain and Tylenol 1000mg PO TID.
- Started on PO Prednisone 40mg (will transition to taper after discharge)
- Will add lidocaine patch for Left Lower back pain (L5 fracture)
- Neurosurgery will see in the afternoon. Can follow up as outpatient with [facility]urosurgery.
#DM Type II, Insulin Dependent
#Diabetic Retinopathy
- Last A1c 7.3%
- Home regimen of insulin degludec 40 units, insulin aspart 4 units with meals
- In the setting of high dose steroids: insulin degludec to 45U QHS. Was on 18U AC, had POC 66 after breakfast, will change to 15U AC and re-evaluate after lunch.
- C/w MDISS with Blood glucose goal <200, avoid hypoglycemia
#Resistant Hypertension
- BP elevated on arrival, despite home regimen of valsartan, labetalol. Remained elevated in the context of improving pain
- Spoke with & PCP who stated BPs have been elevated prior to admission (patient is also non-compliant with home CPAP)
- changed Labetalol to 200mg BID and changed Hydralazine from QID to BID for ease of compliance.
- C/w labetalol 200mg BID, hydralazine 25mg BID
- Keep hydralazine IV as needed for SBP >180 mmHg
#Hx of CVA
- residual sensory impairment of the R side of the body
- could be contributing to unsteadiness and falls
- C/w aspirin & statin
#COPD
- No baseline oxygen requirements. Not in acute exacerbation
- C/w home Anora Ellipta
#HFpEF
- not in acute exacerbation
- Last echo showed LVEF 55 to 60% with dilated left atrium and concentric LVH
- Likely hypertensive cardiomyopathy based off of the echo
- C/w home Lasix and Antihypertensive regimen. Can consider OP discussion for the addition of GDMT agents such as SGLT-2 inhibitors.
#ALICIA
- No signs of significant pulmonary hypertension on last TTE
- Non-compliant with CPAP per . Likely a contributory factor to uncontrolled hypertension
#Iatrogenic hypothyroidism
-History of Graves' disease which was previously treated
- Stable. C/w home dose Levothyroxine
#GERD
-C/w home dose pantoprazole
#CKD stage III
-Baseline creatinine near 1.5, suspect related to hypertension and diabetes history
-Not complicated by acidemia, secondary bone mineral disease; does have chronic anemia but may also be related to other causes
-Renal function remains around baseline
#Status post toe amputation
-Right foot second digit, states it was due to trauma
#Dispo:
DVT prophylaxis: Heparin
Diet: Regular
CODE STATUS: Full code
Anticipated Discharge: Within 24 hours
Subjective/Interval History
-
Seen in the morning just after breakfast. His pain was well controlled overnight on scheduled 1000mg Tylenol & lidocaine patch; did not require oxycodone. He has no acute complaints.
Glucose after breakfast was 66, came up to 91 with juice.
Objective Data
-
Labs:
Laboratory Results
05/10/24
06:31
WBC 8.0
Hgb 9.1 L
Hct 27.6 L
Plt Count 169
Sodium 141
Potassium 3.9
Chloride 106
Carbon Dioxide 24
BUN 42 H
Creatinine 1.6 H
Glucose 110 H
Calcium 8.9
Total Bilirubin 0.4
AST 23
ALT 20
Alkaline Phosphatase 103
Vital Signs:
Vital Signs
Temp Pulse Resp BP Pulse Ox
97.7 F 77 18 158/98 96
05/10/24 07:58 05/10/24 09:00 05/10/24 09:00 05/10/24 07:58 05/10/24 09:00
I&O
05/09/24 05/10/24 05/11/24
06:59 06:59 06:59
Intake Total 2039 1440 / 1440
Output Total 1875 / 1875 2485 / 2485 300 / 300
Balance 165 / 165 -1045 / -1045 -300 / -300
Review of Systems
-
History Source: Patient
All other systems: Reviewed and negative
Constitutional: Reports No Symptoms
EENT: Reports No Symptoms Reported
Respiratory: Reports No Symptoms
Cardiac: Reports No Symptoms
Abdomen/GI: Reports No Symptoms
Breast: Reports N/A
Genitourinary: Reports No Symptoms
Musculoskeletal: Reports No Symptoms
Skin: Reports No Symptoms
Neuro: Reports Weakness
Endocrine: Reports No Symptoms
Physical Exam
-
General: Well Developed, Well Nourished, No Apparent Distress and Comfortable
HEENT: Normocephalic, Atraumatic, Moist Mucous Membranes, [place] Conjunctivae and PERRLA
Respiratory: Clear to Auscultation and Non Labored Respirations
Cardiac: Regular Rhythm and S1/S2
Breast: N/A
GI: Soft, Nontender, Nondistended and Normal Bowel Sounds
Musculoskeletal: No Clubbing, No Cyanosis and No Edema
Neuro: Awake, Alert, Oriented and No Sensory Deficits
[2024-05-10] MEDS: NOVOLOG FLEXPEN SC (12:33)
[2024-05-10] MEDS: LASIX 40 MG PO (12:34)
[2024-05-10] MEDS: NOVOLOG FLEXPEN 15 UNITS SC (12:59)
[2024-05-10] MEDS: ROXICODONE 5 MG PO ×3 (13:03→22:11)
[2024-05-10] MEDS: FERRLECIT 110 MG IV (13:46)
[2024-05-10 15:04] LABS: Glucose - Point of Care 278 mg/dl (70-99)
[2024-05-10 15:58] VITALS: BP 157/79
--- NOTE | 2024-05-10 16:33 | W.DCSUMMARY ---
Discharge Summary
Discharge Data
Date of Admission: 05/07/24
Date of Discharge: 05/11/24
-
Pending Results: No
Hospital Course
Discharging Physician : Dr. Cezar Hamilton, Dr. Camila Garcia
Disposition : Home
Primary care physician : Neville Wise MD
Principal Discharge diagnosis : Lower Back Pain, Chronic Spinal Stenosis, Lumbar Compression Fracture, Type II DM, Resistant Hypertension
Chronic Discharge diagnosis : Diabetic Retinopathy, COPD, HFpEF, ALICIA, Iatrogenic Hyperthyroidism, GERD, CKDIII
Hospital Course :
Sundeep Estrada is a 74 year old gentleman who presented to the [facility] on 05/07/2024 with complaints of left lower back pain with radiation down the left leg. On arrival to the ED, labs were drawn. Of note, his blood pressure on arrival was 190
systolic, his blood glucose was 265, and his creatinine was 1.4 (at his baseline). In the ED he was given IV Dilaudid, which improved the pain, and IV methylprednisolone. He was admitted for management of sugars, hypertensive urgency, and further
evaluation of pain.
Hospital Day 1 (05/08):
An CR of the lumbar spine was obtained which demonstrated a new L5 compression fracture. Due to the steroids, the patient's sugars were more elevated and he required more insulin increasing his basal dose from 40U to 45U and his pre-meal dose from
4U to 10U. His pressures remained elevated, and so a discussion was had with the primary care provider to increase his Labetalol to 200mg BID and decrease the hydralazine from QID to BID to increase compliance. Pain improved with IV Dilaudid and
steroids. An MRI was ordered for the following day.
Hospital Day 2 (05/09):
The pain was well managed overnight with tylenol and Dilaudid. Discussion with the patient revealed a history of requiring higher doses of pre-meal insulin in the setting of treatment dose steroids. Thus a decision was made to keep his basal
insulin at 45U despite persistently elevated morning sugars and instead increase the pre-meal to 18U to make up the difference. An effort was also made to begin transitioning the patient from IV opioid pain medication to better assist in discharge
planning and reduce the risk of dependence. 1000m Tylenol was given TID and Oxycodone was left as a prn. The MRI results came back in the afternoon showing severe canal stenosis and severe left-sided neuroforaminal narrowing at the L3-L4 and L4-L5
levels and disc extrusion with abutment and displacement of the transiting right S1 nerve roots. For this, Neurosurgery was consulted for evaluation and planning for outpatient management/surgical intervention. The patient was also switched to oral
Prednisone.
Hospital Day 3 (05/10):
Pain was well managed over night without requiring oxycodone. Morning sugars were low normal, but a post breakfast POC glucose reading was low (requiring juice). For this reason
pre-meal insulin was dropped to 15U. Communication with Neurosurgery revealed plans for outpatient care and an appointment was set. Throughout this day and the following day the patient's blood pressures were controlled on his current regimen.
Afternoon glucose post lunch was elevated into the 300s.
Hospital Day 4 (05/11):
His sugars were well controlled on the current insulin regimen and his pain was controlled with Oxy 5mg as needed. Patient was cleared for discharge with medication changes to Labetalol (now 200mg BID), Hydralazine (now 25mg BID), with a pain
regimen (Tylenol 1000mg TID, Oxycodone 5mg q4H as needed for mod/severe breakthrough pain, and a 4% Lidocaine patch), and a Prednisone taper (40-30-20-10) with corresponding insulin adjustments (Basal 45U & 10-8-6-5-4U novolog). He was also given a
script for an LSO brace, with recommendations for PT as outpatient for conservative management of lower back pain.
Important imaging findings :
CR Lumbar Spine 2 Or 3 Views:
There are 5 nonrib-bearing lumbar-type vertebra. Mild dextroconvex curvature of the lumbar spine. Mild L1 superior endplate compression fracture, new from 03/13/2022 and age indeterminate. No subluxations. No spondylolysis. Moderate multilevel
degenerative changes of the lumbar spine.
MR Lumbar Without Contrast:
Anterior compression fracture of the L5 vertebral body with minimal associated edema, likely subacute in nature.
There is dextroconvex curvature of the lumbar spine with progressive multilevel degenerative disc disease and facet arthropathy. There is resultant multilevel spinal canal stenosis and neuroforaminal narrowing which are progressed from prior. There
is severe canal stenosis and severe left-sided neuroforaminal narrowing at the L3-L4 and L4-L5 levels. At L5-S1 there is increased right central/subarticular disc extrusion with abutment and displacement of the transiting right S1 nerve roots.
Discharge Plan
-
Patient Disposition: Home with Home Care
Discharge Diagnosis/Procedures: Sciatica, Lower Back Pain, L5 fracture, spinal Stenosis, Type II DM, Resistant Hypertension, anemia, chronic kidney disease, hypothyroidism, high Cholesterol, GERD
Condition: Good
Diet: 2 Gram Sodium and Diabetic, Carb Controlled
Activity: As tolerated
Driving Restrictions: No driving
Bathing Restrictions: None
Other Services: VN, PT and OT
Activity Restrictions/Additional Instructions:
Workup of iron deficiency and anemia as outpatient. Follow-up with GI doctor for colonoscopy if have not had one recently. Weight loss advised. Follow-up with pain management doctors. You need to get a sleep study done as outpatient
Referrals:
Neville Wise MD [Family Provider] - in less than 1 week
Nathan Waters, [Active] - in less than 1 week
Additional Discharge Medication Instructions: Take 40mg Prednisone for two days
Then 30mg Prednisone for two days
Then 20mg Prednisone for two days
Then 10mg Prednisone for two days
Then stop.
When taking 40mg Prednisone, take 10U Insulin with meals, 45U at night
When taking 30mg Prednisone, take 8U Insulin with meals, 45U at night
When taking 20mg Prednisone, take 6U Insulin with meals, 45U at night
When taking 10mg Prednisone, take 5U Insulin with meals, 45U at night
When you stop the Prednisone, go back to normal meal insulin dose of 4U and Tresiba to 40 units ( Your normal dose)
Prescriptions:
New
labetalol 200 mg tablet
200 mg PO BID 30 Days Qty: 60 2RF
prednisone 10 mg tablet
10 mg PO DIRECTED Qty: 20 0RF
Rx Instructions:
40mg for two days, 30mg for two days, 20mg for two days, 10mg for two days, stop
gabapentin 300 mg Capsule
300 mg PO Q8H Qty: 90 0RF
oxycodone 5 mg capsule
5 mg PO BID PRN (Reason: moderate pain) Qty: 20 0RF
senna 8.6 mg capsule
8.6 mg PO BID PRN (Reason: while on Oxycodone) Qty: 30 0RF
lidocaine 4 % Adhesive Patch,Medicated
1 patch topical DAILY Qty: 30 0RF
acetaminophen [Tylenol Extra Strength] 500 mg tablet
1,000 mg PO Q8HPRN PRN (Reason: mild pain) Qty: 30 0RF
Continued
aspirin 81 mg Tablet,Delayed Release (Dr/Ec)
81 mg PO DAILY Qty: 0
baclofen 10 mg Tablet
10 mg PO BIDPRN PRN (Reason: Muscle spasms) Qty: 0
pantoprazole 40 mg Tablet,Delayed Release (Dr/Ec)
40 mg PO DAILY Qty: 0
docusate sodium [Colace] 100 mg Capsule
200 mg PO QPM Qty: 0
paroxetine HCl 40 mg tablet
40 mg PO DAILY
dextroamphetamine-amphetamine 15 mg capsule,extended release 24hr
15 mg PO DAILY Qty: 3 0RF
levothyroxine [Synthroid] 175 mcg Tablet
175 mcg PO DAILY
melatonin 3 mg Tablet
20 mg PO HS
tramadol 50 mg Tablet
50 mg PO Q6HPRN PRN (Reason: MODERATE PAINS)
vitamin B complex Tablet
1 tab PO HS
valsartan 160 mg Tablet
160 mg PO BID
Anoro Ellipta 62.5-25 mcg/actuation Blister With Device
1 inh INHALATION R DAILY
magnesium oxide 500 mg magnesium tablet
500 mg PO HS
furosemide 40 mg Tablet
40 mg PO DAILY Qty: 30 11RF
hydralazine 25 mg Tablet
25 mg PO BID
insulin aspart U-100 [Novolog FlexPen U-100 Insulin] 100 unit/mL (3 mL) insulin pen
4 unit SC MEALS
atorvastatin 80 mg Tablet
80 mg PO QPM Qty: 0 0RF
Changed
insulin degludec [Tresiba FlexTouch U-100] 100 unit/mL (3 mL) insulin pen
45 unit SC DAILY Qty: 0 0RF
Discontinued
gabapentin 300 mg Capsule
300 mg PO BID
labetalol 200 mg tablet
200 mg PO QPM
Discharge Orders:
Discharge Patient (As Directed); Ordered 05/11/24
Ordered By: Cezar Hamilton
Discharge Date and Time
Print Language: PAKISTANI
--- NOTE | 2024-05-10 17:05 | CM ---
PT indicated SNF at dc.
Spoke with pt in room . Reviewed PT evals.
PT refused SNF.
Asked if could care for him at home and he said yes.
Asked pt to reviewed with his .
PLAN Pt refused SNF.
[2024-05-10 17:06] LABS: Glucose - Point of Care 323 mg/dl (70-99)
[2024-05-10] MEDS: COLACE 200 MG PO (17:27)
[2024-05-10] MEDS: LIPITOR 80 MG PO (17:27)
[2024-05-10] MEDS: NOVOLOG FLEXPEN-MODERATE RESISTANCE 7 UNITS SC (17:28)
[2024-05-10] MEDS: NOVOLOG FLEXPEN 10 UNITS SC (17:28)
[2024-05-10] MEDS: MAGNESIUM OXIDE 500 MG PO (20:45)
[2024-05-10] MEDS: B COMPLEX w/VITAMIN C 1 CAPLET PO (20:45)
[2024-05-10 21:12] LABS: Glucose - Point of Care 235 mg/dl (70-99)
[2024-05-10] MEDS: MELATONIN 20 MG PO (22:10)
[2024-05-10] MEDS: LANTUS 0.45 UNITS SC (22:10)
[2024-05-10 23:06] VITALS: BP 168/78
[2024-05-11] MEDS: NEURONTIN 300 MG PO ×3 (01:56→17:32)
[2024-05-11] MEDS: ROXICODONE 5 MG PO ×2 (02:11→06:13)
[2024-05-11 03:38] LABS: Glucose - Point of Care 163 mg/dl (70-99)
[2024-05-11] MEDS: TYLENOL 1000 MG PO ×2 (06:09→15:27)
[2024-05-11] MEDS: SYNTHROID 175 MCG PO (06:09)
[2024-05-11 07:23] LABS: Hematocrit 27.4 % (39.0-52.0); Hemoglobin 9.1 g/dL (13.0-18.0); Mean Corp Hgb Conc. 33.2 g/dL (33.0-37.0); Mean Corpuscular Hgb 27.5 pg (27.0-31.0); Mean Corpuscular Volume 82.8 fL (80.0-94.0); Mean Platelet Volume 11.3 fL (7.4-10.4); Platelet Count 157 10^3/uL (130-400); Red Blood Cell Count 3.31 10^6/uL (4.70-6.10); Red Cell Dist. Width 16.3 % (11.5-14.5); White Blood Cell Count 8.2 10^3/uL (4.8-10.8)
[2024-05-11 07:40] LABS: Blood Urea Nitrogen 41 mg/dl (9-20); Carbon Dioxide 26 mmol/L (22-30); Chloride 104 mmol/L (98-107); Estimated Creatinine Clearance 47 ml/min; Glucose 111 mg/dl (70-99); Potassium 3.9 mmol/L (3.5-5.1); Sodium 139 mmol/L (135-145); eGFR 45.21
[2024-05-11 07:59] LABS: Glucose - Point of Care 118 mg/dl (70-99)
[2024-05-11 08:32] VITALS: BP 185/92
[2024-05-11] MEDS: SPIRIVA RESPIMAT 2.5 MCG 2 PUFF INH (08:56)
[2024-05-11] MEDS: STRIVERDI RESPIMAT 2 PUFF INH (08:57)
[2024-05-11 09:20] VITALS: BP 128/69
[2024-05-11] MEDS: NOVOLOG FLEXPEN-MODERATE RESISTANCE SC ×2 (09:23→12:14)
[2024-05-11] MEDS: NOVOLOG FLEXPEN 10 UNITS SC ×3 (09:23→17:09)
[2024-05-11] MEDS: LIDOCAINE 4% PATCH 1 PATCH TOPICAL (09:24)
[2024-05-11] MEDS: HEPARIN 5000 UNITS SC (09:24)
[2024-05-11] MEDS: APRESOLINE 25 MG PO (09:26)
[2024-05-11] MEDS: TRANDATE 200 MG PO (09:26)
[2024-05-11] MEDS: DIOVAN 160 MG PO (09:26)
[2024-05-11] MEDS: PROTONIX 40 MG PO (09:26)
[2024-05-11] MEDS: PAXIL 40 MG PO (09:26)
[2024-05-11] MEDS: LASIX 40 MG PO (09:26)
[2024-05-11] MEDS: DELTASONE 40 MG PO (09:27)
[2024-05-11] MEDS: ASPIR LOW (ENTERIC COATED) 81 MG PO (09:27)
[2024-05-11 12:08] LABS: Glucose - Point of Care 133 mg/dl (70-99)
--- NOTE | 2024-05-11 12:36 | W.PN.HOSP.TC ---
Today's Communication/Plan
-
D/c on Tylenol 1000mg, Oxy 5mg Q4H prn and lidocaine patch. Follow up in 1 week with Neurosurgery [place]
Assessment / Plan
Assessment / Plan
74 yo M with PMHx of COPD, CKD, HFpEF, chronic anemia, htn, hld, DM Type II, ALICIA (non-compliant with CPAP), Iatrogenic hypothyroidism (h/o Grave's disease), GERD, chronic spinal stenosis, asbestos exposure history that presented to the emergency
department today with a complaint of low back pain.
##Lower Back Pain with radiation to the LLE
#Chronic spinal stenosis
#History of mechanical falls
- Differential diagnoses include sciatica/radiculitis, worsening stenosis; much less likely cauda equina or conus medullaris
- noted he lifted a bike and a trash can 2 days prior to recent onset of pain, after which he fell twice due to LE weakness he attributes to the pain
- CR of the Lumbar spine revealed Mild L1 superior endplate compression fracture, new from 03/13/2022 and age indeterminate. Considering point tenderness in the region on exam, pending Lumbar MRI w/o contrast for further evaluation.
- Continue Oxycodone 5mg PRN for pain and Tylenol 1000mg PO TID.
- Started on PO Prednisone 40mg (will transition to taper after discharge)
- Will add lidocaine patch for Left Lower back pain (L5 fracture)
- Patient to follow up as outpatient with [facility]
#DM Type II, Insulin Dependent
#Diabetic Retinopathy
- Last A1c 7.3%
- Home regimen of insulin degludec 40 units, insulin aspart 4 units with meals
- In the setting of high dose steroids: insulin degludec to 45U QHS.
- C/w MDISS with Blood glucose goal <200, avoid hypoglycemia
#Resistant Hypertension
- BP elevated on arrival, despite home regimen of valsartan, labetalol. Remained elevated in the context of improving pain
- Spoke with & PCP who stated BPs have been elevated prior to admission (patient is also non-compliant with home CPAP)
- changed Labetalol to 200mg BID and changed Hydralazine from QID to BID for ease of compliance.
- C/w labetalol 200mg BID, hydralazine 25mg BID
- Keep hydralazine IV as needed for SBP >180 mmHg
#Hx of CVA
- residual sensory impairment of the R side of the body
- could be contributing to unsteadiness and falls
- C/w aspirin & statin
#COPD
- No baseline oxygen requirements. Not in acute exacerbation
- C/w home Anora Ellipta
#HFpEF
- not in acute exacerbation
- Last echo showed LVEF 55 to 60% with dilated left atrium and concentric LVH
- Likely hypertensive cardiomyopathy based off of the echo
- C/w home Lasix and Antihypertensive regimen. Can consider OP discussion for the addition of GDMT agents such as SGLT-2 inhibitors.
#ALICIA
- No signs of significant pulmonary hypertension on last TTE
- Non-compliant with CPAP per . Likely a contributory factor to uncontrolled hypertension
#Iatrogenic hypothyroidism
-History of Graves' disease which was previously treated
- Stable. C/w home dose Levothyroxine
#GERD
-C/w home dose pantoprazole
#CKD stage III
-Baseline creatinine near 1.5, suspect related to hypertension and diabetes history
-Not complicated by acidemia, secondary bone mineral disease; does have chronic anemia but may also be related to other causes
-Renal function remains around baseline
#Status post toe amputation
-Right foot second digit, states it was due to trauma
#Dispo:
DVT prophylaxis: Heparin
Diet: Regular
CODE STATUS: Full code
Anticipated Discharge: Today
Subjective/Interval History
-
Seen in the AM. Patient had no acute events overnight. Pain managed with 2 doses of Oxycodone.
Objective Data
-
Labs:
Laboratory Results
05/11/24
06:41
WBC 8.2
Hgb 9.1 L
Hct 27.4 L
Plt Count 157
Sodium 139
Potassium 3.9
Chloride 104
Carbon Dioxide 26
BUN 41 H
Creatinine 1.6 H
Glucose 111 H
Calcium 9.0
Vital Signs:
Vital Signs
Temp Pulse Resp BP Pulse Ox
98.3 F 83 16 128/69 100
05/11/24 08:32 05/11/24 08:57 05/11/24 08:57 05/11/24 09:20 05/11/24 08:57
I&O
05/10/24 05/11/24 05/12/24
06:59 06:59 06:59
Intake Total 1440 / 1440 1550 / 1550
Output Total 2485 / 2485 2700 / 2700 300 / 300
Balance -1045 / -1045 -1150 / -1150 -300 / -300
Review of Systems
-
History Source: Patient
All other systems: Reviewed and negative
Constitutional: Reports No Symptoms
EENT: Reports No Symptoms Reported
Respiratory: Reports No Symptoms
Cardiac: Reports No Symptoms
Abdomen/GI: Reports No Symptoms
Breast: Reports N/A
Genitourinary: Reports No Symptoms
Musculoskeletal: Reports Muscle Weakness (Residual right sided weakness post CVA)
Skin: Reports No Symptoms
Neuro: Reports Weakness (Residual right sided weakness)
Endocrine: Reports No Symptoms
Physical Exam
-
General: Well Developed, Well Nourished, No Apparent Distress, Comfortable and Obese
HEENT: Normocephalic, Atraumatic, Moist Mucous Membranes, Anicteric and PERRLA
Respiratory: Clear to Auscultation
Cardiac: Regular Rhythm and S1/S2
Breast: N/A
GI: Soft, Nontender, Nondistended and Normal Bowel Sounds
Musculoskeletal: No Clubbing, No Cyanosis and No Edema
Neuro: Awake, Alert, Oriented, No Motor Deficits (4/5 tone in the R leg) and No Sensory Deficits
Psych: Calm
--- NOTE | 2024-05-11 14:20 | CM ---
entered order for dc.
LM for to call CM .
Reviewed PT eval which indicated SNF to pt again .
PT refused SNF.Pt requested [facility] referral placed in care port.
Asked if could care for him at home / drive him home and he said yes.
IMM reviewed with pt He agrees with dc.
PLAN Home with [facility] fax [phone].
--- NOTE | 2024-05-11 15:03 | W.PN.UPDATE ---
Update Note
Progress Note Update
Seen earlier. Late documentation.
74 y/o male with back pain. He picked up a stationary bike and Trash can and 2-3 days later he had pain. Pain started a week ago, he fell twice Wednesday
I personally performed a history and physical exam of the patient and discussed management with the resident. I reviewed the resident's note and agree with the documented findings and plan of care HPI/CC except for changes in documentation.
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
# Low back pain with radiation to left lower extremity
History of spinal stenosis
Patient has full muscle strength-pain improved after Dilaudid
Steroids started-switch to prednisone for the ease of tapering
Continue muscle relaxants-patient states that baclofen is working but he was not getting enough as outpatient.
Tylenol and lidocaine patch, oxycodone
Continue gabapentin, increase to 3 times daily
PT OT
X rays of Spine-mild L1 superior endplate compression fracture
MRI of the lumbar spine anterior compression fracture L5 multilevel DJD spinal canal stenosis severe stenosis L3-L4 L4-L5 increased right central/subarticular disc extrusion L5-S1
Neurosurgery consulted-has not seen the patient or at least I cannot review the notes
Outpatient appointment discussed
Pain is better for the patient function
He does not want to go to rehab he wants to go home. Home PT
# Anemia-HERMES. IV iron.OP workup of anemia and iron deficiency
# Hypertension
Blood pressure better
Continue valsartan, labetalol, labetalol 200 at night
Changed Labetalol to 200 mg BID
# Chronic HFpEF-EF 55 to 60% with dilated LA and concentric LVH
Likely hypertensive in nature
Continue Lasix
Unclear why he is not on SGLT2 inhibitors-he will benefit from it.
Will not start now with fluctuating creatinine
# Diabetes-on Tresiba 40 units daily and 4 units of NovoLog AC as outpatient
Increase long-acting insulin to 45 units and NovoLog to 10 units AC while on steroids
Last hemoglobin A1c 7.3
Patient states that he has been up to 20 units of NovoLog in the past when he was on steroids.
Sliding scale written down for patient to follow while on steroids
# Hypothyroidism-continue Synthroid
History of Graves' disease which was previously treated
# Depression-continue Paxil
# Insomnia-continue melatonin
# Hyperlipidemia-continue atorvastatin
# COPD-no signs of exacerbation-Continue Anoro Ellipta or equivalent
# Sleep apnea- Non Compliant with CPAP
# GERD-continue PPI
# CKD stage III
# Obesity per BMI
# History of CVA with right-sided deficits-continue aspirin, statin
# History of toe amputation on the right second digit
# Ex Smoker
# DVT prophylaxis-subcutaneous heparin
# Full code
Discussed with RN
Discussed with patient's on the phone updated regarding plan of care
He does not want to go to rehab he wants to go home
Total discharge coordination time more than 38 minutes
[2024-05-11 16:17] VITALS: BP 140/61
--- NOTE | 2024-05-11 16:39 | CON.NS ---
Addendum entered and electronically signed by Ida Moffett MD 05/11/24 17:15:
Advised that the patient was being discharged today after I saw him. Patient was provided a prescription for an LSO brace by me. He was also given my business card, and given information on different medical supply stores where to acquire this LSO
brace. He was also given my office number, that he can contact, should he require any assistance/direction in obtaining this LSO brace. RN made aware of all of this.
Original Note:
Consultation
-
Date/Time Consultation Performed: 05/11/2024; 16:45
Performing Provider: Betina
Chief Complaint
History of Present Illness
This is a neurosurgical consultation on a 73-year-old gentleman, with multiple medical problems, including COPD, chronic kidney disease, heart failure, who presents with complaints of low back pain that started primarily over the past day, located
in the left low back, with radiation down to the left leg. He was also found to have elevated blood pressures. Patient reported that he picked up a stationary bike and a trash can and 2 to 3 days later, he had pain. He also fell twice 3 days
prior. He had an MRI of the lumbar spine which demonstrated a compression fracture at L5 and severe stenosis at L3-4 L4-L5.
Patient seen and examined. He reports that his pain is improved, compared to presentation. He reports that his pain is predominantly in his left buttock area, with radiation down left lower extremity. He denies any homer weakness. He denies any
numbness, or tingling in left lower extremity.
Review of Systems
-
A 10 point review of systems including constitutional, ENT, cardiovascular, respiratory, GI, , musculoskeletal, neurologic, hematologic, endocrinology, psychologic, was negative, except for stated in HPI.
Medication and Allergies
Home Medications
Home Medications
�Medication �Instructions �Recorded
aspirin 81 mg tablet,delayed 81 mg PO DAILY Blood clot 01/17/23
release prevention/tx ##0
baclofen 10 mg tablet 10 mg PO BIDPRN PRN Muscle spasms 01/17/23
##0
docusate sodium 100 mg capsule 200 mg PO QPM Constipation ##0 01/17/23
(Colace)
pantoprazole 40 mg tablet,delayed 40 mg PO DAILY Gastrointestinal 01/17/23
release Issue ##0
paroxetine HCl 40 mg tablet 40 mg PO DAILY Mental 11/16/23
Health/Anxiety
dextroamphetamine-amphetamine ER 15 mg PO DAILY #3 caps 11/29/23
15 mg 24hr capsule,extend release
levothyroxine 175 mcg tablet 175 mcg PO DAILY Thyroid 02/17/24
(Synthroid)
magnesium oxide 500 mg PO HS Supplement 02/17/24
melatonin 3 mg tablet 20 mg PO HS Sleep 02/17/24
tramadol 50 mg tablet 50 mg PO Q6HPRN PRN MODERATE PAINS 02/17/24
umeclidinium 62.5 mcg-vilanterol 1 inh inhalation R DAILY 02/17/24
25 mcg/actuation powdr for Lung/Breathing Issues
inhalation (Anoro Ellipta)
valsartan 160 mg tablet 160 mg PO BID Blood Pressure 02/17/24
vitamin B complex 1 tab PO HS Supplement 02/17/24
furosemide 40 mg tablet 40 mg PO DAILY Heart Failure #30 02/24/24
tabs
hydralazine 25 mg tablet 25 mg PO BID Blood Pressure 05/07/24
insulin aspart U-100 100 unit/mL 4 unit SC MEALS Diabetes 05/07/24
(3 mL) subcutaneous pen (Novolog
FlexPen U-100 Insulin aspart)
acetaminophen 500 mg tablet 1,000 mg (2 x 500 mg) PO Q8HPRN 05/11/24
(Tylenol Extra Strength) PRN mild pain #30 tabs
atorvastatin 80 mg tablet 80 mg PO QPM High cholesterol #0 05/11/24
tabs
gabapentin 300 mg capsule 300 mg PO Q8H Neurological 05/11/24
Condition #90 caps
insulin degludec 100 unit/mL (3 45 unit (0.45 mL) SC DAILY 05/11/24
mL) subcutaneous pen (Tresiba Diabetes #0 mL
FlexTouch U-100 insulin)
labetalol 200 mg tablet 200 mg PO BID 30 days #60 tabs 05/11/24
lidocaine 4 % topical patch 1 patch topical DAILY Pain #30 ea 05/11/24
oxycodone 5 mg capsule 5 mg PO BID PRN moderate pain #20 05/11/24
caps
prednisone 10 mg tablet 10 mg PO DIRECTED #20 tabs 05/11/24
sennosides 8.6 mg capsule (senna) 8.6 mg PO BID PRN while on 05/11/24
Oxycodone #30 caps
Allergies
Allergies
Allergy/AdvReac Type Severity Reaction Status Date / Time
No Known Allergies Allergy Verified 05/07/24 14:56
Physical Exam
-
Exam:
Awake, alert, no apparent distress
Cranial nerves II to XII grossly intact
Motor: 5/5 strength bilaterally in lower extremities in all muscle groups.
Reflexes are 2+ and symmetric bilaterally in upper and lower extremities.
Sensation to light touch is intact bilaterally in upper and lower extremities.
MRI of the lumbar spine performed on 05/09/2024 demonstrates anterior superior compression deformity with subtle STIR signal hyperintensity to suggest acute/subacute compression fracture. No obvious evidence of retropulsion is seen. There is
minimal anterior height loss noted.
Additionally, careful review of the parasagittal neuroforamen at L4-5, and L5-S1 reveals the patient has left L4-5 foraminal narrowing. However, no obvious evidence of significant foraminal narrowing on the left at L5-S1.
Assessment / Plan
-
This is a 74-year-old gentleman that presents with acute onset of left lower extremity radiculopathy, low back pain. Imaging reveals multilevel foraminal narrowing, as well as a possible acute/subacute L5 compression fracture.
Recommend conservative management by means of LSO bracing when weightbearing, pain control, muscle relaxants, and physical therapy.
Patient to follow-up in the office in approximately 6 weeks. If at that time, he continues to have persistent symptoms, or worsening symptoms, we can discuss further interventions.
[2024-05-11 16:54] LABS: Glucose - Point of Care 360 mg/dl (70-99)
[2024-05-11] MEDS: FERRLECIT IV (17:05)
[2024-05-11] MEDS: HEPARIN SC (17:06)
[2024-05-11] MEDS: NOVOLOG FLEXPEN-MODERATE RESISTANCE 9 UNITS SC (17:08)
[2024-05-11] MEDS: LIPITOR 80 MG PO (17:31)
[2024-05-11] MEDS: COLACE 200 MG PO (17:32)
== END 2024-05-11 20:35 | disposition home health service (06) | DRG 552 ==
LOC: 4 EAST ACU 19:30
PROVIDERS: ADMITTING PHYSICIAN Internal Medicine; ATTENDING PHYSICIAN Hospitalist; EMERGENCY PHYSICIAN Emergency Medicine; FAMILY PHYSICIAN Family Medicine; OTHER PHYSICIAN Neurological Surgery
DX: S32.010A Wedge compression fracture of first lumbar vertebra, initial encounter for closed fracture (principal); I13.0 Hypertensive heart and chronic kidney disease with heart failure and stage 1 through stage 4 chronic kidney disease, or unspecified chronic kidney disease; I50.32 Chronic diastolic (congestive) heart failure; I69.351 Hemiplegia and hemiparesis following cerebral infarction affecting right dominant side; I43 Cardiomyopathy in diseases classified elsewhere; E11.22 Type 2 diabetes mellitus with diabetic chronic kidney disease; G47.33 Obstructive sleep apnea (adult) (pediatric); E78.00 Pure hypercholesterolemia, unspecified; K21.9 Gastro-esophageal reflux disease without esophagitis; J44.9 Chronic obstructive pulmonary disease, unspecified; N18.30 Chronic kidney disease, stage 3 unspecified; E03.2 Hypothyroidism due to medicaments and other exogenous substances; D63.1 Anemia in chronic kidney disease; F32.A Depression, unspecified; G47.00 Insomnia, unspecified; E11.319 Type 2 diabetes mellitus with unspecified diabetic retinopathy without macular edema; D50.9 Iron deficiency anemia, unspecified; M48.061 Spinal stenosis, lumbar region without neurogenic claudication; I1A.0 Resistant hypertension; I16.0 Hypertensive urgency; E11.65 Type 2 diabetes mellitus with hyperglycemia; T38.0X5A Adverse effect of glucocorticoids and synthetic analogues, initial encounter; M51.16 Intervertebral disc disorders with radiculopathy, lumbar region; E66.9 Obesity, unspecified; Z68.33 Body mass index [BMI] 33.0-33.9, adult; Z77.090 Contact with and (suspected) exposure to asbestos; Z87.891 Personal history of nicotine dependence; Z79.82 Long term (current) use of aspirin; Z89.421 Acquired absence of other right toe(s); Z79.890 Hormone replacement therapy; Z79.4 Long term (current) use of insulin; Z79.899 Other long term (current) drug therapy; W19.XXXA Unspecified fall, initial encounter
CPT/HCPCS: 72100; 72148; 80048; 80053; 82607; 82728; 82962; 83540; 83550; 85025; 85027; 94640; 96374; 96375; 97116; 97163; 97167; 97530; 99285; J2916

== ENCOUNTER 2024-05-15 17:26 | Emergency (ER) | payer MEDICARE, BC, SELFPAY ==
[2024-05-15 17:29] VITALS: BP 159/88
[2024-05-15 17:33] VITALS: BP 159/88
[2024-05-15 17:45] LABS: Glucose - Point of Care 316 mg/dl (70-99)
[2024-05-15 17:59] LABS: % Basophils 0.3 % (0-2); % Eosinophils 0.1 % (0-6); % Immature Granulocytes 0.5 % (0-0.5); % Lymphocytes 2.9 % (20.5-51.1); % Monocytes 0.7 % (1.7-9.3); % Neutrophils 95.5 % (42.2-75.2); Absolute Immature Granulocytes 0.1 10^3/uL (0-0.05); Absolute Lymphocytes 0.3 10^3/uL (1.2-3.4); Absolute Monocytes 0.1 10^3/uL (0.1-0.6); Absolute Neutrophils 9.5 10^3/uL (1.4-6.5); Hematocrit 34.3 % (39.0-52.0); Hemoglobin 10.9 g/dL (13.0-18.0); Mean Corp Hgb Conc. 31.8 g/dL (33.0-37.0); Mean Corpuscular Hgb 27.1 pg (27.0-31.0); Mean Corpuscular Volume 85.3 fL (80.0-94.0); Mean Platelet Volume 10.5 fL (7.4-10.4); Nucleated Red Blood Cells % 0 % (-); Platelet Count 192 10^3/uL (130-400); Red Blood Cell Count 4.02 10^6/uL (4.70-6.10); Red Cell Dist. Width 16.4 % (11.5-14.5); Urine Albumin Trace (Neg - Trace); Urine Bilirubin Negative (Negative); Urine Character Clear (Clear); Urine Color Yellow; Urine Glucose 3+ (Negative); Urine Ketone Negative (Negative); Urine Leukocyte Negative (Negative); Urine Nitrite Negative (Negative); Urine Occult Blood Negative (Negative); Urine Specific Gravity 1.005 (<1.030); Urine Urobilinogen Negative (Neg - 1+); White Blood Cell Count 9.9 10^3/uL (4.8-10.8)
[2024-05-15 18:13] LABS: ALT (SGPT) 29 U/L (0-50); AST (SGOT) 23 U/L (17-59); Albumin 4.2 g/dl (3.5-5.0); Alkaline Phosphatase 116 U/L (38-126); Blood Urea Nitrogen 30 mg/dl (9-20); Calcium 9.2 mg/dl (8.4-10.2); Carbon Dioxide 23 mmol/L (22-30); Chloride 100 mmol/L (98-107); Estimated Creatinine Clearance 60 ml/min; Glucose 316 mg/dl (70-99); Potassium 5.3 mmol/L (3.5-5.1); Sodium 137 mmol/L (135-145); Total Bilirubin 0.4 mg/dl (0.2-1.3); Total Protein 6.6 g/dl (6.3-8.2); eGFR 58.01
[2024-05-15] MEDS: NSS 1000 IV (18:29)
[2024-05-15 20:00] VITALS: BP 174/99
[2024-05-15 20:22] LABS: Glucose - Point of Care 205 mg/dl (70-99)
--- NOTE | 2024-05-15 20:39 | ED.GENMED ---
History of Present Illness
General
Chief Complaint: Blood Sugar Problem
Source: patient
Exam Limitations: none
Time Seen by Provider: 05/15/24 17:55
History of Present Illness
History of Present Illness:
74-year-old male insulin-dependent diabetic presents to the hospital with increased blood sugar levels at home. He was recently discharged from the hospital last week was placed on the steroid. He took his first dose of the steroid today and took
his blood sugar afterwards which was over 600. He gave himself 20 additional units of insulin and came here for evaluation. He denies chest pain or shortness of breath. No fevers. No other complaints at this time
Past History
Past History
ED Past Medical History: CVA, GERD, HTN, Hypercholesterolemia, IDDM and Hypothyroidism
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
Phy Exam
Physical Exam
Physical Exam:
General: Well-appearing male no acute respiratory distress
HEENT: Normocephalic atraumatic
Heart: Regular rate and rhythm no murmurs
Lungs: Clear no wheeze or rales
Extremities: No cyanosis or edema
Skin: Warm no rash
Course
Orders/Labs/Results
Orders:
Orders
05/15/24 17:48
CBC/With Diff [Complete Blood Count/With Diff] Urgent
CMP [Comprehensive Metabolic Panel] Urgent
Urinalysis Reflex To Culture Urgent
Date Specimen was Collected: 05/15/24
Time Specimen was Collected: 17:47
05/15/24 18:26
0.9% Sodium Chloride 1000 ml [Nss] 1,000 ml IV BOLUS
Abnormal Lab Results
05/15/24 05/15/24 05/15/24
17:44 17:48 20:20
RBC 4.02 L 10^6/uL
(4.70-6.10)
Hgb 10.9 L g/dL
(13.0-18.0)
Hct 34.3 L %
(39.0-52.0)
MCHC 31.8 L g/dL
(33.0-37.0)
RDW 16.4 H %
(11.5-14.5)
MPV 10.5 H fL
(7.4-10.4)
Abs Immat Gran (auto) 0.1 H 10^3/uL
(0-0.05)
Absolute Neuts (auto) 9.5 H 10^3/uL
(1.4-6.5)
Absolute Lymphs (auto) 0.3 L 10^3/uL
(1.2-3.4)
Neutrophils % 95.5 H %
(42.2-75.2)
Lymphocytes % 2.9 L %
(20.5-51.1)
Monocytes % 0.7 L %
(1.7-9.3)
Potassium 5.3 H mmol/L
(3.5-5.1)
BUN 30 H mg/dl
(9-20)
Glucose 316 H mg/dl
(70-99)
Urine Glucose 3+ A
(Negative)
POC Glucose 316 H mg/dl 205 H mg/dl
(70-99) (70-99)
05/15/24 17:48
05/15/24 17:48
Vital Signs
Initial and Last Documented VS:
Initial Vital Signs
Temp Pulse Resp BP Pulse Ox
98.3 F 82 22 159/88 97
05/15/24 17:29 05/15/24 17:29 05/15/24 17:29 05/15/24 17:29 05/15/24 17:29
Last Documented Vital Signs
Temp Pulse Resp BP Pulse Ox
98.3 F 82 22 159/88 97
05/15/24 17:29 05/15/24 17:29 05/15/24 17:29 05/15/24 17:29 05/15/24 17:29
MDM/Problems Addressed
Differential Diagnosis Includes:
Elevated blood sugar today after ingesting prednisone. Patient administered 20 extra units of insulin at home. Bedside glucose here initially was 316. He was given fluids and recheck. Recheck shows the repeat is 205. He remains asymptomatic.
Recommend monitoring his serum glucose closely if he continues to take the prednisone. No signs of acidosis on exam
*Critical Care Note
Total Time (30-74mins, 75-104mins- exclusive of procedures): Not Applicable
ED Attending Note
-
Portions of this chart may have been created with voice recognition software.� Occasional wrong word or��sound alike� substitutions may have occurred due to the inherent limitations of voice recognition software.
Discharge Plan
Departure
Patient Disposition: Home (Routine Discharge)
Date of Disposition: 05/15/24
Time of Disposition: 20:42
Patient with high blood pressure during this ER visit?: No
Discharge Problem:
Acute hyperglycemia
Instructions: Diabetes Type 1, Adult (DC)
Prescriptions:
No Action
aspirin 81 mg Tablet,Delayed Release (Dr/Ec)
81 mg PO DAILY Qty: 0
baclofen 10 mg Tablet
10 mg PO BIDPRN PRN (Reason: Muscle spasms) Qty: 0
pantoprazole 40 mg Tablet,Delayed Release (Dr/Ec)
40 mg PO DAILY Qty: 0
docusate sodium [Colace] 100 mg Capsule
200 mg PO QPM Qty: 0
paroxetine HCl 40 mg tablet
40 mg PO DAILY
dextroamphetamine-amphetamine 15 mg capsule,extended release 24hr
15 mg PO DAILY Qty: 3 0RF
levothyroxine [Synthroid] 175 mcg Tablet
175 mcg PO DAILY
melatonin 3 mg Tablet
20 mg PO HS
tramadol 50 mg Tablet
50 mg PO Q6HPRN PRN (Reason: MODERATE PAINS)
vitamin B complex Tablet
1 tab PO HS
valsartan 160 mg Tablet
160 mg PO BID
Anoro Ellipta 62.5-25 mcg/actuation Blister With Device
1 inh INHALATION R DAILY
magnesium oxide 500 mg magnesium tablet
500 mg PO HS
furosemide 40 mg Tablet
40 mg PO DAILY Qty: 30 11RF
hydralazine 25 mg Tablet
25 mg PO BID
insulin aspart U-100 [Novolog FlexPen U-100 Insulin] 100 unit/mL (3 mL) insulin pen
4 unit SC MEALS
labetalol 200 mg tablet
200 mg PO BID 30 Days Qty: 60 2RF
prednisone 10 mg tablet
10 mg PO DIRECTED Qty: 20 0RF
Rx Instructions:
40mg for two days, 30mg for two days, 20mg for two days, 10mg for two days, stop
gabapentin 300 mg Capsule
300 mg PO Q8H Qty: 90 0RF
atorvastatin 80 mg Tablet
80 mg PO QPM Qty: 0 0RF
insulin degludec [Tresiba FlexTouch U-100] 100 unit/mL (3 mL) insulin pen
45 unit SC DAILY Qty: 0 0RF
oxycodone 5 mg capsule
5 mg PO BID PRN (Reason: moderate pain) Qty: 20 0RF
senna 8.6 mg capsule
8.6 mg PO BID PRN (Reason: while on Oxycodone) Qty: 30 0RF
lidocaine 4 % Adhesive Patch,Medicated
1 patch topical DAILY Qty: 30 0RF
acetaminophen [Tylenol Extra Strength] 500 mg tablet
1,000 mg PO Q8HPRN PRN (Reason: mild pain) Qty: 30 0RF
Referrals:
Neville Wise MD [Family Provider] -
Activity Restrictions/Additional Instructions:
Continue to monitor blood sugar levels at home. Try to limit or avoid prednisone. Return if worse otherwise follow-up with your family doctor
Interventions
Interventions:
*Risk Screen - Suicide Last Done: 05/15/24 17:29
*General Assessment Last Done: 05/15/24 17:29
*Neglect/Abuse Screening Last Done: 05/15/24 17:29
ED- Neurological Assessment Last Done: 05/15/24 18:11
Discharge Date and Time
Print Language: FAROESE
== END 2024-05-15 21:49 | disposition home or self-care (01) ==
LOC: EMR 17:26
PROVIDERS: EMERGENCY PHYSICIAN Emergency Medicine; FAMILY PHYSICIAN Family Medicine
DX: E11.65 Type 2 diabetes mellitus with hyperglycemia (principal); K21.9 Gastro-esophageal reflux disease without esophagitis; I10 Essential (primary) hypertension; E78.00 Pure hypercholesterolemia, unspecified; E03.9 Hypothyroidism, unspecified; Z86.73 Personal history of transient ischemic attack (TIA), and cerebral infarction without residual deficits; Z90.49 Acquired absence of other specified parts of digestive tract
CPT/HCPCS: 99283; 80053; 81003; 82962; 85025

== ENCOUNTER 2025-06-22 22:02 | Inpatient (IN) | payer MEDICARE, BC, SELFPAY ==
[2025-06-22] VITALS (7 sets, daily range): BP systolic 163–208; BP diastolic 70–98; BMI 32.3; BMI 31.7
[2025-06-22 14:04] LABS: Hematocrit 39.1 % (39.0-52.0); Hemoglobin 12.8 g/dL (13.0-18.0); Mean Corp Hgb Conc. 32.7 g/dL (33.0-37.0); Mean Corpuscular Volume 93.8 fL (80.0-94.0); Nucleated Red Blood Cells % 0 % (-); Platelet Count 141 10^3/uL (130-400); Red Cell Dist. Width 15.3 % (11.5-14.5)
[2025-06-22 14:32] LABS: Troponin I 0.017 ng/ml
[2025-06-22 15:05] LABS: ALT (SGPT) 25 U/L (0-50); AST (SGOT) 20 U/L (17-59); Albumin 3.7 g/dl (3.5-5.0); Alkaline Phosphatase 103 U/L (38-126); Blood Urea Nitrogen 20 mg/dl (9-20); Calcium 8.8 mg/dl (8.4-10.2); Carbon Dioxide 25 mmol/L (22-30); Chloride 107 mmol/L (98-107); Glucose 246 mg/dl (70-99); Potassium 3.6 mmol/L (3.5-5.1); Sodium 135 mmol/L (135-145); Total Protein 6.0 g/dl (6.3-8.2); eGFR > 60.00
--- NOTE | 2025-06-22 17:30 | ED.GENMED ---
History of Present Illness
<Silke Diaz PA-C - Last Filed: 06/23/25 03:35>
General
Chief Complaint: Chest Pain
Source: patient
Exam Limitations: none
Time Seen by Provider: 06/22/25 17:14
Nursing documentation reviewed up to this point in time: agreed with
History of Present Illness
History of Present Illness:
Patient is a 75-year-old male with history of hypertension, hyperlipidemia, insulin-dependent diabetes, CHF who presents to the emergency department for evaluation of 2-3 days of chest pain, now with worsening shortness of breath. Patient states
that about 3 days ago he noticed a specific area on lower chest that was tender to palpation. It only hurt when he applied pressure. However�she states that over the past few days the pain is now spread throughout his left chest described as
'sharp and stabbing'.
Sometimes pain is exacerbated while lying flat and with deep inspiration. He also feels that he is more short of breath than his baseline he has not noticed any clear exertional component and states symptoms actually feel better when he is walking
around. He also describes a tingling sensation in his left fingertips.
Of note, patient states he does struggle with frequent respiratory infections. He developed a cough approximately 1 week ago and was started on a course of amoxicillin by his primary care provider. He did contact his PCP earlier today and was
referred to the emergency department to rule out a 'heart attack'.
He denies any fever. He has not had any tearing back pain. No pain or swelling in lower extremities. No recent travel or recent surgeries.
Patient states that he did not take his afternoon dose of his blood pressure medication today.
Past History
<Silke Diaz PA-C - Last Filed: 06/23/25 03:35>
Past History
ED Past Medical History: CVA, GERD, HTN, Hypercholesterolemia, IDDM and Hypothyroidism
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
Review of Systems
<Silke Diaz PA-C - Last Filed: 06/23/25 03:35>
Review of Systems
Allergies reviewed?: Yes
All Other Systems: ROS reviewed and negative except as documented in HPI and ROS
Phy Exam
<Silke Diaz PA-C - Last Filed: 06/23/25 03:35>
Physical Exam
Physical Exam:
Vitals: Hypertensive, otherwise vital signs stable. Afebrile
General: Patient is resting comfortably on initial evaluation.
Skin: Warm and dry, no rashes or lesions
Head: Normocephalic, atraumatic
Eyes: Sclera nonicteric. EOMs intact. No nystagmus.
Throat: Protecting airway
Neck: Normal ROM, no cervical spine tenderness, no meningismus
Cardiac: Regular rate and rhythm, no murmurs. Focal reproducible tenderness in the left lower sternal border.
Pulm: Normal respiratory effort. Lungs clear bilaterally.
Abdomen: Abdomen soft and nontender.
Extremities: No evidence of cyanosis or edema. 2+ palpable DP pulses bilaterally
Neuro: AAOx3. Grossly intact.
Psychiatric: Normal affect.
Scores
<Silke Diaz PA-C - Last Filed: 06/23/25 03:35>
Heart Score for Chest Pain Patients
STEMI patient?: Not applicable
Course
<Silke Diaz PA-C - Last Filed: 06/23/25 03:35>
Orders/Labs/Results
Orders:
Orders
06/22/25 13:52
Electrocardiogram (*1) Urgent
Reason for Study: Chest Pain
EKG- Treatment ONCE
06/22/25 13:55
Complete Blood Count/With Diff Urgent
Comprehensive Metabolic Panel Urgent
Troponin I Urgent
06/22/25 Dinner
1800 calorie (15 carb) Diabetic
At Your Request: Limited, Entertainer & Comic Required
06/22/25 17:29
Electrocardiogram (*1) Urgent
Reason for Study: Chest Pain
EKG- Treatment ONCE
CR Chest - 2 Views Urgent
Comment:
Reason For Exam: CP, SOB
06/22/25 18:01
D-Dimer Urgent
NT-proBNP Urgent
Troponin I Urgent
06/22/25 18:38
CT Chest PE Study Urgent
Comment:
Reason For Exam: chest pain, sob, elevated dimer
06/22/25 19:37
Acetaminophen [Tylenol] 650 mg PO NOW STA
HydrALAZINE [Apresoline] 50 mg PO NOW STA
06/22/25 20:22
Azithromycin 500 mg/250 ml [Zithromax Infusion] 500 mg in 250 ml IV NOW
CefTRIAXone [Rocephin] 2,000 mg IV NOW STA
06/22/25 20:37
Sterile Water [Sterile Water For Injection] 20 ml .ROUTE .[facility]-MED
06/22/25 20:49
Blood Culture Q30M
ERIN Source: Blood/Venous
Specimen Description:
06/22/25 21:15
Blood Culture Q30M
ERIN Source: Blood/Venous
Specimen Description:
06/22/25 21:29
Admit/Transfer Patient As Directed
Co-Sign Provider:
Level of Care: Inpatient admission
Assign to:: Medical/Surgical
Physician / Group: Nathaly
Diagnosis: Pneumonia
Reason for Hospitalization: Pneumonia w/ failure of outpatient antibiotics
Expected length of stay greater than two midnights?: Yes
ELOS- Estimated Length of Stay in days: 2
I certify the patient meets the requirements for IP care: Yes
PRN Pain Medication Management As Directed
May give lesser potent ordered pain med per pt: Yes
preference::
Protocol:: Medication orders for pain may be administered in a
manner that supports deferring to patient preference
when the pt is:
- Requesting an ordered lesser potent pain medication.
Least to most potent pain medications are defined
as: acetaminophen < NSAID < tramadol < opioids
(morphine, oxycodone, hydromorphone).
- Requesting a lesser dose of the same medication IF
ORDERED.
- Requesting a less intrusive route of administration
if both routes are prescribed by the provider (PO <
IV).
06/22/25 21:32
Code Status As Directed
Resuscitation Status: Full Code
06/22/25 21:46
Labetalol [Trandate] 200 mg PO NOW STA
06/22/25 23:43
Acetaminophen [Tylenol] 1,000 mg PO Q8HPRN PRN mild pain
Baclofen [Lioresal] 10 mg PO BIDPRN PRN Muscle spasms
Dextrose 50%-Water [Dextrose 50% Syringe] 12.5 grams IV [id number] PRN
Glucagon [GlucaGen] 1 mg IM PRN PRN
Guaifenesin/Dextromethorphan [Robitussin Dm] 5 ml PO Q4HPRN PRN
Ipratropium/Albuterol Sulfate [Duoneb] 3 ml INH R Q4HPRN PRN
Mag Hydrox/Al Hydrox/Simeth [Maalox] 15 ml PO QIDPRN PRN
Sennosides [Senokot] 8.6 mg PO BID PRN while on Oxycodone
Tramadol HCl [Ultram] 50 mg PO Q6HPRN PRN MODERATE PAINS
06/22/25 23:43
Legionella Urinary Antigen Routine
ERIN Source: Urine
Specimen Description:
Respiratory Culture/Gram Stain Urgent
ERIN Source: Sputum
Specimen Description:
Strep pneumoniae Antigen Routine
ERIN Source: Urine
Specimen Description:
Activity As Directed
Activity Level: Out of Bed-Early Mobility
Bedside Glucose Monitoring As Directed
Frequency: AC&HS
Additional Instructions:: Change to q6h if pt on TPN, tube feeding or not eating
Intake/ Output As Directed
Frequency: Per unit guidelines
Vital Signs As Directed
Frequency: Per unit guidelines
Weight As Directed
Frequency: Once
Comment: on admission
Pulse Ox/spot Check [RESP] Routine
Quantity: 1
Special Instructions: notify provider if SPO2 < 91%
DX Deep Vein Thrombosis Video Routine
06/23/25 06:00
Levothyroxine [Synthroid] 175 mcg PO DAILY @ 0600
06/23/25 06:31
Basic Metabolic Panel IN AM
Complete Blood Count/No Diff IN AM
Glycohemoglobin (HgbA1c) IN AM
06/23/25 07:30
Insulin Aspart Corrective Mod [Novolog Flexpen-Moderate Resistance] See Protocol SC AC
06/23/25 08:00
Aspirin Low Dose EC [Aspir Low (Enteric Coated)] 81 mg PO DAILY
HydrALAZINE [Apresoline] 50 mg PO BID
Insulin Glargine Lantus [Lantus] 30 units Subcutaneous Insulin Syringe [Syringe-Insulin] 0 unit SC DAILY
Labetalol [Trandate] 200 mg PO BID
Valsartan [Diovan] 160 mg PO BID
06/23/25 18:00
Atorvastatin [Lipitor] 80 mg PO QPM
Docusate Sodium [Colace] 200 mg PO QPM
Enoxaparin Sodium [Lovenox] 40 mg SC QPM
06/23/25 20:00
Azithromycin 500 mg/250 ml [Zithromax Infusion] 500 mg in 250 ml IV Q24H
CefTRIAXone [Rocephin] 2,000 mg IV Q24H
Abnormal Lab Results
06/22/25 06/22/25 06/22/25
13:55 18:01 18:22
RBC 4.17 L 10^6/uL
(4.70-6.10)
Hgb 12.8 L g/dL
(13.0-18.0)
MCHC 32.7 L g/dL
(33.0-37.0)
RDW 15.3 H %
(11.5-14.5)
Absolute Lymphs (auto) 0.5 L 10^3/uL
(1.2-3.4)
Neutrophils % 84.2 H %
(42.2-75.2)
Lymphocytes % 6.5 L %
(20.5-51.1)
D-Dimer 2.03 H ug/mlFEU
(0.00-0.50)
Glucose 246 H mg/dl
(70-99)
Total Protein 6.0 L g/dl
(6.3-8.2)
POC Glucose 160 H mg/dl
(70-99)
06/22/25 13:55
06/22/25 13:55
Vital Signs
Initial and Last Documented VS:
Initial Vital Signs
Temp Pulse Resp BP Pulse Ox
98 F 68 16 189/93 98
06/22/25 13:49 06/22/25 13:49 06/22/25 13:49 06/22/25 13:49 06/22/25 13:49
Last Documented Vital Signs
Temp Pulse Resp BP Pulse Ox
98.7 F 74 14 190/91 96
06/25/25 07:00 06/25/25 08:25 06/25/25 08:25 06/25/25 07:00 06/25/25 08:25
<Macrina Andersen MD - Last Filed: 06/25/25 13:25>
Orders/Labs/Results
Orders:
Orders
06/22/25 13:52
Electrocardiogram (*1) Urgent
Reason for Study: Chest Pain
EKG- Treatment ONCE
06/22/25 13:55
Complete Blood Count/With Diff Urgent
Comprehensive Metabolic Panel Urgent
Troponin I Urgent
06/22/25 Dinner
1800 calorie (15 carb) Diabetic
At Your Request: Limited, Entertainer & Comic Required
06/22/25 17:29
Electrocardiogram (*1) Urgent
Reason for Study: Chest Pain
EKG- Treatment ONCE
CR Chest - 2 Views Urgent
Comment:
Reason For Exam: CP, SOB
06/22/25 18:01
D-Dimer Urgent
NT-proBNP Urgent
Troponin I Urgent
06/22/25 18:38
CT Chest PE Study Urgent
Comment:
Reason For Exam: chest pain, sob, elevated dimer
06/22/25 19:37
Acetaminophen [Tylenol] 650 mg PO NOW STA
HydrALAZINE [Apresoline] 50 mg PO NOW STA
06/22/25 20:22
Azithromycin 500 mg/250 ml [Zithromax Infusion] 500 mg in 250 ml IV NOW
CefTRIAXone [Rocephin] 2,000 mg IV NOW STA
06/22/25 20:37
Sterile Water [Sterile Water For Injection] 20 ml .ROUTE .[facility]
06/22/25 20:49
Blood Culture Q30M
ERIN Source: Blood/Venous
Specimen Description:
06/22/25 21:15
Blood Culture Q30M
ERIN Source: Blood/Venous
Specimen Description:
06/22/25 21:29
Admit/Transfer Patient As Directed
Co-Sign Provider:
Level of Care: Inpatient admission
Assign to:: Medical/Surgical
Physician / Group: Nathaly
Diagnosis: Pneumonia
Reason for Hospitalization: Pneumonia w/ failure of outpatient antibiotics
Expected length of stay greater than two midnights?: Yes
ELOS- Estimated Length of Stay in days: 2
I certify the patient meets the requirements for IP care: Yes
PRN Pain Medication Management As Directed
May give lesser potent ordered pain med per pt: Yes
preference::
Protocol:: Medication orders for pain may be administered in a
manner that supports deferring to patient preference
when the pt is:
- Requesting an ordered lesser potent pain medication.
Least to most potent pain medications are defined
as: acetaminophen < NSAID < tramadol < opioids
(morphine, oxycodone, hydromorphone).
- Requesting a lesser dose of the same medication IF
ORDERED.
- Requesting a less intrusive route of administration
if both routes are prescribed by the provider (PO <
IV).
06/22/25 21:32
Code Status As Directed
Resuscitation Status: Full Code
06/22/25 21:46
Labetalol [Trandate] 200 mg PO NOW STA
06/22/25 23:43
Acetaminophen [Tylenol] 1,000 mg PO Q8HPRN PRN mild pain
Baclofen [Lioresal] 10 mg PO BIDPRN PRN Muscle spasms
Dextrose 50%-Water [Dextrose 50% Syringe] 12.5 grams IV [id number] PRN
Glucagon [GlucaGen] 1 mg IM PRN PRN
Guaifenesin/Dextromethorphan [Robitussin Dm] 5 ml PO Q4HPRN PRN
Ipratropium/Albuterol Sulfate [Duoneb] 3 ml INH R Q4HPRN PRN
Mag Hydrox/Al Hydrox/Simeth [Maalox] 15 ml PO QIDPRN PRN
Sennosides [Senokot] 8.6 mg PO BID PRN while on Oxycodone
Tramadol HCl [Ultram] 50 mg PO Q6HPRN PRN MODERATE PAINS
06/22/25 23:43
Legionella Urinary Antigen Routine
ERIN Source: Urine
Specimen Description:
Respiratory Culture/Gram Stain Urgent
ERIN Source: Sputum
Specimen Description:
Strep pneumoniae Antigen Routine
ERIN Source: Urine
Specimen Description:
Activity As Directed
Activity Level: Out of Bed-Early Mobility
Bedside Glucose Monitoring As Directed
Frequency: AC&HS
Additional Instructions:: Change to q6h if pt on TPN, tube feeding or not eating
Intake/ Output As Directed
Frequency: Per unit guidelines
Vital Signs As Directed
Frequency: Per unit guidelines
Weight As Directed
Frequency: Once
Comment: on admission
Pulse Ox/spot Check [RESP] Routine
Quantity: 1
Special Instructions: notify provider if SPO2 < 91%
DX Deep Vein Thrombosis Video Routine
06/23/25 06:00
Levothyroxine [Synthroid] 175 mcg PO DAILY @ 0600
06/23/25 06:31
Basic Metabolic Panel IN AM
Complete Blood Count/No Diff IN AM
Glycohemoglobin (HgbA1c) IN AM
06/23/25 07:30
Insulin Aspart Corrective Mod [Novolog Flexpen-Moderate Resistance] See Protocol SC AC
06/23/25 08:00
Aspirin Low Dose EC [Aspir Low (Enteric Coated)] 81 mg PO DAILY
HydrALAZINE [Apresoline] 50 mg PO BID
Insulin Glargine Lantus [Lantus] 30 units Subcutaneous Insulin Syringe [Syringe-Insulin] 0 unit SC DAILY
Labetalol [Trandate] 200 mg PO BID
Valsartan [Diovan] 160 mg PO BID
06/23/25 18:00
Atorvastatin [Lipitor] 80 mg PO QPM
Docusate Sodium [Colace] 200 mg PO QPM
Enoxaparin Sodium [Lovenox] 40 mg SC QPM
06/23/25 20:00
Azithromycin 500 mg/250 ml [Zithromax Infusion] 500 mg in 250 ml IV Q24H
CefTRIAXone [Rocephin] 2,000 mg IV Q24H
Abnormal Lab Results
06/22/25 06/22/25 06/22/25
13:55 18:01 18:22
RBC 4.17 L 10^6/uL
(4.70-6.10)
Hgb 12.8 L g/dL
(13.0-18.0)
MCHC 32.7 L g/dL
(33.0-37.0)
RDW 15.3 H %
(11.5-14.5)
Absolute Lymphs (auto) 0.5 L 10^3/uL
(1.2-3.4)
Neutrophils % 84.2 H %
(42.2-75.2)
Lymphocytes % 6.5 L %
(20.5-51.1)
D-Dimer 2.03 H ug/mlFEU
(0.00-0.50)
Glucose 246 H mg/dl
(70-99)
Total Protein 6.0 L g/dl
(6.3-8.2)
POC Glucose 160 H mg/dl
(70-99)
06/22/25 13:55
06/22/25 13:55
Vital Signs
Initial and Last Documented VS:
Initial Vital Signs
Temp Pulse Resp BP Pulse Ox
98 F 68 16 189/93 98
06/22/25 13:49 06/22/25 13:49 06/22/25 13:49 06/22/25 13:49 06/22/25 13:49
Last Documented Vital Signs
Temp Pulse Resp BP Pulse Ox
98.7 F 74 14 190/91 96
06/25/25 07:00 06/25/25 08:25 06/25/25 08:25 06/25/25 07:00 06/25/25 08:25
<Silke Diaz PA-C - Last Filed: 06/23/25 03:35>
MDM/Problems Addressed
Differential Diagnosis Includes:
Not limited to: Costochondritis, pleurisy, pneumonia, pulmonary embolism, acute coronary syndrome, CHF exacerbation, etc.
MDM/Problems Addressed:
75-year-old male presents with three days of atypical chest pain associated with worsening shortness of breath. He is currently on amoxicillin prescribed by his PCP for a presumed respiratory infection.
On arrival, patient is hypertensive but afebrile and not hypoxic. He appears comfortable and in no acute distress. Cardiopulmonary exam notable for reproducible tenderness over the left lower sternal border. No evidence of respiratory distress, and
no clinical findings suggestive of DVT.
Differential diagnosis is broad and includes pneumonia, bronchitis, musculoskeletal pain from coughing, pulmonary embolism, and less likely acute coronary syndrome. While symptoms somewhat atypical he does have multiple risk factor for coronary
disease.
Laboratory workup revealed no acute abnormalities. Serial troponins were negative, reducing concern for ACS. D-dimer was elevated, prompting a CT angiogram of the chest, which demonstrated large opacities in the right middle and right lower lobes
without evidence of pulmonary embolism.
Findings are most consistent with an infectious process; however, underlying malignancy remains on the differential given the appearance and extent of the opacities. Given patient�s comorbidities, incomplete response to outpatient antibiotics, and
imaging findings, admission for IV antibiotics and further workup is indicated.
Patient received IV Rocephin and Azithromycin in the ED. He remains hemodynamically stable and in no respiratory distress. No evidence of acute cardiac emergency. Case discussed and patient accepted by the hospitalist service for continued inpatient
management.
Chronic conditions affecting care:
Congestive heart failure, hypertension, insulin-dependent diabetes
Acute Exacerbation and/or Progression of Chronic Illness:
Acutely hypertensive, acutely hyperglycemic
<Silke Diaz PA-C - Last Filed: 06/23/25 03:35>
*Radiology
Radiology exam reviewed: radiology read reviewed
*Pulse Oximetry
SaO2: 98
Oxygen Mode of Delivery: Room air
Patient hypoxic: no
*EKG
Interpreted by ED Provider?: Yes
EKG Intrepretation Date: 06/22/25
Interpretation: abnormal
Comparison EKG: changes noted
Heart Rate: 75
Rate: normal
Rhythm: sinus
Kennan: normal axis
Interval: normal QT interval
QRS Pattern: left vent hypertrophy
Ischemia: non-specific ST changes
*Zig Zag Stitcher Interpretation
Rate: normal
Interpretation: normal
Heart Rate: 68
Rhythm: sinus
*Critical Care Note
Total Time (30-74mins, 75-104mins- exclusive of procedures): Not Applicable
<Silke Diaz PA-C - Last Filed: 06/23/25 03:35>
Patient Management
Discussion with other providers: Hospitalist
ED Attending Note
<Silke Diaz PA-C - Last Filed: 06/23/25 03:35>
-
Portions of this chart may have been created with voice recognition software.� Occasional wrong word or��sound alike� substitutions may have occurred due to the inherent limitations of voice recognition software.
<Macrina Andersen MD - Last Filed: 06/25/25 13:25>
ED Attending Note
Patient seen and examined by attending physician: Yes
I performed the substantive portion of visit, reviewed & personally made and approve the management plan that is documented in note by myself or LEYDA.: Yes
ED Attending Note:
75-year-old male who states he has had URI-like symptoms for about a week, treated with amoxicillin which he is compliant with and not getting any better. He describes feeling dyspneic particular with activity associated with a wet cough. He
denies fever, chills, nausea, vomiting, abdominal pain, back pain, neck pain. He says that his lungs 'hurt'. About 3 days ago he noted mild discomfort to the left lower anterior costal margin which then became more intense over the last 3 days and
now constant today. He was referred to the emergency department as a result. He did note that if he would 'turn a certain way' yesterday the pain would get better. He describes the pain as 'low level' currently. He denies other associated
symptoms here. Workup unremarkable for PE, ACS unlikely. However, CAT scan significant for consolidations and pleural effusion despite antibiotics, suspect consolidations likely infectious in origin and he obviously needs close follow-up regarding
once he improves. Referral to hospitalist for admission, IV antibiotics, continued surveillance and CT follow-up
Discharge Plan
Departure
Patient Disposition: Admit
Date of Disposition: 06/22/25
Time of Disposition: 20:23
Presentation/result/management discussed w/ accepting MD/DO: Hospitalist
Discharge Problem:
Pneumonia involving right lung, Chest pain
Interventions
Interventions:
*Risk Screen - Suicide Last Done: 06/22/25 13:49
*General Assessment Last Done: 06/22/25 18:04
*Neglect/Abuse Screening Last Done: 06/22/25 13:49
*ED- Fall Risk Assessment Last Done: 06/22/25 18:04
*ED COVID-19 Vaccine History Last Done: 06/22/25 18:04
*ED Influenza Vaccine History Last Done: 06/22/25 18:04
*Nursing Disposition Last Done: 06/22/25 23:30
ED- Cardiac Assessment Last Done: 06/22/25 19:51
Discharge Date and Time
Discharge Date/Time: 06/22/25 23:30
[2025-06-22 18:23] LABS: Glucose - Point of Care 160 mg/dl (70-99)
[2025-06-22 18:27] LABS: D-Dimer 2.03 ug/mlFEU (0.00-0.50)
[2025-06-22 18:40] LABS: Troponin I 0.025 ng/ml
[2025-06-22] MEDS: TYLENOL 650 MG PO (19:43)
[2025-06-22] MEDS: APRESOLINE 50 MG PO (19:45)
--- NOTE | 2025-06-22 20:33 | HPS.HSE ---
Family Physician
-
Family Physician: Neville Wise
Chief Complaint
-
Chest pain and cough
History of Present Illness
This is a 75-year-old male with past medical history significant for CKD, essential hypertension, chronic anemia, hyperlipidemia, COPD not on home O2, diabetes mellitus on insulin, Graves' disease, spinal stenosis, ALICIA, GERD, CHF with preserved EF
presenting to the emergency department with cough, chest pain and mild shortness of breath over the last 2 to 3 days.
Patient reported that he developed a cough syndrome about 1 week ago and was seen by PMD. He was started on amoxicillin at that time. Patient reports history of recurrent pneumonias in the past while he was in [place] as well as in [place].
Was admitted to the hospital with pneumonia over a year ago. He states his after taking amoxicillin about 1 week his symptoms have not changed. He reports intermittent productive cough. He reports mild shortness of breath worse over the last 2 to
3 days. He reports mild dyspnea on exertion as well. He particularly came to the emergency department due to chest pain. He says the pain is localized to the left upper chest but no radiating to the shoulders arms or neck. He denies any jaw
pain. Constant dull ache. Palpably tender on exam. He reported having numbness on his (yesterday which prompted him coming to the emergency department. He denies night sweats. He denies having fevers or chills.
In the emergency department patient was afebrile, he is satting 94% on room air. Blood pressure was 184/98 with a pulse rate of 75 and respirate rate of 16. ECG shows a normal sinus rhythm at rate of 69 and unchanged from prior. Troponin was
negative. BNP was 1900.
CBC is completely unremarkable. Electrolytes BUN and creatinine were in the normal range with a glucose of 246.
Chest x-ray shows right basilar opacity which could represent atelectasis and/or pneumonia and a small right pleural effusion. The CT scan with PE protocol was negative for pulmonary embolism. He did show a large dense consolidation with air
bronchograms programs in the right lower lobe with somewhat rounded appearance and increased from prior study. There is also a small right middle lobe consolidation with air bronchograms.
Medical History
Past Medical History
Past Medical History: Reports COPD, GERD, HTN, Hypothyroidism and IDDM
Additional Past Medical History:
H/O Graves Disease
Past Surgical History: Reports Orthopedic
Additional Past Surgical History:
Appendectomy
Amputation of right second toe
Inguinal and inguinal hernia repair
Social History
Tobacco: Former Smoker
Alcohol: None
Drug: None
Personal:
Living: With Family
Family History
Family History: Not pertinent
Allergies / Home Medications
Allergies reflects when Allergies were last updated in [facility].
Home Medications with original date entered in [facility]
Allergy/Medication List:
Allergies
Allergy/AdvReac Type Severity Reaction Status Date / Time
No Known Allergies Allergy Verified 05/07/24 14:56
Home Medications
aspirin 81 mg tablet,delayed release 81 mg PO DAILY Blood clot prevention/tx ##0 01/17/23
baclofen 10 mg tablet 10 mg PO BIDPRN PRN Muscle spasms ##0 01/17/23
docusate sodium 100 mg capsule (Colace) 200 mg PO QPM Constipation ##0 01/17/23
pantoprazole 40 mg tablet,delayed release 40 mg PO DAILY Gastrointestinal Issue ##0 01/17/23
naproxen 500 mg tablet 500 mg PO BIDPRN PRN mild pain 11/16/23
paroxetine HCl 40 mg tablet 40 mg PO DAILY Mental Health/Anxiety 11/16/23
atorvastatin 80 mg tablet 80 mg PO QPM #0 tabs 11/23/23
dextroamphetamine-amphetamine ER 15 mg 24hr capsule,extend release 15 mg PO DAILY #3 caps 11/29/23
acetaminophen 325 mg tablet (Tylenol) 325 mg PO TIDPRN PRN MILD PAIN 02/17/24
levothyroxine 175 mcg tablet (Synthroid) 175 mcg PO DAILY Thyroid 02/17/24
magnesium oxide 500 mg PO HS Supplement 02/17/24
melatonin 3 mg tablet 3 mg PO HS Sleep 02/17/24
tramadol 50 mg tablet 50 mg PO Q6HPRN PRN MODERATE PAINS 02/17/24
umeclidinium 62.5 mcg-vilanterol 25 mcg/actuation powdr for inhalation (Anoro Ellipta) 1 inh inhalation R DAILY Lung/Breathing Issues 02/17/24
valsartan 160 mg tablet 160 mg PO BID Blood Pressure 02/17/24
vitamin B complex 1 tab PO HS Supplement 02/17/24
furosemide 40 mg tablet 40 mg PO DAILY Heart Failure #30 tabs 02/24/24
hydrocortisone 1 % topical ointment 1 applic topical BID #453.6 grams 02/24/24
insulin aspart U-100 100 unit/mL (3 mL) subcutaneous pen (Novolog FlexPen U-100 Insulin aspart) 2 unit (0.02 mL) SC MEALS Diabetes #0 mL 02/24/24
insulin degludec 100 unit/mL (3 mL) subcutaneous pen (Tresiba FlexTouch U-100 insulin) 30 unit (0.3 mL) SC DAILY Diabetes #0 mL 02/24/24
labetalol 200 mg tablet 300 mg (1.5 x 200 mg) PO BID Blood pressure #90 tabs 02/24/24
Review of Systems
-
A 12 point ROS was completed and negative except as noted: Yes
Constitutional: Reports No Symptoms
EENT: Reports No Symptoms
Respiratory: Reports Cough
Cardiac: Reports Chest Pain
Abdomen/GI: Reports No Symptoms
: Reports No Symptoms
Musculoskeletal: Reports See HPI
Skin: Reports No Symptoms
Neurological: Reports No Symptoms
Endocrine: Reports No Symptoms
Hematologic/Lymphatic: Reports No Symptoms
Psych: Reports No Symptoms
Physical Exam
Vital Signs
Vital Signs
Temp Pulse Resp BP Pulse Ox
98 F 75 16 194/93 97
06/22/25 13:49 06/22/25 19:42 06/22/25 19:42 06/22/25 20:00 06/22/25 20:13
Physical Exam
General: Obese; No Respiratory Distress
HEENT: NormoCephalic, Anicteric, Moist mucous membranes and Atraumatic
Respiratory: Clear, Non Labored Respirations and Decreased Breath Sounds; No Wheezes, Rales, Rhonchi, Crackles or Accessory Resp Muscle Use
Cardiac: S1/S2 and Regular Rhythm; No Murmur, Rub, Gallop or Peripheral Edema
GI: Soft, Non Tender, Normal Bowel Sounds and Other (abdominal hernia)
Rectal: Deferred by Provider
Genito-urinary: Deferred by me
Musculoskeletal: No Clubbing, No Cyanosis and No Edema
Skin: Warm and Dry; No Rash
Neuro: AO x 3, No Motor Deficits, Nonfocal/grossly intact, Cranial Nerves Intact, No Sensory Deficits and DTR's Intact & Symmetrical
Psych: Calm
Laboratory Results
-
06/22/25 13:55
06/22/25 13:55
Laboratory Results
Total Bilirubin 0.6 mg/dl (0.2-1.3) 06/22/25 13:55
AST 20 U/L (17-59) 06/22/25 13:55
ALT 25 U/L (0-50) 06/22/25 13:55
Alkaline Phosphatase 103 U/L (38-126) 06/22/25 13:55
Troponin I 0.025 ng/ml D 06/22/25 18:01
Data Reviewed
-
Diagnostic Radiology: Report Reviewed by me
CT Scan: Report Reviewed by me
Medical Tests (Nuc Med, Echo, EKG etc): Image Personally Visualized and interpreted
Lab Data: Labs Reviewed by me
Old Records: Reviewed
Impression/Plan
-
IMPRESSION:
75-year-old with past medical history is not significant for insulin-dependent diabetes, hypertension, hyperlipidemia, CHF with preserved EF, COPD not on home O2, history of pneumonias in the past presents to the emergency department with chest pain
in the setting of 1 week of cough and some mild shortness of breath. In the emergency department he had stable vital signs and did not need oxygen however he was found to have elevated D-dimer which resulted in a CT PE study that was negative for
PE. ECG shows no ischemia and his troponin is negative. His BNP is moderately elevated. He has no signs of volume overload however his CT scan and x-ray shows right lower lobe dense consolidation consistent with pneumonia versus mass.
PLAN:
1. Right lower lobe pneumonia -bronchopneumonia with possible postobstructive component, however patient currently minimally symptomatic. Has been on amoxicillin for about 1 week. Has a history of pneumonia and effusion in the same area that
eventually grew Streptococcus pneumoniae. No malignant cells.
- Admit to MedSurg
- Agree with IV ceftriaxone and azithromycin
- Sputum culture
- Check Legionella and streptococcal antigens
- blood cultures sent
- Given degree of consolidation and lack of correlation with symptoms concerning for possible mass, pulmonary consultation
- Continue supportive measures with incentive spirometer and antitussives
- No wheezing, increased work of breathing to suggest COPD exacerbation at this time, no indication for systemic steroids
- For baseline COPD continue Anoro Ellipta and as needed nebs
2. CHF -patient with history of CHF with preserved EF. He stopped taking his diuretics a while ago. He is without total body overload despite elevated BNP. Likely has uncontrolled blood pressure due to some volume retention
- No indication for aggressive diuresis at this time, BP control
- Continue labetalol 200 mg twice daily
� Continue hydralazine 25 mg twice daily
- Continue valsartan 160 twice daily
� Daily weights
3. Chest pain - MSK likely due to cough. ECG, neg, trop neg. CT PE no evidence of PE.
- pain control
- cough control
- treat pna
3. DM II - on tresiba 40 am with sliding scale
-Basal bolus insulin as per home regimen, lantus 30 units am and sliding scale
4. Hypothyroid�stable
� Continue Synthroid 175
5. CVA- h/o carotid stenosis
- continue aspirin, statin plavix
DVT prophylaxis�Lovenox subcu
CODE STATUS�full code
[2025-06-22] MEDS: ROCEPHIN 2000 MG IV (21:16)
[2025-06-22] MEDS: ZITHROMAX INFUSION 250 IV (21:22)
--- NOTE | 2025-06-22 21:51 | EDRN ---
Called pharmacy for labetalol PO
[2025-06-22] MEDS: TRANDATE 200 MG PO (22:36)
[2025-06-23 00:18] VITALS: BMI 31.7
[2025-06-23 00:29] LABS: Glucose - Point of Care 171 mg/dl (70-99)
[2025-06-23] MEDS: TYLENOL 1000 MG PO ×2 (00:49→23:41)
[2025-06-23] MEDS: ULTRAM 50 MG PO ×2 (01:52→18:08)
[2025-06-23] MEDS: SYNTHROID 175 MCG PO (05:48)
[2025-06-23 06:00] VITALS: BMI 31.3
[2025-06-23 07:46] VITALS: BP 174/75
[2025-06-23 07:59] LABS: Glucose - Point of Care 169 mg/dl (70-99)
[2025-06-23] MEDS: STRIVERDI RESPIMAT 2 PUFF INH (08:07)
[2025-06-23] MEDS: SPIRIVA RESPIMAT 2.5 MCG 2 PUFF INH (08:07)
[2025-06-23] MEDS: DIOVAN 160 MG PO ×2 (08:43→20:00)
[2025-06-23] MEDS: NOVOLOG FLEXPEN-MODERATE RESISTANCE 1 UNITS SC ×2 (08:43→18:08)
[2025-06-23] MEDS: ASPIR LOW (ENTERIC COATED) 81 MG PO (08:44)
[2025-06-23] MEDS: TRANDATE 200 MG PO ×2 (08:44→19:58)
[2025-06-23] MEDS: LANTUS 0.3 UNITS SC (08:44)
[2025-06-23] MEDS: APRESOLINE 50 MG PO (08:44)
[2025-06-23 08:59] LABS: Hematocrit 36.9 % (39.0-52.0); Hemoglobin 12.3 g/dL (13.0-18.0); Mean Corp Hgb Conc. 33.3 g/dL (33.0-37.0); Mean Corpuscular Volume 89.8 fL (80.0-94.0); Platelet Count 143 10^3/uL (130-400); Red Cell Dist. Width 15.2 % (11.5-14.5)
[2025-06-23 09:26] LABS: Blood Urea Nitrogen 18 mg/dl (9-20); Calcium 8.4 mg/dl (8.4-10.2); Carbon Dioxide 23 mmol/L (22-30); Chloride 108 mmol/L (98-107); Estimated Creatinine Clearance 69 ml/min; Glucose 165 mg/dl (70-99); Potassium 3.4 mmol/L (3.5-5.1); Sodium 141 mmol/L (135-145); eGFR > 60.00
[2025-06-23 10:14] LABS: Glycohemoglobin (HgbA1c) 8.3 % (4.0-5.9)
[2025-06-23 11:11] VITALS: BP 152/61
[2025-06-23 11:21] LABS: Glucose - Point of Care 279 mg/dl (70-99)
--- NOTE | 2025-06-23 12:05 | W.PN.HOSP.TC ---
Today's Communication/Plan
-
IV abx for now
pulm input
Monitor BP
Assessment / Plan
Assessment / Plan
General: Obese; No Respiratory Distress
HEENT: NormoCephalic, Anicteric, Moist mucous membranes and Atraumatic
Respiratory: Clear, Non Labored Respirations and Decreased Breath Sounds; No Wheezes, Rales, Rhonchi, Crackles or Accessory Resp Muscle Use
Cardiac: S1/S2 and Regular Rhythm; No Murmur, Rub, Gallop or Peripheral Edema
GI: Soft, Non Tender, Normal Bowel Sounds and Other (abdominal hernia)
Rectal: Deferred by Provider
Genito-urinary: Deferred by me
Musculoskeletal: No Clubbing, No Cyanosis and No Edema
Skin: Warm and Dry; No Rash
Neuro: AO x 3, No Motor Deficits, Nonfocal/grossly intact, Cranial Nerves Intact, No Sensory Deficits and DTR's Intact & Symmetrical
Psych: Calm
75-year-old with past medical history is not significant for insulin-dependent diabetes, hypertension, hyperlipidemia, CHF with preserved EF, COPD not on home O2, history of pneumonias in the past presents to the emergency department with chest pain
in the setting of 1 week of cough and some mild shortness of breath. In the emergency department he had stable vital signs and did not need oxygen however he was found to have elevated D-dimer which resulted in a CT PE study that was negative for
PE. ECG shows no ischemia and his troponin is negative. His BNP is moderately elevated. He has no signs of volume overload however his CT scan and x-ray shows right lower lobe dense consolidation consistent with pneumonia versus mass.
PLAN:
#Right lower lobe pneumonia -bronchopneumonia with possible postobstructive component, however patient currently minimally symptomatic. Has been on amoxicillin for about 1 week. Has a history of pneumonia and effusion in the same area that
eventually grew Streptococcus pneumoniae. No malignant cells.
#Hx of tobacco abuse-quit . Used to smoke 1PPD for many years
- Agree with IV ceftriaxone and azithromycin
- Sputum culture pending
- Legionella and streptococcal antigens-negative.
- blood cultures sent
- Given degree of consolidation and lack of correlation with symptoms concerning for possible mass, pulmonary consultation
- Continue supportive measures with incentive spirometer and antitussives
- For baseline COPD continue Anoro Ellipta and as needed nebs
#CHF -patient with history of CHF with preserved EF.
#Primary Hypertension
- No indication for aggressive diuresis at this time, BP control
- Continue labetalol 200 mg twice daily
� Continue hydralazine 25 mg twice daily
- Continue valsartan 160 twice daily
� Daily weights. BP improving.
#Chest pain - MSK likely due to cough. ECG, neg, trop neg. CT PE no evidence of PE.
- pain control
- cough control
- treat pna
#DM II - on tresiba 40 am with sliding scale
-Basal bolus insulin as per home regimen, lantus 30 units am and sliding scale
-A1C 8.3
#Hypothyroidism with history of complete thyroidectomy
� Continue Synthroid 175
#CVA- h/o carotid stenosis
- continue aspirin, statin plavix
DVT prophylaxis�Lovenox subcu
CODE STATUS�full code
Anticipated Discharge: > 48 hours
Subjective/Interval History
-
Date of Service: June 23, 2025
states remains with sob
no productive cough
on room air
Objective Data
-
Labs:
Laboratory Results
06/23/25
06:31
WBC 7.4
Hgb 12.3 L
Hct 36.9 L
Plt Count 143
Sodium 141
Potassium 3.4 L
Chloride 108 H
Carbon Dioxide 23
BUN 18
Creatinine 1.1
Glucose 165 H
Calcium 8.4
Vital Signs:
Vital Signs
Temp Pulse Resp BP Pulse Ox
97.7 F 78 18 152/61 96
06/23/25 11:11 06/23/25 11:11 06/23/25 11:11 06/23/25 11:11 06/23/25 11:11
I&O
06/22/25 06/23/25 06/24/25
06:59 06:59 06:59
Intake Total 750 / 750 390 / 390
Output Total 1270 / 1270 600 / 600
Balance -520 / -520 -210 / -210
Data Reviewed
-
Total Time Spent with Patient (in minutes): 55
[2025-06-23] MEDS: NOVOLOG FLEXPEN-MODERATE RESISTANCE 5 UNITS SC (12:21)
--- NOTE | 2025-06-23 14:56 | PHANOTE ---
med rec note- nurse reach out to me for help on med rec for patient was admitted last night, he does not know medication by memory, his home med list is at home but his cannot decipher it/it's missing dosages. As pee Plavix was stopped
about 1 week ago, they can not remember why and no ecw to help
--- NOTE | 2025-06-23 15:22 | CON.PUL ---
Consultation
Consultation Request
Date/Time Consultation Requested: 06/22/20252342
Date/Time Consultation Performed: 06/23/2025 - 1140
Requesting Provider: Dr. Andersen
Performing Provider: Dr. Dia
Reason for Consultation: Recurrent pneumonia
Medical History
-
Chief Complaint: Chest pain
History of Present Illness:
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
thyroid replacement therapy, history of pneumonia, occupational asbestos exposure, hypertension, DM type II, hyperlipidemia and urinary incontinence who presents with chest discomfort for 2-3 days with left arm numbness. He developed a cough about
1 week prior to arrival, and was seen by PCP who started amoxicillin. He reports history of pneumonia in the past while living in [place] as well as here in [place]. He reports continued cough, SOB and chest discomfort despite recent antibiotics.
Cough is intermittent. Chest pain is still there but not radiating to his shoulders, arms or neck. Denies night sweats, fevers or chills. In the ER, he was afebrile, hypertensive to 189/93, saturating 98% on room air, pulse rate 68 and
breathing is 16 breaths/min. Labs pertinent for normal WBC at 6.9, Hb 12.8, glucose 246, and proBNP 1910. Imaging shows concern for right lower lobe pneumonia with possible postobstructive component. He was admitted to the hospitalist service,
started on antibiotics with cultures ordered/obtained. Pulmonary service now consulted for additional management/recommendations.
PMHx: Chronic HFpEF, history of bilateral pleural effusions requiring prior right-sided thoracentesis (January 2024), history of COPD, chronic anemia, hypertension, DM type II, history of Graves' disease s/p radioactive iodine treatment (1983) now on
thyroid hormone replacement, spinal stenosis, ALICIA intolerant to CPAP, GERD, history of asbestos exposure
PSHx: Appendectomy, right second toe amputation, inguinal hernia repair
Past Medical History
Past Medical History: Other (Above as per HPI)
Past Surgical History: Other (Above as per HPI)
Social History
Tobacco: Former Smoker
Alcohol: None
Drug: None
Personal:
Living: With Family
Family History
Family History: Reviewed & Not Pertinent
Allergies / Home Medications
Allergies
Allergy/AdvReac Type Severity Reaction Status Date / Time
No Known Allergies Allergy Verified 06/22/25 13:48
Home Medications
�Medication �Instructions �Recorded �Confirmed �Last Taken �Type
aspirin 81 mg tablet,delayed 81 mg PO DAILY Blood clot 01/17/23 06/22/25 05/06/24 History
release prevention/tx ##0
baclofen 10 mg tablet 5 mg PO PRN Muscle spasms ##0 01/17/23 05/07/24 02/08/24 History
docusate sodium 100 mg capsule 200 mg PO QPM Constipation ##0 01/17/23 06/22/25 05/06/24 History
(Colace)
pantoprazole 40 mg tablet,delayed 40 mg PO DAILY Gastrointestinal 01/17/23 05/07/24 05/06/24 History
release Issue ##0
paroxetine HCl 40 mg tablet 40 mg PO DAILY Mental 11/16/23 05/07/24 05/06/24 History
Health/Anxiety
levothyroxine 175 mcg tablet 175 mcg PO DAILY Thyroid 02/17/24 05/07/24 05/06/24 History
(Synthroid)
magnesium oxide 500 mg PO HS Supplement 02/17/24 05/07/24 05/06/24 History
melatonin 3 mg tablet 20 mg PO HS Sleep 02/17/24 05/07/24 05/06/24 History
tramadol 50 mg tablet 50 mg PO Q6HPRN PRN MODERATE PAINS 02/17/24 06/22/25 05/07/24 History
umeclidinium 62.5 mcg-vilanterol 1 inh inhalation R DAILY 02/17/24 06/22/25 05/06/24 History
25 mcg/actuation powdr for Lung/Breathing Issues
inhalation (Anoro Ellipta)
valsartan 160 mg tablet 160 mg PO BID Blood Pressure 02/17/24 05/07/24 05/06/24 History
vitamin B complex 1 tab PO HS Supplement 02/17/24 05/07/24 05/06/24 History
hydralazine 25 mg tablet 25 mg PO BIDWMEAL Blood Pressure 05/07/24 06/23/25 05/07/24 History
insulin aspart U-100 100 unit/mL SC MEALS Diabetes 05/07/24 05/07/24 05/06/24 History
(3 mL) subcutaneous pen (Novolog
FlexPen U-100 Insulin aspart)
acetaminophen 500 mg tablet 1,000 mg (2 x 500 mg) PO Q8HPRN 05/11/24 06/22/25 Unknown Rx
(Tylenol Extra Strength) PRN mild pain #30 tabs
atorvastatin 80 mg tablet 80 mg PO QPM High cholesterol #0 05/11/24 06/22/25 05/06/24 Rx
tabs
insulin degludec 100 unit/mL (3 45 unit (0.45 mL) SC DAILY 05/11/24 05/07/24 05/06/24 Rx
mL) subcutaneous pen (Tresiba Diabetes #0 mL
FlexTouch U-100 insulin)
labetalol 200 mg tablet 200 mg PO BID 30 days #60 tabs 05/11/24 06/22/25 Unknown Rx
lidocaine 4 % topical patch 1 patch topical DAILY Pain #30 ea 05/11/24 Unknown Rx
oxycodone 5 mg capsule 5 mg PO BID PRN moderate pain #20 05/11/24 Unknown Rx
caps
prednisone 10 mg tablet 10 mg PO DIRECTED #20 tabs 05/11/24 Unknown Rx
sennosides 8.6 mg capsule (senna) 8.6 mg PO BID PRN while on 05/11/24 06/22/25 Unknown Rx
Oxycodone #30 caps
Hydralazide 100 mg PO DAILY 06/23/25 06/23/25 Unknown History
Review of Systems
-
History Source: Patient
All other systems: Negative unless noted
Vitals / Labs / Diagnostic Testing
Vital Signs
Temp Pulse Resp BP Pulse Ox
97.4 F 94 16 174/75 98
06/23/25 07:46 06/23/25 08:08 06/23/25 08:08 06/23/25 07:46 06/23/25 08:08
Lab Data
06/23/25 06:31
06/23/25 06:31
Microbiology
06/23/25 01:50 Urine Legionella Urinary Antigen - Final
Negative for Legionella pneumophila Serogroup 1 antigen.
A negative result does not rule out the possiblity of
Legionella infection due to other serogroups or species of
Legionella. Clinical correlation is recommended.
06/23/25 01:50 Urine Streptococcus pneumoniae Antigen (M - Final
Negative for Streptococcus pneumoniae antigen.
A negative result does not exclude infection with
Streptococcus pneumoniae. Clinical correlation is
recommended.
Diagnostic Testing:
Physical Exam
-
HEENT: Normocephalic and Anicteric
Cardiovascular: S1/S2 and Peripheral Edema (negative)
Respiratory: Wheeze (negative), Rales (right base), Rhonchi (negative) and Non-Labored Respirations
GI: Soft, Non Distended, Non Tender and Normal Bowel Sounds
Neurology: Tremors (negative) and Other (sleepy)
Skin: Warm and Dry
General: Respiratory Distress (negative), Comfortable, Chills (negative) and Sweats (negative)
Assessment
-
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
iodine now on thyroid replacement therapy, history of pneumonia, occupational asbestos exposure, hypertension, DM type II, hyperlipidemia and urinary incontinence who presents with chest discomfort for 2-3 days with left arm numbness. He developed
a cough about 1 week prior to arrival, and was seen by PCP who started amoxicillin. He reports history of pneumonia in the past while living in [place] as well as here in [place]. He reports continued cough, SOB and chest discomfort despite recent
antibiotics. Cough is intermittent. Chest pain is still there but not radiating to his shoulders, arms or neck. Denies night sweats, fevers or chills. In the ER, he was afebrile, hypertensive to 189/93, saturating 98% on room air, pulse rate
68 and breathing is 16 breaths/min. Labs pertinent for normal WBC at 6.9, Hb 12.8, glucose 246, and proBNP 1910. Imaging shows concern for right lower lobe pneumonia with possible postobstructive component. He was admitted to the hospitalist
service, started on antibiotics with cultures ordered/obtained. Pulmonary service now consulted for additional management/recommendations.
Chronic conditions WICK TENDER: Chronic HFpEF, history of bilateral pleural effusions requiring prior right-sided thoracentesis (January 2024), history of COPD, chronic anemia, hypertension, DM type II, history of Graves' disease s/p radioactive iodine
treatment (1983) now on thyroid hormone replacement, spinal stenosis, ALICIA intolerant to CPAP, GERD, history of asbestos exposure
Impression:
#Multifocal PNA involving RLL/RML with possible post-obstructive component
#History of recent pneumonia s/p ABx with amoxicillin
#History of Streptococcus pneumoniae bacteremia (October 2023)
#Chronic HFpEF (elevated proBNP at 1910; previously 756 on 02/23/2024)
#Chronic anemia
#DM type II (uncontrolled with HbA1c: 8.3 on 06/23/2025)
#Spinal stenosis
#ALICIA intolerant to CPAP
#GERD
#History of spastic smoker
#Nonobstructive CAD
#Mild right apical paraseptal emphysema
Plan:
- CTA chest from 06/22/2025 shows consolidative opacities in the right lower lobe + right middle lobe. No obvious intra-alveolar obstruction however the right lower lobe posterior segmental bronchus appears to collapse more inferiorly - aspiration
is high on differential in addition to mucous plugging and malignancy
- Patient has had a similar consolidative opacity in December 2023, although at that time he had worse bilateral pleural effusions.
- He also had positive strep pneumonia urine antigen + strep pneumonia bacteremia from 11/16/2023, with CXR at the time showing a suspected right middle lobe pneumonia plus retrocardiac opacity, with radiologist reporting moderate left lower lobe
pneumonia
- He has never had a positive sputum Cx on file here at , nor has he undergone a bronchoscopy before
- He is now coming in with chest pain for 2-3 days, left arm numbness and a cough that started about 1 week ago. It is difficult to say if his prior pneumonia from last year has resolved as the last imaging we have was from January 2024, and at that
time he had bilateral opacities/ground glass with what appeared to be evidence of volume overload and possible bibasilar pneumonia.
- For now would continue treatment with ceftriaxone/Zithromax
- Follow-up blood cultures collected on 06/22/2025; also collect sputum culture if a decent sample can be obtained; urine antigens for Legionella + strep pneumonia both negative
- Would repeat imaging in 4 to [address] chest, and if the right lower lobe/RML abnormalities persist with concern for postobstructive atelectasis/pneumonia, then he really should have a bronchoscopy for airway survey and BAL
- Given concern for aspiration as cause of his R-sided PNA, recommend CIRCUIT TESTER evaluation
- Continue aspiration precautions; keep HOB >30-45�
- Maintain SpO2 >90-94% with supplemental O2 as needed
- prn nebulized bronchodilators - not currently bronchospastic
- Incentive spirometer encouraged q1hr while awake
- Replete electrolytes with K>4, Mg>2
- Trend H/H and transfuse if needed to keep Hb>7g/dL; keep plt>20k, unless there is concern for bleeding then keep plt>50k
- Maintain euglycemia with goal BG >100 and <180
- DVT ppx
Pulmonary service will continue to follow along.
Data:
CTA Chest 06/22/2025:
No findings to suggest central pulmonary embolism.
Large dense consolidation with air bronchograms in the right lower lobe, somewhat rounded in appearance, increased from prior study. Smaller right middle lobe consolidation with air bronchograms.. Small right pleural effusion, decreased from prior
study. RECOMMEND SHORT-TERM FOLLOW-UP CHEST CT TO CONFIRM RESOLUTION OF RIGHT LUNG CONSOLIDATIONS, malignancy cannot be entirely excluded, particularly right lower lobe.
(Patient was seen and evaluated on 06/23/2025). Total time spent today was 58 minutes for this encounter. Time includes reviewing laboratory test/imaging results, reviewing pertinent medical records, obtaining and reviewing medical history,
performing an appropriate exam, ordering medications, tests and procedures. Time also includes documentation of this encounter, coordinating patient care and communicating with other healthcare professionals. Total time does not include separately
billed tests performed on this date of service.
[2025-06-23 15:34] VITALS: BP 200/105
--- NOTE | 2025-06-23 15:36 | PTCARENOTE ---
hypertensive, BP 200/105. Dr. Fairchild made aware, ordered Norvasc. awaiting pharmacy to verify medication.
[2025-06-23] MEDS: NORVASC 5 MG PO (15:41)
[2025-06-23 16:45] VITALS: BP 186/99
[2025-06-23 17:06] LABS: Glucose - Point of Care 196 mg/dl (70-99)
[2025-06-23 18:05] VITALS: BP 182/94
[2025-06-23] MEDS: LOVENOX 40 MG SC (18:08)
[2025-06-23] MEDS: APRESOLINE 10 MG IV (18:09)
[2025-06-23] MEDS: LIPITOR 80 MG PO (18:09)
[2025-06-23] MEDS: COLACE 200 MG PO (18:09)
--- NOTE | 2025-06-23 18:18 | PTCARENOTE ---
BP slowly downtrending but still remains hypertensive, 182/94. PRN hydralazine given, see MAR. Also complaining of positional back pain. Given tramadol.
[2025-06-23] MEDS: ZITHROMAX INFUSION 250 IV (20:08)
[2025-06-23] MEDS: STERILE WATER FOR INJECTION 20 ML IV (20:12)
[2025-06-23] MEDS: ROCEPHIN 2000 MG IV (20:12)
[2025-06-23 21:20] LABS: Glucose - Point of Care 226 mg/dl (70-99)
[2025-06-23 23:04] VITALS: BP 140/71
[2025-06-23] MEDS: XALATAN OPHTHALMIC SOLUTION 1 DROP OPHTH (23:40)
[2025-06-24] MEDS: ULTRAM 50 MG PO ×2 (02:47→20:14)
[2025-06-24] MEDS: SYNTHROID 175 MCG PO (05:34)
[2025-06-24 06:00] VITALS: BMI 30.8
[2025-06-24 07:04] VITALS: BP 189/91
[2025-06-24 07:44] LABS: Glucose - Point of Care 163 mg/dl (70-99)
[2025-06-24] MEDS: ASPIR LOW (ENTERIC COATED) 81 MG PO (07:53)
[2025-06-24] MEDS: NORVASC 5 MG PO (07:53)
[2025-06-24] MEDS: TYLENOL 1000 MG PO ×2 (07:53→20:13)
[2025-06-24] MEDS: LIORESAL 10 MG PO (07:53)
[2025-06-24] MEDS: DIOVAN 160 MG PO ×2 (07:53→20:15)
[2025-06-24] MEDS: PROTONIX 40 MG PO (07:53)
[2025-06-24] MEDS: TRANDATE 200 MG PO ×2 (07:53→20:14)
[2025-06-24] MEDS: LANTUS 0.3 UNITS SC (07:54)
[2025-06-24 07:59] LABS: Hematocrit 38.8 % (39.0-52.0); Hemoglobin 13.1 g/dL (13.0-18.0); Mean Corp Hgb Conc. 33.8 g/dL (33.0-37.0); Mean Corpuscular Volume 90.4 fL (80.0-94.0); Nucleated Red Blood Cells % 0 % (-); Platelet Count 152 10^3/uL (130-400); Red Cell Dist. Width 14.9 % (11.5-14.5)
[2025-06-24] MEDS: SPIRIVA RESPIMAT 2.5 MCG 2 PUFF INH (08:07)
[2025-06-24] MEDS: STRIVERDI RESPIMAT 2 PUFF INH (08:07)
[2025-06-24] MEDS: NITROSTAT (SUBLINGUAL) 0.4 MG SL ×2 (08:08→08:33)
[2025-06-24] MEDS: NOVOLOG FLEXPEN-MODERATE RESISTANCE 1 UNITS SC ×2 (08:13→17:15)
[2025-06-24 08:15] LABS: Blood Urea Nitrogen 18 mg/dl (9-20); Calcium 8.9 mg/dl (8.4-10.2); Carbon Dioxide 24 mmol/L (22-30); Chloride 110 mmol/L (98-107); Estimated Creatinine Clearance 69 ml/min; Glucose 152 mg/dl (70-99); Potassium 3.2 mmol/L (3.5-5.1); Sodium 138 mmol/L (135-145); eGFR > 60.00
--- NOTE | 2025-06-24 08:15 | PTCARENOTE ---
Complains of 5/10 'squeezing chest pain' on the left. Does not appear to be in acute distress but EKG obained, sent to Dr. Fairchild. BP elevated, treated w/ scheduled AM antihypertensives. Order received for SL NTG, given, and troponins, drawn.
Patient reports some relief of pain approx 5 minutes post NTG administration, now rates pain 3/10, but also notes 'the pain is better in this(right sided lying) position.' Patient cannot definitively say if pain is position dependent or not.
[2025-06-24 08:32] VITALS: BP 118/84
--- NOTE | 2025-06-24 08:47 | PTCARENOTE ---
Patient yelling out for help, this RN into assess, complaining of severe pain unable to rate, in L chest and radiating down, complaining of feeling sweaty and 'hot flash.' 2nd SL NTG given, approx 5 mins post administration, reports pain is 1/10.
Dr. Fairchild aware.
[2025-06-24 09:14] LABS: Troponin I 0.021 ng/ml
--- NOTE | 2025-06-24 09:33 | PTCARENOTE ---
After approximately 5 minutes of KCl infusion, patient adamantly refusing infusion due to burning reporting 'I refuse and I know my patient rights!' Patient agreeable to taking potassium in tablet form, Dr. Fairchild aware, and changed order.
[2025-06-24] MEDS: KCL 40 MEQ PO (10:40)
--- NOTE | 2025-06-24 11:20 | W.PN.HOSP.TC ---
Today's Communication/Plan
-
Trend troponin
Pulmonary toilet
Continue with inhalers
Monitor POC
Monitor blood pressure
Continue with antibiotics
Assessment / Plan
Assessment / Plan
General: Obese; No Respiratory Distress
HEENT: NormoCephalic, Anicteric, Moist mucous membranes and Atraumatic
Respiratory: Clear, Non Labored Respirations and Decreased Breath Sounds; No Wheezes, Rales, Rhonchi, Crackles or Accessory Resp Muscle Use
Cardiac: S1/S2 and Regular Rhythm; No Murmur, Rub, Gallop or Peripheral Edema
GI: Soft, Non Tender, Normal Bowel Sounds and Other (abdominal hernia)
Rectal: Deferred by Provider
Genito-urinary: Deferred by me
Musculoskeletal: No Clubbing, No Cyanosis and No Edema
Skin: Warm and Dry; No Rash
Neuro: AO x 3, No Motor Deficits, Nonfocal/grossly intact, Cranial Nerves Intact, No Sensory Deficits and DTR's Intact & Symmetrical
Psych: Calm
75-year-old with past medical history is not significant for insulin-dependent diabetes, hypertension, hyperlipidemia, CHF with preserved EF, COPD not on home O2, history of pneumonias in the past presents to the emergency department with chest pain
in the setting of 1 week of cough and some mild shortness of breath. In the emergency department he had stable vital signs and did not need oxygen however he was found to have elevated D-dimer which resulted in a CT PE study that was negative for
PE. ECG shows no ischemia and his troponin is negative. His BNP is moderately elevated. He has no signs of volume overload however his CT scan and x-ray shows right lower lobe dense consolidation consistent with pneumonia versus mass.
PLAN:
#Right lower lobe pneumonia -bronchopneumonia with possible postobstructive component, however patient currently minimally symptomatic. Has been on amoxicillin for about 1 week. Has a history of pneumonia and effusion in the same area that
eventually grew Streptococcus pneumoniae. No malignant cells.
#Hx of tobacco abuse-quit . Used to smoke 1PPD for many years
- IV ceftriaxone and azithromycin
- Sputum culture pending
- Legionella and streptococcal antigens-negative.
- blood cultures sent-remains negative
- Given degree of consolidation and lack of correlation with symptoms concerning for possible mass, pulmonary consultation. Recommended repeat CAT scan in 4 to 6 weeks and if abnormality persist then possibly plan for bronchoscopy
- Continue supportive measures with incentive spirometer and antitussives
- For baseline COPD continue Anoro Ellipta and as needed nebs
#CHF -patient with history of CHF with preserved EF.
#Primary Hypertension
- No indication for aggressive diuresis at this time, BP control
- Continue labetalol 200 mg twice daily
� Continue hydralazine 25 mg twice daily
- Continue valsartan 160 twice daily
� Daily weights. BP improving.
#Chest pain - possibly radiating pain
-MSK likely due to cough/pna. trop neg. EKG without much new changes.
-CT PE no evidence of PE.
- pain control
- cough control
- treat pna
#DM II - on tresiba 40 am with sliding scale
-Basal bolus insulin as per home regimen, lantus 30 units am and sliding scale
-A1C 8.3
#Hypothyroidism with history of complete thyroidectomy
� Continue Synthroid 175
#CVA- h/o carotid stenosis
- continue aspirin, statin plavix
DVT prophylaxis�Lovenox subcu
CODE STATUS�full code
Anticipated Discharge: > 48 hours
Subjective/Interval History
-
Date of Service: June 24, 2025
complaining of epigastric pain with radiation of substernal area
states overnight had pain and thought it was positional and improved with changing position
BP was elevated this morning
Objective Data
-
Labs:
Laboratory Results
06/24/25
06:54
WBC 7.5
Hgb 13.1
Hct 38.8 L
Plt Count 152
Sodium 138
Potassium 3.2 L
Chloride 110 H
Carbon Dioxide 24
BUN 18
Creatinine 1.1
Glucose 152 H
Calcium 8.9
Vital Signs:
Vital Signs
Temp Pulse Resp BP Pulse Ox
97.6 F 77 16 150/77 99
06/24/25 07:04 06/24/25 08:32 06/24/25 08:12 06/24/25 08:38 06/24/25 08:12
I&O
06/23/25 06/24/25 06/25/25
06:59 06:59 06:59
Intake Total 750 / 750 1740 / 1740
Output Total 1270 / 1270 3025 / 3025 300 / 300
Balance -520 / -520 -1285 / -1285 -300 / -300
Data Reviewed
-
Total Time Spent with Patient (in minutes): 55
[2025-06-24 11:36] LABS: Glucose - Point of Care 305 mg/dl (70-99)
[2025-06-24] MEDS: NOVOLOG FLEXPEN-MODERATE RESISTANCE 7 UNITS SC (11:49)
[2025-06-24 14:49] LABS: Troponin I 0.019 ng/ml
--- NOTE | 2025-06-24 14:55 | W.PN.PUL3 ---
Today's Communication / Plan
-
Antibiotics with ceftriaxone + Zithromax
Spiriva + Striverdi; resume Anoro upon discharge
Up OOB as tolerated
PT/OT
Encourage send spirometer
Repeat CT chest in 4 to 6 weeks and if right sided consolidative opacities persist then will arrange for bronchoscopy
Outpatient pulmonary follow-up with Dr. Sanchez
Assessment
-
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
iodine now on thyroid replacement therapy, history of pneumonia, occupational asbestos exposure, hypertension, DM type II, hyperlipidemia and urinary incontinence who presents with chest discomfort for 2-3 days with left arm numbness. He developed
a cough about 1 week prior to arrival, and was seen by PCP who started amoxicillin. He reports history of pneumonia in the past while living in [place] as well as here in [place]. He reports continued cough, SOB and chest discomfort despite recent
antibiotics. Cough is intermittent. Chest pain is still there but not radiating to his shoulders, arms or neck. Denies night sweats, fevers or chills. In the ER, he was afebrile, hypertensive to 189/93, saturating 98% on room air, pulse rate
68 and breathing is 16 breaths/min. Labs pertinent for normal WBC at 6.9, Hb 12.8, glucose 246, and proBNP 1910. Imaging shows concern for right lower lobe pneumonia with possible postobstructive component. He was admitted to the hospitalist
service, started on antibiotics with cultures ordered/obtained. Pulmonary service now consulted for additional management/recommendations.
Chronic conditions CLINICAL QUALITY RN: Chronic HFpEF, history of bilateral pleural effusions requiring prior right-sided thoracentesis (January 2024), history of COPD, chronic anemia, hypertension, DM type II, history of Graves' disease s/p radioactive iodine
treatment (1983) now on thyroid hormone replacement, spinal stenosis, ALICIA intolerant to CPAP, GERD, history of asbestos exposure
Impression:
#Multifocal PNA involving RLL/RML with possible post-obstructive component
#History of recent pneumonia s/p ABx with amoxicillin
#History of Streptococcus pneumoniae bacteremia (October 2023)
#Chronic HFpEF (elevated proBNP at 1910; previously 756 on 02/23/2024)
#Chronic anemia
#DM type II (uncontrolled with HbA1c: 8.3 on 06/23/2025)
#Spinal stenosis
#ALICIA intolerant to CPAP
#History of CVA (8316-9142) with residual right-sided weakness
#GERD
#History of spastic smoker
#Nonobstructive CAD
#Mild right apical paraseptal emphysema
Plan:
- CTA chest from 06/22/2025 shows consolidative opacities in the right lower lobe + right middle lobe. No obvious intra-alveolar obstruction however the right lower lobe posterior segmental bronchus appears to collapse more inferiorly - aspiration
is high on differential in addition to mucous plugging and malignancy
- Patient has had a similar consolidative opacity in December 2023, although at that time he had worse bilateral pleural effusions.
- He also had positive strep pneumonia urine antigen + strep pneumonia bacteremia from 11/16/2023, with CXR at the time showing a suspected right middle lobe pneumonia plus retrocardiac opacity, with radiologist reporting moderate left lower lobe
pneumonia
- He has never had a positive sputum Cx on file here at , nor has he undergone a bronchoscopy before
- He is now coming in with chest pain for 2-3 days, left arm numbness and a cough that started about 1 week ago. It is difficult to say if his prior pneumonia from last year has resolved as the last imaging we have was from January 2024, and at that
time he had bilateral opacities/ground glass with what appeared to be evidence of volume overload and possible bibasilar pneumonia.
- For now would continue treatment with ceftriaxone/Zithromax
- Follow-up blood cultures collected on 06/22/2025; also collect sputum culture if a decent sample can be obtained; urine antigens for Legionella + strep pneumonia both negative
- Would repeat imaging in 4 to [address] chest, and if the right lower lobe/RML abnormalities persist with concern for postobstructive atelectasis/pneumonia, then he really should have a bronchoscopy for airway survey and BAL
- Given concern for aspiration as cause of his R-sided PNA, LABOR CONCILIATOR consulted
- Continue aspiration precautions; keep HOB >30-45�
- Maintain SpO2 >90-94% with supplemental O2 as needed
- prn nebulized bronchodilators - not currently bronchospastic
- Incentive spirometer encouraged q1hr while awake
- Replete electrolytes with K>4, Mg>2
- Trend H/H and transfuse if needed to keep Hb>7g/dL; keep plt>20k, unless there is concern for bleeding then keep plt>50k
- Maintain euglycemia with goal BG >100 and <180
- DVT ppx
Pulmonary service will continue to follow along.
Data:
CTA Chest 06/22/2025:
No findings to suggest central pulmonary embolism.
Large dense consolidation with air bronchograms in the right lower lobe, somewhat rounded in appearance, increased from prior study. Smaller right middle lobe consolidation with air bronchograms.. Small right pleural effusion, decreased from prior
study. RECOMMEND SHORT-TERM FOLLOW-UP CHEST CT TO CONFIRM RESOLUTION OF RIGHT LUNG CONSOLIDATIONS, malignancy cannot be entirely excluded, particularly right lower lobe.
Total time spent today was 36 minutes for this encounter. Time includes reviewing laboratory test/imaging results, reviewing pertinent medical records, obtaining and reviewing medical history, performing an appropriate exam, ordering medications,
tests and procedures. Time also includes documentation of this encounter, coordinating patient care and communicating with other healthcare professionals. Total time does not include separately billed tests performed on this date of service.
Subjective Data
-
Date of Service:
Date of Service: June 24, 2025
Chief Complaint: Pulmonary Follow Up
Subjective:
Patient seen today at bedside (late note entry). Afebrile overnight. Still feels left-sided chest discomfort. Currently on room air saturating 99%.
Review of Systems
General: Other (Negative unless mentioned above)
Objective Data
Data Reviewed
Vital Signs / I&O / Oxygen:
Vital Signs
Temp Pulse Resp BP Pulse Ox
98.5 F 77 18 140/71 96
06/23/25 23:04 06/23/25 23:04 06/23/25 23:04 06/23/25 23:04 06/23/25 23:04
Intake and Output
06/23/25 06/24/25 06/25/25
06:59 06:59 06:59
Intake Total 750 / 750 1740 / 1740
Output Total 1270 / 1270 3025 / 3025
Balance -520 / -520 -1285 / -1285
SaO2 96
Physical Exam
General: Respiratory Distress (negative), Comfortable and Chills (negative)
HEENT: Normocephalic and Anicteric
Cardiovascular: S1-S2 and Peripheral Edema (negative)
Respiratory: Wheeze (negative), Crackles ([place] bilaterally (R >L)), Rhonchi (negative), Non-Labored Respirations and Other (Diminished breath sounds at the right base)
GI: Soft, Distended (Abdominal obesity), Non Tender and Normal Bowel Sounds
Neurology: Awake, Alert and Tremors (negative)
Skin: Warm, Dry and Cyanosis (negative)
Labs/Micro/Reports
Microbiology
06/22/25 20:49 Blood/Venous Blood Culture - Preliminary
No Growth in 24 hours- Final report to follow
06/22/25 21:15 Blood/Venous Blood Culture - Preliminary
No Growth in 24 hours- Final report to follow
06/23/25 01:50 Urine Legionella Urinary Antigen - Final
Negative for Legionella pneumophila Serogroup 1 antigen.
A negative result does not rule out the possiblity of
Legionella infection due to other serogroups or species of
Legionella. Clinical correlation is recommended.
06/23/25 01:50 Urine Streptococcus pneumoniae Antigen (M - Final
Negative for Streptococcus pneumoniae antigen.
A negative result does not exclude infection with
Streptococcus pneumoniae. Clinical correlation is
recommended.
[2025-06-24 15:03] VITALS: BP 192/97
[2025-06-24] MEDS: APRESOLINE 10 MG IV (15:52)
[2025-06-24 16:29] LABS: Glucose - Point of Care 176 mg/dl (70-99)
[2025-06-24] MEDS: LIPITOR 80 MG PO (17:16)
[2025-06-24] MEDS: COLACE 200 MG PO (17:16)
[2025-06-24] MEDS: LOVENOX 40 MG SC (17:17)
[2025-06-24 18:06] VITALS: BP 156/72
[2025-06-24] MEDS: ROCEPHIN 2000 MG IV (20:15)
[2025-06-24] MEDS: STERILE WATER FOR INJECTION 20 ML IV (20:15)
[2025-06-24] MEDS: ZITHROMAX INFUSION 250 IV (20:16)
[2025-06-24] MEDS: XALATAN OPHTHALMIC SOLUTION 1 DROP OPHTH (20:16)
[2025-06-24 21:10] LABS: Glucose - Point of Care 222 mg/dl (70-99)
[2025-06-24 21:49] LABS: Troponin I 0.015 ng/ml
[2025-06-24 23:05] VITALS: BP 138/63
[2025-06-25] MEDS: SYNTHROID 175 MCG PO (05:17)
[2025-06-25 06:00] VITALS: BMI 31.0
[2025-06-25 07:00] VITALS: BP 190/91
[2025-06-25] MEDS: SPIRIVA RESPIMAT 2.5 MCG 2 PUFF INH (08:20)
[2025-06-25] MEDS: STRIVERDI RESPIMAT 2 PUFF INH (08:21)
[2025-06-25 08:28] LABS: Glucose - Point of Care 145 mg/dl (70-99)
[2025-06-25] MEDS: NOVOLOG FLEXPEN-MODERATE RESISTANCE SC (08:47)
[2025-06-25 09:13] LABS: Hematocrit 39.2 % (39.0-52.0); Hemoglobin 13.4 g/dL (13.0-18.0); Mean Corp Hgb Conc. 34.2 g/dL (33.0-37.0); Mean Corpuscular Volume 90.5 fL (80.0-94.0); Nucleated Red Blood Cells % 0 % (-); Platelet Count 150 10^3/uL (130-400); Red Cell Dist. Width 14.9 % (11.5-14.5)
[2025-06-25] MEDS: ASPIR LOW (ENTERIC COATED) 81 MG PO (09:21)
[2025-06-25] MEDS: PROTONIX 40 MG PO (09:21)
[2025-06-25] MEDS: LANTUS 0.3 UNITS SC (09:21)
[2025-06-25] MEDS: TRANDATE 200 MG PO ×2 (09:21→21:01)
[2025-06-25] MEDS: DIOVAN 160 MG PO ×2 (09:21→21:01)
[2025-06-25] MEDS: NORVASC 10 MG PO (09:21)
[2025-06-25 09:34] LABS: Blood Urea Nitrogen 21 mg/dl (9-20); Calcium 8.8 mg/dl (8.4-10.2); Carbon Dioxide 22 mmol/L (22-30); Chloride 112 mmol/L (98-107); Estimated Creatinine Clearance 63 ml/min; Glucose 163 mg/dl (70-99); Potassium 3.6 mmol/L (3.5-5.1); Sodium 139 mmol/L (135-145); eGFR > 60.00
[2025-06-25] MEDS: NORVASC PO (09:40)
--- NOTE | 2025-06-25 11:02 | W.PN.HOSP.TC ---
Today's Communication/Plan
-
PT eval
Speech eval
Continue antibiotic
Adjust blood pressure medication
Check echocardiogram
Assessment / Plan
Assessment / Plan
General: Obese; No Respiratory Distress
HEENT: NormoCephalic, Anicteric, Moist mucous membranes and Atraumatic
Respiratory: Clear, Non Labored Respirations and Decreased Breath Sounds; No Wheezes, Rales, Rhonchi, Crackles or Accessory Resp Muscle Use
Cardiac: S1/S2 and Regular Rhythm; No Murmur, Rub, Gallop or Peripheral Edema
GI: Soft, Non Tender, Normal Bowel Sounds and Other (abdominal hernia)
Rectal: Deferred by Provider
Genito-urinary: Deferred by me
Musculoskeletal: No Clubbing, No Cyanosis and No Edema
Skin: Warm and Dry; No Rash
Neuro: AO x 3, No Motor Deficits, Nonfocal/grossly intact, Cranial Nerves Intact, No Sensory Deficits and DTR's Intact & Symmetrical
Psych: Calm
75-year-old with past medical history is not significant for insulin-dependent diabetes, hypertension, hyperlipidemia, CHF with preserved EF, COPD not on home O2, history of pneumonias in the past presents to the emergency department with chest pain
in the setting of 1 week of cough and some mild shortness of breath. In the emergency department he had stable vital signs and did not need oxygen however he was found to have elevated D-dimer which resulted in a CT PE study that was negative for
PE. ECG shows no ischemia and his troponin is negative. His BNP is moderately elevated. He has no signs of volume overload however his CT scan and x-ray shows right lower lobe dense consolidation consistent with pneumonia versus mass.
PLAN:
#Right lower lobe pneumonia -bronchopneumonia with possible postobstructive component, however patient currently minimally symptomatic. Has been on amoxicillin for about 1 week. Has a history of pneumonia and effusion in the same area that
eventually grew Streptococcus pneumoniae. No malignant cells.
#Hx of tobacco abuse-quit . Used to smoke 1PPD for many years
- IV ceftriaxone and azithromycin
- Sputum culture pending
- Legionella and streptococcal antigens-negative.
- blood cultures sent-remains negative
- Given degree of consolidation and lack of correlation with symptoms concerning for possible mass, pulmonary consultation. Recommended repeat CAT scan in 4 to 6 weeks and if abnormality persist then possibly plan for bronchoscopy
- Continue supportive measures with incentive spirometer and antitussives
- For baseline COPD continue Anoro Ellipta and as needed nebs. Speech evaluation.
#CHF -patient with history of CHF with preserved EF.
#Primary Hypertension urgency
- Continue labetalol 200 mg twice daily
- Continue valsartan 160 twice daily
� Daily weights. Increase Norvasc to 10 mg.
- With mildly elevated proBNP and history of CHF will check TTE
#Chest pain - possibly radiating pain
-MSK likely due to cough/pna. trop neg. EKG without much new changes.
-CT PE no evidence of PE.
- pain control
- cough control
- treat pna. Also check a TTE to complete workup
#DM II - on tresiba 40 am with sliding scale
-Basal bolus insulin as per home regimen, lantus 30 units am and sliding scale
-A1C 8.3
#Hypothyroidism with history of complete thyroidectomy
� Continue Synthroid 175
#CVA- h/o carotid stenosis
- continue aspirin, statin plavix
DVT prophylaxis�Lovenox subcu
CODE STATUS�full code
PT eval
Anticipated Discharge: 24 - 48 hours
Subjective/Interval History
-
Date of Service: June 25, 2025
States the frequency of cough is decreased
States he is feeling significantly better today
States he is worried about his high blood pressure
No left-sided substernal chest pain
Objective Data
-
Labs:
Laboratory Results
06/25/25
08:56
WBC 7.4
Hgb 13.4
Hct 39.2
Plt Count 150
Sodium 139
Potassium 3.6
Chloride 112 H
Carbon Dioxide 22
BUN 21 H
Creatinine 1.2
Glucose 163 H
Calcium 8.8
Vital Signs:
Vital Signs
Temp Pulse Resp BP Pulse Ox
98.7 F 74 14 190/91 96
06/25/25 07:00 06/25/25 08:25 06/25/25 08:25 06/25/25 07:00 06/25/25 08:25
I&O
06/24/25 06/25/25 06/26/25
06:59 06:59 06:59
Intake Total 1740 / 1740 800 / 800
Output Total 3025 / 3025 300 / 300
Balance -1285 / -1285 500 / 500
Data Reviewed
-
Total Time Spent with Patient (in minutes): 55
[2025-06-25 11:37] LABS: Glucose - Point of Care 254 mg/dl (70-99)
[2025-06-25] MEDS: NOVOLOG FLEXPEN-MODERATE RESISTANCE 5 UNITS SC (12:45)
--- NOTE | 2025-06-25 12:56 | PN.CDI ---
CDI
- -
CDI:
Physician Documentation Request
Admit Date: 06/22/25 22:02
Dear Doctor Gurinder,
Please review the following and provide your response in the progress notes.
Clinical Indicators:
- Patient admit for RLL pneumonia
- 06/24 40 meq PO potassium chloride given
- Labs as follows:
Laboratory Tests
06/23/25 06/24/25 06/25/25
06:31 06:54 08:56
Potassium 3.4 L 3.2 L 3.6
Please provide a diagnosis for the above lab values that were monitored and treatment rendered:
Hypokalemia
Clinically insignificant abnormal lab value
Other (please specify)
Use of terms such as suspected, likely, concern for, or probable (associated with a specific diagnosis that is being evaluated, monitored, or treated as if it exists) are acceptable and can be coded in the inpatient setting, when documented at the
time of discharge.
Thank you,
Navin Ross RN
CDI Specialist
Please use your independent medical judgment in providing your response.
--- NOTE | 2025-06-25 13:15 | PN.CDI ---
CDI
- -
CDI:
Physician Documentation Request
Admit Date: 06/22/25 22:02
Dear Doctor Gurinder,
Please review the following and provide your response in the progress notes.
Clinical Indicators:
- Patient admit for RLL pneumonia
- 06/25 PN 'Primary Hypertension urgency'
- 06/24 PN 'Primary Hypertension'
- 50mg PO hydralazine
- 10mg IV hydralazine
Selected Entries
06/22/25
13:49 06/22/25
17:58 06/22/25
20:00
Blood pressure 189/93 208/97 194/93
06/23/25
15:34 06/23/25
16:45 06/23/25
18:05
Blood pressure 200/105 186/99 182/94
06/24/25
15:03 06/25/25
07:00
Blood pressure 192/97 190/91
Please clarify the following:
_Hypertensive urgency__ was present on admission
_Hypertensive urgency__ was not present on admission
Unable to determine
Use of terms such as suspected, likely, concern for, or probable (associated with a specific diagnosis that is being evaluated, monitored, or treated as if it exists) are acceptable and can be coded in the inpatient setting, when documented at the
time of discharge.
Thank you,
Navin Ross RN
CDI Specialist
Please use your independent medical judgment in providing your response.
--- NOTE | 2025-06-25 13:22 | W.PN.PUL3 ---
Today's Communication / Plan
-
- Continue treatment for CAP with azithromycin and ceftriaxone
- Follow-up on cultures
- Outpatient follow-up with [facility] pulmonary clinic, will need 6 to 8 weeks follow-up CT chest to ensure resolution of parenchymal opacity
Assessment
-
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
iodine now on thyroid replacement therapy, history of pneumonia, occupational asbestos exposure, hypertension, DM type II, hyperlipidemia and urinary incontinence who presents with chest discomfort for 2-3 days with left arm numbness. He developed
a cough about 1 week prior to arrival, and was seen by PCP who started amoxicillin. He reports history of pneumonia in the past while living in [place] as well as here in [place]. He reports continued cough, SOB and chest discomfort despite recent
antibiotics. Cough is intermittent. Chest pain is still there but not radiating to his shoulders, arms or neck. Denies night sweats, fevers or chills. In the ER, he was afebrile, hypertensive to 189/93, saturating 98% on room air, pulse rate
68 and breathing is 16 breaths/min. Labs pertinent for normal WBC at 6.9, Hb 12.8, glucose 246, and proBNP 1910. Imaging shows concern for right lower lobe pneumonia with possible postobstructive component. He was admitted to the hospitalist
service, started on antibiotics with cultures ordered/obtained. Pulmonary service now consulted for additional management/recommendations.
Chronic conditions [employer]OMOTIONAL MODEL: Chronic HFpEF, history of bilateral pleural effusions requiring prior right-sided thoracentesis (January 2024), history of COPD, chronic anemia, hypertension, DM type II, history of Graves' disease s/p radioactive iodine
treatment (1983) now on thyroid hormone replacement, spinal stenosis, ALICIA intolerant to CPAP, GERD, history of asbestos exposure
Impression:
#Multifocal PNA involving RLL/RML with possible post-obstructive component
#History of recent pneumonia s/p ABx with amoxicillin
#H/o COPD, moderate
#History of Streptococcus pneumoniae bacteremia (October 2023)
#Chronic HFpEF (elevated proBNP at 1910; previously 756 on 02/23/2024)
#Chronic anemia
#DM type II (uncontrolled with HbA1c: 8.3 on 06/23/2025)
#Spinal stenosis
#ALICIA intolerant to CPAP
#History of CVA (0715-5628) with residual right-sided weakness
#GERD
#History of spastic smoker
#Nonobstructive CAD
#Mild right apical paraseptal emphysema
Plan:
- Continue azithromycin and ceftriaxone for treatment for CAP
- Considering extent of consolidation, will favor a 7 to 10 days of antibiotic treatment
- Follow-up on cultures, so far Legionella and pneumococcal antigen negative. Blood cultures have stayed negative. WBC count is normal, patient afebrile now, subjectively reports feeling better
- Will need a follow-up CT in 6 to 8 weeks posttreatment to ensure resolution of pulmonary opacity. If any persistent pulmonary parenchymal abnormality noted, will need bronchoscopy and possibly biopsy for tissue diagnosis.
- Patient on Anoro at baseline for COPD. Currently no wheezing on exam. Agree with continuing ipratropium as ordered. Resume Anoro at discharge
Pulmonary service will continue to follow along.
Data:
CTA Chest 06/22/2025:
No findings to suggest central pulmonary embolism.
Large dense consolidation with air bronchograms in the right lower lobe, somewhat rounded in appearance, increased from prior study. Smaller right middle lobe consolidation with air bronchograms.. Small right pleural effusion, decreased from prior
study. RECOMMEND SHORT-TERM FOLLOW-UP CHEST CT TO CONFIRM RESOLUTION OF RIGHT LUNG CONSOLIDATIONS, malignancy cannot be entirely excluded, particularly right lower lobe.
Total time spent today was 38 minutes for this encounter. Time includes reviewing laboratory test/imaging results, reviewing pertinent medical records, obtaining and reviewing medical history, performing an appropriate exam, ordering medications,
tests and procedures. Time also includes documentation of this encounter, coordinating patient care and communicating with other healthcare professionals. Total time does not include separately billed tests performed on this date of service.
Subjective Data
-
Date of Service:
Date of Service: June 25, 2025
Chief Complaint: Pulmonary Follow Up
Objective Data
Data Reviewed
Vital Signs / I&O / Oxygen:
Vital Signs
Temp Pulse Resp BP Pulse Ox
98.7 F 74 14 190/91 96
06/25/25 07:00 06/25/25 08:25 06/25/25 08:25 06/25/25 07:00 06/25/25 08:25
Intake and Output
06/24/25 06/25/25 06/26/25
06:59 06:59 06:59
Intake Total 1740 / 1740 800 / 800
Output Total 3025 / 3025 300 / 300
Balance -1285 / -1285 500 / 500
SaO2 96
Physical Exam
General: Respiratory Distress (negative), Comfortable and Chills (negative)
HEENT: Normocephalic and Anicteric
Cardiovascular: S1-S2 and Peripheral Edema (negative)
Respiratory: Wheeze (negative), Crackles ([place] bilaterally (R >L)), Rhonchi (negative), Non-Labored Respirations and Other (Diminished breath sounds at the right base)
GI: Soft, Distended (Abdominal obesity), Non Tender and Normal Bowel Sounds
Neurology: Awake, Alert and Tremors (negative)
Skin: Warm, Dry and Cyanosis (negative)
Labs/Micro/Reports
Lab Data
06/25/25 08:56
06/25/25 08:56
Microbiology
06/22/25 20:49 Blood/Venous Blood Culture - Preliminary
No Growth in 48 hours- Final report to follow
06/22/25 21:15 Blood/Venous Blood Culture - Preliminary
No Growth in 48 hours- Final report to follow
06/23/25 01:50 Urine Legionella Urinary Antigen - Final
Negative for Legionella pneumophila Serogroup 1 antigen.
A negative result does not rule out the possiblity of
Legionella infection due to other serogroups or species of
Legionella. Clinical correlation is recommended.
06/23/25 01:50 Urine Streptococcus pneumoniae Antigen (M - Final
Negative for Streptococcus pneumoniae antigen.
A negative result does not exclude infection with
Streptococcus pneumoniae. Clinical correlation is
recommended.
[2025-06-25 15:18] VITALS: BP 164/75
[2025-06-25 16:01] VITALS: BP 164/75; PULSE 79; O2SAT 94
--- NOTE | 2025-06-25 16:01 | CM ---
manager of information reviewed patient's chart and met with patient and patient lives in a one story home, with 2 steps to enter, patient is independent with adl's and uses a cane or walker with ambulation.
PCP: Neville Wise
Pharmacy: [facility] in [place]
--- NOTE | 2025-06-25 16:16 | PTOTSP ---
Dysphagia Evaluation:
Pt presents w/ chronic risk factors for aspiration/ dysphagia (CVA, recurrent PNAs 1-2 times a year, COPD, GERD). Given current PNA and failing 3 oz swallow during bedside swallow evaluation, instrumental swallow study recommended to objectively
determine aspiration occurrence. Pt declined further instrumental swallow study at this time. Recommending Regulars, (single sips) Thins from prior VSE completed 01/18/24.
Recommendations:
1. Regulars, Single-sip Thins
2. Medications as best tolerated
3. Strategies: Single sips/small bites, slow rate, alternating liquid washes, reflux precautions
4. Oral care completed 3-4x a day
5. Instrumental swallow study recommended to rule out aspiration given recurrent PNAs and additional PMH (CVA, GERD, COPD). Pt declined instrumental swallow study at this time. ST to sign off. Reconsult if change in pt presentation or diet level
tolerance.
[2025-06-25 17:31] LABS: Glucose - Point of Care 173 mg/dl (70-99)
[2025-06-25] MEDS: COLACE 200 MG PO (18:24)
[2025-06-25] MEDS: LIPITOR 80 MG PO (18:24)
[2025-06-25] MEDS: LOVENOX 40 MG SC (18:25)
[2025-06-25] MEDS: NOVOLOG FLEXPEN-MODERATE RESISTANCE 1 UNITS SC (18:28)
[2025-06-25] MEDS: ZITHROMAX INFUSION 250 IV (19:44)
[2025-06-25] MEDS: ROCEPHIN 2000 MG IV (20:57)
[2025-06-25] MEDS: STERILE WATER FOR INJECTION 20 ML IV (20:57)
[2025-06-25] MEDS: XALATAN OPHTHALMIC SOLUTION 1 DROP OPHTH (21:00)
[2025-06-25 21:27] LABS: Glucose - Point of Care 273 mg/dl (70-99)
[2025-06-25 23:17] VITALS: BP 179/85
[2025-06-25] MEDS: TYLENOL 1000 MG PO (23:31)
[2025-06-25] MEDS: LIORESAL 10 MG PO (23:32)
[2025-06-26] MEDS: APRESOLINE 10 MG IV (03:01)
[2025-06-26 06:00] VITALS: BMI 30.9
[2025-06-26] MEDS: SYNTHROID 175 MCG PO (06:03)
[2025-06-26 06:08] VITALS: BP 193/90
[2025-06-26] MEDS: TRANDATE 200 MG PO (06:18)
--- NOTE | 2025-06-26 06:30 | PTCARENOTE ---
PRN Hydralazine given at 3am for BP of 190/92 HR 76. BP recheck at 6am was 193/90 HR 83. [employer]ADESHOW [employer]ER notified. 8am Labetalol given early at 6:18.
[2025-06-26 07:03] VITALS: BP 147/74
[2025-06-26 07:33] LABS: Glucose - Point of Care 167 mg/dl (70-99)
[2025-06-26 08:01] LABS: Hematocrit 37.1 % (39.0-52.0); Hemoglobin 12.4 g/dL (13.0-18.0); Mean Corp Hgb Conc. 33.4 g/dL (33.0-37.0); Mean Corpuscular Volume 89.2 fL (80.0-94.0); Nucleated Red Blood Cells % 0 % (-); Platelet Count 141 10^3/uL (130-400); Red Cell Dist. Width 14.8 % (11.5-14.5)
[2025-06-26] MEDS: SPIRIVA RESPIMAT 2.5 MCG 2 PUFF INH (08:28)
[2025-06-26] MEDS: STRIVERDI RESPIMAT 2 PUFF INH (08:28)
[2025-06-26 08:35] LABS: Blood Urea Nitrogen 28 mg/dl (9-20); Calcium 8.9 mg/dl (8.4-10.2); Carbon Dioxide 21 mmol/L (22-30); Chloride 110 mmol/L (98-107); Estimated Creatinine Clearance 69 ml/min; Glucose 186 mg/dl (70-99); Potassium 3.8 mmol/L (3.5-5.1); Sodium 140 mmol/L (135-145); eGFR > 60.00
[2025-06-26] MEDS: PROTONIX 40 MG PO (08:58)
[2025-06-26] MEDS: ASPIR LOW (ENTERIC COATED) 81 MG PO (08:58)
[2025-06-26] MEDS: NORVASC 10 MG PO (08:58)
[2025-06-26] MEDS: ULTRAM 50 MG PO (08:58)
[2025-06-26] MEDS: LANTUS 0.3 UNITS SC (08:58)
[2025-06-26] MEDS: DIOVAN 160 MG PO (08:58)
[2025-06-26] MEDS: NOVOLOG FLEXPEN-MODERATE RESISTANCE 1 UNITS SC (08:59)
[2025-06-26 09:10] VITALS: BP 135/80
--- NOTE | 2025-06-26 09:54 | W.PN.HOSP.TC ---
Addendum entered and electronically signed by Celso Fairchild MD 06/26/25 13:14:
Hypertensive urgency poa
hypokalemia
Original Note:
Today's Communication/Plan
-
po abx on dc
pcp f/u for bp management
Op pulm f/u
Assessment / Plan
Assessment / Plan
General: Obese; No Respiratory Distress
HEENT: NormoCephalic, Anicteric, Moist mucous membranes and Atraumatic
Respiratory: Clear, Non Labored Respirations and Decreased Breath Sounds; No Wheezes, Rales, Rhonchi, Crackles or Accessory Resp Muscle Use
Cardiac: S1/S2 and Regular Rhythm; No Murmur, Rub, Gallop or Peripheral Edema
GI: Soft, Non Tender, Normal Bowel Sounds and Other (abdominal hernia)
Rectal: Deferred by Provider
Genito-urinary: Deferred by me
Musculoskeletal: No Clubbing, No Cyanosis and No Edema
Skin: Warm and Dry; No Rash
Neuro: AO x 3, No Motor Deficits, Nonfocal/grossly intact,
Psych: Calm
75-year-old with past medical history is not significant for insulin-dependent diabetes, hypertension, hyperlipidemia, CHF with preserved EF, COPD not on home O2, history of pneumonias in the past presents to the emergency department with chest pain
in the setting of 1 week of cough and some mild shortness of breath. In the emergency department he had stable vital signs and did not need oxygen however he was found to have elevated D-dimer which resulted in a CT PE study that was negative for
PE. ECG shows no ischemia and his troponin is negative. His BNP is moderately elevated. He has no signs of volume overload however his CT scan and x-ray shows right lower lobe dense consolidation consistent with pneumonia versus mass.
PLAN:
#Right lower lobe pneumonia -bronchopneumonia with possible postobstructive component, however patient currently minimally symptomatic. Has been on amoxicillin for about 1 week. Has a history of pneumonia and effusion in the same area that
eventually grew Streptococcus pneumoniae. No malignant cells.
#Hx of tobacco abuse-quit . Used to smoke 1PPD for many years
- IV ceftriaxone and azithromycin-switch to po abx on dc. Per pulm, plan for extended course of abx due to extend of consolidation. Plan for total of 10 days.
- Sputum culture pending-unable to provide sample
- Legionella and streptococcal antigens-negative.
- blood cultures sent-remains negative
- Given degree of consolidation and lack of correlation with symptoms concerning for possible mass, pulmonary consultation. Recommended repeat CAT scan in 4 to 6 weeks and if abnormality persist then possibly plan for bronchoscopy
- Continue supportive measures with incentive spirometer and antitussives
- For baseline COPD continue Anoro Ellipta and as needed nebs. Speech evaluation.
#CHF -patient with history of CHF with preserved EF.
#Primary Hypertension urgency
- Continue labetalol 200 mg twice daily
- Continue valsartan 160 twice daily
� Daily weights. Increase Norvasc to 10 mg.
- With mildly elevated proBNP and history of CHF will check TTE. TTE noted.
#Chest pain - possibly radiating pain
-MSK likely due to cough/pna. trop neg. EKG without much new changes.
-CT PE no evidence of PE.
- pain control
- cough control
- treat pna. TTE noted.
#DM II - on tresiba 40 am with sliding scale
-Basal bolus insulin as per home regimen, lantus 30 units am and sliding scale
-A1C 8.3
#Hypothyroidism with history of complete thyroidectomy
� Continue Synthroid 175
#CVA- h/o carotid stenosis
- continue aspirin, statin plavix
DVT prophylaxis�Lovenox subcu
CODE STATUS�full code
PT eval-home
More than 30 minutes spent in discharge including
Final examination of the patient
Summarizing hospital stay
Instructions for continuing care to all relevant caregivers
Preparation of discharge records, prescriptions, and referral forms
Total time spent (in minutes): 53
Anticipated Discharge: Today
Subjective/Interval History
-
Date of Service: June 26, 2025
feeling better compared to admission
didnt sleep much due to mattress
denies shortness of breath
on room air
Objective Data
-
Labs:
Laboratory Results
06/26/25
06:53
WBC 6.3
Hgb 12.4 L
Hct 37.1 L
Plt Count 141
Sodium 140
Potassium 3.8
Chloride 110 H
Carbon Dioxide 21 L
BUN 28 H
Creatinine 1.1
Glucose 186 H
Calcium 8.9
Vital Signs:
Vital Signs
Temp Pulse Resp BP Pulse Ox
98.3 F 72 16 135/80 97
06/26/25 07:03 06/26/25 08:31 06/26/25 08:31 06/26/25 09:10 06/26/25 08:31
I&O
06/25/25 06/26/25 06/27/25
06:59 06:59 06:59
Intake Total 800 / 800 1440 / 1440
Output Total 300 / 300 1080 / 1080
Balance 500 / 500 360 / 360
--- NOTE | 2025-06-26 10:03 | W.DCSUMMARY ---
Discharge Summary
Discharge Data
Date of Admission: 06/22/25
Date of Discharge: 06/26/25
-
Pending Results: No
Hospital Course
75-year-old with past medical history is significant for insulin-dependent diabetes, hypertension, hyperlipidemia, CHF with preserved EF, COPD not on home O2, history of pneumonias in the past presents to the emergency department with chest pain
in the setting of 1 week of cough and some mild shortness of breath. In the emergency department he had stable vital signs and did not need oxygen however he was found to have elevated D-dimer which resulted in a CT PE study that was negative for
PE. ECG shows no ischemia and his troponin is negative. His BNP is moderately elevated. He has no signs of volume overload however his CT scan and x-ray shows right lower lobe dense consolidation consistent with pneumonia versus mass. Patient
was started on IV azithromycin and ceftriaxone. Legionella and streptococcal pneumonia antigen was checked and found to be negative. Patient remained afebrile. Did not require oxygenation. Blood cultures were checked and found to be negative.
Pulmonary was consulted. Patient was kept on inhalers. Speech evaluated patient and recommended continue with current diet. Patient refused video swallow evaluation. Patient was worked by physical and Occupational Therapy. Patient with
intermittent chest pain which was deemed secondary to pneumonia. Patient underwent echocardiogram Normal left ventricular size and systolic function with an estimated ejection fraction of 60% by visual estimation. There is mild concentric left
ventricular hypertrophy. No regional wall motion abnormalities. Indeterminate diastolic function. Thickened, sclerotic aortic valve with normal leaflet excursion. No mitral regurgitation, mild mitral annular calcification. Trace tricuspid
regurgitation. When compared to the most recent echocardiogram from 02/18/2024, there has been no significant change. Patient troponin were checked and was found to be negative. Patient was stable on room air. Patient did not qualify for home
oxygenation. Pulmonary recommended extended prolonged antibiotic course and IV ceftriaxone and transition to p.o. cefdinir. Patient will need to follow-up outpatient with pulmonary. Repeat CAT scan in 6 to 8 weeks was recommended as outpatient to
ensure resolution of infiltrates if not may require bronchoscopy.
Discharge Plan
-
Patient Disposition: Home with Home Care
Discharge Diagnosis/Procedures: Multifocal PNA with possible post-obstructive component
Condition: Fair
Diet: Diabetic, Carb Controlled
Activity: As tolerated
Driving Restrictions: As prior to admission
Referrals:
Neville Wise MD [Family Provider, [facility]] - in less than 1 week
Jorge Sanchez MD [Active, Pulmonary Medicine] - in two to three weeks
Referral Note: Will need a follow-up CT chest in 6 to 8 weeks posttreatment to ensure resolution of pulmonary opacity. discuss with pulmonary. call to make apppointment.
Additional Discharge Medication Instructions: Amlodipine dose was increased to 10mg daily.
Prescriptions:
New
amlodipine 10 mg Tablet
10 mg PO DAILY Qty: 30 0RF
cefdinir 300 mg capsule
300 mg PO Q12H Qty: 12 0RF
Continued
aspirin 81 mg Tablet,Delayed Release (Dr/Ec)
81 mg PO DAILY Qty: 0
pantoprazole 40 mg Tablet,Delayed Release (Dr/Ec)
40 mg PO DAILY Qty: 0
levothyroxine [Synthroid] 175 mcg Tablet
175 mcg PO DAILY
valsartan 160 mg Tablet
160 mg PO BID
umeclidinium-vilanterol [Anoro Ellipta] 62.5-25 mcg/actuation Blister With Device
1 inh INHALATION R DAILY
labetalol 200 mg tablet
200 mg PO BID 30 Days Qty: 60 2RF
atorvastatin 80 mg Tablet
80 mg PO QPM Qty: 0 0RF
latanoprost 0.005 % Drops
1 drp OPHTHALMIC (EYE) HS
tramadol 50 mg Tablet
50 mg PO Q6HPRN PRN (Reason: moderate pains)
solifenacin [Vesicare] 5 mg Tablet
5 mg PO DAILY
insulin degludec [Tresiba FlexTouch U-100] 100 unit/mL (3 mL) Insulin Pen
40 unit SC DAILY
dapagliflozin propanediol [Farxiga] 10 mg Tablet
10 mg PO DAILY
Discontinued
amlodipine [Norvasc] 5 mg Tablet
5 mg PO DAILY
Discharge Orders:
Discharge Patient (As Directed); Ordered 06/26/25
Ordered By: Celso Fairchild
Discharge Date and Time
Print Language: NICARAGUAN
--- NOTE | 2025-06-26 10:18 | W.PN.PUL3 ---
Today's Communication / Plan
-
- Completing day 5 of Azithromycin today, cam d/c after today's dose
- Continue Rocephin, can changed to PO Omnicef
- Recommend total 10 days of Antibiotic therapy considering extent of pneumonia
- Assess for Home O2 need prior to discharge
- Out patient follow up with [facility] Pulmonary clinic.
Assessment
-
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
iodine now on thyroid replacement therapy, history of pneumonia, occupational asbestos exposure, hypertension, DM type II, hyperlipidemia and urinary incontinence who presents with chest discomfort for 2-3 days with left arm numbness. He developed
a cough about 1 week prior to arrival, and was seen by PCP who started amoxicillin. He reports history of pneumonia in the past while living in [place] as well as here in [place]. He reports continued cough, SOB and chest discomfort despite recent
antibiotics. Cough is intermittent. Chest pain is still there but not radiating to his shoulders, arms or neck. Denies night sweats, fevers or chills. In the ER, he was afebrile, hypertensive to 189/93, saturating 98% on room air, pulse rate
68 and breathing is 16 breaths/min. Labs pertinent for normal WBC at 6.9, Hb 12.8, glucose 246, and proBNP 1910. Imaging shows concern for right lower lobe pneumonia with possible postobstructive component. He was admitted to the hospitalist
service, started on antibiotics with cultures ordered/obtained. Pulmonary service now consulted for additional management/recommendations.
Chronic conditions BUSINESS INTELLIGENCE MANAGER: Chronic HFpEF, history of bilateral pleural effusions requiring prior right-sided thoracentesis (January 2024), history of COPD, chronic anemia, hypertension, DM type II, history of Graves' disease s/p radioactive iodine
treatment (1983) now on thyroid hormone replacement, spinal stenosis, ALICIA intolerant to CPAP, GERD, history of asbestos exposure
Impression:
#Multifocal PNA involving RLL/RML with possible post-obstructive component
#History of recent pneumonia s/p ABx with amoxicillin
#H/o COPD, moderate
#History of Streptococcus pneumoniae bacteremia (October 2023)
#Chronic HFpEF (elevated proBNP at 1910; previously 756 on 02/23/2024)
#Chronic anemia
#DM type II (uncontrolled with HbA1c: 8.3 on 06/23/2025)
#Spinal stenosis
#ALICIA intolerant to CPAP
#History of CVA (5078-9919) with residual right-sided weakness
#GERD
#History of spastic smoker
#Nonobstructive CAD
#Mild right apical paraseptal emphysema
Plan:
- Last dose of azithromycin, day 5 today. Switch to Omnicef, continue a total of 10 days of antibiotic.
- Patient saturating well on room air, reports feeling significantly improved. Stable for discharge from pulmonary standpoint.
- Will need a follow-up CT in 6 to 8 weeks posttreatment to ensure resolution of pulmonary opacity. If any persistent pulmonary parenchymal abnormality noted, will need bronchoscopy and possibly biopsy for tissue diagnosis.
- Patient on Anoro at baseline for COPD. Currently no wheezing on exam. Agree with continuing ipratropium as ordered. Resume Anoro at discharge
Outpatient follow-up with PCM in pulmonary clinic.
Data:
CTA Chest 06/22/2025:
No findings to suggest central pulmonary embolism.
Large dense consolidation with air bronchograms in the right lower lobe, somewhat rounded in appearance, increased from prior study. Smaller right middle lobe consolidation with air bronchograms.. Small right pleural effusion, decreased from prior
study. RECOMMEND SHORT-TERM FOLLOW-UP CHEST CT TO CONFIRM RESOLUTION OF RIGHT LUNG CONSOLIDATIONS, malignancy cannot be entirely excluded, particularly right lower lobe.
Total time spent today was 38 minutes for this encounter. Time includes reviewing laboratory test/imaging results, reviewing pertinent medical records, obtaining and reviewing medical history, performing an appropriate exam, ordering medications,
tests and procedures. Time also includes documentation of this encounter, coordinating patient care and communicating with other healthcare professionals. Total time does not include separately billed tests performed on this date of service.
Subjective Data
-
Date of Service:
Date of Service: June 26, 2025
Chief Complaint: Pulmonary Follow Up
Subjective:
Patient comfortably sitting in bed, on room air.
Review of Systems
Genitourinary: Other (All 14 systems reviewed and negative except as stated above in the history of present illness.)
Objective Data
Data Reviewed
Vital Signs / I&O / Oxygen:
Vital Signs
Temp Pulse Resp BP Pulse Ox
98.3 F 72 16 135/80 97
06/26/25 07:03 06/26/25 08:31 06/26/25 08:31 06/26/25 09:10 06/26/25 08:31
Intake and Output
06/25/25 06/26/25 06/27/25
06:59 06:59 06:59
Intake Total 800 / 800 1440 / 1440
Output Total 300 / 300 1080 / 1080
Balance 500 / 500 360 / 360
SaO2 97
Physical Exam
General: Respiratory Distress (negative), Comfortable and Chills (negative)
HEENT: Normocephalic and Anicteric
Cardiovascular: S1-S2 and Peripheral Edema (negative)
Respiratory: Wheeze (negative), Crackles (Resolved), Rhonchi (negative), Non-Labored Respirations and Other (Diminished breath sounds at the right base)
GI: Soft, Distended (Abdominal obesity), Non Tender and Normal Bowel Sounds
Neurology: Awake, Alert and Tremors (negative)
Skin: Warm, Dry and Cyanosis (negative)
Labs/Micro/Reports
Lab Data
06/26/25 06:53
06/26/25 06:53
Microbiology
06/22/25 20:49 Blood/Venous Blood Culture - Preliminary
No Growth in 72 hours- Final report to follow
06/22/25 21:15 Blood/Venous Blood Culture - Preliminary
No Growth in 72 hours- Final report to follow
06/23/25 01:50 Urine Legionella Urinary Antigen - Final
Negative for Legionella pneumophila Serogroup 1 antigen.
A negative result does not rule out the possiblity of
Legionella infection due to other serogroups or species of
Legionella. Clinical correlation is recommended.
06/23/25 01:50 Urine Streptococcus pneumoniae Antigen (M - Final
Negative for Streptococcus pneumoniae antigen.
A negative result does not exclude infection with
Streptococcus pneumoniae. Clinical correlation is
recommended.
[2025-06-26 11:22] LABS: Glucose - Point of Care 261 mg/dl (70-99)
--- NOTE | 2025-06-26 11:38 | CM ---
real estate development manager reviewed patient's chart and patient is for discharge today, patient does not require home oxygen, patient has been set up with [facility].
Plan; Home with [facility] today, patient will go by [facility], patient has margot on phone.
[2025-06-26] MEDS: ZITHROMAX 500 MG PO (11:43)
[2025-06-26] MEDS: NOVOLOG FLEXPEN-MODERATE RESISTANCE 5 UNITS SC (11:44)
--- NOTE | 2025-06-26 11:59 | VNURNOTE ---
Home Health Liaison met with patient at bedside to discuss [facility] nurse/therapy, visits, schedule and homebound status. Patient is agreeable and understands that visits at home will be 2-3 x per week to assess and teach medical management.
Patient is aware that [facility] will contact them for start of care within a few days after discharge from . Provided contact number for [facility].
[facility] referral completed in [facility].
[2025-06-26 13:18] VITALS: BP 163/87
== END 2025-06-26 13:25 | disposition home health service (06) | DRG 194 ==
LOC: 4 WEST ACU 22:02
PROVIDERS: Emergency Medicine; Physician Assistant; ADMITTING PHYSICIAN Internal Medicine; ATTENDING PHYSICIAN Hospitalist; CONSULT PHYSICIAN Internal Medicine Critical Care Medicine; EMERGENCY PHYSICIAN Emergency Medicine; FAMILY PHYSICIAN Family Medicine
DX: J18.8 Other pneumonia, unspecified organism (principal); I50.32 Chronic diastolic (congestive) heart failure; J69.0 Pneumonitis due to inhalation of food and vomit; E87.6 Hypokalemia; I11.0 Hypertensive heart disease with heart failure; D64.9 Anemia, unspecified; I25.10 Atherosclerotic heart disease of native coronary artery without angina pectoris; I16.0 Hypertensive urgency; E78.5 Hyperlipidemia, unspecified; E11.9 Type 2 diabetes mellitus without complications; E03.9 Hypothyroidism, unspecified; Z79.899 Other long term (current) drug therapy; Z86.73 Personal history of transient ischemic attack (TIA), and cerebral infarction without residual deficits; Z87.891 Personal history of nicotine dependence
CPT/HCPCS: 71046; 71275; 80048; 80053; 82962; 83036; 83880; 84484; 85025; 85027; 85379; 87040; 87449; 87899; 92610; 93005; 93306; 94640; 96365; 96375; 97162; 99285; Q9967

== ENCOUNTER 2025-07-05 17:04 | Emergency (ER) | payer MEDICARE, BC, SELFPAY ==
[2025-07-05 17:14] VITALS: BP 169/80
[2025-07-05 17:24] LABS: Hematocrit 37.9 % (39.0-52.0); Hemoglobin 12.6 g/dL (13.0-18.0); Mean Corp Hgb Conc. 33.2 g/dL (33.0-37.0); Mean Corpuscular Volume 91.3 fL (80.0-94.0); Nucleated Red Blood Cells % 0 % (-); Platelet Count 176 10^3/uL (130-400); Red Cell Dist. Width 14.6 % (11.5-14.5)
[2025-07-05 17:36] VITALS: BP 180/86
[2025-07-05 17:49] LABS: ALT (SGPT) 28 U/L (0-50); AST (SGOT) 24 U/L (17-59); Albumin 3.9 g/dl (3.5-5.0); Alkaline Phosphatase 95 U/L (38-126); Blood Urea Nitrogen 25 mg/dl (9-20); Calcium 8.9 mg/dl (8.4-10.2); Carbon Dioxide 26 mmol/L (22-30); Chloride 104 mmol/L (98-107); Glucose 216 mg/dl (70-99); Potassium 4.1 mmol/L (3.5-5.1); Sodium 134 mmol/L (135-145); Total Protein 6.4 g/dl (6.3-8.2); eGFR 57.65
[2025-07-05 17:58] VITALS: BMI 33.9
[2025-07-05 18:00] VITALS: BP 151/56
[2025-07-05 18:01] LABS: Troponin I 0.012 ng/ml
--- NOTE | 2025-07-05 18:10 | ED.GENMED ---
History of Present Illness
General
Chief Complaint: Breathing Problem
Source: patient and records
Exam Limitations: none
Time Seen by Provider: 07/05/25 17:55
History of Present Illness
History of Present Illness:
75yoM with a history of COPD, CHF, hypertension, hyperlipidemia, and insulin-dependent diabetes presenting for evaluation of chest pain. Patient was hospitalized from 06/22-06/26/2025. He presented for shortness of breath and CTA chest showed
large dense consolidation in the right lower lobe representing possible pneumonia versus underlying malignancy. He was treated for pneumonia and finished a course of azithromycin and cefdinir. He was evaluated by pulmonology during his hospital
stay and is scheduled to have a repeat CT scan in 6 to 8 weeks. He was scheduled to have a PCP appointment today for follow-up. He spoke with his PCP on the phone and was reporting pleuritic left-sided pain. The appointment was canceled and he
was told to come to the ED for evaluation. He describes a superficial 'skin pain' in his left upper abdomen. He also reports feeling more short of breath since his last hospitalization.
Past History
Past History
ED Past Medical History: CVA, GERD, HTN, Hypercholesterolemia, IDDM and Hypothyroidism
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
Phy Exam
General Physical Exam
General Presentation: well appearing and no apparent distress
General Skin: warm and dry
General Habitus: normal
General Mental: alert
ENT Exam
ENT Exam: normocephalic
Cardiovascular Exam
Cardiovascular Exam: regular rate/rhythm and no edema
Pulmonary Exam
Pulmonary Exam: lungs clear, no respiratory distress, no rales, no crackles, no rhonchi and no wheezing
Gastrointestinal Exam
Gastrointestinal Exam: soft and non distended
Neurological Exam
Neurological Exam: alert
[place] Coma Scale
Eye Opening: Spontaneous
Verbal Response: Oriented
Motor Response: Obeys Commands
GCS Total Score: 15
Skin Exam
Skin Exam: warm/dry and other (Scattered grouped vesicles on erythematous base along L upper abdomen following with a dermatomal pattern. Skin is hypersensitive to touch. )
Psychiatric Exam
Psychiatric Exam: normal mood/affect
Scores
Heart Failure Risk
Heart Failure Risk Score: Not Applicable
Course
Orders/Labs/Results
Orders:
Orders
07/05/25 17:06
Electrocardiogram (*1) Urgent
Reason for Study: Other
Other Reason for Exam: Respiratory Distress
Cardiac Monitoring- Treatment ONCE
EKG- Treatment ONCE
IV Insert/Care/Rem.- Treatment PRN
CR Chest - 2 Views Urgent
Comment:
Reason For Exam: respiratory distress
O2 Therapy [RESP] Urgent
Titrate/Wean O2 to maintain O2 sat greater than (%): 93
Special Instructions: TO MAINTAIN CONTINUOUS O2 SATS >/= 93%
Pulse Ox/cont/shift [RESP] Urgent
Quantity: 1
Special Instructions: continuous pulse ox
07/05/25 17:18
Complete Blood Count/With Diff Urgent
Comprehensive Metabolic Panel Urgent
NT-proBNP Urgent
Troponin I Urgent
07/05/25 19:22
Oxycodone/Acetaminophen [Percocet 5/325] 1 tablet PO NOW STA
07/05/25 19:24
Valacyclovir HCl [Valtrex] 1,000 mg PO ONCE ONE
Abnormal Lab Results
07/05/25
17:18
RBC 4.15 L 10^6/uL
(4.70-6.10)
Hgb 12.6 L g/dL
(13.0-18.0)
Hct 37.9 L %
(39.0-52.0)
RDW 14.6 H %
(11.5-14.5)
Absolute Lymphs (auto) 0.6 L 10^3/uL
(1.2-3.4)
Neutrophils % 78.5 H %
(42.2-75.2)
Lymphocytes % 10.0 L %
(20.5-51.1)
Sodium 134 L mmol/L
(135-145)
BUN 25 H mg/dl
(9-20)
Glucose 216 H mg/dl
(70-99)
07/05/25 17:18
07/05/25 17:18
Vital Signs
Initial and Last Documented VS:
Initial Vital Signs
Temp Pulse Resp BP Pulse Ox
97.9 F 70 20 169/80 98
07/05/25 17:14 07/05/25 17:14 07/05/25 17:14 07/05/25 17:14 07/05/25 17:14
Last Documented Vital Signs
Temp Pulse Resp BP Pulse Ox
97.9 F 75 18 147/85 96
07/05/25 17:14 07/05/25 21:00 07/05/25 21:00 07/05/25 21:00 07/05/25 21:00
MDM/Problems Addressed
Differential Diagnosis Includes:
75yoM here with L chest/abd pain. Recently hospitalized last week and treated for pneumonia. Was scheduled to have a PCP appt today but was told to go to the ED for his chest pain. He is hypertensive with otherwise stable vital signs. Oxygen
saturation 98 to 100% during initial exam. There is a vesicular rash noted to the left upper abdomen along a dermatomal pattern consistent with herpes zoster. This is in the location of his pain. Differential diagnosis includes but is not limited
to: Neuropathic pain related to zoster, doubt ACS, doubt PE given negative PE study <2 weeks ago with normal vitals
Workup initiated in triage. No ischemic changes on EKG and troponin normal. BNP 530 which is decreased from prior labs. White count normal and chest x-ray appears stable. No indication for hospitalization. He was started on a course of Valtrex
and prescription for oxycodone given for pain. He was advised to follow-up with PCP and ED return precautions reviewed. Patient in agreement with plan and was discharged in stable condition.
*Pulse Oximetry
SaO2: 83
Oxygen Mode of Delivery: Room air
Patient hypoxic: no
*EKG
Interpreted by ED Provider?: Yes
EKG Intrepretation Date: 07/05/25
Heart Rate: 72
Rate: normal
Rhythm: sinus
[place]: normal axis
Interval: normal interval
QRS Pattern: normal QRS
Ischemia: no ischemia
*Critical Care Note
Total Time (30-74mins, 75-104mins- exclusive of procedures): Not Applicable
ED Attending Note
-
Portions of this chart may have been created with voice recognition software.� Occasional wrong word or��sound alike� substitutions may have occurred due to the inherent limitations of voice recognition software.
Discharge Plan
Departure
Patient Disposition: Home (Routine Discharge)
Date of Disposition: 07/05/25
Time of Disposition: 19:38
Patient with high blood pressure during this ER visit?: Yes
Discharge Problem:
Herpes zoster
Instructions: Shingles
Prescriptions:
New
valacyclovir [Valtrex] 1 gram tablet
1,000 mg PO Q8H 10 Days Qty: 29 0RF
oxycodone 5 mg tablet
5 mg PO Q8H PRN (Reason: Pain) Qty: 9 0RF
No Action
aspirin 81 mg Tablet,Delayed Release (Dr/Ec)
81 mg PO DAILY Qty: 0
pantoprazole 40 mg Tablet,Delayed Release (Dr/Ec)
40 mg PO DAILY Qty: 0
levothyroxine [Synthroid] 175 mcg Tablet
175 mcg PO DAILY
valsartan 160 mg Tablet
160 mg PO BID
umeclidinium-vilanterol [Anoro Ellipta] 62.5-25 mcg/actuation Blister With Device
1 inh INHALATION R DAILY
labetalol 200 mg tablet
200 mg PO BID 30 Days Qty: 60 2RF
atorvastatin 80 mg Tablet
80 mg PO QPM Qty: 0 0RF
latanoprost 0.005 % Drops
1 drp OPHTHALMIC (EYE) HS
tramadol 50 mg Tablet
50 mg PO Q6HPRN PRN (Reason: moderate pains)
solifenacin [Vesicare] 5 mg Tablet
5 mg PO DAILY
insulin degludec [Tresiba FlexTouch U-100] 100 unit/mL (3 mL) Insulin Pen
40 unit SC DAILY
dapagliflozin propanediol [Farxiga] 10 mg Tablet
10 mg PO DAILY
amlodipine 10 mg Tablet
10 mg PO DAILY Qty: 30 0RF
cefdinir 300 mg capsule
300 mg PO Q12H Qty: 12 0RF
Referrals:
Neville Wise MD [Family Provider, Family Practice]
Activity Restrictions/Additional Instructions:
Take Valtrex (antiviral medication) as prescribed. You may take Tylenol as needed for pain. Take oxycodone only as needed for severe breakthrough pain.
Please call your family doctor tomorrow to schedule a follow-up appointment. Return to the ER with any new or worsening symptoms.
Interventions
Interventions:
*Risk Screen - Suicide Last Done: 07/05/25 17:05
*General Assessment Last Done: 07/05/25 17:05
*Neglect/Abuse Screening Last Done: 07/05/25 17:05
*ED- Fall Risk Assessment Last Done: 07/05/25 21:15
*ED COVID-19 Vaccine History Last Done: 07/05/25 17:59
*ED Influenza Vaccine History Last Done: 07/05/25 17:59
*Nursing Disposition Last Done: 07/05/25 21:36
ED- Cardiac Assessment Last Done: 07/05/25 17:55
ED- Pulmonary Assessment Last Done: 07/05/25 17:55
Discharge Date and Time
Discharge Date/Time: 07/05/25 21:15
Print Language: CZECH
[2025-07-05] MEDS: VALTREX 1000 MG PO (19:47)
[2025-07-05] MEDS: PERCOCET 5/325 1 TABLET PO (19:47)
[2025-07-05 21:00] VITALS: BP 147/85
== END 2025-07-05 21:15 | disposition home or self-care (01) ==
LOC: EMR 17:04
PROVIDERS: Emergency Medicine; EMERGENCY PHYSICIAN Emergency Medicine; FAMILY PHYSICIAN Family Medicine
DX: B02.9 Zoster without complications (principal); E10.9 Type 1 diabetes mellitus without complications; I11.0 Hypertensive heart disease with heart failure; I50.9 Heart failure, unspecified; E78.00 Pure hypercholesterolemia, unspecified; J44.9 Chronic obstructive pulmonary disease, unspecified; E03.9 Hypothyroidism, unspecified; K21.9 Gastro-esophageal reflux disease without esophagitis; Z79.4 Long term (current) use of insulin; Z79.82 Long term (current) use of aspirin; Z86.73 Personal history of transient ischemic attack (TIA), and cerebral infarction without residual deficits; Z89.421 Acquired absence of other right toe(s)
CPT/HCPCS: 99284; 71046; 80053; 83880; 84484; 85025; 93005